=== PATIENT | male | born 1955 | race Hispanic/Latino ===

== ENCOUNTER 2016-07-16 10:11 | Emergency (ER) | payer MEDICARE, MEDICAID ==
[2016-07-16 10:11] VITALS: BMI 40.3
--- NOTE | 2016-07-16 11:05 | C.PDOC ---
History Of Present Illness 60 y/o male presents to the ED with complains of productive cough clear sputum, sore throat, frontal headache for the past 3 days with SOB onset today. Patient took xanax without relief. Denies chest pain, fever, vomiting or any other complaints. Time Seen by Provider: 07/16/16 10:32 Chief Complaint (Nursing): Shortness Of Breath History Per: Patient History/Exam Limitations: no limitations Onset/Duration Of Symptoms: Days Current Symptoms Are (Timing): Still Present Location Of Pain: Throat, Headache Sick Contacts (Context): None Associated Symptoms: Sore Throat, Cough, Sputum. denies: Fever, Chills, Vomiting, Diarrhea Severity: Mild Recent travel outside of the [place]: No Past Medical History Reviewed: Historical Data, Nursing Documentation, Vital Signs Vital Signs: Last Vital Signs Temp 98.1 F 07/16/16 10:20 Pulse 102 H 07/16/16 10:20 Resp 20 07/16/16 10:30 BP 151/67 H 07/16/16 10:20 Pulse Ox 100 07/16/16 11:14 - Medical History PMH: Anxiety, Asthma, Bipolar Disorder, CHF, COPD, Depression, Fractures (LEFT SHOULDER), Hepatitis, HTN Surgical History: Coronary Stent - [facility] Procedures CORONAR ARTERIOGR-2 CATH (08/23/13) INSERTION OF ONE VASCULAR STENT (08/23/13) INSRT OF DRUG-ELUTING CORON ARTERY STENTS(S) (08/23/13) LEFT HEART CARDIAC CATH (08/17/13) LT HEART ANGIOCARDIOGRAM (08/17/13) PERCUTANEOUS TRANSLUMINAL CORONARY ANGIOPLASTY [PTCA] (08/23/13) PROCEDURE ON SINGLE VESSEL (08/23/13) Family History: States: Unknown Family Hx - Social History Hx Tobacco Use: Yes Hx Alcohol Use: No Hx Substance Use: Yes - Immunization History Hx Tetanus Toxoid Vaccination: No Hx Influenza Vaccination: No Hx Pneumococcal Vaccination: No Review Of Systems Constitutional: Negative for: Fever, Weakness, Malaise ENT: Positive for: Nose Congestion, Throat Pain. Negative for: Ear Pain Cardiovascular: Negative for: Chest Pain, Palpitations Respiratory: Positive for: Cough, Shortness of Breath, Sputum (clear) Gastrointestinal: Negative for: Vomiting, Diarrhea Musculoskeletal: Negative for: Shoulder Pain Neurological: Positive for: Headache Psych: Positive for: Anxiety Physical Exam - Physical Exam Appears: Non-toxic, No Acute Distress Skin: Warm, Dry, No Rash Head: Atraumatic, Normacephalic Eye(s): bilateral: Normal Inspection, EOMI Ear(s): Bilateral: Normal Nose: Normal Oral Mucosa: Moist Throat: Normal, No Erythema Neck: Normal ROM, Supple Chest: Symmetrical Cardiovascular: Rhythm Regular, No Murmur Respiratory: Normal Breath Sounds, No Rales, No Rhonchi, No Wheezing Gastrointestinal/Abdominal: Soft Extremity: Bilateral: Atraumatic, Normal Color And Temperature, Normal ROM Neurological/Psych: Oriented x3, Normal Speech, Other (Anxious mood) Gait: Steady ED Course And Treatment O2 Sat by Pulse Oximetry: 100 (on room air) Pulse Ox Interpretation: Normal Medical Decision Making Medical Decision Makin y.o male with cough and sore throat for 3 days. CXR shows venous congestion and chronic changes, no focal consolidation, infiltrates or effusion. Patient treated with duonebs and Prednisone. Patient in no acute distress and has no fever in ED. No signs of sepsis. Patient advised to follow up with April and will treat for URI. Disposition Counseled Patient/Family Regarding: Diagnosis, Need For Followup, Rx Given - Disposition Referrals: Nelda Chen MD [Medical Doctor] - Disposition: HOME/ ROUTINE Disposition Time: 11:04 Condition: STABLE Additional Instructions: Your chest xray was normal, no pneumonia You have viral upper respiratory infection. Take Tylenol or Motrin alternating every 4-6 hours for Fever 100.4F or higher. Rest and drink plenty of fluids. May use cool mist humidifier or vaporizer in room. Try taking over the counter antihistamine (Claritin, Bernice, Zyrtec), Decongestant or Cough medicine ( Mucinex) as needed every 6-8 hours. Follow up with your primary medical doctor or clinic in 1 week for further evaluation. Prescriptions: Albuterol 0.083% [Albuterol 0.083% Inhal Ariana (2.5 mg/3 ml) UD] 2.5 mg IH Q4 # 100 neb Prednisone 50 mg PO DAILY #5 tablet Benzonatate [Tessalon Perles] 100 mg PO TID #30 sgl Albuterol HFA [Ventolin HFA 90 mcg/actuation (8 g)] 1 puff IH Q4 #1 puff Instructions: Upper Respiratory Infection (ED) - POA Present On Arrival: None - Clinical Impression Clinical Impression: URI (upper respiratory infection) - PA / COMPLIANCE ASSISTANT / Resident Statement MD/DO has reviewed & agrees with the documentation as recorded. - Scribe Statement The provider has reviewed the documentation as recorded by the Scribe Geronimo Dior All medical record entries made by the Scribe were at my direction and personally dictated by me. I have reviewed the chart and agree that the record accurately reflects my personal performance of the history, physical exam, medical decision making, and the department course for this patient. I have also personally directed, reviewed, and agree with the discharge instructions and disposition.
[2016-07-16] MEDS ORDERED: Albuterol-Ipratrop 3 mg / 0.5 (3 ml) UD ONE (11:36)
[2016-07-16] MEDS: Albuterol-Ipratrop 3 mg / 0.5 (3 ml) UD IH SCH ×2 (11:40→11:56)
[2016-07-16 12:07] VITALS: BP 144/78; PULSE 98; RESP 26; TEMP 98
[2016-07-16 12:08] VITALS: O2SAT 100
--- NOTE | 2016-07-16 13:30 | RAD ---
HISTORY: cough, SOB COMPARISON: No prior. TECHNIQUE: Chest PA and lateral FINDINGS: LUNGS: Slight increased interstitial -coarsened markings could be due to reactive/inflammatory airway disease however the possibility of mild chronic compensated with developing pulmonary edema/CHF to be considered. . Mild bibasilar atelectasis with suspected tiny bilateral effusions PLEURA: No pneumothorax apparent. CARDIOVASCULAR: Mild cardiomegaly OSSEOUS STRUCTURES: No significant abnormalities. VISUALIZED UPPER ABDOMEN: Normal. OTHER FINDINGS: None. IMPRESSION: Slight increased interstitial -coarsened markings could be due to reactive/inflammatory airway disease however the possibility of mild chronic compensated with developing pulmonary edema/CHF to be considered. . Mild bibasilar atelectasis with suspected tiny bilateral effusions
== END 2016-07-16 12:00 | disposition home or self-care (01) ==
LOC: C.ER 10:11
DX: J06.9 Acute upper respiratory infection, unspecified (principal); Z72.0 Tobacco use

== ENCOUNTER 2016-07-19 09:20 | Inpatient (IN) | payer MEDICARE, MEDICAID ==
[2016-07-19 09:20] VITALS: BMI 40.3
[2016-07-19] MEDS ORDERED: MethylPREDNISolone 40 mg Vial IVP STA (09:33)
[2016-07-19] MEDS ORDERED: Albuterol-Ipratrop 3 mg / 0.5 (3 ml) UD INH STA ×3 (09:33→09:34)
--- NOTE | 2016-07-19 09:37 | C.PDOC ---
History Of Present Illness 60 yo male, hx of copd, chf, presents with sob, cough. as per pt, seen in er yesterday. did not fill rx. pt reports worsening symptoms. (+)cough (+)chest tightness (-)abd pain (-)n/v/d Time Seen by Provider: 07/19/16 09:29 Chief Complaint (Nursing): Shortness Of Breath Past Medical History Reviewed: Historical Data, Nursing Documentation, Vital Signs Vital Signs: Last Vital Signs Temp 99.6 F 07/19/16 12:25 Pulse 95 H 07/19/16 13:55 Resp 16 07/19/16 13:55 BP 124/65 07/19/16 13:55 Pulse Ox 90 L 07/19/16 14:37 - Medical History PMH: Anxiety, Asthma, Bipolar Disorder, CHF, COPD, Depression, Fractures (LEFT SHOULDER), Hepatitis, HTN Denies: Hypothyroidism, Chronic Kidney Disease Surgical History: Coronary Stent - [facility] Procedures CORONAR ARTERIOGR-2 CATH (08/23/13) INSERTION OF ONE VASCULAR STENT (08/23/13) INSRT OF DRUG-ELUTING CORON ARTERY STENTS(S) (08/23/13) LEFT HEART CARDIAC CATH (08/17/13) LT HEART ANGIOCARDIOGRAM (08/17/13) PERCUTANEOUS TRANSLUMINAL CORONARY ANGIOPLASTY [PTCA] (08/23/13) PROCEDURE ON SINGLE VESSEL (08/23/13) Family History: States: Unknown Family Hx - Social History Hx Tobacco Use: Yes Hx Alcohol Use: No Hx Substance Use: Yes - Immunization History Hx Tetanus Toxoid Vaccination: No Hx Influenza Vaccination: No Hx Pneumococcal Vaccination: No Review Of Systems Cardiovascular: Positive for: Chest Pain Respiratory: Positive for: Cough, Shortness of Breath Physical Exam - Physical Exam Appears: No Acute Distress, Other (speaking 8-10 word sentences, mildly tachpneic, no accessory muscle use) Skin: Normal Color, Warm, Dry Eye(s): bilateral: Normal Inspection, PERRL, EOMI Nose: Normal Throat: Normal Neck: Normal Cardiovascular: Rhythm Regular Respiratory: Rhonchi, Wheezing (b/l) Gastrointestinal/Abdominal: Normal Exam Back: Normal Inspection Extremity: Normal ROM ED Course And Treatment - Laboratory Results Result Diagrams: 07/19/16 09:52 07/19/16 09:52 O2 Sat by Pulse Oximetry: 90 Medical Decision Making Medical Decision Making: suspected copd/chf- labs imaging pending. ekg sinus tach [address] t wave changes 1030: in er, pt spike fever, cxr left sided infilratre, vasc congestion as read by me. b/p stable, stable for tele. dr loera accepts. Disposition - Disposition Disposition: HOSPITALIZED Disposition Time: 10:39 Condition: STABLE - Clinical Impression Clinical Impression: CHF (congestive heart failure), COPD (chronic obstructive pulmonary disease), Pneumonia Decision To Admit - Pt Status Changed To: Hospital Disposition Of: Inpatient - Admit Certification Admit to Inpatient:: After my assessment, the patient will require hospitalization for at least two midnights. This is because of the severity of symptoms shown, intensity of services needed, and/or the medical risk in this patient being treated as an outpatient. - InPatient: Physician Admission Certification: I certify that this patient requires 2 or more midnights of care for the following reason:: pt needs nebs, steriods, diuresis, iv antibiotics - . Bed Request Type: Telemetry Admitting Physician: Elodia Loera Patient Diagnosis: CHF (congestive heart failure), COPD (chronic obstructive pulmonary disease), Pneumonia
[2016-07-19 09:55] LABS: BASO # 0.1 K/uL (0.0-0.2); BASO % 0.3 % (0.0-2.0); HEMATOCRIT 37.7 % (35.0-51.0); LYMPH # 0.9 K/uL (1.0-4.3); LYMPH % 3.5 % (20.0-40.0); MEAN CELL VOLUME 90.9 fL (80.0-94.0); MEAN CORPUSCULAR HEMOGLOBIN 29.2 pg (27.0-31.0); MEAN CORPUSCULAR HGB CONC 32.1 g/dL (33.0-37.0); MEAN PLATELET VOLUME 7.2 fL (7.2-11.7); MONO # 1.2 K/uL (0.0-0.8); MONO % 4.7 % (0.0-10.0); PLATELET COUNT 274 K/uL (130-400); RED CELL DISTRIBUTION WIDTH 14.6 % (11.5-14.5)
[2016-07-19 09:57] LABS: WHITE BLOOD COUNT 25.1 K/uL (4.8-10.8)
[2016-07-19] MEDS ORDERED: Azithromycin 500 MG in Sodium Chloride 0.9% 250 ML IVPB STA (10:00)
[2016-07-19] MEDS ORDERED: cefTRIAXone IV 1 gm in Dextros 50 ML IVPB ONE ×2 (10:00→10:26)
[2016-07-19 10:03] LABS: INR 1.2
[2016-07-19] MEDS ORDERED: Albuterol-Ipratrop 3 mg / 0.5 (3 ml) UD ONE ×2 (10:06→10:09)
[2016-07-19 10:14] LABS: CHLORIDE 90 mmol/L (98-107); POTASSIUM 4.1 mmol/L (3.6-5.2); SODIUM 136 mmol/L (132-148)
[2016-07-19 10:16] LABS: ALKALINE PHOSPHATASE 94 U/L (38-126); AST/SGOT 24 U/L (17-59); BILIRUBIN,TOTAL 0.8 mg/dL (0.2-1.3); CARBON DIOXIDE 31 mmol/L (22-30); GFR AFRICAN-AMERICAN > 60
[2016-07-19 10:17] LABS: ALT/SGPT 15 U/L (21-72); BLOOD UREA NITROGEN 13 mg/dL (9-20); GLUCOSE,RANDOM 110 mg/dL (75-110)
[2016-07-19 10:20] LABS: METAMYELOCYTE 1 % (0-0); NEUTROPHIL 75 % (50-75); TOTAL CELLS COUNTED 100
[2016-07-19 10:22] LABS: LARGE PLATELETS PRESENT
[2016-07-19 10:25] LABS: VENOUS BLOOD GAS BASE EXCESS 4.5 mmol/L (0.0-2.0); VENOUS BLOOD GAS PCO2 49 mmHg (40-60)
[2016-07-19] MEDS ORDERED: Azithromycin 500mg/250ML NS 250 ML IVPB ONE (10:27)
[2016-07-19 10:51] LABS: RBC URINE 24 /hpf (0-3); URINE BILIRUBIN NEGATIVE (NEGATIVE); URINE BLOOD 3+ (NEGATIVE); URINE COLOR Yellow (YELLOW); URINE GLUCOSE (UA) NORMAL (Normal); URINE HYALINE CAST 0-2 /lpf (0-2); URINE KETONE NEGATIVE (NEGATIVE); URINE LEUKOCYTE ESTERASE NEG Leu/uL (Negative); URINE PROTEIN 2+ mg/dL (NEGATIVE); URINE UROBILINOGEN NORMAL mg/dL (0.2-1.0); WBC URINE 3 /hpf (0-5)
--- NOTE | 2016-07-19 15:16 | RAD ---
PROCEDURE: CHEST RADIOGRAPH, 1 VIEW HISTORY: chest pain COMPARISON: 07/16/2016 FINDINGS: LUNGS: Opacity lower half left lung. Possible pneumonia. PLEURA: Hazy opacity left costophrenic angle may reflect small pleural effusion. No right pleural effusion. CARDIOVASCULAR: Normal. OSSEOUS STRUCTURES: No significant abnormalities. VISUALIZED UPPER ABDOMEN: Normal. OTHER FINDINGS: None. IMPRESSION: Opacity lower half left lung as well as opacification of left costophrenic angle. Possible pneumonia and left pleural effusion. Followup advised.
--- NOTE | 2016-07-19 16:27 | CP.PCM.CON ---
Past Patient History - Infectious Disease Hx of Infectious Diseases: None - Past Medical History & Family History Past Medical History?: Yes - Past Social History Smoking Status: Heavy Smoker > 10 Cigarettes Daily - CARDIAC Hx Congestive Heart Failure: Yes Hx Hypertension: Yes - PULMONARY Hx Asthma: Yes Hx Chronic Obstructive Pulmonary Disease (COPD): Yes - NEUROLOGICAL Hx Paralysis: No - HEENT Hx HEENT Problems: No - RENAL Hx Chronic Kidney Disease: No - ENDOCRINE/METABOLIC Hx Hypothyroidism: No - HEMATOLOGICAL/ONCOLOGICAL Hx Blood Disorders: Yes Hx Hepatitis C: Yes (resolved) - INTEGUMENTARY Hx Dermatological Problems: Yes - MUSCULOSKELETAL/RHEUMATOLOGICAL Hx Fractures: Yes (LEFT SHOULDER) - GASTROINTESTINAL Hx Gastrointestinal Disorders: No - GENITOURINARY/GYNECOLOGICAL Hx Genitourinary Disorders: Yes Hx Hematuria: Yes - PSYCHIATRIC Hx Anxiety: Yes Hx Bipolar Disorder: Yes Hx Depression: Yes Hx Substance Use: Yes - SURGICAL HISTORY Hx Coronary Stent: Yes - ANESTHESIA Hx Anesthesia: Yes Hx Anesthesia Reactions: No Hx Malignant Hyperthermia: No Meds Allergies/Adverse Reactions: Allergies Allergy/AdvReac Type Severity Reaction Status Date / Time No Known Allergies Allergy Verified 07/19/16 09:22 - Medications Medications: Current Medications Albuterol/Ipratropium (Duoneb 3 Mg/0.5 Mg (3 Ml) Ud) 3 ml INH RQ6 [facility] Alprazolam (Xanax) 0.25 mg PO BID [facility] Stop: 07/26/16 18:01 Aspirin (Aspirin Chewable) 81 mg PO DAILY [facility] Benzonatate (Tessalon Perles) 100 mg PO TID [facility] Enoxaparin Sodium (Lovenox) 40 mg SC DAILY [facility] Furosemide (Lasix) 40 mg IVP DAILY [facility] Moxifloxacin HCl (Avelox Iv 400mg/250ml Ns) 250 mls @ 167 mls/hr IVPB Q24H [facility] Ibuprofen (Motrin Tab) 400 mg PO Q8H PRN PRN Reason: Pain, moderate (4-7) Methadone HCl (Methadose) 80 mg PO DAILY [facility] Methylprednisolone (Solu-Medrol) 60 mg IVP Q8H [facility] Montelukast Sodium (Singulair) 10 mg PO HS [facility] Pantoprazole Sodium (Protonix Ec Tab) 40 mg PO DAILY [facility] Fluticasone/Salmeterol (Advair Diskus 250/50) 1 puff INH RQ12 [facility] Results - Vital Signs Recent Vital Signs: Last Vital Signs Temp 97.1 F L 07/19/16 15:32 Pulse 92 H 07/19/16 15:32 Resp 20 07/19/16 15:32 BP 117/73 07/19/16 15:32 Pulse Ox 94 L 07/19/16 15:32 - Labs Result Diagrams: 07/19/16 09:52 07/19/16 09:52
--- NOTE | 2016-07-19 17:23 | CP.PCM.HP ---
Present on Admission - Present on Admission Any Indicators Present on Admission: No Past Patient History - Infectious Disease Hx of Infectious Diseases: None - Past Medical History & Family History Past Medical History?: Yes - Past Social History Smoking Status: Heavy Smoker > 10 Cigarettes Daily - CARDIAC Hx Cardiac Disorders: Yes Hx Congestive Heart Failure: Yes Hx Hypertension: Yes - PULMONARY Hx Respiratory Disorders: Yes Hx Asthma: Yes Hx Chronic Obstructive Pulmonary Disease (COPD): Yes - NEUROLOGICAL Hx Neurological Disorder: No Hx Paralysis: No - HEENT Hx HEENT Problems: No - RENAL Hx Chronic Kidney Disease: No - ENDOCRINE/METABOLIC Hx Endocrine Disorders: No Hx Hypothyroidism: No - HEMATOLOGICAL/ONCOLOGICAL Hx Blood Disorders: Yes Hx Hepatitis C: Yes (resolved) - INTEGUMENTARY Hx Dermatological Problems: No - MUSCULOSKELETAL/RHEUMATOLOGICAL Hx Musculoskeletal Disorders: Yes Hx Falls: No Hx Fractures: Yes (LEFT SHOULDER) - GASTROINTESTINAL Hx Gastrointestinal Disorders: No - GENITOURINARY/GYNECOLOGICAL Hx Genitourinary Disorders: Yes Hx Hematuria: Yes Hx Prostate Problems: No - PSYCHIATRIC Hx Psychophysiologic Disorder: Yes Hx Anxiety: Yes Hx Bipolar Disorder: Yes Hx Depression: Yes Hx Substance Use: Yes - SURGICAL HISTORY Hx Surgeries: Yes Hx Coronary Stent: Yes - ANESTHESIA Hx Anesthesia: Yes Hx Anesthesia Reactions: No Hx Malignant Hyperthermia: No Meds Allergies/Adverse Reactions: Allergies Allergy/AdvReac Type Severity Reaction Status Date / Time No Known Allergies Allergy Verified 07/19/16 09:22 Physical Exam - Constitutional Appears: Well - Eye Exam Eye Exam: EOMI, Normal appearance, PERRL Pupil Exam: NORMAL ACCOMODATION, PERRL - ENT Exam ENT Exam: Mucous Membranes Moist, Normal Exam - Neck Exam Neck exam: Positive for: Normal Inspection - Respiratory Exam Respiratory Exam: Decreased Breath Sounds - Cardiovascular Exam Cardiovascular Exam: REGULAR RHYTHM, +S1, +S2 - GI/Abdominal Exam GI & Abdominal Exam: Diminished Bowel Sounds, Soft - Rectal Exam Rectal Exam: Deferred Results - Vital Signs Recent Vital Signs: Last Vital Signs Temp 97.1 F L 07/19/16 15:32 Pulse 103 H 07/19/16 16:47 Resp 20 07/19/16 15:32 BP 117/73 07/19/16 15:32 Pulse Ox 94 L 07/19/16 15:32 - Labs Result Diagrams: 07/19/16 20:05 07/19/16 20:05 Assessment & Plan (1) CHF (congestive heart failure) Status: Acute (2) CHF exacerbation Status: Chronic (3) Dyspnea Status: Acute (4) Exacerbation of asthma Status: Acute (5) Pneumonia Status: Acute (6) Prophylactic measure Status: Acute (7) CAD (coronary artery disease) Status: Chronic (8) COPD (chronic obstructive pulmonary disease) Status: Acute (9) HTN (hypertension) Status: Chronic (10) History of drug dependence/abuse Status: Chronic (11) Leg edema Status: Chronic (12) Acute tonsillitis Status: Acute (13) Asthma exacerbation in COPD Status: Acute (14) Bronchitis Status: Acute (15) COPD exacerbation Status: Acute (16) Anxiety Status: Chronic (17) CHF NYHA class II (symptoms with moderately strenuous activities) Status: Chronic (18) Hypothyroid Status: Chronic - Assessment and Plan (Free Text) Plan: solumedrol pulm cardui kevaqub\duoneb'protnix loveox singulair advair joey as ordered
[2016-07-19] MEDS: Enoxaparin 40 mg Syringe SC SCH (17:54)
[2016-07-19] MEDS ORDERED: Moxifloxacin IV 400mg/250ml NS 250 ML IVPB SCH (18:00)
[2016-07-19] MEDS: Albuterol-Ipratrop 3 mg / 0.5 (3 ml) UD INH SCH (19:42)
[2016-07-19] MEDS: Fluticasone-Salmeterol 250-50mcg Diskus INH SCH (19:43)
[2016-07-19 20:21] LABS: BASO % 0.1 % (0.0-2.0); HEMATOCRIT 36.6 % (35.0-51.0); LYMPH # 0.7 K/uL (1.0-4.3); LYMPH % 3.3 % (20.0-40.0); MEAN CELL VOLUME 91.1 fL (80.0-94.0); MEAN CORPUSCULAR HEMOGLOBIN 29.3 pg (27.0-31.0); MEAN CORPUSCULAR HGB CONC 32.1 g/dL (33.0-37.0); MEAN PLATELET VOLUME 7.5 fL (7.2-11.7); MONO # 0.5 K/uL (0.0-0.8); MONO % 2.4 % (0.0-10.0); PLATELET COUNT 283 K/uL (130-400); RED CELL DISTRIBUTION WIDTH 14.7 % (11.5-14.5); WHITE BLOOD COUNT 21.5 K/uL (4.8-10.8)
[2016-07-19 20:29] LABS: CHLORIDE 91 mmol/L (98-107)
[2016-07-19 20:30] LABS: POTASSIUM 3.9 mmol/L (3.6-5.2); SODIUM 134 mmol/L (132-148)
[2016-07-19 20:32] LABS: ALKALINE PHOSPHATASE 91 U/L (38-126); AST/SGOT 20 U/L (17-59); BILIRUBIN,TOTAL 0.4 mg/dL (0.2-1.3); BLOOD UREA NITROGEN 17 mg/dL (9-20); CARBON DIOXIDE 29 mmol/L (22-30); GFR AFRICAN-AMERICAN > 60; TOTAL PROTEIN 6.7 g/dL (6.3-8.3)
[2016-07-19 20:33] LABS: ALT/SGPT 21 U/L (21-72); CALCIUM 7.7 mg/dl (8.6-10.4); GLUCOSE,RANDOM 223 mg/dL (75-110)
[2016-07-19 20:55] LABS: NEUTROPHIL 96 % (50-75); TOTAL CELLS COUNTED 100
[2016-07-20] MEDS: Albuterol-Ipratrop 3 mg / 0.5 (3 ml) UD INH SCH ×4 (01:19→22:03)
[2016-07-20] MEDS: Fluticasone-Salmeterol 250-50mcg Diskus INH SCH ×2 (08:30→22:04)
--- NOTE | 2016-07-20 09:12 | CP.PCM.PN ---
<MishaKal H - Last Filed: 07/20/16 18:02> Subjective - Date & Time of Evaluation Date of Evaluation: 07/20/16 Time of Evaluation: 09:00 - Subjective Subjective: Dr. De La Rosa service: Patient is seen and examined in room. He reports having trouble with breathing because of his smoking habit. He says he has home oxygen but not the medicine for his nebulizer machine at home because he cannot afford it. He is here complaining of chest tightness, dry cough, and wheezing. He currently denies chest pain, palpitations, nausea, vomiting, or diarrhea. Objective - Vital Signs/Intake and Output Vital Signs (last 24 hours): Temp Pulse Resp BP Pulse Ox 97.5 F L 83 24 110/60 91 L 07/20/16 00:04 07/20/16 00:04 07/20/16 00:04 07/20/16 00:04 07/20/16 00:04 Intake and Output: 07/20/16 07/20/16 06:59 18:59 Intake Total 220 Balance 220 - Medications Medications: Current Medications Albuterol/Ipratropium (Duoneb 3 Mg/0.5 Mg (3 Ml) Ud) 3 ml INH RQ6 [facility] Last Admin: 07/20/16 08:30 Dose: 3 ml Alprazolam (Xanax) 0.25 mg PO BID [facility] Stop: 07/26/16 18:01 Last Admin: 07/19/16 22:48 Dose: 0.25 mg Aspirin (Aspirin Chewable) 81 mg PO DAILY [facility] Benzonatate (Tessalon Perles) 100 mg PO TID [facility] Last Admin: 07/19/16 17:55 Dose: 100 mg Enoxaparin Sodium (Lovenox) 40 mg SC DAILY [facility] Last Admin: 07/19/16 17:54 Dose: 40 mg Furosemide (Lasix) 40 mg IVP DAILY [facility] Moxifloxacin HCl (Avelox Iv 400mg/250ml Ns) 250 mls @ 167 mls/hr IVPB Q24H [facility] Last Admin: 07/19/16 17:56 Dose: 167 mls/hr Ibuprofen (Motrin Tab) 400 mg PO Q8H PRN PRN Reason: Pain, moderate (4-7) Methadone HCl (Methadose) 80 mg PO DAILY [facility] Methylprednisolone (Solu-Medrol) 60 mg IVP Q8H [facility] Last Admin: 07/20/16 08:06 Dose: 60 mg Montelukast Sodium (Singulair) 10 mg PO HS [facility] Last Admin: 07/19/16 21:35 Dose: 10 mg Pantoprazole Sodium (Protonix Ec Tab) 40 mg PO DAILY [facility] Fluticasone/Salmeterol (Advair Diskus 250/50) 1 puff INH RQ12 [facility] Last Admin: 07/19/16 19:43 Dose: 1 puff - Labs Labs: 07/19/16 20:05 07/19/16 20:05 PT 13.5 SECONDS (9.7-12.2) H 07/19/16 09:52 INR 1.2 07/19/16 09:52 APTT 36 SECONDS (21-34) H 07/19/16 09:52 - Constitutional Appears: Non-toxic, No Acute Distress - Head Exam Head Exam: ATRAUMATIC, NORMAL INSPECTION, NORMOCEPHALIC - Eye Exam Eye Exam: Normal appearance Pupil Exam: NORMAL ACCOMODATION - Respiratory Exam Respiratory Exam: Wheezes. absent: Clear to Ausculation Bilateral, Rhonchi Additional comments: prolonged expiratory wheezes heard in the lower lung gary - Cardiovascular Exam Cardiovascular Exam: REGULAR RHYTHM, RRR, +S1, +S2. absent: Gallop, Rubs - GI/Abdominal Exam GI & Abdominal Exam: Soft, Normal Bowel Sounds. absent: Tenderness - Extremities Exam Extremities Exam: Pedal Edema. absent: Normal Inspection - Back Exam Back Exam: NORMAL INSPECTION - Neurological Exam Neurological Exam: Alert - Psychiatric Exam Psychiatric exam: Anxious - Skin Skin Exam: Diaphoretic, Normal Color Assessment and Plan (1) COPD (chronic obstructive pulmonary disease) Assessment & Plan: Acute on chronic Patient is on Duoneb treatment, IV steroids, Advair, Singular, Avelox and Zosyn Follow up Pulm consult Status: Acute (2) CAD (coronary artery disease) Assessment & Plan: Aspirin and Statin Status: Chronic (3) CHF exacerbation Assessment & Plan: IV Lasix, cardiology consuled, follow up echo Status: Chronic (4) Opioid dependence Assessment & Plan: continue his methadone Status: Chronic (5) Cellulitis Assessment & Plan: Have added Zosyn IV antibiotics, follow up Dr. Crystal consult Blood and urine culture negative after 24 hours Status: Chronic (6) Panic attacks Assessment & Plan: continue home Xanax and Paxil Status: Chronic (7) Prophylactic measure Assessment & Plan: Protonix and Lovenox Status: Acute <Elodia De La Rosa S - Last Filed: 07/20/16 18:26> Objective - Vital Signs/Intake and Output Vital Signs (last 24 hours): Temp Pulse Resp BP Pulse Ox 97.3 F L 79 20 132/78 95 07/20/16 16:19 07/20/16 16:19 07/20/16 16:19 07/20/16 16:19 07/20/16 16:19 Intake and Output: 07/20/16 07/20/16 06:59 18:59 Intake Total 220 350 Balance 220 350 - Medications Medications: Current Medications Albuterol/Ipratropium (Duoneb 3 Mg/0.5 Mg (3 Ml) Ud) 3 ml INH RQ6 [facility] Last Admin: 07/20/16 14:03 Dose: Not Given Alprazolam (Xanax) 0.25 mg PO BID [facility] Stop: 07/26/16 18:01 Last Admin: 07/20/16 17:55 Dose: 0.25 mg Alprazolam (Xanax) 0.25 mg PO BID [facility] Stop: 07/27/16 18:01 Last Admin: 07/20/16 17:55 Dose: Not Given Aspirin (Aspirin Chewable) 81 mg PO DAILY [facility] Last Admin: 07/20/16 10:26 Dose: 81 mg Benzonatate (Tessalon Perles) 100 mg PO TID [facility] Last Admin: 07/20/16 17:55 Dose: 100 mg Enoxaparin Sodium (Lovenox) 40 mg SC DAILY [facility] Last Admin: 07/20/16 10:24 Dose: 40 mg Furosemide (Lasix) 40 mg IVP DAILY [facility] Last Admin: 07/20/16 10:25 Dose: 40 mg Piperacillin Sod/Tazobactam Sod (Zosyn 3.375 Gm Iv Premix) 50 mls @ 100 mls/hr IVPB Q6H [facility] Last Admin: 07/20/16 14:47 Dose: 100 mls/hr Azithromycin 500 mg/ Sodium (Chloride) 250 mls @ 167 mls/hr IVPB Q24H [facility] Last Admin: 07/20/16 15:46 Dose: 167 mls/hr Ibuprofen (Motrin Tab) 400 mg PO Q8H PRN PRN Reason: Pain, moderate (4-7) Methadone HCl (Methadose) 80 mg PO DAILY [facility] Last Admin: 07/20/16 10:26 Dose: 80 mg Methylprednisolone (Solu-Medrol) 60 mg IVP Q8H [facility] Last Admin: 07/20/16 16:01 Dose: 60 mg Montelukast Sodium (Singulair) 10 mg PO HS [facility] Last Admin: 07/19/16 21:35 Dose: 10 mg Pantoprazole Sodium (Protonix Ec Tab) 40 mg PO DAILY [facility] Last Admin: 07/20/16 10:26 Dose: 40 mg Paroxetine HCl (Paxil Cr) 12.5 mg PO DAILY [facility] Fluticasone/Salmeterol (Advair Diskus 250/50) 1 puff INH RQ12 [facility] Last Admin: 07/20/16 08:30 Dose: Not Given - Labs Labs: 07/19/16 20:05 07/19/16 20:05 PT 13.5 SECONDS (9.7-12.2) H 07/19/16 09:52 INR 1.2 07/19/16 09:52 APTT 36 SECONDS (21-34) H 07/19/16 09:52 Assessment and Plan (1) CHF (congestive heart failure) Status: Acute (2) CHF exacerbation Status: Chronic (3) Dyspnea Status: Acute (4) Exacerbation of asthma Status: Acute (5) Pneumonia Status: Acute (6) Prophylactic measure Status: Acute (7) CAD (coronary artery disease) Status: Chronic (8) COPD (chronic obstructive pulmonary disease) Status: Acute (9) HTN (hypertension) Status: Chronic (10) History of drug dependence/abuse Status: Chronic (11) Leg edema Status: Chronic (12) Acute tonsillitis Status: Acute (13) Asthma exacerbation in COPD Status: Acute (14) Bronchitis Status: Acute (15) COPD exacerbation Status: Acute (16) Anxiety Status: Chronic (17) CHF NYHA class II (symptoms with moderately strenuous activities) Status: Chronic (18) Hypothyroid Status: Chronic Attending/Attestation - Attestation I have personally seen and examined this patient.: Yes I have fully participated in the care of the patient.: Yes I have reviewed all pertinent clinical information, including history, physical exam and plan: Yes Notes (Text): 07/20/16 18:25 case seen and discussed with staff and resident
[2016-07-20] MEDS: Enoxaparin 40 mg Syringe SC SCH (10:24)
[2016-07-20] MEDS: Methadone 40 mg Tab PO SCH (10:26)
[2016-07-20] MEDS: Pantoprazole 40 mg EC Tab PO SCH (10:26)
--- NOTE | 2016-07-20 12:04 | CP.PCM.CON ---
History of Present Illness - History of Present Illness History of Present Illness: 60 yo male, hx of copd, chf, presents with sob, cough. as per pt, seen in er yesterday. did not fill rx. pt reports worsening symptoms. (+)cough (+)chest tightness (-)abd pain (-)n/v/d referred for ID eval pneumonia/copd - Medical History PMH: Anxiety, Asthma, Bipolar Disorder, CHF, COPD, Depression, Fractures (LEFT SHOULDER), Hepatitis, HTN Denies: Hypothyroidism, Chronic Kidney Disease Surgical History: Coronary Stent - [facility] Procedures CORONAR ARTERIOGR-2 CATH (08/23/13) INSERTION OF ONE VASCULAR STENT (08/23/13) INSRT OF DRUG-ELUTING CORON ARTERY STENTS(S) (08/23/13) LEFT HEART CARDIAC CATH (08/17/13) LT HEART ANGIOCARDIOGRAM (08/17/13) PERCUTANEOUS TRANSLUMINAL CORONARY ANGIOPLASTY [PTCA] (08/23/13) PROCEDURE ON SINGLE VESSEL (08/23/13) Review of Systems - Constitutional Constitutional: As Per HPI - EENT Eyes: absent: As Per HPI, Blind Spots, Blurred Vision, Change in Vision, Decreased Night Vision, Diplopia, Discharge, Dry Eye, Exophthalmos, Floaters, Irritation, Itchy Eyes, Loss of Peripheral Vision, Pain, Photophobia, Requires Corrective Lenses, Sees Flashes, Spots in Vision, Tunnel Vision, Other Visual Disturbances, Loss of Vision, Other Ears: absent: As Per HPI, Decreased Hearing, Ear Discharge, Ear Pain, Tinnitus, Abnormal Hearing, Disequilibrium, Dizziness, Other Nose/Mouth/Throat: absent: As Per HPI, Epistaxis, Nasal Congestion, Nasal Discharge, Nasal Obstruction, Nasal Trauma, Nose Pain, Post Nasal Drip, Sinus Pain, Sinus Pressure, Bleeding Gums, Change in Voice, Dental Pain, Dry Mouth, Dysphagia, Halitosis, Hoarsness, Lip Swelling, Mouth Lesions, Mouth Pain, Odynophagia, Sore Throat, Throat Swelling, Tongue Swelling, Facial Pain, Neck Pain, Neck Mass, Other - Cardiovascular Cardiovascular: As Per HPI - Respiratory Respiratory: As Per HPI, Cough, Dyspnea. absent: Hemoptysis - Gastrointestinal Gastrointestinal: absent: As Per HPI, Abdominal Pain, Belching, Bloating, Change in Bowel Habits, Change in Stool Character, Coffee Ground Emesis, Constipation, Cramping, Diarrhea, Dyspepsia, Dysphagia, Early Satiety, Excessive Flatus, Fecal Incontinence, Heartburn, Hematemesis, Hematochezia, Loose Stools, Melena, Nausea, Odynophagia, Temesmus, Vomiting, Other - Genitourinary Genitourinary: absent: As Per HPI, Change in Urinary Stream, Difficulty Urinating, Dysuria, Flank Pain, Hematuria, Pyuria, Nocturia, Urinary Incontinence, Urinary Frequency, Urinary Hesitance, Urinary Urgency, Voiding Freq/Small Amts, Freq UTI, Hx Renal/Bladder Calculi, Hx /Renal Surgery, Bladder Distension, Other - Musculoskeletal Musculoskeletal: absent: As Per HPI, Abnormal Gait, Arthralgias, Atrophy, Back Pain, Deformity, Joint Swelling, Limited Range of Motion, Loss of Height, Muscle Cramps, Muscle Weakness, Myalgias, Neck Pain, Numbness, Radiating Pain into Limb, Stiffness, Tingling, Other - Integumentary Integumentary: absent: As Per HPI, Acne, Alopecia, Bleeding Lesions, Change in Hair, Change in Nails, Change in Pigmentation, Changing Lesions, Dry Skin, Erythema, Furuncle, Hirsutism, Lesions, New Lesions, Non-Healing Lesions, Photosensitivity, Pruritus, Rash, Skin Pain, Skin Ulcer, Sores, Striae, Swelling , Unusual Bruising, Wounds, Jaundice, Other - Neurological Neurological: absent: As Per HPI, Abnormal Gait, Abnormal Hearing, Abnormal Movements, Abnormal Speech, Behavioral Changes, Burning Sensations, Confusion, Convulsions, Disequilibrium, Dizziness, Numbness, Focal Weakness, Frequent Falls , Headaches, Lack of Coordination, Loss of Vision, Memory Loss, Paresthesias, Radicular Pain, Restless Legs, Sensory Deficit, Syncope, Tingling, Tremor, Vertigo, Weakness, Other Visual Disturbances, Other - Psychiatric Psychiatric: absent: As Per HPI, Abnormal Sleep Pattern, Anhedonia, Anxiety, Auditory Hallucinations, Behavioral Changes, Change in Appetite, Change in Libido, Confusion, Depression, Difficulty Concentrating, Hallucinations, Homicidal Ideation, Hopelessness, Irritability, Memory Loss, Mood Swings, Panic Attacks, Paranoia, Suicidal Ideation, Visual Hallucinations, Tactile Hallucinations, Other - Endocrine Endocrine: absent: As Per HPI, Change in Body Appearance, Change in Libido, Cold Intolorance, Deepening of Voice, Excessive Sweating, Fatigue, Flushing, Heat Intolorance, Increase in Ring/Shoe/Hat Size, Palpitations, Polydipsia, Polyphagia, Polyuria, Other - Hematologic/Lymphatic Hematologic: absent: As Per HPI, Easy Bleeding, Easy Bruising, Lymphadenopathy, Other Past Patient History - Infectious Disease Hx of Infectious Diseases: None - Past Medical History & Family History Past Medical History?: Yes - Past Social History Smoking Status: Heavy Smoker > 10 Cigarettes Daily - CARDIAC Hx Cardiac Disorders: Yes Hx Congestive Heart Failure: Yes Hx Hypertension: Yes - PULMONARY Hx Chronic Obstructive Pulmonary Disease (COPD): Yes - NEUROLOGICAL Hx Neurological Disorder: No Hx Paralysis: No - HEENT Hx HEENT Problems: No - RENAL Hx Chronic Kidney Disease: No - ENDOCRINE/METABOLIC Hx Diabetes Mellitus Type 2: Yes (BORDERLINE NO CURRENT MEDS) Hx Hypothyroidism: No - HEMATOLOGICAL/ONCOLOGICAL Hx Blood Disorders: Yes Hx Hepatitis C: Yes (resolved) - INTEGUMENTARY Hx Dermatological Problems: No - MUSCULOSKELETAL/RHEUMATOLOGICAL Hx Musculoskeletal Disorders: Yes Hx Falls: No Hx Fractures: Yes (LEFT SHOULDER) - GASTROINTESTINAL Hx Gastrointestinal Disorders: No - GENITOURINARY/GYNECOLOGICAL Hx Genitourinary Disorders: Yes Hx Hematuria: Yes Hx Prostate Problems: No - PSYCHIATRIC Hx Psychophysiologic Disorder: Yes Hx Anxiety: Yes Hx Bipolar Disorder: Yes Hx Depression: Yes Hx Substance Use: Yes - SURGICAL HISTORY Hx Surgeries: Yes Hx Coronary Stent: Yes - ANESTHESIA Hx Anesthesia: Yes Hx Anesthesia Reactions: No Hx Malignant Hyperthermia: No Meds Allergies/Adverse Reactions: Allergies Allergy/AdvReac Type Severity Reaction Status Date / Time No Known Allergies Allergy Verified 07/19/16 09:22 - Medications Medications: Current Medications Albuterol/Ipratropium (Duoneb 3 Mg/0.5 Mg (3 Ml) Ud) 3 ml INH RQ6 [facility] Last Admin: 07/20/16 08:30 Dose: 3 ml Alprazolam (Xanax) 0.25 mg PO BID [facility] Stop: 07/26/16 18:01 Last Admin: 07/20/16 10:25 Dose: 0.25 mg Aspirin (Aspirin Chewable) 81 mg PO DAILY [facility] Last Admin: 07/20/16 10:26 Dose: 81 mg Benzonatate (Tessalon Perles) 100 mg PO TID [facility] Last Admin: 07/20/16 10:26 Dose: 100 mg Enoxaparin Sodium (Lovenox) 40 mg SC DAILY [facility] Last Admin: 07/20/16 10:24 Dose: 40 mg Furosemide (Lasix) 40 mg IVP DAILY [facility] Last Admin: 07/20/16 10:25 Dose: 40 mg Moxifloxacin HCl (Avelox Iv 400mg/250ml Ns) 250 mls @ 167 mls/hr IVPB Q24H [facility] Last Admin: 07/19/16 17:56 Dose: 167 mls/hr Ibuprofen (Motrin Tab) 400 mg PO Q8H PRN PRN Reason: Pain, moderate (4-7) Methadone HCl (Methadose) 80 mg PO DAILY [facility] Last Admin: 07/20/16 10:26 Dose: 80 mg Methylprednisolone (Solu-Medrol) 60 mg IVP Q8H [facility] Last Admin: 07/20/16 08:06 Dose: 60 mg Montelukast Sodium (Singulair) 10 mg PO HS [facility] Last Admin: 07/19/16 21:35 Dose: 10 mg Pantoprazole Sodium (Protonix Ec Tab) 40 mg PO DAILY [facility] Last Admin: 07/20/16 10:26 Dose: 40 mg Fluticasone/Salmeterol (Advair Diskus 250/50) 1 puff INH RQ12 [facility] Last Admin: 07/19/16 19:43 Dose: 1 puff Physical Exam - Constitutional Appears: Non-toxic, Chronically Ill - Head Exam Head Exam: NORMOCEPHALIC - Eye Exam Eye Exam: PERRL. absent: Scleral icterus - ENT Exam ENT Exam: Mucous Membranes Dry, Normal External Ear Exam, Normal Oropharynx - Neck Exam Neck exam: Negative for: Lymphadenopathy, Thyromegaly - Respiratory Exam Respiratory Exam: Decreased Breath Sounds, Rales, Rhonchi - Cardiovascular Exam Cardiovascular Exam: REGULAR RHYTHM, +S1, +S2 - GI/Abdominal Exam GI & Abdominal Exam: Diminished Bowel Sounds, Soft. absent: Tenderness - Rectal Exam Rectal Exam: Deferred - Exam Exam: NORMAL INSPECTION - Extremities Exam Extremities exam: Negative for: calf tenderness, pedal edema - Back Exam Back exam: absent: CVA tenderness (L), CVA tenderness (R) - Neurological Exam Neurological exam: Alert, CN II-XII Intact, Oriented x3, Reflexes Normal - Psychiatric Exam Psychiatric exam: Normal Mood - Skin Skin Exam: Dry, Intact Results - Vital Signs Recent Vital Signs: Last Vital Signs Temp 97.5 F L 07/20/16 00:04 Pulse 83 07/20/16 00:04 Resp 24 07/20/16 00:04 BP 121/71 07/20/16 10:25 Pulse Ox 91 L 07/20/16 00:04 - Labs Result Diagrams: 07/19/16 20:05 07/19/16 20:05 Labs: Laboratory Results - last 24 hr 07/19/16 20:05 WBC 21.5 H RBC 4.01 L Hgb 11.8 L Hct 36.6 MCV 91.1 MCH 29.3 MCHC 32.1 L RDW 14.7 H Plt Count 283 MPV 7.5 Neut % (Auto) 94.2 H Lymph % (Auto) 3.3 L Preston % (Auto) 2.4 Eos % (Auto) 0.0 Baso % (Auto) 0.1 Neut # 20.3 H Lymph # 0.7 L Preston # 0.5 Eos # 0.0 Baso # 0.0 Neutrophils % (Manual) 96 H Lymphocytes % (Manual) 3 L Monocytes % (Manual) 1 Platelet Estimate Normal Sodium 134 Potassium 3.9 Chloride 91 L Carbon Dioxide 29 Anion Gap 18 BUN 17 Creatinine 0.8 Est GFR ( Amer) > 60 Est GFR (Non-Af Amer) > 60 Random Glucose 223 H Calcium 7.7 L Total Bilirubin 0.4 AST 20 ALT 21 D Alkaline Phosphatase 91 Total Protein 6.7 Albumin 3.3 L Globulin 3.4 Albumin/Globulin Ratio 1.0 Assessment & Plan (1) CHF (congestive heart failure) Status: Acute (2) CHF exacerbation Status: Acute (3) Dyspnea Status: Acute (4) Exacerbation of asthma Status: Acute (5) Pneumonia Status: Acute (6) CAD (coronary artery disease) Status: Chronic (7) COPD (chronic obstructive pulmonary disease) Status: Chronic - Assessment and Plan (Free Text) Plan: cont iv antibiotcs await cultures
[2016-07-20] MEDS ORDERED: Azithromycin 500mg/250ML NS 250 ML IVPB SCH (14:30)
[2016-07-20] MEDS: Piperacill/Tazo 3.375gm in Dex 50 ML IVPB SCH ×2 (14:47→20:13)
[2016-07-20] MEDS: Azithromycin 500 MG in Sodium Chloride 0.9% 250 ML IVPB SCH (15:46)
--- NOTE | 2016-07-20 16:15 | CARD ---
APPROVED REPORT EKG Measurement Heart [id number] <Conclusion> Sinus tachycardia with premature supraventricular complexes Minimal voltage criteria for LVH, may be normal variant Borderline ECG
--- NOTE | 2016-07-20 17:01 | CP.PCM.PN ---
Subjective - Date & Time of Evaluation Date of Evaluation: 07/20/16 Time of Evaluation: 09:20 - Subjective Subjective: clinically same Objective - Vital Signs/Intake and Output Vital Signs (last 24 hours): Temp Pulse Resp BP Pulse Ox 97.3 F L 79 20 132/78 95 07/20/16 16:19 07/20/16 16:19 07/20/16 16:19 07/20/16 16:19 07/20/16 16:19 Intake and Output: 07/20/16 07/20/16 06:59 18:59 Intake Total 220 250 Balance 220 250 - Medications Medications: Current Medications Albuterol/Ipratropium (Duoneb 3 Mg/0.5 Mg (3 Ml) Ud) 3 ml INH RQ6 [facility] Last Admin: 07/20/16 14:03 Dose: Not Given Alprazolam (Xanax) 0.25 mg PO BID [facility] Stop: 07/26/16 18:01 Last Admin: 07/20/16 10:25 Dose: 0.25 mg Alprazolam (Xanax) 0.25 mg PO BID [facility] Stop: 07/27/16 18:01 Aspirin (Aspirin Chewable) 81 mg PO DAILY [facility] Last Admin: 07/20/16 10:26 Dose: 81 mg Benzonatate (Tessalon Perles) 100 mg PO TID [facility] Last Admin: 07/20/16 14:49 Dose: 100 mg Enoxaparin Sodium (Lovenox) 40 mg SC DAILY [facility] Last Admin: 07/20/16 10:24 Dose: 40 mg Furosemide (Lasix) 40 mg IVP DAILY [facility] Last Admin: 07/20/16 10:25 Dose: 40 mg Piperacillin Sod/Tazobactam Sod (Zosyn 3.375 Gm Iv Premix) 50 mls @ 100 mls/hr IVPB Q6H [facility] Last Admin: 07/20/16 14:47 Dose: 100 mls/hr Azithromycin 500 mg/ Sodium (Chloride) 250 mls @ 167 mls/hr IVPB Q24H [facility] Last Admin: 07/20/16 15:46 Dose: 167 mls/hr Ibuprofen (Motrin Tab) 400 mg PO Q8H PRN PRN Reason: Pain, moderate (4-7) Methadone HCl (Methadose) 80 mg PO DAILY [facility] Last Admin: 07/20/16 10:26 Dose: 80 mg Methylprednisolone (Solu-Medrol) 60 mg IVP Q8H [facility] Last Admin: 07/20/16 16:01 Dose: 60 mg Montelukast Sodium (Singulair) 10 mg PO HS [facility] Last Admin: 07/19/16 21:35 Dose: 10 mg Pantoprazole Sodium (Protonix Ec Tab) 40 mg PO DAILY [facility] Last Admin: 07/20/16 10:26 Dose: 40 mg Paroxetine HCl (Paxil Cr) 12.5 mg PO DAILY [facility] Fluticasone/Salmeterol (Advair Diskus 250/50) 1 puff INH RQ12 [facility] Last Admin: 07/20/16 08:30 Dose: Not Given - Labs Labs: 07/19/16 20:05 07/19/16 20:05 PT 13.5 SECONDS (9.7-12.2) H 07/19/16 09:52 INR 1.2 07/19/16 09:52 APTT 36 SECONDS (21-34) H 07/19/16 09:52 - Constitutional Appears: Well - Head Exam Head Exam: ATRAUMATIC, NORMAL INSPECTION, NORMOCEPHALIC - Eye Exam Eye Exam: EOMI, Normal appearance, PERRL Pupil Exam: NORMAL ACCOMODATION, PERRL - ENT Exam ENT Exam: Mucous Membranes Moist, Normal Exam - Neck Exam Neck Exam: Full ROM, Normal Inspection. absent: Lymphadenopathy - Respiratory Exam Respiratory Exam: Decreased Breath Sounds - Cardiovascular Exam Cardiovascular Exam: REGULAR RHYTHM, +S1, +S2 - GI/Abdominal Exam GI & Abdominal Exam: Soft, Diminished Bowel Sounds - Rectal Exam Rectal Exam: Deferred Assessment and Plan (1) CHF (congestive heart failure) Status: Acute (2) CHF exacerbation Status: Chronic (3) Dyspnea Status: Acute (4) Exacerbation of asthma Status: Acute (5) Pneumonia Status: Acute (6) Prophylactic measure Status: Acute (7) CAD (coronary artery disease) Status: Chronic (8) COPD (chronic obstructive pulmonary disease) Status: Acute (9) HTN (hypertension) Status: Chronic (10) History of drug dependence/abuse Status: Chronic (11) Leg edema Status: Chronic (12) Acute tonsillitis Status: Acute (13) Asthma exacerbation in COPD Status: Acute (14) Bronchitis Status: Acute (15) COPD exacerbation Status: Acute (16) Anxiety Status: Chronic (17) CHF NYHA class II (symptoms with moderately strenuous activities) Status: Chronic (18) Hypothyroid Status: Chronic
--- NOTE | 2016-07-20 18:15 | CP.PCM.PN ---
Subjective - Date & Time of Evaluation Date of Evaluation: 07/20/16 Time of Evaluation: 18:15 Objective - Vital Signs/Intake and Output Vital Signs (last 24 hours): Temp Pulse Resp BP Pulse Ox 97.3 F L 79 20 132/78 95 07/20/16 16:19 07/20/16 16:19 07/20/16 16:19 07/20/16 16:19 07/20/16 16:19 Intake and Output: 07/20/16 07/20/16 06:59 18:59 Intake Total 220 350 Balance 220 350 - Medications Medications: Current Medications Albuterol/Ipratropium (Duoneb 3 Mg/0.5 Mg (3 Ml) Ud) 3 ml INH RQ6 [facility] Last Admin: 07/20/16 14:03 Dose: Not Given Alprazolam (Xanax) 0.25 mg PO BID [facility] Stop: 07/26/16 18:01 Last Admin: 07/20/16 17:55 Dose: 0.25 mg Alprazolam (Xanax) 0.25 mg PO BID [facility] Stop: 07/27/16 18:01 Last Admin: 07/20/16 17:55 Dose: Not Given Aspirin (Aspirin Chewable) 81 mg PO DAILY [facility] Last Admin: 07/20/16 10:26 Dose: 81 mg Benzonatate (Tessalon Perles) 100 mg PO TID [facility] Last Admin: 07/20/16 17:55 Dose: 100 mg Enoxaparin Sodium (Lovenox) 40 mg SC DAILY [facility] Last Admin: 07/20/16 10:24 Dose: 40 mg Furosemide (Lasix) 40 mg IVP DAILY [facility] Last Admin: 07/20/16 10:25 Dose: 40 mg Piperacillin Sod/Tazobactam Sod (Zosyn 3.375 Gm Iv Premix) 50 mls @ 100 mls/hr IVPB Q6H [facility] Last Admin: 07/20/16 14:47 Dose: 100 mls/hr Azithromycin 500 mg/ Sodium (Chloride) 250 mls @ 167 mls/hr IVPB Q24H [facility] Last Admin: 07/20/16 15:46 Dose: 167 mls/hr Ibuprofen (Motrin Tab) 400 mg PO Q8H PRN PRN Reason: Pain, moderate (4-7) Methadone HCl (Methadose) 80 mg PO DAILY [facility] Last Admin: 07/20/16 10:26 Dose: 80 mg Methylprednisolone (Solu-Medrol) 60 mg IVP Q8H [facility] Last Admin: 07/20/16 16:01 Dose: 60 mg Montelukast Sodium (Singulair) 10 mg PO HS [facility] Last Admin: 07/19/16 21:35 Dose: 10 mg Pantoprazole Sodium (Protonix Ec Tab) 40 mg PO DAILY [facility] Last Admin: 07/20/16 10:26 Dose: 40 mg Paroxetine HCl (Paxil Cr) 12.5 mg PO DAILY [facility] Fluticasone/Salmeterol (Advair Diskus 250/50) 1 puff INH RQ12 [facility] Last Admin: 07/20/16 08:30 Dose: Not Given - Labs Labs: 07/19/16 20:05 07/19/16 20:05 PT 13.5 SECONDS (9.7-12.2) H 07/19/16 09:52 INR 1.2 07/19/16 09:52 APTT 36 SECONDS (21-34) H 07/19/16 09:52
--- NOTE | 2016-07-20 23:01 | CP.PCM.CON ---
History of Present Illness - History of Present Illness History of Present Illness: 60 male with Hx of CAD s/p L Cx stent, HTN, DM2, Obesity Admitted for cough/Bronchitis and dyspnea [facility] ProBNP suggestive of CHF Mionitor troponins, Trops Check ECHO Past Patient History - Infectious Disease Hx of Infectious Diseases: None - Past Medical History & Family History Past Medical History?: Yes - Past Social History Smoking Status: Heavy Smoker > 10 Cigarettes Daily - CARDIAC Hx Cardiac Disorders: Yes Hx Congestive Heart Failure: Yes Hx Hypertension: Yes - PULMONARY Hx Respiratory Disorders: Yes Hx Asthma: Yes Hx Chronic Obstructive Pulmonary Disease (COPD): Yes - NEUROLOGICAL Hx Neurological Disorder: No Hx Paralysis: No - HEENT Hx HEENT Problems: No - RENAL Hx Chronic Kidney Disease: No - ENDOCRINE/METABOLIC Hx Endocrine Disorders: No Hx Hypothyroidism: No - HEMATOLOGICAL/ONCOLOGICAL Hx Blood Disorders: Yes Hx Hepatitis C: Yes (resolved) - INTEGUMENTARY Hx Dermatological Problems: No - MUSCULOSKELETAL/RHEUMATOLOGICAL Hx Musculoskeletal Disorders: Yes Hx Falls: No Hx Fractures: Yes (LEFT SHOULDER) - GASTROINTESTINAL Hx Gastrointestinal Disorders: No - GENITOURINARY/GYNECOLOGICAL Hx Genitourinary Disorders: Yes Hx Hematuria: Yes Hx Prostate Problems: No - PSYCHIATRIC Hx Psychophysiologic Disorder: Yes Hx Anxiety: Yes Hx Bipolar Disorder: Yes Hx Depression: Yes Hx Substance Use: Yes - SURGICAL HISTORY Hx Surgeries: Yes Hx Coronary Stent: Yes - ANESTHESIA Hx Anesthesia: Yes Hx Anesthesia Reactions: No Hx Malignant Hyperthermia: No Meds Allergies/Adverse Reactions: Allergies Allergy/AdvReac Type Severity Reaction Status Date / Time No Known Allergies Allergy Verified 07/19/16 09:22 - Medications Medications: Current Medications Albuterol/Ipratropium (Duoneb 3 Mg/0.5 Mg (3 Ml) Ud) 3 ml INH RQ6 [facility] Last Admin: 07/20/16 22:03 Dose: 3 ml Alprazolam (Xanax) 0.25 mg PO BID [facility] Stop: 07/26/16 18:01 Last Admin: 07/20/16 17:55 Dose: 0.25 mg Alprazolam (Xanax) 0.25 mg PO BID [facility] Stop: 07/27/16 18:01 Last Admin: 07/20/16 17:55 Dose: Not Given Aspirin (Aspirin Chewable) 81 mg PO DAILY [facility] Last Admin: 07/20/16 10:26 Dose: 81 mg Benzonatate (Tessalon Perles) 100 mg PO TID [facility] Last Admin: 07/20/16 17:55 Dose: 100 mg Enoxaparin Sodium (Lovenox) 40 mg SC DAILY [facility] Last Admin: 07/20/16 10:24 Dose: 40 mg Furosemide (Lasix) 40 mg IVP DAILY [facility] Last Admin: 07/20/16 10:25 Dose: 40 mg Piperacillin Sod/Tazobactam Sod (Zosyn 3.375 Gm Iv Premix) 50 mls @ 100 mls/hr IVPB Q6H [facility] Last Admin: 07/20/16 20:13 Dose: 100 mls/hr Azithromycin 500 mg/ Sodium (Chloride) 250 mls @ 167 mls/hr IVPB Q24H [facility] Last Admin: 07/20/16 15:46 Dose: 167 mls/hr Ibuprofen (Motrin Tab) 400 mg PO Q8H PRN PRN Reason: Pain, moderate (4-7) Methadone HCl (Methadose) 80 mg PO DAILY [facility] Last Admin: 07/20/16 10:26 Dose: 80 mg Methylprednisolone (Solu-Medrol) 60 mg IVP Q8H [facility] Last Admin: 07/20/16 16:01 Dose: 60 mg Montelukast Sodium (Singulair) 10 mg PO HS [facility] Last Admin: 07/20/16 21:59 Dose: 10 mg Pantoprazole Sodium (Protonix Ec Tab) 40 mg PO DAILY [facility] Last Admin: 07/20/16 10:26 Dose: 40 mg Paroxetine HCl (Paxil Cr) 12.5 mg PO DAILY [facility] Last Admin: 07/20/16 18:32 Dose: 12.5 mg Fluticasone/Salmeterol (Advair Diskus 250/50) 1 puff INH RQ12 [facility] Last Admin: 07/20/16 22:04 Dose: Not Given Results - Vital Signs Recent Vital Signs: Last Vital Signs Temp 97.5 F L 07/20/16 22:00 Pulse 84 07/20/16 22:00 Resp 18 07/20/16 22:00 BP 117/64 07/20/16 22:00 Pulse Ox 95 07/20/16 16:19 - Labs Result Diagrams: 07/19/16 20:05 07/19/16 20:05
[2016-07-21] MEDS: Albuterol-Ipratrop 3 mg / 0.5 (3 ml) UD INH SCH ×4 (01:35→20:23)
[2016-07-21] MEDS: Piperacill/Tazo 3.375gm in Dex 50 ML IVPB SCH ×4 (02:25→19:42)
[2016-07-21] MEDS: Fluticasone-Salmeterol 250-50mcg Diskus INH SCH ×2 (07:20→20:22)
[2016-07-21 07:31] LABS: CHLORIDE 94 mmol/L (98-107); SODIUM 139 mmol/L (132-148)
[2016-07-21 07:34] LABS: ALKALINE PHOSPHATASE 83 U/L (38-126); ALT/SGPT 11 U/L (21-72); AST/SGOT 13 U/L (17-59); BILIRUBIN,TOTAL 0.3 mg/dL (0.2-1.3); CARBON DIOXIDE 31 mmol/L (22-30); GFR AFRICAN-AMERICAN > 60; GLUCOSE,RANDOM 174 mg/dL (75-110); PHOSPHOROUS 3.5 mg/dL (2.5-4.5); TOTAL PROTEIN 6.6 g/dL (6.3-8.3)
[2016-07-21 07:35] LABS: CALCIUM 7.8 mg/dl (8.6-10.4); MAGNESIUM 2.9 mg/dL (1.6-2.3)
[2016-07-21 07:42] LABS: BASO % 0.1 % (0.0-2.0); HEMATOCRIT 35.6 % (35.0-51.0); LYMPH # 1.1 K/uL (1.0-4.3); LYMPH % 7.1 % (20.0-40.0); MEAN CELL VOLUME 91.5 fL (80.0-94.0); MEAN CORPUSCULAR HEMOGLOBIN 29.8 pg (27.0-31.0); MEAN CORPUSCULAR HGB CONC 32.6 g/dL (33.0-37.0); MEAN PLATELET VOLUME 7.5 fL (7.2-11.7); MONO # 0.5 K/uL (0.0-0.8); MONO % 3.3 % (0.0-10.0); NRBC % 0.1 % (0.0-2.0); PLATELET COUNT 301 K/uL (130-400)
[2016-07-21 07:47] LABS: BLOOD UREA NITROGEN 31 mg/dL (9-20)
[2016-07-21 10:06] LABS: NEUTROPHIL 85 % (50-75); TOTAL CELLS COUNTED 100
--- NOTE | 2016-07-21 10:26 | CP.PCM.PN ---
Subjective - Date & Time of Evaluation Date of Evaluation: 07/21/16 Time of Evaluation: 10:00 - Subjective Subjective: clinically same Objective - Vital Signs/Intake and Output Vital Signs (last 24 hours): Temp Pulse Resp BP Pulse Ox 97.6 F 88 20 134/78 92 L 07/21/16 07:00 07/21/16 07:00 07/21/16 07:00 07/21/16 07:00 07/21/16 07:00 Intake and Output: 07/21/16 07/21/16 06:59 18:59 Intake Total 250 Balance 250 - Medications Medications: Current Medications Albuterol/Ipratropium (Duoneb 3 Mg/0.5 Mg (3 Ml) Ud) 3 ml INH RQ6 [facility] Last Admin: 07/21/16 07:20 Dose: 3 ml Alprazolam (Xanax) 0.25 mg PO BID [facility] Stop: 07/26/16 18:01 Last Admin: 07/20/16 17:55 Dose: 0.25 mg Aspirin (Aspirin Chewable) 81 mg PO DAILY [facility] Last Admin: 07/20/16 10:26 Dose: 81 mg Benzonatate (Tessalon Perles) 100 mg PO TID [facility] Last Admin: 07/20/16 17:55 Dose: 100 mg Enoxaparin Sodium (Lovenox) 40 mg SC DAILY [facility] Last Admin: 07/20/16 10:24 Dose: 40 mg Furosemide (Lasix) 40 mg IVP DAILY [facility] Last Admin: 07/20/16 10:25 Dose: 40 mg Piperacillin Sod/Tazobactam Sod (Zosyn 3.375 Gm Iv Premix) 50 mls @ 100 mls/hr IVPB Q6H [facility] Last Admin: 07/21/16 08:48 Dose: 100 mls/hr Azithromycin 500 mg/ Sodium (Chloride) 250 mls @ 167 mls/hr IVPB Q24H [facility] Last Admin: 07/20/16 15:46 Dose: 167 mls/hr Ibuprofen (Motrin Tab) 400 mg PO Q8H PRN PRN Reason: Pain, moderate (4-7) Methadone HCl (Methadose) 80 mg PO DAILY [facility] Last Admin: 07/20/16 10:26 Dose: 80 mg Methylprednisolone (Solu-Medrol) 60 mg IVP Q8H [facility] Last Admin: 07/21/16 08:48 Dose: 60 mg Montelukast Sodium (Singulair) 10 mg PO HS [facility] Last Admin: 07/20/16 21:59 Dose: 10 mg Pantoprazole Sodium (Protonix Ec Tab) 40 mg PO DAILY [facility] Last Admin: 07/20/16 10:26 Dose: 40 mg Paroxetine HCl (Paxil Cr) 12.5 mg PO DAILY [facility] Last Admin: 07/20/16 18:32 Dose: 12.5 mg Fluticasone/Salmeterol (Advair Diskus 250/50) 1 puff INH RQ12 [facility] Last Admin: 07/21/16 07:20 Dose: 1 puff - Labs Labs: 07/21/16 07:11 07/21/16 07:11 PT 13.5 SECONDS (9.7-12.2) H 07/19/16 09:52 INR 1.2 07/19/16 09:52 APTT 36 SECONDS (21-34) H 07/19/16 09:52 - Constitutional Appears: Well - Head Exam Head Exam: ATRAUMATIC, NORMAL INSPECTION, NORMOCEPHALIC - Eye Exam Eye Exam: EOMI, Normal appearance, PERRL Pupil Exam: NORMAL ACCOMODATION, PERRL - ENT Exam ENT Exam: Mucous Membranes Moist, Normal Exam - Neck Exam Neck Exam: Full ROM, Normal Inspection. absent: Lymphadenopathy - Respiratory Exam Respiratory Exam: Decreased Breath Sounds - Cardiovascular Exam Cardiovascular Exam: REGULAR RHYTHM, +S1, +S2 - GI/Abdominal Exam GI & Abdominal Exam: Soft, Diminished Bowel Sounds - Rectal Exam Rectal Exam: Deferred Assessment and Plan (1) CHF (congestive heart failure) Status: Acute (2) CHF exacerbation Status: Chronic (3) Dyspnea Status: Acute (4) Exacerbation of asthma Status: Acute (5) Pneumonia Status: Acute (6) Prophylactic measure Status: Acute (7) CAD (coronary artery disease) Status: Chronic (8) COPD (chronic obstructive pulmonary disease) Status: Acute (9) HTN (hypertension) Status: Chronic (10) History of drug dependence/abuse Status: Chronic (11) Leg edema Status: Chronic (12) Acute tonsillitis Status: Acute (13) Asthma exacerbation in COPD Status: Acute (14) Bronchitis Status: Acute (15) COPD exacerbation Status: Acute (16) Anxiety Status: Chronic (17) CHF NYHA class II (symptoms with moderately strenuous activities) Status: Chronic (18) Hypothyroid Status: Chronic
[2016-07-21] MEDS: Methadone 40 mg Tab PO SCH (11:14)
[2016-07-21] MEDS: Pantoprazole 40 mg EC Tab PO SCH (11:14)
[2016-07-21] MEDS: Enoxaparin 40 mg Syringe SC SCH (11:14)
--- NOTE | 2016-07-21 14:02 | CP.PCM.PN ---
<Malka Bonner H - Last Filed: 07/21/16 14:00> Subjective - Date & Time of Evaluation Date of Evaluation: 07/21/16 Time of Evaluation: 10:20 - Subjective Subjective: PGY2 Medicine Note - Dr. Sola De La Rosa's Service: Patient seen and evaluated at bedside this AM. Patient says his leg feels better and that he is breathing much more comfortably. Patient denies fever, chills, chest pain, abdominal pain, nausea, vomiting, diarrhea, constipation, dysuria. Objective - Vital Signs/Intake and Output Vital Signs (last 24 hours): Temp Pulse Resp BP Pulse Ox 97.6 F 88 20 138/67 92 L 07/21/16 07:00 07/21/16 07:00 07/21/16 07:00 07/21/16 11:14 07/21/16 07:00 Intake and Output: 07/21/16 07/21/16 06:59 18:59 Intake Total 250 Balance 250 - Medications Medications: Current Medications Albuterol/Ipratropium (Duoneb 3 Mg/0.5 Mg (3 Ml) Ud) 3 ml INH RQ6 [facility] Last Admin: 07/21/16 13:56 Dose: 3 ml Alprazolam (Xanax) 0.25 mg PO BID [facility] Stop: 07/26/16 18:01 Last Admin: 07/21/16 11:14 Dose: 0.25 mg Aspirin (Aspirin Chewable) 81 mg PO DAILY [facility] Last Admin: 07/21/16 11:14 Dose: 81 mg Benzonatate (Tessalon Perles) 100 mg PO TID [facility] Last Admin: 07/21/16 13:33 Dose: 100 mg Enoxaparin Sodium (Lovenox) 40 mg SC DAILY [facility] Last Admin: 07/21/16 11:14 Dose: 40 mg Furosemide (Lasix) 40 mg IVP DAILY [facility] Last Admin: 07/21/16 11:14 Dose: 40 mg Piperacillin Sod/Tazobactam Sod (Zosyn 3.375 Gm Iv Premix) 50 mls @ 100 mls/hr IVPB Q6H [facility] Last Admin: 07/21/16 13:31 Dose: 100 mls/hr Azithromycin 500 mg/ Sodium (Chloride) 250 mls @ 167 mls/hr IVPB Q24H [facility] Last Admin: 07/20/16 15:46 Dose: 167 mls/hr Ibuprofen (Motrin Tab) 400 mg PO Q8H PRN PRN Reason: Pain, moderate (4-7) Methadone HCl (Methadose) 80 mg PO DAILY [facility] Last Admin: 07/21/16 11:14 Dose: 80 mg Methylprednisolone (Solu-Medrol) 60 mg IVP Q8H [facility] Last Admin: 07/21/16 08:48 Dose: 60 mg Montelukast Sodium (Singulair) 10 mg PO HS [facility] Last Admin: 07/20/16 21:59 Dose: 10 mg Pantoprazole Sodium (Protonix Ec Tab) 40 mg PO DAILY [facility] Last Admin: 07/21/16 11:14 Dose: 40 mg Paroxetine HCl (Paxil Cr) 12.5 mg PO DAILY [facility] Last Admin: 07/21/16 11:14 Dose: 12.5 mg Fluticasone/Salmeterol (Advair Diskus 250/50) 1 puff INH RQ12 [facility] Last Admin: 07/21/16 07:20 Dose: 1 puff - Labs Labs: 07/21/16 07:11 07/21/16 07:11 PT 13.5 SECONDS (9.7-12.2) H 07/19/16 09:52 INR 1.2 07/19/16 09:52 APTT 36 SECONDS (21-34) H 07/19/16 09:52 - Constitutional Appears: Non-toxic, No Acute Distress - Head Exam Head Exam: NORMAL INSPECTION - Eye Exam Eye Exam: EOMI - ENT Exam ENT Exam: Mucous Membranes Moist - Respiratory Exam Respiratory Exam: Rhonchi, Wheezes, NORMAL BREATHING PATTERN. absent: Rales - Cardiovascular Exam Cardiovascular Exam: REGULAR RHYTHM, +S1, +S2. absent: Gallop, Rubs, Murmur - GI/Abdominal Exam GI & Abdominal Exam: Soft, Normal Bowel Sounds. absent: Distended, Firm, Tenderness - Extremities Exam Additional comments: erythematous and warm left lower leg - Neurological Exam Neurological Exam: Alert, Oriented x3 - Psychiatric Exam Psychiatric exam: Normal Affect, Normal Mood - Skin Skin Exam: Normal Color, Warm Assessment and Plan - Assessment and Plan (Free Text) Assessment: (1) COPD (chronic obstructive pulmonary disease) Assessment & Plan: Acute on chronic Patient is on Duoneb treatment, IV steroids, Advair, Singular, Avelox and Zosyn Follow up Pulm consult Status: Acute (2) CAD (coronary artery disease) Assessment & Plan: Aspirin and Statin Status: Chronic (3) CHF exacerbation Assessment & Plan: IV Lasix, cardiology consulted, follow up echo F/U CXR in AM Status: Chronic (4) Opioid dependence Assessment & Plan: continue his methadone Status: Chronic (5) Cellulitis Assessment & Plan: Have added Zosyn IV antibiotics, follow up Dr. Crystal consult Blood and urine culture negative after 24 hours Status: Chronic (6) Panic attacks Assessment & Plan: continue home Xanax and Paxil Status: Chronic (7) Prophylactic measure Assessment & Plan: Protonix and Lovenox Status: Acute <Elodia De La Rosa S - Last Filed: 07/21/16 18:14> Objective - Vital Signs/Intake and Output Vital Signs (last 24 hours): Temp Pulse Resp BP Pulse Ox 97.5 F L 90 20 104/56 L 96 07/21/16 16:00 07/21/16 16:00 07/21/16 16:00 07/21/16 16:00 07/21/16 16:00 Intake and Output: 07/21/16 07/21/16 06:59 18:59 Intake Total 250 100 Balance 250 100 - Medications Medications: Current Medications Albuterol/Ipratropium (Duoneb 3 Mg/0.5 Mg (3 Ml) Ud) 3 ml INH RQ6 [facility] Last Admin: 07/21/16 13:56 Dose: 3 ml Alprazolam (Xanax) 0.25 mg PO BID [facility] Stop: 07/26/16 18:01 Last Admin: 07/21/16 17:37 Dose: 0.25 mg Aspirin (Aspirin Chewable) 81 mg PO DAILY [facility] Last Admin: 07/21/16 11:14 Dose: 81 mg Benzonatate (Tessalon Perles) 100 mg PO TID [facility] Last Admin: 07/21/16 17:37 Dose: 100 mg Enoxaparin Sodium (Lovenox) 40 mg SC DAILY [facility] Last Admin: 07/21/16 11:14 Dose: 40 mg Furosemide (Lasix) 40 mg IVP DAILY [facility] Last Admin: 07/21/16 11:14 Dose: 40 mg Piperacillin Sod/Tazobactam Sod (Zosyn 3.375 Gm Iv Premix) 50 mls @ 100 mls/hr IVPB Q6H [facility] Last Admin: 07/21/16 13:31 Dose: 100 mls/hr Azithromycin 500 mg/ Sodium (Chloride) 250 mls @ 167 mls/hr IVPB Q24H [facility] Last Admin: 07/21/16 14:49 Dose: 167 mls/hr Ibuprofen (Motrin Tab) 400 mg PO Q8H PRN PRN Reason: Pain, moderate (4-7) Methadone HCl (Methadose) 80 mg PO DAILY [facility] Last Admin: 07/21/16 11:14 Dose: 80 mg Methylprednisolone (Solu-Medrol) 60 mg IVP Q8H [facility] Last Admin: 07/21/16 15:37 Dose: 60 mg Montelukast Sodium (Singulair) 10 mg PO HS [facility] Last Admin: 07/20/16 21:59 Dose: 10 mg Pantoprazole Sodium (Protonix Ec Tab) 40 mg PO DAILY [facility] Last Admin: 07/21/16 11:14 Dose: 40 mg Paroxetine HCl (Paxil Cr) 12.5 mg PO DAILY [facility] Last Admin: 07/21/16 11:14 Dose: 12.5 mg Fluticasone/Salmeterol (Advair Diskus 250/50) 1 puff INH RQ12 [facility] Last Admin: 07/21/16 07:20 Dose: 1 puff - Labs Labs: 07/21/16 07:11 07/21/16 07:11 PT 13.5 SECONDS (9.7-12.2) H 07/19/16 09:52 INR 1.2 07/19/16 09:52 APTT 36 SECONDS (21-34) H 07/19/16 09:52 Assessment and Plan (1) CHF (congestive heart failure) Status: Acute (2) CHF exacerbation Status: Chronic (3) Dyspnea Status: Acute (4) Exacerbation of asthma Status: Acute (5) Pneumonia Status: Acute (6) Prophylactic measure Status: Acute (7) CAD (coronary artery disease) Status: Chronic (8) COPD (chronic obstructive pulmonary disease) Status: Acute (9) HTN (hypertension) Status: Chronic (10) History of drug dependence/abuse Status: Chronic (11) Leg edema Status: Chronic (12) Acute tonsillitis Status: Acute (13) Asthma exacerbation in COPD Status: Acute (14) Bronchitis Status: Acute (15) COPD exacerbation Status: Acute (16) Anxiety Status: Chronic (17) CHF NYHA class II (symptoms with moderately strenuous activities) Status: Chronic (18) Hypothyroid Status: Chronic Attending/Attestation - Attestation I have personally seen and examined this patient.: Yes I have fully participated in the care of the patient.: Yes I have reviewed all pertinent clinical information, including history, physical exam and plan: Yes Notes (Text): 07/21/16 18:14 case sen and discussed [facility] staff adn resident
[2016-07-21] MEDS: Azithromycin 500 MG in Sodium Chloride 0.9% 250 ML IVPB SCH (14:49)
[2016-07-21 17:32] LABS: ABG ALLEN TEST POS; DRAW SITE RBA; HHB 2.8 % (0.0-5.0); METHEMOGLOBIN 1.2 % (0.0-3.0)
--- NOTE | 2016-07-21 18:07 | CP.PCM.CON ---
History of Present Illness - History of Present Illness History of Present Illness: Patient is known to me from office practice. Patient is a 60 year old male with PMH HTN, CAD s/p stent left circumflex artery who presents with cough, dyspnea. Patient was found to have pneumonia and is currently on antibiotics. The patient denies chest pain. He has noted productive cough recently. Review of Systems - Constitutional Constitutional: absent: As Per HPI, Anorexia, Chills, Daytime Sleepiness, Excessive Sweating, Fatigue, Fever, Frequent Falls, Headache, Increased Appetite , Lethargy, Malaise, Night Sweats, Snoring, Sleep Apnea, Weight Gain, Weight Loss, Weakness, Other - EENT Eyes: absent: As Per HPI, Blind Spots, Blurred Vision, Change in Vision, Decreased Night Vision, Diplopia, Discharge, Dry Eye, Exophthalmos, Floaters, Irritation, Itchy Eyes, Loss of Peripheral Vision, Pain, Photophobia, Requires Corrective Lenses, Sees Flashes, Spots in Vision, Tunnel Vision, Other Visual Disturbances, Loss of Vision, Other Ears: absent: As Per HPI, Decreased Hearing, Ear Discharge, Ear Pain, Tinnitus, Abnormal Hearing, Disequilibrium, Dizziness, Other Nose/Mouth/Throat: absent: As Per HPI, Epistaxis, Nasal Congestion, Nasal Discharge, Nasal Obstruction, Nasal Trauma, Nose Pain, Post Nasal Drip, Sinus Pain, Sinus Pressure, Bleeding Gums, Change in Voice, Dental Pain, Dry Mouth, Dysphagia, Halitosis, Hoarsness, Lip Swelling, Mouth Lesions, Mouth Pain, Odynophagia, Sore Throat, Throat Swelling, Tongue Swelling, Facial Pain, Neck Pain, Neck Mass, Other - Cardiovascular Cardiovascular: Dyspnea - Respiratory Respiratory: Dyspnea - Gastrointestinal Gastrointestinal: absent: As Per HPI, Abdominal Pain, Belching, Bloating, Change in Bowel Habits, Change in Stool Character, Coffee Ground Emesis, Constipation, Cramping, Diarrhea, Dyspepsia, Dysphagia, Early Satiety, Excessive Flatus, Fecal Incontinence, Heartburn, Hematemesis, Hematochezia, Loose Stools, Melena, Nausea, Odynophagia, Temesmus, Vomiting, Other - Genitourinary Genitourinary: absent: As Per HPI, Change in Urinary Stream, Difficulty Urinating, Dysuria, Flank Pain, Hematuria, Pyuria, Nocturia, Urinary Incontinence, Urinary Frequency, Urinary Hesitance, Urinary Urgency, Voiding Freq/Small Amts, Freq UTI, Hx Renal/Bladder Calculi, Hx /Renal Surgery, Bladder Distension, Other - Musculoskeletal Musculoskeletal: absent: As Per HPI, Abnormal Gait, Arthralgias, Atrophy, Back Pain, Deformity, Joint Swelling, Limited Range of Motion, Loss of Height, Muscle Cramps, Muscle Weakness, Myalgias, Neck Pain, Numbness, Radiating Pain into Limb, Stiffness, Tingling, Other - Integumentary Integumentary: absent: As Per HPI, Acne, Alopecia, Bleeding Lesions, Change in Hair, Change in Nails, Change in Pigmentation, Changing Lesions, Dry Skin, Erythema, Furuncle, Hirsutism, Lesions, New Lesions, Non-Healing Lesions, Photosensitivity, Pruritus, Rash, Skin Pain, Skin Ulcer, Sores, Striae, Swelling , Unusual Bruising, Wounds, Jaundice, Other - Neurological Neurological: absent: As Per HPI, Abnormal Gait, Abnormal Hearing, Abnormal Movements, Abnormal Speech, Behavioral Changes, Burning Sensations, Confusion, Convulsions, Disequilibrium, Dizziness, Numbness, Focal Weakness, Frequent Falls , Headaches, Lack of Coordination, Loss of Vision, Memory Loss, Paresthesias, Radicular Pain, Restless Legs, Sensory Deficit, Syncope, Tingling, Tremor, Vertigo, Weakness, Other Visual Disturbances, Other - Psychiatric Psychiatric: absent: As Per HPI, Abnormal Sleep Pattern, Anhedonia, Anxiety, Auditory Hallucinations, Behavioral Changes, Change in Appetite, Change in Libido, Confusion, Depression, Difficulty Concentrating, Hallucinations, Homicidal Ideation, Hopelessness, Irritability, Memory Loss, Mood Swings, Panic Attacks, Paranoia, Suicidal Ideation, Visual Hallucinations, Tactile Hallucinations, Other - Endocrine Endocrine: absent: As Per HPI, Change in Body Appearance, Change in Libido, Cold Intolorance, Deepening of Voice, Excessive Sweating, Fatigue, Flushing, Heat Intolorance, Increase in Ring/Shoe/Hat Size, Palpitations, Polydipsia, Polyphagia, Polyuria, Other - Hematologic/Lymphatic Hematologic: absent: As Per HPI, Easy Bleeding, Easy Bruising, Lymphadenopathy, Other Past Patient History - Infectious Disease Hx of Infectious Diseases: None - Past Medical History & Family History Past Medical History?: Yes - Past Social History Smoking Status: Heavy Smoker > 10 Cigarettes Daily - CARDIAC Hx Cardiac Disorders: Yes Hx Congestive Heart Failure: Yes Hx Hypertension: Yes - PULMONARY Hx Respiratory Disorders: Yes Hx Asthma: Yes Hx Chronic Obstructive Pulmonary Disease (COPD): Yes - NEUROLOGICAL Hx Neurological Disorder: No Hx Paralysis: No - HEENT Hx HEENT Problems: No - RENAL Hx Chronic Kidney Disease: No - ENDOCRINE/METABOLIC Hx Endocrine Disorders: No Hx Hypothyroidism: No - HEMATOLOGICAL/ONCOLOGICAL Hx Blood Disorders: Yes Hx Hepatitis C: Yes (resolved) - INTEGUMENTARY Hx Dermatological Problems: No - MUSCULOSKELETAL/RHEUMATOLOGICAL Hx Musculoskeletal Disorders: Yes Hx Falls: No Hx Fractures: Yes (LEFT SHOULDER) - GASTROINTESTINAL Hx Gastrointestinal Disorders: No - GENITOURINARY/GYNECOLOGICAL Hx Genitourinary Disorders: Yes Hx Hematuria: Yes Hx Prostate Problems: No - PSYCHIATRIC Hx Psychophysiologic Disorder: Yes Hx Anxiety: Yes Hx Bipolar Disorder: Yes Hx Depression: Yes Hx Substance Use: Yes - SURGICAL HISTORY Hx Surgeries: Yes Hx Coronary Stent: Yes - ANESTHESIA Hx Anesthesia: Yes Hx Anesthesia Reactions: No Hx Malignant Hyperthermia: No Meds Allergies/Adverse Reactions: Allergies Allergy/AdvReac Type Severity Reaction Status Date / Time No Known Allergies Allergy Verified 07/19/16 09:22 - Medications Medications: Current Medications Albuterol/Ipratropium (Duoneb 3 Mg/0.5 Mg (3 Ml) Ud) 3 ml INH RQ6 [facility] Last Admin: 07/21/16 13:56 Dose: 3 ml Alprazolam (Xanax) 0.25 mg PO BID [facility] Stop: 07/26/16 18:01 Last Admin: 07/21/16 17:37 Dose: 0.25 mg Aspirin (Aspirin Chewable) 81 mg PO DAILY [facility] Last Admin: 07/21/16 11:14 Dose: 81 mg Benzonatate (Tessalon Perles) 100 mg PO TID [facility] Last Admin: 07/21/16 17:37 Dose: 100 mg Enoxaparin Sodium (Lovenox) 40 mg SC DAILY [facility] Last Admin: 07/21/16 11:14 Dose: 40 mg Furosemide (Lasix) 40 mg IVP DAILY [facility] Last Admin: 07/21/16 11:14 Dose: 40 mg Piperacillin Sod/Tazobactam Sod (Zosyn 3.375 Gm Iv Premix) 50 mls @ 100 mls/hr IVPB Q6H [facility] Last Admin: 07/21/16 13:31 Dose: 100 mls/hr Azithromycin 500 mg/ Sodium (Chloride) 250 mls @ 167 mls/hr IVPB Q24H [facility] Last Admin: 07/21/16 14:49 Dose: 167 mls/hr Ibuprofen (Motrin Tab) 400 mg PO Q8H PRN PRN Reason: Pain, moderate (4-7) Methadone HCl (Methadose) 80 mg PO DAILY [facility] Last Admin: 07/21/16 11:14 Dose: 80 mg Methylprednisolone (Solu-Medrol) 60 mg IVP Q8H [facility] Last Admin: 07/21/16 15:37 Dose: 60 mg Montelukast Sodium (Singulair) 10 mg PO HS [facility] Last Admin: 07/20/16 21:59 Dose: 10 mg Pantoprazole Sodium (Protonix Ec Tab) 40 mg PO DAILY [facility] Last Admin: 07/21/16 11:14 Dose: 40 mg Paroxetine HCl (Paxil Cr) 12.5 mg PO DAILY [facility] Last Admin: 07/21/16 11:14 Dose: 12.5 mg Fluticasone/Salmeterol (Advair Diskus 250/50) 1 puff INH RQ12 [facility] Last Admin: 07/21/16 07:20 Dose: 1 puff Physical Exam - Constitutional Appears: Non-toxic - Head Exam Head Exam: NORMAL INSPECTION - Eye Exam Eye Exam: Normal appearance - ENT Exam ENT Exam: Mucous Membranes Moist - Neck Exam Neck exam: Positive for: Full Rom - Respiratory Exam Respiratory Exam: Decreased Breath Sounds - Cardiovascular Exam Cardiovascular Exam: REGULAR RHYTHM - GI/Abdominal Exam GI & Abdominal Exam: Normal Bowel Sounds - Rectal Exam Rectal Exam: Deferred - Extremities Exam Extremities exam: Positive for: pedal edema - Back Exam Back exam: NORMAL INSPECTION - Neurological Exam Neurological exam: Alert, Oriented x3 - Psychiatric Exam Psychiatric exam: Normal Affect - Skin Skin Exam: Normal Color Results - Vital Signs Recent Vital Signs: Last Vital Signs Temp 97.5 F L 07/21/16 16:00 Pulse 90 07/21/16 16:00 Resp 20 07/21/16 16:00 BP 104/56 L 07/21/16 16:00 Pulse Ox 96 07/21/16 16:00 - Labs Result Diagrams: 07/21/16 07:11 07/21/16 07:11 Labs: Laboratory Results - last 24 hr 07/21/16 07/21/16 07:11 17:25 WBC 15.0 H RBC 3.89 L Hgb 11.6 L Hct 35.6 MCV 91.5 MCH 29.8 MCHC 32.6 L RDW 15.0 H Plt Count 301 MPV 7.5 Neut % (Auto) 89.5 H Lymph % (Auto) 7.1 L [place] % (Auto) 3.3 Eos % (Auto) 0.0 Baso % (Auto) 0.1 Neut # 13.4 H Lymph # 1.1 [place] # 0.5 Eos # 0.0 Baso # 0.0 Neutrophils % (Manual) 85 H Lymphocytes % (Manual) 12 L Monocytes % (Manual) 3 Platelet Estimate Normal Hypochromasia (manual) Slight Poikilocytosis (manual Slight Anisocytosis (manual) Slight Target Cells Slight Puncture Site Rba pCO2 60 H pO2 78 L HCO3 30.9 H ABG pH 7.37 ABG Total CO2 36.5 H ABG O2 Saturation 97.1 ABG Base Excess 7.7 H ABG Hemoglobin 11.5 L ABG Carboxyhemoglobin 2.0 H POC ABG HHb (Measured) 2.8 ABG Methemoglobin 1.2 Paool Test Pos A-a O2 Difference 75.0 Respiratory Index 1.0 Hgb O2 Saturation 94.0 L FiO2 32.0 Sodium 139 Potassium 4.0 Chloride 94 L Carbon Dioxide 31 H Anion Gap 18 BUN 31 H Creatinine 0.7 L Est GFR ( Amer) > 60 Est GFR (Non-Af Amer) > 60 Random Glucose 174 H Calcium 7.8 L Phosphorus 3.5 Magnesium 2.9 H Total Bilirubin 0.3 AST 13 L D ALT 11 L D Alkaline Phosphatase 83 Total Protein 6.6 Albumin 3.2 L Globulin 3.4 Albumin/Globulin Ratio 1.0 - EKG Data EKG Interpreted by: Myself EKG shows normal: Sinus rhythm Assessment & Plan (1) COPD (chronic obstructive pulmonary disease) Assessment and Plan: bronchodilator therapy Status: Acute (2) CHF NYHA class II (symptoms with moderately strenuous activities) Assessment and Plan: will continue current medical management Status: Chronic (3) CAD (coronary artery disease) Assessment and Plan: recommend antiplatelet therapy. check echocardiogram Status: Chronic (4) HTN (hypertension) Assessment and Plan: blood pressure control Status: Chronic
--- NOTE | 2016-07-21 20:04 | CP.PCM.PN ---
Subjective - Date & Time of Evaluation Date of Evaluation: 07/21/16 Time of Evaluation: 20:04 Objective - Vital Signs/Intake and Output Vital Signs (last 24 hours): Temp Pulse Resp BP Pulse Ox 97.5 F L 90 20 104/56 L 96 07/21/16 16:00 07/21/16 16:00 07/21/16 16:00 07/21/16 16:00 07/21/16 16:00 Intake and Output: 07/21/16 07/22/16 18:59 06:59 Intake Total 400 50 Balance 400 50 - Medications Medications: Current Medications Albuterol/Ipratropium (Duoneb 3 Mg/0.5 Mg (3 Ml) Ud) 3 ml INH RQ6 [facility] Last Admin: 07/21/16 13:56 Dose: 3 ml Alprazolam (Xanax) 0.25 mg PO BID [facility] Stop: 07/26/16 18:01 Last Admin: 07/21/16 17:37 Dose: 0.25 mg Aspirin (Aspirin Chewable) 81 mg PO DAILY [facility] Last Admin: 07/21/16 11:14 Dose: 81 mg Benzonatate (Tessalon Perles) 100 mg PO TID [facility] Last Admin: 07/21/16 17:37 Dose: 100 mg Enoxaparin Sodium (Lovenox) 40 mg SC DAILY [facility] Last Admin: 07/21/16 11:14 Dose: 40 mg Furosemide (Lasix) 40 mg IVP DAILY [facility] Last Admin: 07/21/16 11:14 Dose: 40 mg Piperacillin Sod/Tazobactam Sod (Zosyn 3.375 Gm Iv Premix) 50 mls @ 100 mls/hr IVPB Q6H [facility] Last Admin: 07/21/16 19:42 Dose: 100 mls/hr Azithromycin 500 mg/ Sodium (Chloride) 250 mls @ 167 mls/hr IVPB Q24H [facility] Last Admin: 07/21/16 14:49 Dose: 167 mls/hr Ibuprofen (Motrin Tab) 400 mg PO Q8H PRN PRN Reason: Pain, moderate (4-7) Methadone HCl (Methadose) 80 mg PO DAILY [facility] Last Admin: 07/21/16 11:14 Dose: 80 mg Methylprednisolone (Solu-Medrol) 60 mg IVP Q8H [facility] Last Admin: 07/21/16 15:37 Dose: 60 mg Montelukast Sodium (Singulair) 10 mg PO HS [facility] Last Admin: 07/20/16 21:59 Dose: 10 mg Pantoprazole Sodium (Protonix Ec Tab) 40 mg PO DAILY [facility] Last Admin: 07/21/16 11:14 Dose: 40 mg Paroxetine HCl (Paxil Cr) 12.5 mg PO DAILY [facility] Last Admin: 07/21/16 11:14 Dose: 12.5 mg Fluticasone/Salmeterol (Advair Diskus 250/50) 1 puff INH RQ12 [facility] Last Admin: 07/21/16 07:20 Dose: 1 puff - Labs Labs: 07/21/16 07:11 07/21/16 07:11 PT 13.5 SECONDS (9.7-12.2) H 07/19/16 09:52 INR 1.2 07/19/16 09:52 APTT 36 SECONDS (21-34) H 07/19/16 09:52
[2016-07-22] MEDS: Albuterol-Ipratrop 3 mg / 0.5 (3 ml) UD INH SCH ×4 (01:25→19:26)
[2016-07-22] MEDS: Piperacill/Tazo 3.375gm in Dex 50 ML IVPB SCH ×4 (01:36→19:46)
[2016-07-22] MEDS: Fluticasone-Salmeterol 250-50mcg Diskus INH SCH ×2 (07:15→19:28)
[2016-07-22 08:08] LABS: BASO % 0.2 % (0.0-2.0); HEMATOCRIT 35.6 % (35.0-51.0); LYMPH % 9.6 % (20.0-40.0); MEAN CELL VOLUME 91.7 fL (80.0-94.0); MEAN CORPUSCULAR HGB CONC 32.7 g/dL (33.0-37.0); MEAN PLATELET VOLUME 7.3 fL (7.2-11.7); MONO # 0.3 K/uL (0.0-0.8); MONO % 2.7 % (0.0-10.0); NRBC % 0.1 % (0.0-2.0); PLATELET COUNT 276 K/uL (130-400); RED CELL DISTRIBUTION WIDTH 14.9 % (11.5-14.5); WHITE BLOOD COUNT 10.7 K/uL (4.8-10.8)
[2016-07-22 08:19] LABS: CHLORIDE 94 mmol/L (98-107); SODIUM 141 mmol/L (132-148)
[2016-07-22 08:22] LABS: ALKALINE PHOSPHATASE 77 U/L (38-126); ALT/SGPT 20 U/L (21-72); AST/SGOT 16 U/L (17-59); BILIRUBIN,TOTAL 0.3 mg/dL (0.2-1.3); BLOOD UREA NITROGEN 26 mg/dL (9-20); CALCIUM 7.6 mg/dl (8.6-10.4); CARBON DIOXIDE 34 mmol/L (22-30); GFR AFRICAN-AMERICAN > 60; GLUCOSE,RANDOM 190 mg/dL (75-110); TOTAL PROTEIN 6.2 g/dL (6.3-8.3)
[2016-07-22 08:48] LABS: NEUTROPHIL 75 % (50-75); NUCLEATED RED BLOOD CELL 1 % (0-0); TOTAL CELLS COUNTED 100
[2016-07-22] MEDS: Methadone 40 mg Tab PO SCH (09:08)
[2016-07-22] MEDS: Enoxaparin 40 mg Syringe SC SCH (09:08)
[2016-07-22] MEDS: Pantoprazole 40 mg EC Tab PO SCH (09:08)
[2016-07-22 09:21] VITALS: O2SAT 95
--- NOTE | 2016-07-22 10:39 | CP.PCM.PN ---
Subjective - Date & Time of Evaluation Date of Evaluation: 07/22/16 Time of Evaluation: 10:38 Objective - Vital Signs/Intake and Output Vital Signs (last 24 hours): Temp Pulse Resp BP Pulse Ox 97.4 F L 72 20 160/83 H 95 07/22/16 07:00 07/22/16 07:00 07/22/16 07:00 07/22/16 09:08 07/22/16 07:00 Intake and Output: 07/22/16 07/22/16 06:59 18:59 Intake Total 150 Balance 150 - Medications Medications: Current Medications Albuterol/Ipratropium (Duoneb 3 Mg/0.5 Mg (3 Ml) Ud) 3 ml INH RQ6 [facility] Last Admin: 07/22/16 07:15 Dose: 3 ml Alprazolam (Xanax) 0.25 mg PO BID [facility] Stop: 07/26/16 18:01 Last Admin: 07/22/16 09:08 Dose: 0.25 mg Aspirin (Aspirin Chewable) 81 mg PO DAILY [facility] Last Admin: 07/22/16 09:08 Dose: 81 mg Benzonatate (Tessalon Perles) 100 mg PO TID [facility] Last Admin: 07/22/16 09:09 Dose: 100 mg Enoxaparin Sodium (Lovenox) 40 mg SC DAILY [facility] Last Admin: 07/22/16 09:08 Dose: 40 mg Furosemide (Lasix) 40 mg IVP DAILY [facility] Last Admin: 07/22/16 09:08 Dose: 40 mg Piperacillin Sod/Tazobactam Sod (Zosyn 3.375 Gm Iv Premix) 50 mls @ 100 mls/hr IVPB Q6H [facility] Last Admin: 07/22/16 09:07 Dose: 100 mls/hr Azithromycin 500 mg/ Sodium (Chloride) 250 mls @ 167 mls/hr IVPB Q24H [facility] Last Admin: 07/21/16 14:49 Dose: 167 mls/hr Ibuprofen (Motrin Tab) 400 mg PO Q8H PRN PRN Reason: Pain, moderate (4-7) Methadone HCl (Methadose) 80 mg PO DAILY [facility] Last Admin: 07/22/16 09:08 Dose: 80 mg Methylprednisolone (Solu-Medrol) 60 mg IVP Q8H [facility] Last Admin: 07/22/16 09:07 Dose: 60 mg Montelukast Sodium (Singulair) 10 mg PO HS [facility] Last Admin: 07/21/16 21:28 Dose: 10 mg Pantoprazole Sodium (Protonix Ec Tab) 40 mg PO DAILY [facility] Last Admin: 07/22/16 09:08 Dose: 40 mg Paroxetine HCl (Paxil Cr) 12.5 mg PO DAILY [facility] Last Admin: 07/22/16 09:08 Dose: 12.5 mg Fluticasone/Salmeterol (Advair Diskus 250/50) 1 puff INH RQ12 [facility] Last Admin: 07/22/16 07:15 Dose: 1 puff - Labs Labs: 07/22/16 08:00 07/22/16 08:00 PT 13.5 SECONDS (9.7-12.2) H 07/19/16 09:52 INR 1.2 07/19/16 09:52 APTT 36 SECONDS (21-34) H 07/19/16 09:52
--- NOTE | 2016-07-22 11:02 | RAD ---
Chest x-ray two views History: Pneumonia. Comparison: 07/19/2016 Findings: Prominent patchy consolidative changes seen within the left mid to lower lung zone concerning for underlying infiltrate. Posttreatment followup exam is recommended to ensure resolution and exclude underlying lesion. Question associated small left pleural effusion. Biapical pleural thickening with upper lobe granulomatous changes. Mild venous congestion. Mild right hilar prominence. Tortuous aorta. Top normal heart size. Degenerative changes in the spine and shoulders. Rounded radiopaque sclerotic density projects over the left scapula of uncertain clinical etiology. Clinical correlation. Impression: 1. Prominent patchy consolidative changes seen within the left mid to lower lung zone concerning for underlying infiltrate. Posttreatment followup exam is recommended to ensure resolution and exclude underlying lesion. 2. Question associated small left pleural effusion. 3. Rounded radiopaque sclerotic density projects over the left scapula of uncertain clinical etiology. Clinical correlation. Additional findings as above.
--- NOTE | 2016-07-22 12:45 | CP.PCM.PN ---
Subjective - Date & Time of Evaluation Date of Evaluation: 07/22/16 Time of Evaluation: 14:15 - Subjective Subjective: PGY2 Medicine Note - Dr. Sola De La Rosa's Service: Patient seen and evaluated at bedside this AM. Patient reports improved breathing. Patient denies fever, chills, chest pain, cough, abdominal pain, nausea, vomiting, diarrhea, constipation. Objective - Vital Signs/Intake and Output Vital Signs (last 24 hours): Temp Pulse Resp BP Pulse Ox 97.4 F L 72 20 160/83 H 95 07/22/16 07:00 07/22/16 07:00 07/22/16 07:00 07/22/16 09:08 07/22/16 07:00 Intake and Output: 07/22/16 07/22/16 06:59 18:59 Intake Total 150 Balance 150 - Medications Medications: Current Medications Albuterol/Ipratropium (Duoneb 3 Mg/0.5 Mg (3 Ml) Ud) 3 ml INH RQ6 [facility] Last Admin: 07/22/16 07:15 Dose: 3 ml Alprazolam (Xanax) 0.25 mg PO BID [facility] Stop: 07/26/16 18:01 Last Admin: 07/22/16 09:08 Dose: 0.25 mg Aspirin (Aspirin Chewable) 81 mg PO DAILY [facility] Last Admin: 07/22/16 09:08 Dose: 81 mg Benzonatate (Tessalon Perles) 100 mg PO TID [facility] Last Admin: 07/22/16 09:09 Dose: 100 mg Enoxaparin Sodium (Lovenox) 40 mg SC DAILY [facility] Last Admin: 07/22/16 09:08 Dose: 40 mg Furosemide (Lasix) 40 mg IVP DAILY [facility] Last Admin: 07/22/16 09:08 Dose: 40 mg Piperacillin Sod/Tazobactam Sod (Zosyn 3.375 Gm Iv Premix) 50 mls @ 100 mls/hr IVPB Q6H [facility] Last Admin: 07/22/16 09:07 Dose: 100 mls/hr Azithromycin 500 mg/ Sodium (Chloride) 250 mls @ 167 mls/hr IVPB Q24H [facility] Last Admin: 07/21/16 14:49 Dose: 167 mls/hr Ibuprofen (Motrin Tab) 400 mg PO Q8H PRN PRN Reason: Pain, moderate (4-7) Methadone HCl (Methadose) 80 mg PO DAILY [facility] Last Admin: 07/22/16 09:08 Dose: 80 mg Methylprednisolone (Solu-Medrol) 60 mg IVP Q8H [facility] Last Admin: 07/22/16 09:07 Dose: 60 mg Montelukast Sodium (Singulair) 10 mg PO HS [facility] Last Admin: 07/21/16 21:28 Dose: 10 mg Pantoprazole Sodium (Protonix Ec Tab) 40 mg PO DAILY [facility] Last Admin: 07/22/16 09:08 Dose: 40 mg Paroxetine HCl (Paxil Cr) 12.5 mg PO DAILY [facility] Last Admin: 07/22/16 09:08 Dose: 12.5 mg Fluticasone/Salmeterol (Advair Diskus 250/50) 1 puff INH RQ12 [facility] Last Admin: 07/22/16 07:15 Dose: 1 puff - Labs Labs: 07/22/16 08:00 07/22/16 08:00 PT 13.5 SECONDS (9.7-12.2) H 07/19/16 09:52 INR 1.2 07/19/16 09:52 APTT 36 SECONDS (21-34) H 07/19/16 09:52 - Constitutional Appears: Non-toxic, No Acute Distress - Head Exam Head Exam: NORMAL INSPECTION - Eye Exam Eye Exam: EOMI - ENT Exam ENT Exam: Mucous Membranes Moist - Respiratory Exam Respiratory Exam: Rhonchi, NORMAL BREATHING PATTERN. absent: Rales, Wheezes - Cardiovascular Exam Cardiovascular Exam: REGULAR RHYTHM, +S1, +S2. absent: Gallop, Rubs, Murmur - GI/Abdominal Exam GI & Abdominal Exam: Soft, Normal Bowel Sounds. absent: Tenderness - Extremities Exam Extremities Exam: Pedal Edema, Tenderness - Neurological Exam Neurological Exam: Alert, Oriented x3 - Psychiatric Exam Psychiatric exam: Normal Affect, Normal Mood - Skin Skin Exam: Normal Color, Warm Assessment and Plan - Assessment and Plan (Free Text) Assessment: COPD (chronic obstructive pulmonary disease) Assessment & Plan: Acute on chronic Patient is on Duoneb treatment, IV steroids, Advair, Singular CXR 07/22/16 - prominent patchy consolidative changes in left mid to lower lung zone. Concerning for underlying infiltrate. Rounded radiopaque sclerotic density projected over left scapula of uncertain etiology (please see full report) Switching zithromax to avelox 07/22/16 Follow up Pulm consult, Dr. Pak Status: Acute CAD (coronary artery disease) Assessment & Plan: Aspirin and Statin Status: Chronic CHF exacerbation Assessment & Plan: IV Lasix, cardiology consulted, follow up echo Status: Chronic Opioid dependence Assessment & Plan: continue his methadone Status: Chronic Cellulitis Assessment & Plan: Zosyn IV, follow up Dr. Crystal consult blood culture negative x 3 days Status: Chronic Panic attacks Assessment & Plan: continue home Xanax and Paxil Status: Chronic Prophylactic measure Assessment & Plan: Protonix and Lovenox Status: Acute Management per Dr. Sola De La Rosa
[2016-07-22] MEDS: Moxifloxacin IV 400mg/250ml NS 250 ML IVPB SCH (14:08)
--- NOTE | 2016-07-22 18:14 | CP.PCM.PN ---
Subjective - Date & Time of Evaluation Date of Evaluation: 07/22/16 Time of Evaluation: 10:20 - Subjective Subjective: clinically same Objective - Vital Signs/Intake and Output Vital Signs (last 24 hours): Temp Pulse Resp BP Pulse Ox 97.5 F L 81 20 126/69 95 07/22/16 16:44 07/22/16 16:44 07/22/16 16:44 07/22/16 16:44 07/22/16 16:44 Intake and Output: 07/22/16 07/22/16 06:59 18:59 Intake Total 150 Output Total 700 Balance 150 -700 - Medications Medications: Current Medications Albuterol/Ipratropium (Duoneb 3 Mg/0.5 Mg (3 Ml) Ud) 3 ml INH RQ6 [facility] Last Admin: 07/22/16 13:21 Dose: 3 ml Alprazolam (Xanax) 0.25 mg PO BID [facility] Stop: 07/26/16 18:01 Last Admin: 07/22/16 17:52 Dose: 0.25 mg Aspirin (Aspirin Chewable) 81 mg PO DAILY [facility] Last Admin: 07/22/16 09:08 Dose: 81 mg Benzonatate (Tessalon Perles) 100 mg PO TID [facility] Last Admin: 07/22/16 17:52 Dose: 100 mg Enoxaparin Sodium (Lovenox) 40 mg SC DAILY [facility] Last Admin: 07/22/16 09:08 Dose: 40 mg Furosemide (Lasix) 40 mg IVP DAILY [facility] Last Admin: 07/22/16 09:08 Dose: 40 mg Piperacillin Sod/Tazobactam Sod (Zosyn 3.375 Gm Iv Premix) 50 mls @ 100 mls/hr IVPB Q6H [facility] Last Admin: 07/22/16 13:55 Dose: 100 mls/hr Moxifloxacin HCl (Avelox Iv 400mg/250ml Ns) 250 mls @ 167 mls/hr IVPB Q24H [facility] Last Admin: 07/22/16 14:08 Dose: 167 mls/hr Ibuprofen (Motrin Tab) 400 mg PO Q8H PRN PRN Reason: Pain, moderate (4-7) Methadone HCl (Methadose) 80 mg PO DAILY [facility] Last Admin: 07/22/16 09:08 Dose: 80 mg Methylprednisolone (Solu-Medrol) 60 mg IVP Q8H [facility] Last Admin: 07/22/16 15:35 Dose: 60 mg Montelukast Sodium (Singulair) 10 mg PO HS [facility] Last Admin: 07/21/16 21:28 Dose: 10 mg Pantoprazole Sodium (Protonix Ec Tab) 40 mg PO DAILY [facility] Last Admin: 07/22/16 09:08 Dose: 40 mg Paroxetine HCl (Paxil Cr) 12.5 mg PO DAILY [facility] Last Admin: 07/22/16 09:08 Dose: 12.5 mg Fluticasone/Salmeterol (Advair Diskus 250/50) 1 puff INH RQ12 [facility] Last Admin: 07/22/16 07:15 Dose: 1 puff - Labs Labs: 07/22/16 08:00 07/22/16 08:00 PT 13.5 SECONDS (9.7-12.2) H 07/19/16 09:52 INR 1.2 07/19/16 09:52 APTT 36 SECONDS (21-34) H 07/19/16 09:52 - Constitutional Appears: Well - Head Exam Head Exam: ATRAUMATIC, NORMAL INSPECTION, NORMOCEPHALIC - Eye Exam Eye Exam: EOMI, Normal appearance, PERRL Pupil Exam: NORMAL ACCOMODATION, PERRL - ENT Exam ENT Exam: Mucous Membranes Moist, Normal Exam - Neck Exam Neck Exam: Full ROM, Normal Inspection. absent: Lymphadenopathy - Respiratory Exam Respiratory Exam: Decreased Breath Sounds - Cardiovascular Exam Cardiovascular Exam: REGULAR RHYTHM, +S1, +S2 - GI/Abdominal Exam GI & Abdominal Exam: Soft, Diminished Bowel Sounds - Rectal Exam Rectal Exam: Deferred Assessment and Plan (1) CHF (congestive heart failure) Status: Acute (2) CHF exacerbation Status: Chronic (3) Dyspnea Status: Acute (4) Exacerbation of asthma Status: Acute (5) Pneumonia Status: Acute (6) Prophylactic measure Status: Acute (7) CAD (coronary artery disease) Status: Chronic (8) COPD (chronic obstructive pulmonary disease) Status: Acute (9) HTN (hypertension) Status: Chronic (10) History of drug dependence/abuse Status: Chronic (11) Leg edema Status: Chronic (12) Acute tonsillitis Status: Acute (13) Asthma exacerbation in COPD Status: Acute (14) Bronchitis Status: Acute (15) COPD exacerbation Status: Acute (16) Anxiety Status: Chronic (17) CHF NYHA class II (symptoms with moderately strenuous activities) Status: Chronic (18) Hypothyroid Status: Chronic
--- NOTE | 2016-07-22 18:42 | CP.PCM.PN ---
Subjective - Date & Time of Evaluation Date of Evaluation: 07/22/16 Time of Evaluation: 18:00 - Subjective Subjective: patient has no current chest pain or dyspnea. Objective - Vital Signs/Intake and Output Vital Signs (last 24 hours): Temp Pulse Resp BP Pulse Ox 97.5 F L 81 20 126/69 95 07/22/16 16:44 07/22/16 16:44 07/22/16 16:44 07/22/16 16:44 07/22/16 16:44 Intake and Output: 07/22/16 07/22/16 06:59 18:59 Intake Total 150 Output Total 700 Balance 150 -700 - Medications Medications: Current Medications Albuterol/Ipratropium (Duoneb 3 Mg/0.5 Mg (3 Ml) Ud) 3 ml INH RQ6 [facility] Last Admin: 07/22/16 13:21 Dose: 3 ml Alprazolam (Xanax) 0.25 mg PO BID [facility] Stop: 07/26/16 18:01 Last Admin: 07/22/16 17:52 Dose: 0.25 mg Aspirin (Aspirin Chewable) 81 mg PO DAILY [facility] Last Admin: 07/22/16 09:08 Dose: 81 mg Benzonatate (Tessalon Perles) 100 mg PO TID [facility] Last Admin: 07/22/16 17:52 Dose: 100 mg Enoxaparin Sodium (Lovenox) 40 mg SC DAILY [facility] Last Admin: 07/22/16 09:08 Dose: 40 mg Furosemide (Lasix) 40 mg IVP DAILY [facility] Last Admin: 07/22/16 09:08 Dose: 40 mg Piperacillin Sod/Tazobactam Sod (Zosyn 3.375 Gm Iv Premix) 50 mls @ 100 mls/hr IVPB Q6H [facility] Last Admin: 07/22/16 13:55 Dose: 100 mls/hr Moxifloxacin HCl (Avelox Iv 400mg/250ml Ns) 250 mls @ 167 mls/hr IVPB Q24H [facility] Last Admin: 07/22/16 14:08 Dose: 167 mls/hr Ibuprofen (Motrin Tab) 400 mg PO Q8H PRN PRN Reason: Pain, moderate (4-7) Methadone HCl (Methadose) 80 mg PO DAILY [facility] Last Admin: 07/22/16 09:08 Dose: 80 mg Methylprednisolone (Solu-Medrol) 60 mg IVP Q8H [facility] Last Admin: 07/22/16 15:35 Dose: 60 mg Montelukast Sodium (Singulair) 10 mg PO HS [facility] Last Admin: 07/21/16 21:28 Dose: 10 mg Pantoprazole Sodium (Protonix Ec Tab) 40 mg PO DAILY [facility] Last Admin: 07/22/16 09:08 Dose: 40 mg Paroxetine HCl (Paxil Cr) 12.5 mg PO DAILY [facility] Last Admin: 07/22/16 09:08 Dose: 12.5 mg Fluticasone/Salmeterol (Advair Diskus 250/50) 1 puff INH RQ12 [facility] Last Admin: 07/22/16 07:15 Dose: 1 puff - Labs Labs: 07/22/16 08:00 07/22/16 08:00 PT 13.5 SECONDS (9.7-12.2) H 07/19/16 09:52 INR 1.2 07/19/16 09:52 APTT 36 SECONDS (21-34) H 07/19/16 09:52 - Constitutional Appears: Non-toxic - Head Exam Head Exam: NORMAL INSPECTION - Eye Exam Eye Exam: Normal appearance - ENT Exam ENT Exam: Mucous Membranes Moist - Neck Exam Neck Exam: Full ROM - Respiratory Exam Respiratory Exam: NORMAL BREATHING PATTERN - Cardiovascular Exam Cardiovascular Exam: REGULAR RHYTHM - GI/Abdominal Exam GI & Abdominal Exam: Normal Bowel Sounds - Rectal Exam Rectal Exam: Deferred - Extremities Exam Extremities Exam: absent: Pedal Edema - Back Exam Back Exam: NORMAL INSPECTION - Neurological Exam Neurological Exam: Alert - Psychiatric Exam Psychiatric exam: Normal Affect - Skin Skin Exam: Normal Color Assessment and Plan (1) COPD (chronic obstructive pulmonary disease) Assessment & Plan: bronchodilator therapy Status: Acute (2) CHF NYHA class II (symptoms with moderately strenuous activities) Assessment & Plan: improved breathing function Status: Chronic (3) CAD (coronary artery disease) Assessment & Plan: medical therapy with antiplatelet. normalLV function on echocardiogram Status: Chronic (4) HTN (hypertension) Assessment & Plan: blood pressure control Status: Chronic
--- NOTE | 2016-07-22 18:44 | CP.PCM.PN ---
Subjective - Date & Time of Evaluation Date of Evaluation: 07/22/16 Time of Evaluation: 07:00 - Subjective Subjective: IMPROVING LESS SOB NO CHEST PAIN RALES RIGHT BASE + Objective - Vital Signs/Intake and Output Vital Signs (last 24 hours): Temp Pulse Resp BP Pulse Ox 97.5 F L 81 20 126/69 95 07/22/16 16:44 07/22/16 16:44 07/22/16 16:44 07/22/16 16:44 07/22/16 16:44 Intake and Output: 07/22/16 07/22/16 06:59 18:59 Intake Total 150 Output Total 700 Balance 150 -700 - Medications Medications: Current Medications Albuterol/Ipratropium (Duoneb 3 Mg/0.5 Mg (3 Ml) Ud) 3 ml INH RQ6 [facility] Last Admin: 07/22/16 13:21 Dose: 3 ml Alprazolam (Xanax) 0.25 mg PO BID [facility] Stop: 07/26/16 18:01 Last Admin: 07/22/16 17:52 Dose: 0.25 mg Aspirin (Aspirin Chewable) 81 mg PO DAILY [facility] Last Admin: 07/22/16 09:08 Dose: 81 mg Benzonatate (Tessalon Perles) 100 mg PO TID [facility] Last Admin: 07/22/16 17:52 Dose: 100 mg Enoxaparin Sodium (Lovenox) 40 mg SC DAILY [facility] Last Admin: 07/22/16 09:08 Dose: 40 mg Furosemide (Lasix) 40 mg IVP DAILY [facility] Last Admin: 07/22/16 09:08 Dose: 40 mg Piperacillin Sod/Tazobactam Sod (Zosyn 3.375 Gm Iv Premix) 50 mls @ 100 mls/hr IVPB Q6H [facility] Last Admin: 07/22/16 13:55 Dose: 100 mls/hr Moxifloxacin HCl (Avelox Iv 400mg/250ml Ns) 250 mls @ 167 mls/hr IVPB Q24H [facility] Last Admin: 07/22/16 14:08 Dose: 167 mls/hr Ibuprofen (Motrin Tab) 400 mg PO Q8H PRN PRN Reason: Pain, moderate (4-7) Methadone HCl (Methadose) 80 mg PO DAILY [facility] Last Admin: 07/22/16 09:08 Dose: 80 mg Methylprednisolone (Solu-Medrol) 60 mg IVP Q8H [facility] Last Admin: 07/22/16 15:35 Dose: 60 mg Montelukast Sodium (Singulair) 10 mg PO HS [facility] Last Admin: 07/21/16 21:28 Dose: 10 mg Pantoprazole Sodium (Protonix Ec Tab) 40 mg PO DAILY [facility] Last Admin: 07/22/16 09:08 Dose: 40 mg Paroxetine HCl (Paxil Cr) 12.5 mg PO DAILY [facility] Last Admin: 07/22/16 09:08 Dose: 12.5 mg Fluticasone/Salmeterol (Advair Diskus 250/50) 1 puff INH RQ12 [facility] Last Admin: 07/22/16 07:15 Dose: 1 puff - Labs Labs: 07/22/16 08:00 07/22/16 08:00 PT 13.5 SECONDS (9.7-12.2) H 07/19/16 09:52 INR 1.2 07/19/16 09:52 APTT 36 SECONDS (21-34) H 07/19/16 09:52 - Constitutional Appears: Non-toxic, Chronically Ill - Head Exam Head Exam: NORMOCEPHALIC - Eye Exam Eye Exam: absent: Scleral icterus - ENT Exam ENT Exam: Mucous Membranes Dry - Neck Exam Neck Exam: absent: Lymphadenopathy - Respiratory Exam Respiratory Exam: Decreased Breath Sounds, Rales - Cardiovascular Exam Cardiovascular Exam: REGULAR RHYTHM, +S1, +S2 - GI/Abdominal Exam GI & Abdominal Exam: Distended, Soft. absent: Tenderness - Rectal Exam Rectal Exam: Deferred - Exam Exam: NORMAL INSPECTION - Extremities Exam Extremities Exam: absent: Calf Tenderness, Pedal Edema - Back Exam Back Exam: absent: CVA tenderness (L), CVA tenderness (R) - Neurological Exam Neurological Exam: Alert, Awake, Oriented x3 Neuro motor strength exam: Left Upper Extremity: 3, Right Upper Extremity: 3, Left Lower Extremity: 3, Right Lower Extremity: 3 - Psychiatric Exam Psychiatric exam: Normal Mood - Skin Skin Exam: Dry Assessment and Plan (1) CHF (congestive heart failure) Status: Acute (2) CHF exacerbation Status: Chronic (3) Dyspnea Status: Acute (4) Exacerbation of asthma Status: Acute (5) Pneumonia Status: Acute (6) CAD (coronary artery disease) Status: Chronic (7) COPD (chronic obstructive pulmonary disease) Status: Acute
[2016-07-23] MEDS: Albuterol-Ipratrop 3 mg / 0.5 (3 ml) UD INH SCH ×3 (01:07→13:02)
[2016-07-23] MEDS: Piperacill/Tazo 3.375gm in Dex 50 ML IVPB SCH ×3 (01:44→14:49)
[2016-07-23 01:50] VITALS: RESP 20
[2016-07-23] MEDS: Fluticasone-Salmeterol 250-50mcg Diskus INH SCH (07:13)
[2016-07-23 08:13] LABS: BASO % 0.2 % (0.0-2.0); EOS # 0.1 K/uL (0.0-0.7)
[2016-07-23 08:18] VITALS: PULSE 95; TEMP 97.5
[2016-07-23 08:18] LABS: CHLORIDE 94 mmol/L (98-107); POTASSIUM 4.1 mmol/L (3.6-5.2); SODIUM 143 mmol/L (132-148)
[2016-07-23 08:20] LABS: BILIRUBIN,TOTAL 0.5 mg/dL (0.2-1.3); GFR AFRICAN-AMERICAN > 60
[2016-07-23 08:21] LABS: ALKALINE PHOSPHATASE 91 U/L (38-126); ALT/SGPT 24 U/L (21-72); AST/SGOT 30 U/L (17-59); BLOOD UREA NITROGEN 23 mg/dL (9-20); CALCIUM 8.2 mg/dl (8.6-10.4); CARBON DIOXIDE 31 mmol/L (22-30); GLUCOSE,RANDOM 148 mg/dL (75-110); TOTAL PROTEIN 7.1 g/dL (6.3-8.3)
[2016-07-23 08:26] LABS: EOS % 0.4 % (0.0-4.0); HEMATOCRIT 42.9 % (35.0-51.0); LYMPH # 1.3 K/uL (1.0-4.3); LYMPH % 8.3 % (20.0-40.0); MEAN CELL VOLUME 91.5 fL (80.0-94.0); MEAN CORPUSCULAR HEMOGLOBIN 29.8 pg (27.0-31.0); MEAN CORPUSCULAR HGB CONC 32.6 g/dL (33.0-37.0); MEAN PLATELET VOLUME 7.4 fL (7.2-11.7); MONO # 0.4 K/uL (0.0-0.8); MONO % 2.6 % (0.0-10.0); NRBC % 0.2 % (0.0-2.0); PLATELET COUNT 361 K/uL (130-400)
[2016-07-23 08:28] LABS: WHITE BLOOD COUNT 16.3 K/uL (4.8-10.8)
[2016-07-23] MEDS: Methadone 40 mg Tab PO SCH (09:38)
[2016-07-23] MEDS: Pantoprazole 40 mg EC Tab PO SCH (09:38)
[2016-07-23] MEDS: Enoxaparin 40 mg Syringe SC SCH (09:39)
[2016-07-23 09:51] LABS: MYELOCYTE 2 % (0-0); NEUTROPHIL 69 % (50-75); REACTIVE LYMPHOCYTES 1 % (0-0); TOTAL CELLS COUNTED 100
[2016-07-23 10:23] VITALS: BP 161/93
--- NOTE | 2016-07-23 10:33 | CP.PCM.PN ---
Objective - Vital Signs/Intake and Output Vital Signs (last 24 hours): Temp Pulse Resp BP Pulse Ox 97.5 F L 95 H 20 161/93 H 95 07/23/16 08:17 07/23/16 08:17 07/23/16 08:17 07/23/16 10:23 07/23/16 08:17 Intake and Output: 07/23/16 07/23/16 06:59 18:59 Intake Total 50 Balance 50 - Medications Medications: Current Medications Acyclovir (Zovirax) 800 mg PO BID [facility] Last Admin: 07/23/16 09:38 Dose: 800 mg Albuterol/Ipratropium (Duoneb 3 Mg/0.5 Mg (3 Ml) Ud) 3 ml INH RQ6 [facility] Last Admin: 07/23/16 07:13 Dose: 3 ml Alprazolam (Xanax) 0.25 mg PO BID [facility] Stop: 07/26/16 18:01 Last Admin: 07/23/16 09:38 Dose: 0.25 mg Aspirin (Aspirin Chewable) 81 mg PO DAILY [facility] Last Admin: 07/23/16 09:38 Dose: 81 mg Benzonatate (Tessalon Perles) 100 mg PO TID [facility] Last Admin: 07/23/16 09:38 Dose: 100 mg Enoxaparin Sodium (Lovenox) 40 mg SC DAILY [facility] Last Admin: 07/22/16 09:08 Dose: 40 mg Furosemide (Lasix) 40 mg IVP DAILY [facility] Last Admin: 07/23/16 09:40 Dose: 40 mg Piperacillin Sod/Tazobactam Sod (Zosyn 3.375 Gm Iv Premix) 50 mls @ 100 mls/hr IVPB Q6H [facility] Last Admin: 07/23/16 08:42 Dose: 100 mls/hr Moxifloxacin HCl (Avelox Iv 400mg/250ml Ns) 250 mls @ 167 mls/hr IVPB Q24H [facility] Last Admin: 07/22/16 14:08 Dose: 167 mls/hr Ibuprofen (Motrin Tab) 400 mg PO Q8H PRN PRN Reason: Pain, moderate (4-7) Methadone HCl (Methadose) 80 mg PO DAILY [facility] Last Admin: 07/23/16 09:38 Dose: 80 mg Methylprednisolone (Solu-Medrol) 60 mg IVP Q8H [facility] Last Admin: 07/23/16 08:42 Dose: 60 mg Montelukast Sodium (Singulair) 10 mg PO HS [facility] Last Admin: 07/21/16 21:28 Dose: 10 mg Pantoprazole Sodium (Protonix Ec Tab) 40 mg PO DAILY [facility] Last Admin: 07/23/16 09:38 Dose: 40 mg Paroxetine HCl (Paxil Cr) 12.5 mg PO DAILY [facility] Last Admin: 07/23/16 09:38 Dose: 12.5 mg Fluticasone/Salmeterol (Advair Diskus 250/50) 1 puff INH RQ12 [facility] Last Admin: 07/23/16 07:13 Dose: 1 puff - Labs Labs: 07/23/16 08:01 07/23/16 08:01 PT 13.5 SECONDS (9.7-12.2) H 07/19/16 09:52 INR 1.2 07/19/16 09:52 APTT 36 SECONDS (21-34) H 07/19/16 09:52 Assessment and Plan (1) COPD (chronic obstructive pulmonary disease) Status: Acute (2) CAD (coronary artery disease) Status: Chronic (3) CHF exacerbation Status: Chronic (4) Opioid dependence Status: Chronic (5) Cellulitis Status: Chronic (6) Panic attacks Status: Chronic (7) Prophylactic measure Status: Acute
--- NOTE | 2016-07-23 11:49 | CP.PCM.PN ---
Subjective - Date & Time of Evaluation Date of Evaluation: 07/23/16 Time of Evaluation: 10:40 - Subjective Subjective: clinically same Objective - Vital Signs/Intake and Output Vital Signs (last 24 hours): Temp Pulse Resp BP Pulse Ox 97.5 F L 95 H 20 161/93 H 95 07/23/16 08:17 07/23/16 08:17 07/23/16 08:17 07/23/16 10:23 07/23/16 08:17 Intake and Output: 07/23/16 07/23/16 06:59 18:59 Intake Total 50 Balance 50 - Medications Medications: Current Medications Acyclovir (Zovirax) 800 mg PO BID [facility] Last Admin: 07/23/16 09:38 Dose: 800 mg Albuterol/Ipratropium (Duoneb 3 Mg/0.5 Mg (3 Ml) Ud) 3 ml INH RQ6 [facility] Last Admin: 07/23/16 07:13 Dose: 3 ml Alprazolam (Xanax) 0.25 mg PO BID [facility] Stop: 07/26/16 18:01 Last Admin: 07/23/16 09:38 Dose: 0.25 mg Aspirin (Aspirin Chewable) 81 mg PO DAILY [facility] Last Admin: 07/23/16 09:38 Dose: 81 mg Benzonatate (Tessalon Perles) 100 mg PO TID [facility] Last Admin: 07/23/16 09:38 Dose: 100 mg Enoxaparin Sodium (Lovenox) 40 mg SC DAILY [facility] Last Admin: 07/22/16 09:08 Dose: 40 mg Furosemide (Lasix) 40 mg IVP DAILY [facility] Last Admin: 07/23/16 09:40 Dose: 40 mg Piperacillin Sod/Tazobactam Sod (Zosyn 3.375 Gm Iv Premix) 50 mls @ 100 mls/hr IVPB Q6H [facility] Last Admin: 07/23/16 08:42 Dose: 100 mls/hr Moxifloxacin HCl (Avelox Iv 400mg/250ml Ns) 250 mls @ 167 mls/hr IVPB Q24H [facility] Last Admin: 07/22/16 14:08 Dose: 167 mls/hr Ibuprofen (Motrin Tab) 400 mg PO Q8H PRN PRN Reason: Pain, moderate (4-7) Methadone HCl (Methadose) 80 mg PO DAILY [facility] Last Admin: 07/23/16 09:38 Dose: 80 mg Methylprednisolone (Solu-Medrol) 60 mg IVP Q8H [facility] Last Admin: 07/23/16 08:42 Dose: 60 mg Montelukast Sodium (Singulair) 10 mg PO HS [facility] Last Admin: 07/21/16 21:28 Dose: 10 mg Pantoprazole Sodium (Protonix Ec Tab) 40 mg PO DAILY [facility] Last Admin: 07/23/16 09:38 Dose: 40 mg Paroxetine HCl (Paxil Cr) 12.5 mg PO DAILY [facility] Last Admin: 07/23/16 09:38 Dose: 12.5 mg Fluticasone/Salmeterol (Advair Diskus 250/50) 1 puff INH RQ12 [facility] Last Admin: 07/23/16 07:13 Dose: 1 puff - Labs Labs: 07/23/16 08:01 07/23/16 08:01 PT 13.5 SECONDS (9.7-12.2) H 07/19/16 09:52 INR 1.2 07/19/16 09:52 APTT 36 SECONDS (21-34) H 07/19/16 09:52 - Constitutional Appears: Well - Head Exam Head Exam: ATRAUMATIC, NORMAL INSPECTION, NORMOCEPHALIC - Eye Exam Eye Exam: EOMI, Normal appearance, PERRL Pupil Exam: NORMAL ACCOMODATION, PERRL - ENT Exam ENT Exam: Mucous Membranes Moist, Normal Exam - Neck Exam Neck Exam: Full ROM, Normal Inspection. absent: Lymphadenopathy - Respiratory Exam Respiratory Exam: Decreased Breath Sounds - Cardiovascular Exam Cardiovascular Exam: REGULAR RHYTHM, +S1, +S2 - GI/Abdominal Exam GI & Abdominal Exam: Soft, Diminished Bowel Sounds - Rectal Exam Rectal Exam: Deferred Assessment and Plan (1) CHF (congestive heart failure) Status: Acute (2) CHF exacerbation Status: Chronic (3) Dyspnea Status: Acute (4) Exacerbation of asthma Status: Acute (5) Pneumonia Status: Acute (6) Prophylactic measure Status: Acute (7) CAD (coronary artery disease) Status: Chronic (8) COPD (chronic obstructive pulmonary disease) Status: Acute (9) HTN (hypertension) Status: Chronic (10) History of drug dependence/abuse Status: Chronic (11) Leg edema Status: Chronic (12) Acute tonsillitis Status: Acute (13) Asthma exacerbation in COPD Status: Acute (14) Bronchitis Status: Acute (15) COPD exacerbation Status: Acute (16) Anxiety Status: Chronic (17) CHF NYHA class II (symptoms with moderately strenuous activities) Status: Chronic (18) Hypothyroid Status: Chronic
[2016-07-23] MEDS ORDERED: MethylPREDNISolone 40 mg Vial IVP SCH (13:00)
--- NOTE | 2016-07-23 14:00 | PCM.HF ---
Heart Failure Core Measure - Heart Failure Ejection Fraction: 40 % or Greater (LVEF 52%) BUD Inhibitor Prescribed: No Contraindication/Reason for not providing: LVEF >40% Beta-Caity Prescribed: None Contraindication/Reason for not providing: COPD Angiotensin II Receptor Caity Prescribed: No Contraindication/Reason for not providing: LVEF >40% AnticoagulationTherapy for Atrial Fibrillation/Atrialflutter: No Contraindication/Reason for not providing: NO AFIB Aldosterone Antagonist Prescribed: No Hydralazine Nitrate Prescribed: No Implantable Cardioverter Defibrillator Therapy: No Contraindication/Reason for not providing: LVEF >40% Cardiac Resynchronization Therapy Prescribed: No Contraindication/Reason for not providing: LVEF >40% - Follow up Will be discharged to: Home Follow Up Date (must be within 7 days from discharge): 07/23/16 Follow Up Time: 09:00
--- NOTE | 2016-07-23 14:00 | CP.PCM.PN ---
Subjective - Date & Time of Evaluation Date of Evaluation: 07/23/16 Time of Evaluation: 14:00 - Subjective Subjective: 60 Y/O MALE SEEN AND EXAMINED TODAY BY DR Sola VRAELA, PT D/C HOME PER DR Sola VARELA, PT CLEARED TO D/C PER DR RABAGO, PT GIVEN RX FOR MEDROL DOSEPACK, AVELOX AND ANTIVIRAL FOR [address] RABAGO, PT EDUCATED TO FOLLOW UP WITH HIS PMD IN 3-5 DAYS, REPEAT CHEST XRAY IN 2 WEEKS, FOLLOW UP WITH DR RABAGO IN THE OFFICE, RETURN TO ED IF ANY FURTHER QUESTIONS OR CONCERNS, ABOVE POC DISCUSSED WITH PT, AGREE, VERBALIZE UNDERSTANDING. Objective - Vital Signs/Intake and Output Vital Signs (last 24 hours): Temp Pulse Resp BP Pulse Ox 97.5 F L 95 H 20 161/93 H 95 07/23/16 08:17 07/23/16 08:17 07/23/16 08:17 07/23/16 10:23 07/23/16 08:17 Intake and Output: 07/23/16 07/23/16 06:59 18:59 Intake Total 50 Balance 50 - Medications Medications: Current Medications Acyclovir (Zovirax) 800 mg PO BID [facility] Last Admin: 07/23/16 09:38 Dose: 800 mg Albuterol/Ipratropium (Duoneb 3 Mg/0.5 Mg (3 Ml) Ud) 3 ml INH RQ6 [facility] Last Admin: 07/23/16 13:02 Dose: 3 ml Alprazolam (Xanax) 0.25 mg PO BID [facility] Stop: 07/26/16 18:01 Last Admin: 07/23/16 09:38 Dose: 0.25 mg Aspirin (Aspirin Chewable) 81 mg PO DAILY [facility] Last Admin: 07/23/16 09:38 Dose: 81 mg Benzonatate (Tessalon Perles) 100 mg PO TID [facility] Last Admin: 07/23/16 09:38 Dose: 100 mg Enoxaparin Sodium (Lovenox) 40 mg SC DAILY [facility] Last Admin: 07/22/16 09:08 Dose: 40 mg Furosemide (Lasix) 40 mg IVP DAILY [facility] Last Admin: 07/23/16 09:40 Dose: 40 mg Piperacillin Sod/Tazobactam Sod (Zosyn 3.375 Gm Iv Premix) 50 mls @ 100 mls/hr IVPB Q6H [facility] Last Admin: 07/23/16 08:42 Dose: 100 mls/hr Moxifloxacin HCl (Avelox Iv 400mg/250ml Ns) 250 mls @ 167 mls/hr IVPB Q24H [facility] Last Admin: 07/22/16 14:08 Dose: 167 mls/hr Ibuprofen (Motrin Tab) 400 mg PO Q8H PRN PRN Reason: Pain, moderate (4-7) Methadone HCl (Methadose) 80 mg PO DAILY [facility] Last Admin: 07/23/16 09:38 Dose: 80 mg Methylprednisolone (Solu-Medrol) 40 mg IVP Q8H [facility] Montelukast Sodium (Singulair) 10 mg PO HS [facility] Last Admin: 07/21/16 21:28 Dose: 10 mg Pantoprazole Sodium (Protonix Ec Tab) 40 mg PO DAILY [facility] Last Admin: 07/23/16 09:38 Dose: 40 mg Paroxetine HCl (Paxil Cr) 12.5 mg PO DAILY [facility] Last Admin: 07/23/16 09:38 Dose: 12.5 mg Fluticasone/Salmeterol (Advair Diskus 250/50) 1 puff INH RQ12 [facility] Last Admin: 07/23/16 07:13 Dose: 1 puff - Labs Labs: 07/23/16 08:01 07/23/16 08:01 PT 13.5 SECONDS (9.7-12.2) H 07/19/16 09:52 INR 1.2 07/19/16 09:52 APTT 36 SECONDS (21-34) H 07/19/16 09:52
[2016-07-23] MEDS: Moxifloxacin IV 400mg/250ml NS 250 ML IVPB SCH (14:49)
--- NOTE | 2016-07-23 15:40 | CP.PCM.PN ---
Subjective - Date & Time of Evaluation Date of Evaluation: 07/23/16 Objective - Vital Signs/Intake and Output Vital Signs (last 24 hours): Temp Pulse Resp BP Pulse Ox 97.5 F L 95 H 20 161/93 H 95 07/23/16 08:17 07/23/16 08:17 07/23/16 08:17 07/23/16 10:23 07/23/16 08:17 Intake and Output: 07/23/16 07/23/16 06:59 18:59 Intake Total 50 Balance 50 - Medications Medications: Current Medications Acyclovir (Zovirax) 800 mg PO BID [facility] Last Admin: 07/23/16 09:38 Dose: 800 mg Albuterol/Ipratropium (Duoneb 3 Mg/0.5 Mg (3 Ml) Ud) 3 ml INH RQ6 [facility] Last Admin: 07/23/16 13:02 Dose: 3 ml Alprazolam (Xanax) 0.25 mg PO BID [facility] Stop: 07/26/16 18:01 Last Admin: 07/23/16 09:38 Dose: 0.25 mg Aspirin (Aspirin Chewable) 81 mg PO DAILY [facility] Last Admin: 07/23/16 09:38 Dose: 81 mg Benzonatate (Tessalon Perles) 100 mg PO TID [facility] Last Admin: 07/23/16 14:49 Dose: 100 mg Enoxaparin Sodium (Lovenox) 40 mg SC DAILY [facility] Last Admin: 07/23/16 09:39 Dose: 40 mg Furosemide (Lasix) 40 mg IVP DAILY [facility] Last Admin: 07/23/16 09:40 Dose: 40 mg Piperacillin Sod/Tazobactam Sod (Zosyn 3.375 Gm Iv Premix) 50 mls @ 100 mls/hr IVPB Q6H [facility] Last Admin: 07/23/16 14:49 Dose: Not Given Moxifloxacin HCl (Avelox Iv 400mg/250ml Ns) 250 mls @ 167 mls/hr IVPB Q24H [facility] Last Admin: 07/23/16 14:49 Dose: Not Given Ibuprofen (Motrin Tab) 400 mg PO Q8H PRN PRN Reason: Pain, moderate (4-7) Methadone HCl (Methadose) 80 mg PO DAILY [facility] Last Admin: 07/23/16 09:38 Dose: 80 mg Methylprednisolone (Solu-Medrol) 40 mg IVP Q8H [facility] Last Admin: 07/23/16 14:48 Dose: 40 mg Montelukast Sodium (Singulair) 10 mg PO HS [facility] Last Admin: 07/21/16 21:28 Dose: 10 mg Pantoprazole Sodium (Protonix Ec Tab) 40 mg PO DAILY [facility] Last Admin: 07/23/16 09:38 Dose: 40 mg Paroxetine HCl (Paxil Cr) 12.5 mg PO DAILY [facility] Last Admin: 07/23/16 09:38 Dose: 12.5 mg Fluticasone/Salmeterol (Advair Diskus 250/50) 1 puff INH RQ12 [facility] Last Admin: 07/23/16 07:13 Dose: 1 puff - Labs Labs: 07/23/16 08:01 07/23/16 08:01 PT 13.5 SECONDS (9.7-12.2) H 07/19/16 09:52 INR 1.2 07/19/16 09:52 APTT 36 SECONDS (21-34) H 07/19/16 09:52
== END 2016-07-23 16:06 | disposition home or self-care (01) | DRG 291 ==
LOC: C.ER 09:20 → C.9E 10:40 → C.5T 13:51
PROVIDERS: ADMIT Internal Medicine Nephrology; ATTEND Internal Medicine Nephrology
DX: I11.0 Hypertensive heart disease with heart failure (principal); J18.9 Pneumonia, unspecified organism; Z99.81 Dependence on supplemental oxygen; J44.0 Chronic obstructive pulmonary disease with (acute) lower respiratory infection; J45.901 Unspecified asthma with (acute) exacerbation; J44.1 Chronic obstructive pulmonary disease with (acute) exacerbation; I50.9 Heart failure, unspecified; F17.210 Nicotine dependence, cigarettes, uncomplicated; F41.9 Anxiety disorder, unspecified; I25.10 Atherosclerotic heart disease of native coronary artery without angina pectoris; E03.9 Hypothyroidism, unspecified; F31.9 Bipolar disorder, unspecified; E11.9 Type 2 diabetes mellitus without complications; E66.9 Obesity, unspecified; Z95.5 Presence of coronary angioplasty implant and graft

== ENCOUNTER 2016-10-11 17:59 | Emergency (ER) | payer MEDICARE, MEDICAID ==
[2016-10-11 18:00] VITALS: BMI 39.2
[2016-10-11 18:04] VITALS: RESP 20; O2SAT 94
--- NOTE | 2016-10-11 19:29 | C.PDOC ---
History Of Present Illness Pt states that he was scratching his left leg and it started bleeding. Time Seen by Provider: 10/11/16 18:31 Chief Complaint (Nursing): Abnormal Skin Integrity History Per: Patient, EMS Onset/Duration Of Symptoms: Hrs (Just PUTTY GLAZER) Current Symptoms Are (Timing): Still Present Location Of Injury: Left: Leg Quality Of Symptoms: Other (Bleeding) Severity: Moderate Additional History Per: Prior Records Past Medical History Reviewed: Historical Data, Nursing Documentation, Vital Signs Vital Signs: Last Vital Signs Temp 97.9 F 10/11/16 18:02 Pulse 84 10/11/16 18:02 Resp 20 10/11/16 18:02 BP 156/80 H 10/11/16 18:02 Pulse Ox 94 L 10/11/16 18:02 - Medical History PMH: Anxiety, Asthma, Bipolar Disorder, CHF, COPD, Depression, Emphysema, Fractures (LEFT SHOULDER), Hepatitis, HTN Surgical History: Coronary Stent - [facility] Procedures ASSISTANCE WITH RESPIRATORY VENTILATION, >96 HRS, CPAP (08/16/16) CORONAR ARTERIOGR-2 CATH (08/23/13) INSERTION OF ONE VASCULAR STENT (08/23/13) INSRT OF DRUG-ELUTING CORON ARTERY STENTS(S) (08/23/13) LEFT HEART CARDIAC CATH (08/17/13) LT HEART ANGIOCARDIOGRAM (08/17/13) PERCUTANEOUS TRANSLUMINAL CORONARY ANGIOPLASTY [PTCA] (08/23/13) PROCEDURE ON SINGLE VESSEL (08/23/13) Family History: States: Unknown Family Hx - Social History Hx Tobacco Use: Yes Hx Alcohol Use: No Hx Substance Use: No - Immunization History Hx Tetanus Toxoid Vaccination: No Hx Influenza Vaccination: No Hx Pneumococcal Vaccination: No Review Of Systems Except As Marked, All Systems Reviewed And Found Negative. Constitutional: Negative for: Fever Cardiovascular: Negative for: Chest Pain, Light Headedness Respiratory: Negative for: Shortness of Breath Gastrointestinal: Negative for: Vomiting, Abdominal Pain Musculoskeletal: Negative for: Neck Pain Neurological: Negative for: Weakness, Numbness Physical Exam - Physical Exam Appears: No Acute Distress Skin: Warm, Dry Head: Atraumatic, Normacephalic Eye(s): bilateral: Normal Inspection, PERRL, EOMI Neck: Normal ROM, Supple Cardiovascular: Rhythm Regular Respiratory: Normal Breath Sounds, No Accessory Muscle Use Gastrointestinal/Abdominal: Soft, No Tenderness Extremity: Normal ROM, Other (bleeding varicose vein on left leg. Chronic b/l venous stasis skin changes.) Pulses: Left Dorsalis Pedis: Normal, Right Dorsalis Pedis: Normal Neurological/Psych: Oriented x3, Normal Motor, Normal Sensation ED Course And Treatment O2 Sat by Pulse Oximetry: 94 Progress Note: I elevated the pt's leg and applied direct pressure so that the bleeding stopped. Then I closed the skin with tissue adhesive (Dermabond) successfully. Disposition Counseled Patient/Family Regarding: Diagnosis, Need For Followup - Disposition Referrals: Nelda Chen MD [Family Provider] - Disposition: HOME/ ROUTINE Disposition Time: 19:32 Condition: IMPROVED Additional Instructions: Follow up with your doctor. Return to the ER if you develop more bleeding, fever , pus drainage, worsening of symptoms or if you have any other concerns. Instructions: Varicose Veins (ED), Skin Adhesive Care (ED) - Clinical Impression Clinical Impression: Bleeding from varicose veins of left lower extremity
[2016-10-11 19:30] VITALS: BP 127/68; PULSE 77; TEMP 97.2
== END 2016-10-11 19:59 | disposition home or self-care (01) ==
LOC: C.ER 17:59
DX: I83.892 Varicose veins of left lower extremity with other complications (principal)

== ENCOUNTER 2017-03-13 12:12 | Emergency (ER) | payer MEDICARE, MEDICAID ==
[2017-03-13 12:13] VITALS: BMI 39.2
[2017-03-13 12:22] VITALS: RESP 18; TEMP 97.8
--- NOTE | 2017-03-13 13:55 | C.PDOC ---
History Of Present Illness 61 y/o male presents to ED c/o pain to left lateral rib area. Pt states that he slipped on loose tile in his kitchen last night injuring the left lateral rib area. Notes that pain is worsen with coughing and deep inhalation. Denies LOC, headache, neck pain, chest pain, or vomiting. - HPI Time Seen by Provider: 03/13/17 12:47 Chief Complaint (Nursing): Rib Injury History Per: Patient History/Exam Limitations: no limitations Additional History Per: Patient Past Medical History Reviewed: Historical Data, Nursing Documentation, Vital Signs Vital Signs: Last Vital Signs Temp 97.8 F 03/13/17 12:20 Pulse 72 03/13/17 13:59 Resp 18 03/13/17 13:59 BP 124/75 03/13/17 13:59 Pulse Ox 94 L 03/13/17 16:09 - Medical History PMH: Anxiety, Asthma, Bipolar Disorder, CHF, COPD, Depression, Emphysema, Fractures (LEFT SHOULDER), Hepatitis, HTN Denies: Chronic Kidney Disease Surgical History: Coronary Stent - [facility] Procedures ASSISTANCE WITH RESPIRATORY VENTILATION, >96 HRS, CPAP (08/16/16) CORONAR ARTERIOGR-2 CATH (08/23/13) INSERTION OF ONE VASCULAR STENT (08/23/13) INSRT OF DRUG-ELUTING CORON ARTERY STENTS(S) (08/23/13) LEFT HEART CARDIAC CATH (08/17/13) LT HEART ANGIOCARDIOGRAM (08/17/13) PERCUTANEOUS TRANSLUMINAL CORONARY ANGIOPLASTY [PTCA] (08/23/13) PROCEDURE ON SINGLE VESSEL (08/23/13) Family History: States: Unknown Family Hx - Social History Hx Tobacco Use: Yes Hx Alcohol Use: No Hx Substance Use: No - Immunization History Hx Tetanus Toxoid Vaccination: No Hx Influenza Vaccination: No Hx Pneumococcal Vaccination: No Review Of Systems Except As Marked, All Systems Reviewed And Found Negative. Constitutional: Negative for: Fever, Chills Cardiovascular: Negative for: Chest Pain, Palpitations Respiratory: Negative for: Shortness of Breath Gastrointestinal: Negative for: Nausea, Vomiting Musculoskeletal: Positive for: Other (left lateral rib pain) Physical Exam - Physical Exam Appears: Non-toxic, No Acute Distress Skin: Normal Color, Warm, Dry Head: Atraumatic, Normacephalic Eye(s): bilateral: Normal Inspection Oral Mucosa: Moist Neck: Supple Chest: Symmetrical, Tenderness (left lateral rib cage tenderness upon palpation. No ecchymosis or laceration) Cardiovascular: Rhythm Regular, No Murmur Respiratory: Normal Breath Sounds, No Rales, No Rhonchi, No Wheezing Extremity: Normal ROM Neurological/Psych: Oriented x3, Normal Speech ED Course And Treatment O2 Sat by Pulse Oximetry: 94 - Other Rad Ribs x-ray X-Ray: Interpreted by Me, Viewed By Me Interpretation: No acute fracture or dislocation Progress Note: Ribs/chest x-ray ordered and reviewed. Pt was given Tylenol. Disposition Counseled Patient/Family Regarding: Studies Performed, Diagnosis, Need For Followup, Rx Given - Disposition Referrals: Nelda Chen MD [Medical Doctor] - Disposition: HOME/ ROUTINE Disposition Time: 13:53 Condition: STABLE Additional Instructions: FOLLOW UP WITH DR. CHEN ON WEDNESDAY FOR RE-EVALUATION AND OFFICIAL XRAY REPORT. TAKE TYLENOL OR MOTRIN NEEDED FOR PAIN. IF SYMPTOMS GET WORSE OR ANY NEW CONCERNING SYMPTOMS DEVELOP RETURN TO ED. 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 - Scribe Statement The provider has reviewed the documentation as recorded by the Sloaneibmaeve De La Rosa All medical record entries made by the Sloaneibmaeve were at my direction and personally dictated by me. I have reviewed the chart and agree that the record accurately reflects my personal performance of the history, physical exam, medical decision making, and the department course for this patient. I have also personally directed, reviewed, and agree with the discharge instructions and disposition.
[2017-03-13 14:00] VITALS: BP 124/75; PULSE 72
[2017-03-13 16:07] VITALS: O2SAT 94
--- NOTE | 2017-03-13 17:06 | RAD ---
Chest and left ribs four views History: Pain. Comparison: None available. Findings: Question mild cortical irregularity at the left lateral 8th rib which may represent a small nondisplaced fracture. Lobulated rounded calcified focus in the left axilla measuring up to 2.2 centimeters. This is of uncertain clinical etiology and may represent loose body versus partially calcified lymph node versus additional etiology. Clinical correlation. Prominent productive change and or heterotopic bone formation at the undersurface of the distal left clavicle. Question loose body at the level of the coracoid process. Severe degenerative changes of the left shoulder. Mild venous congestion with bibasilar patchy increased markings. Tortuous ectatic aorta. Cardiomegaly. Biapical pleural thickening. Degenerative changes in the spine and shoulders. Impression: 1. Question mild cortical irregularity at the left lateral 8th rib which may represent a small nondisplaced fracture. Clinical correlation to site of pain. 2. Lobulated rounded calcified focus in the left axilla measuring up to 2.2 centimeters. This is of uncertain clinical etiology and may represent loose body versus partially calcified lymph node versus additional etiology. Clinical correlation. 3. Prominent productive change and or heterotopic bone formation at the undersurface of the distal left clavicle. Question loose body at the level of the coracoid process. Severe degenerative changes of the left shoulder.
== END 2017-03-13 14:01 | disposition home or self-care (01) ==
LOC: C.ER 12:12
DX: S20.212A Contusion of left front wall of thorax, initial encounter (principal); W01.0XXA Fall on same level from slipping, tripping and stumbling without subsequent striking against object, initial encounter; I10 Essential (primary) hypertension; J44.9 Chronic obstructive pulmonary disease, unspecified; Z87.891 Personal history of nicotine dependence

== ENCOUNTER 2017-03-26 10:16 | Emergency (ER) | payer MEDICARE, MEDICAID ==
[2017-03-26 10:16] VITALS: BMI 39.2
[2017-03-26 10:28] VITALS: TEMP 98.7
[2017-03-26] MEDS ORDERED: Sodium Chloride 0.9% 500 ML IV STA (12:25)
[2017-03-26] MEDS ORDERED: Sodium Chloride 0.9% 500 ML IV ONE (12:42)
[2017-03-26 12:44] LABS: BASO # 0.1 K/uL (0.0-0.2); BASO % 0.4 % (0.0-2.0); EOS # 0.2 K/uL (0.0-0.7); EOS % 1.5 % (0.0-4.0); HEMATOCRIT 38.8 % (35.0-51.0); LYMPH # 1.5 K/uL (1.0-4.3); MEAN CELL VOLUME 87.3 fL (80.0-94.0); MEAN CORPUSCULAR HEMOGLOBIN 28.7 pg (27.0-31.0); MEAN CORPUSCULAR HGB CONC 32.9 g/dL (33.0-37.0); MEAN PLATELET VOLUME 7.3 fL (7.2-11.7); MONO # 0.7 K/uL (0.0-0.8); MONO % 5.2 % (0.0-10.0); NRBC % 0.5 % (0.0-2.0); RED CELL DISTRIBUTION WIDTH 16.9 % (11.5-14.5); WHITE BLOOD COUNT 13.9 K/uL (4.8-10.8)
[2017-03-26 12:56] LABS: ALB/GLOB RATIO 1.3 (1.0-2.1); ALKALINE PHOSPHATASE 94 U/L (38-126); ALT/SGPT 29 U/L (21-72); AST/SGOT 22 U/L (17-59); BILIRUBIN,TOTAL 1.4 mg/dL (0.2-1.3); BLOOD UREA NITROGEN 13 mg/dL (9-20); CARBON DIOXIDE 34 mmol/L (22-30); CHLORIDE 96 mmol/L (98-107); GFR AFRICAN-AMERICAN > 60; GLUCOSE,RANDOM 97 mg/dL (75-110); POTASSIUM 4.3 mmol/L (3.6-5.2); SODIUM 136 mmol/L (132-148); TOTAL PROTEIN 6.8 g/dL (6.3-8.3)
[2017-03-26 13:07] LABS: RBC URINE 124 /hpf (0-3); URINE BILIRUBIN NEGATIVE (NEGATIVE); URINE BLOOD 3+ (NEGATIVE); URINE GLUCOSE (UA) NORMAL (Normal); URINE KETONE NEGATIVE (NEGATIVE); URINE LEUKOCYTE ESTERASE 2+ Leu/uL (Negative); URINE PROTEIN 3+ mg/dL (NEGATIVE); URINE UROBILINOGEN NORMAL mg/dL (0.2-1.0); WBC URINE 80 /hpf (0-5)
[2017-03-26 13:08] LABS: URINE COLOR RED (YELLOW)
--- NOTE | 2017-03-26 13:14 | CT ---
PROCEDURE: CT Abdomen and Pelvis without intravenous contrast HISTORY: painful hematuria, left flank contusion 3 days ago COMPARISON: None. TECHNIQUE: Without contrast.. Contrast Dose: 0 Radiation dose: Total exam DLP = 1169.87 mGy-cm. This CT exam was performed using one or more of the following dose reduction techniques: Automated exposure control, adjustment of the mA and/or kV according to patient size, and/or use of iterative reconstruction technique. FINDINGS: LOWER THORAX: Unremarkable. LIVER: Unremarkable. No gross lesion or ductal dilatation. GALLBLADDER AND BILE DUCTS: Cholelithiasis. No mural thickening or pericholecystic fluid. PANCREAS: Unremarkable. No gross lesion or ductal dilatation. SPLEEN: Unremarkable. ADRENALS: Unremarkable. No mass. KIDNEYS AND URETERS: No calculus or hydronephrosis. Rounded fluid density mid left renal cortical mass, 1.9 cm. Probable cyst. No evidence of renal fracture or perinephric hematoma. VASCULATURE: Unremarkable. No aortic aneurysm. BOWEL: Sigmoid diverticulosis. No evidence of diverticulitis. No bowel obstruction. No other abnormal bowel loops. APPENDIX: Unremarkable. Normal appendix. PERITONEUM: Sigmoid diverticulosis. Unremarkable. No free fluid. No free air. LYMPH NODES: Unremarkable. No enlarged lymph nodes. BLADDER: Decompressed REPRODUCTIVE: Normal prostate BONES: No acute fracture. OTHER FINDINGS: None. IMPRESSION: No evidence of renal fracture, perinephric hematoma or renal calculus. Probable 1.9 cm cyst mid left kidney. Cholelithiasis. Sigmoid diverticulosis.
--- NOTE | 2017-03-26 13:23 | C.PDOC ---
History Of Present Illness 61 y/o male presents to ED with c/o hematuria and painful urination since this morning. Patient states he fell on his left side 2 weeks, was evaluated for rib contusions in the ER. Denies any previous urological medical history. Denies difficulty urinating; reports pain on urination. Otherwise, no fever, chills, headache, abdominal pain, flank pain, nausea, vomiting, diarrhea, or other associated symptoms. Time Seen by Provider: 03/26/17 11:41 Chief Complaint (Nursing): Male Genitourinary History Per: Patient History/Exam Limitations: no limitations Onset/Duration Of Symptoms: Days Current Symptoms Are (Timing): Still Present Quality Of Discomfort: "Pain" Associated Symptoms: Urinary Symptoms (hematuria, dysuria). denies: Fever, Chills, Nausea, Vomiting, Diarrhea, Back Pain Recent travel outside of the [place]: No Past Medical History Reviewed: Historical Data, Nursing Documentation, Vital Signs Vital Signs: Last Vital Signs Temp 98.7 F 03/26/17 10:25 Pulse 69 03/26/17 15:21 Resp 20 03/26/17 15:21 BP 115/67 03/26/17 15:21 Pulse Ox 94 L 03/26/17 15:21 - Medical History PMH: Anxiety, Asthma, Bipolar Disorder, CHF, COPD, Depression, Emphysema, Fractures (LEFT SHOULDER), Hepatitis, HTN Denies: Chronic Kidney Disease Surgical History: Coronary Stent - [facility] Procedures ASSISTANCE WITH RESPIRATORY VENTILATION, >96 HRS, CPAP (08/16/16) CORONAR ARTERIOGR-2 CATH (08/23/13) INSERTION OF ONE VASCULAR STENT (08/23/13) INSRT OF DRUG-ELUTING CORON ARTERY STENTS(S) (08/23/13) LEFT HEART CARDIAC CATH (08/17/13) LT HEART ANGIOCARDIOGRAM (08/17/13) PERCUTANEOUS TRANSLUMINAL CORONARY ANGIOPLASTY [PTCA] (08/23/13) PROCEDURE ON SINGLE VESSEL (08/23/13) Family History: States: Unknown Family Hx - Social History Hx Tobacco Use: Yes Hx Alcohol Use: No Hx Substance Use: No - Immunization History Hx Tetanus Toxoid Vaccination: No Hx Influenza Vaccination: No Hx Pneumococcal Vaccination: No Review Of Systems Except As Marked, All Systems Reviewed And Found Negative. Constitutional: Negative for: Fever, Chills Respiratory: Negative for: Cough, Shortness of Breath Gastrointestinal: Negative for: Nausea, Vomiting, Abdominal Pain Genitourinary: Positive for: Dysuria, Hematuria Skin: Negative for: Rash Neurological: Negative for: Headache, Dizziness Physical Exam - Physical Exam Appears: Non-toxic, No Acute Distress Skin: Normal Color, Warm, Dry Head: Atraumatic, Normacephalic Oral Mucosa: Moist Chest: Symmetrical Cardiovascular: Rhythm Regular Respiratory: Normal Breath Sounds, No Rales, No Rhonchi, No Wheezing Gastrointestinal/Abdominal: Normal Exam, Soft, No Tenderness, No Guarding, No Rebound Back: Normal Inspection Extremity: Normal ROM, Capillary Refill Neurological/Psych: Oriented x3, Normal Speech, Normal Cognition ED Course And Treatment - Laboratory Results Result Diagrams: 03/26/17 12:39 03/26/17 12:39 O2 Sat by Pulse Oximetry: 94 (RA) Pulse Ox Interpretation: Normal - CT Scan/US CT Abdomen/Pelvis Other Rad Studies (CT/US): Read By Radiologist, Radiology Report Reviewed CT/US Interpretation: Accession No. : [id number]. Patient Name / ID : LUIS ALFREDO BRUNO / [id number]. Exam Date : 03/26/2017 12:55:49 ( Approved ). Study Comment : Sex / Age : M / 61Y. Creator : Angela Diallo. Dictator : Man Reyes MD. Manager Post : Jockey Agent : Man Reyes MD. Approver2 : Report Date : 03/26/2017 12:59:33. My Comment : . PROCEDURE: CT Abdomen and Pelvis without intravenous contrast. HISTORY: painful hematuria, left flank contusion 3 days ago. COMPARISON: None. TECHNIQUE: Without contrast.. Contrast Dose: 0. Radiation dose: Total exam DLP = 1169.87 mGy-cm. This CT exam was performed using one or more of the following dose reduction techniques: Automated exposure control, adjustment of the mA and/ or kV according to patient size, and/or use of iterative reconstruction technique. FINDINGS: LOWER THORAX: Unremarkable. LIVER: Unremarkable. No gross lesion or ductal dilatation. GALLBLADDER AND BILE DUCTS: Cholelithiasis. No mural thickening or pericholecystic fluid. PANCREAS: Unremarkable. No gross lesion or ductal dilatation. SPLEEN: Unremarkable. ADRENALS: Unremarkable. No mass. KIDNEYS AND URETERS: No calculus or hydronephrosis. Rounded fluid density mid left renal cortical mass, 1.9 cm. Probable cyst. No evidence of renal fracture or perinephric hematoma. VASCULATURE: Unremarkable. No aortic aneurysm. BOWEL: Sigmoid diverticulosis. No evidence of diverticulitis. No bowel obstruction. No other abnormal bowel loops. APPENDIX: Unremarkable. Normal appendix. PERITONEUM: Sigmoid diverticulosis. Unremarkable. No free fluid. No free air. LYMPH NODES : Unremarkable. No enlarged lymph nodes. BLADDER: Decompressed. REPRODUCTIVE : Normal prostate. BONES: No acute fracture. OTHER FINDINGS: None. IMPRESSION: No evidence of renal fracture, perinephric hematoma or renal calculus. Probable 1.9 cm cyst mid left kidney. Cholelithiasis. Sigmoid diverticulosis. Progress Note: CT abdomen/pelvis, bloodwork, UA, IV fluids ordered. Labs reviewed: Urine w/ gross blood, white count elevated. 1g Rocephin given. D/w Dr. Lamb. On re-evaluation, patient resting comfortably, and is in no acute distress. Advised to take prescribed medications as directed and to follow up with PMD/urologist within 1-2 days. Disposition - Disposition Referrals: Marty Lamb MD [Staff Provider] - Marian Lamb MD [Staff Provider] - Disposition: HOME/ ROUTINE Disposition Time: 15:07 Condition: STABLE Additional Instructions: Follow up with PMD and Urologist within 1-2 days. Return to Ed if feel worse. Prescriptions: levoFLOXacin [Levaquin] 750 mg PO DAILY #10 tab Phenazopyridine [Pyridium] 200 mg PO TID #15 tab Instructions: Urinary Tract Infection in Men (ED) Forms: [employer] (Kazakh) - Clinical Impression Clinical Impression: Cystitis - PA / [employer]PER[employer]OR [employer] / Resident Statement MD/DO has reviewed & agrees with the documentation as recorded. - Scribe Statement The provider has reviewed the documentation as recorded by the Scribe SM All medical record entries made by the Scribe were at my direction and personally dictated by me. I have reviewed the chart and agree that the record accurately reflects my personal performance of the history, physical exam, medical decision making, and the department course for this patient. I have also personally directed, reviewed, and agree with the discharge instructions and disposition.
[2017-03-26 13:33] VITALS: RESP 20
[2017-03-26] MEDS ORDERED: cefTRIAXone IV 1 gm in Dextros 50 ML IV STA (13:34)
[2017-03-26 14:35] VITALS: O2SAT 94
[2017-03-26 15:22] VITALS: BP 115/67; PULSE 69
== END 2017-03-26 15:22 | disposition home or self-care (01) ==
LOC: C.ER 10:16
DX: N30.91 Cystitis, unspecified with hematuria (principal); I10 Essential (primary) hypertension; I50.9 Heart failure, unspecified; J44.9 Chronic obstructive pulmonary disease, unspecified; Z87.891 Personal history of nicotine dependence
CPT/HCPCS: 74176; 80053; 81001; 82550; 84153; 85025; 85610; 85730; 87086; 87181; 99284; J0696; J7040

== ENCOUNTER 2017-06-26 13:17 | Emergency (ER) | payer MEDICARE, MEDICAID ==
[2017-06-26 13:17] VITALS: BMI 39.2
[2017-06-26 13:25] VITALS: O2SAT 96
[2017-06-26] MEDS ORDERED: Albuterol-Ipratrop 3 mg / 0.5 (3 ml) UD IH STA (14:06)
[2017-06-26] MEDS ORDERED: Albuterol-Ipratrop 3 mg / 0.5 (3 ml) UD ONE (14:12)
--- NOTE | 2017-06-26 14:27 | RAD ---
HISTORY: Anterior/lower chest wall pain s/p injury. COPD. COMPARISON: Chest radiograph dated 03/13/2017 TECHNIQUE: Chest PA and lateral FINDINGS: LUNGS: No active pulmonary disease. PLEURA: No significant pleural effusion identified. No pneumothorax apparent. CARDIOVASCULAR: Atherosclerotic aortic calcifications. Cardiomediastinal silhouette stably enlarged. OSSEOUS STRUCTURES: Unchanged. VISUALIZED UPPER ABDOMEN: Normal. OTHER FINDINGS: Calcified left axillary lymph node redemonstrated. IMPRESSION: No active disease.
[2017-06-26] MEDS ORDERED: Silver Sulfadiazine 1% Cream (20 gm) TOP STA (14:39)
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
[2017-06-26] MEDS ORDERED: Silver Sulfadiazine 1% Cream (20 gm) ONE (14:44)
[2017-06-26 14:56] VITALS: BP 124/73; PULSE 54; RESP 18; TEMP 97.9
== END 2017-06-26 15:00 | disposition home or self-care (01) ==
LOC: C.ER 13:17
DX: T22.222A Burn of second degree of left elbow, initial encounter (principal); X16.XXXA Contact with hot heating appliances, radiators and pipes, initial encounter; S20.212A Contusion of left front wall of thorax, initial encounter; S20.211A Contusion of right front wall of thorax, initial encounter; W18.39XA Other fall on same level, initial encounter; Y92.009 Unspecified place in unspecified non-institutional (private) residence as the place of occurrence of the external cause; J44.1 Chronic obstructive pulmonary disease with (acute) exacerbation; F17.210 Nicotine dependence, cigarettes, uncomplicated
CPT/HCPCS: 16020; 71046; 94640; 96372; 99284; J1885

== ENCOUNTER 2017-07-19 15:56 | Inpatient (IN) | payer MEDICARE, MEDICAID ==
[2017-07-19 15:57] VITALS: BMI 39.2
[2017-07-19] MEDS ORDERED: Albuterol-Ipratrop 3 mg / 0.5 (3 ml) UD INH STA ×2 (17:09→18:45)
[2017-07-19 17:41] LABS: BASO # 0.1 K/uL (0.0-0.2); BASO % 0.6 % (0.0-2.0); LYMPH # 0.8 K/uL (1.0-4.3); LYMPH % 5.7 % (20.0-40.0); MEAN CELL VOLUME 88.8 fL (80.0-94.0); MEAN CORPUSCULAR HEMOGLOBIN 29.8 pg (27.0-31.0); MEAN CORPUSCULAR HGB CONC 33.6 g/dL (33.0-37.0); MEAN PLATELET VOLUME 6.9 fL (7.2-11.7); MONO # 0.5 K/uL (0.0-0.8); MONO % 3.8 % (0.0-10.0); NEUT # 12.4 K/uL (1.8-7.0); NEUT % 89.9 % (50.0-75.0); PLATELET COUNT 182 K/uL (130-400); RBC 4.37 Mil/uL (4.40-5.90); RED CELL DISTRIBUTION WIDTH 13.8 % (11.5-14.5); WHITE BLOOD COUNT 13.9 K/uL (4.8-10.8)
[2017-07-19] MEDS ORDERED: Albuterol-Ipratrop 3 mg / 0.5 (3 ml) UD ONE ×2 (17:41→19:12)
--- NOTE | 2017-07-19 17:47 | C.PDOC ---
History Of Present Illness 61-year-old male, presents to the emergency department with complaints of shortness of breath and cough that has been progressively worsening for the past two days. Patient states he is using his nebulizer at home with intermittent relief. He denies fevers, chest pain, any Hx of intubations. Time Seen by Provider: 07/19/17 16:38 Chief Complaint (Nursing): Shortness Of Breath History Per: Patient History/Exam Limitations: no limitations Onset/Duration Of Symptoms: Days Past Medical History Reviewed: Historical Data, Nursing Documentation, Vital Signs Vital Signs: Last Vital Signs Temp 98.0 F 07/22/17 07:58 Pulse 67 07/22/17 08:00 Resp 20 07/22/17 07:58 BP 108/68 07/22/17 09:09 Pulse Ox 100 07/22/17 07:58 - Medical History PMH: Anxiety, Asthma, Bipolar Disorder, CHF, COPD, Depression, Emphysema, Fractures (LEFT SHOULDER), Hepatitis, HTN Surgical History: Coronary Stent - [facility] Procedures ASSISTANCE WITH RESPIRATORY VENTILATION, >96 HRS, CPAP (08/16/16) CORONAR ARTERIOGR-2 CATH (08/23/13) INSERTION OF ONE VASCULAR STENT (08/23/13) INSRT OF DRUG-ELUTING CORON ARTERY STENTS(S) (08/23/13) LEFT HEART CARDIAC CATH (08/17/13) LT HEART ANGIOCARDIOGRAM (08/17/13) PERCUTANEOUS TRANSLUMINAL CORONARY ANGIOPLASTY [PTCA] (08/23/13) PROCEDURE ON SINGLE VESSEL (08/23/13) Family History: States: No Known Family Hx - Social History Hx Tobacco Use: Yes Hx Alcohol Use: No Hx Substance Use: No - Immunization History Hx Tetanus Toxoid Vaccination: No Hx Influenza Vaccination: No Hx Pneumococcal Vaccination: No Review Of Systems Constitutional: Negative for: Fever Cardiovascular: Negative for: Chest Pain, Palpitations Respiratory: Positive for: Cough, Shortness of Breath, Wheezing. Negative for: Sputum Gastrointestinal: Negative for: Nausea, Vomiting, Abdominal Pain Skin: Negative for: Rash Physical Exam - Physical Exam Appears: Non-toxic, No Acute Distress Skin: Normal Color, Warm, Dry, No Rash Head: Normacephalic Eye(s): bilateral: PERRL Nose: Normal Oral Mucosa: Moist Lips: Normal Appearing Neck: Normal ROM Cardiovascular: Rhythm Regular, No Murmur Respiratory: No Decreased Breath Sounds, No Accessory Muscle Use, Wheezing (B/L expiratory) Gastrointestinal/Abdominal: Normal Exam, Bowel Sounds, Soft Extremity: Normal ROM, No Deformity, No Swelling Neurological/Psych: Oriented x3, Normal Speech ED Course And Treatment - Laboratory Results Result Diagrams: 07/22/17 10:49 07/21/17 06:10 ECG: Interpreted By Me, Viewed By Me ECG Rhythm: Sinus Rhythm ECG Interpretation: No Acute Changes Interpretation Of ECG: Normal interval. Normal axis. LVH. No acute changes Rate From EC O2 Sat by Pulse Oximetry: 92 Pulse Ox Interpretation: Abnormal Medical Decision Making Medical Decision Making: Impression COPD exacerbation Plan: * EKG * Labs * Chest X-Ray * Duoneb, SoluMedrol * Blood Culture * Peak flow * Reassess and Disposition Disposition Discussed With : Charles Bob Doctor Will See Patient In The: Hospital Counseled Patient/Family Regarding: Studies Performed, Diagnosis - Disposition Disposition: HOSPITALIZED Disposition Time: 18:47 Condition: FAIR - Clinical Impression Clinical Impression: COPD exacerbation - Scribe Statement The provider has reviewed the documentation as recorded by the Scribe (Kelli Anderson) All medical record entries made by the Scribe were at my direction and personally dictated by me. I have reviewed the chart and agree that the record accurately reflects my personal performance of the history, physical exam, medical decision making, and the department course for this patient. I have also personally directed, reviewed, and agree with the discharge instructions and disposition.
--- NOTE | 2017-07-19 17:51 | RAD ---
HISTORY: SOB COMPARISON: 06/26/2017 TECHNIQUE: Chest PA and lateral FINDINGS: LUNGS: Hyperinflation, manifestations of COPD. No active pulmonary disease. PLEURA: No significant pleural effusion identified. No pneumothorax apparent. CARDIOVASCULAR: Cardiomegaly. No evidence of acute, significant cardiovascular disease. OSSEOUS STRUCTURES: No significant abnormalities. VISUALIZED UPPER ABDOMEN: Normal. OTHER FINDINGS: None. IMPRESSION: No active disease. No significant interval change compared to the prior examination(s).
[2017-07-19 17:53] LABS: ALBUMIN 3.8 g/dL (3.5-5.0); ALT/SGPT 15 U/L (21-72); AST/SGOT 30 U/L (17-59); BLOOD UREA NITROGEN 10 mg/dL (9-20); CALCIUM 8.3 mg/dl (8.6-10.4); GFR AFRICAN-AMERICAN > 60; GFR NON-AFRICAN AMERICAN > 60
[2017-07-19 18:06] LABS: BANDS 35 % (0-2); LYMPHOCYTE 9 % (20-40); MONOCYTE 3 % (0-10); NEUTROPHIL 53 % (50-75); TOTAL CELLS COUNTED 100
[2017-07-19 18:07] LABS: B-TYPE NATRIURETIC PEPTIDE 2440 pg/mL (0-900); PLATELET ESTIMATE NORMAL (NORMAL)
[2017-07-19] MEDS ORDERED: Azithromycin 500 MG in Sodium Chloride 0.9% 250 ML IVPB STA (18:16)
[2017-07-19] MEDS ORDERED: cefTRIAXone IV 1 gm in Dextros 50 ML IVPB ONE (18:31)
[2017-07-19] MEDS ORDERED: cefTRIAXone IV 1 gm in Dextros 50 ML IVPB STA (18:31)
[2017-07-19 18:48] LABS: VENOUS BLOOD GAS BASE EXCESS 6.1 mmol/L (0.0-2.0); VENOUS BLOOD GAS PCO2 61 mmHg (40-60); VENOUS BLOOD GAS PO2 34 mm/Hg (30-55); VENOUS BLOOD PH 7.35 (7.32-7.43)
[2017-07-19 19:10] LABS: SQUAMOUS EPITHIAL < 1 /hpf (0-5); URINE BACTERIA RARE (<OCC); URINE BILIRUBIN NEGATIVE (NEGATIVE); URINE CLARITY Clear (Clear); URINE COLOR Yellow (YELLOW); URINE GLUCOSE (UA) NORMAL (Normal); URINE LEUKOCYTE ESTERASE NEG Leu/uL (Negative); URINE PROTEIN 2+ mg/dL (NEGATIVE)
[2017-07-19 19:11] LABS: URINE BLOOD 3+ (NEGATIVE)
[2017-07-19] MEDS ORDERED: MethylPREDNISolone 40 mg Vial IVP SCH (20:30)
[2017-07-19] MEDS ORDERED: Azithromycin 500 MG in Sodium Chloride 0.9% 250 ML IVPB SCH (21:00)
[2017-07-19 22:15] LABS: ARTERIAL BLOOD GAS HCO3 27.8 mmol/L (21-28); ARTERIAL BLOOD GAS HEMOGLOBIN 12.5 g/dL (11.7-17.4); ARTERIAL BLOOD GAS O2 SAT 98.9 % (95-98); ARTERIAL BLOOD GAS PCO2 71 mm/Hg (35-45); ARTERIAL BLOOD GAS PH 7.27 (7.35-7.45); ARTERIAL BLOOD GAS PO2 100 mm/Hg (80-100); ARTERIAL BLOOD GAS TCO2 34.8 mmol/L (22-28)
[2017-07-20] MEDS: MethylPREDNISolone 40 mg Vial IVP SCH ×4 (03:10→20:27)
[2017-07-20 06:46] LABS: ABG ALLEN TEST POS; ARTERIAL BLOOD GAS HCO3 27.7 mmol/L (21-28); ARTERIAL BLOOD GAS HEMOGLOBIN 11.7 g/dL (11.7-17.4); ARTERIAL BLOOD GAS O2 SAT 90.6 % (95-98); ARTERIAL BLOOD GAS PCO2 73 mm/Hg (35-45); ARTERIAL BLOOD GAS PH 7.26 (7.35-7.45); ARTERIAL BLOOD GAS PO2 53 mm/Hg (80-100)
[2017-07-20] MEDS: Albuterol-Ipratrop 3 mg / 0.5 (3 ml) UD INH SCH ×3 (07:38→19:08)
[2017-07-20 08:03] LABS: BASO % 0.1 % (0.0-2.0); HEMOGLOBIN 12.3 g/dL (12.0-18.0); LYMPH # 0.6 K/uL (1.0-4.3); LYMPH % 5.4 % (20.0-40.0); MEAN CELL VOLUME 89.6 fL (80.0-94.0); MEAN CORPUSCULAR HEMOGLOBIN 30.4 pg (27.0-31.0); MEAN CORPUSCULAR HGB CONC 33.9 g/dL (33.0-37.0); MEAN PLATELET VOLUME 7.6 fL (7.2-11.7); MONO # 0.2 K/uL (0.0-0.8); NEUT # 10.2 K/uL (1.8-7.0); NEUT % 92.5 % (50.0-75.0); PLATELET COUNT 175 K/uL (130-400); RBC 4.06 Mil/uL (4.40-5.90); RED CELL DISTRIBUTION WIDTH 14.2 % (11.5-14.5); WHITE BLOOD COUNT 11.1 K/uL (4.8-10.8)
[2017-07-20 08:34] LABS: ALB/GLOB RATIO 1.1 (1.0-2.1); ALBUMIN 3.5 g/dL (3.5-5.0); ALT/SGPT 12 U/L (21-72); AST/SGOT 28 U/L (17-59); BLOOD UREA NITROGEN 22 mg/dL (9-20); CALCIUM 7.9 mg/dl (8.6-10.4); GFR AFRICAN-AMERICAN > 60; GFR NON-AFRICAN AMERICAN > 60; HDL CHOLESTEROL 27 mg/dL (30-70)
[2017-07-20 08:45] LABS: LDL CHOLESTEROL 54 mg/dL (0-129)
[2017-07-20 09:17] LABS: BANDS 28 % (0-2); LYMPHOCYTE 11 % (20-40); MONOCYTE 1 % (0-10); NEUTROPHIL 60 % (50-75); TOTAL CELLS COUNTED 100
[2017-07-20 09:18] LABS: BURR CELLS SLIGHT; PLATELET ESTIMATE NORMAL (NORMAL)
[2017-07-20] MEDS: Enoxaparin 40 mg Syringe SC SCH (09:42)
--- NOTE | 2017-07-20 11:20 | CP.PCM.PN ---
Subjective - Date & Time of Evaluation Date of Evaluation: 07/20/17 Time of Evaluation: 10:00 - Subjective Subjective: H&P dictated #[id number] Objective - Vital Signs/Intake and Output Vital Signs (last 24 hours): Temp Pulse Resp BP Pulse Ox 97.2 F L 81 18 96/62 L 99 07/20/17 07:35 07/20/17 08:46 07/20/17 07:35 07/20/17 09:48 07/20/17 07:35 Intake and Output: 07/20/17 07/20/17 06:59 18:59 Intake Total 100 200 Output Total 400 Balance 100 -200 - Medications Medications: Current Medications Albuterol/Ipratropium (Duoneb 3 Mg/0.5 Mg (3 Ml) Ud) 3 ml INH RQ6 [facility] Last Admin: 07/20/17 07:38 Dose: 3 ml Alprazolam (Xanax) 1 mg PO BID PRN PRN Reason: Anxiety Aspirin (Ecotrin) 81 mg PO DAILY [facility] Last Admin: 07/20/17 09:42 Dose: 81 mg Carvedilol (Coreg) 12.5 mg PO BID [facility] Last Admin: 07/20/17 09:48 Dose: Not Given Enoxaparin Sodium (Lovenox) 40 mg SC DAILY [facility] Last Admin: 07/20/17 09:42 Dose: 40 mg Folic Acid (Folic Acid) 1 mg PO DAILY [facility] Last Admin: 07/20/17 09:42 Dose: 1 mg Furosemide (Lasix) 40 mg PO DAILY [facility] Last Admin: 07/20/17 09:47 Dose: Not Given Ceftriaxone Sodium 1 gm/ (Sodium Chloride) 100 mls @ 200 mls/hr IVPB DAILY [facility] PRN Reason: Protocol Last Admin: 07/20/17 09:43 Dose: 200 mls/hr Azithromycin 500 mg/ Sodium (Chloride) 250 mls @ 167 mls/hr IVPB Q24H [facility] PRN Reason: Protocol Insulin Human Regular (Novolin R) 1 unit SC ACHS [facility] PRN Reason: Protocol Methylprednisolone (Solu-Medrol) 40 mg IVP Q6H [facility] Last Admin: 07/20/17 03:10 Dose: 40 mg Paroxetine HCl (Paxil) 20 mg PO DAILY [facility] Last Admin: 07/20/17 09:42 Dose: 20 mg Pneumococcal Polyvalent Vaccine (Pneumovax 23 Vaccine) 0.5 ml IM .ONCE ONE Stop: 07/21/17 10:01 Tamsulosin HCl (Flomax) 0.4 mg PO DAILY [facility] Last Admin: 07/20/17 09:42 Dose: 0.4 mg - Labs Labs: 07/20/17 07:41 07/20/17 07:41
[2017-07-20] MEDS: (Novolin R) Insulin Human Regular 100 units/ml vial SC SCH ×3 (11:24→22:15)
--- NOTE | 2017-07-20 16:11 | CP.PCM.CON ---
History of Present Illness - History of Present Illness History of Present Illness: 61 year old male with a PMH notable for CAD (s/p Stenting [address] Julio ), Diastolic CHF, COPD, and anxiety presented with shortness of breath and lethargy. The patient is presently on BiPAP for his shortness of breath. When removed from BiPAP, the patient becomes dyspneic and hypoxic. The patient presently denies fever, chills, headache, chest pain, palpitations, orthopnea, PND, abdominal pain, changes in bowel/bladder, and extremity paresthesias. PMH: HTN, COPD, CAD s/p stent (07/[address] Julio), CHF, anxiety, tobacco abuse, history of drug abuse, history of hepatits C (resolution post-treatment) PSH: left shoulder fracture repair (21 yoa) Social: Quick smoking (h/o 1ppd x 45 years), History of alcohol and heroin/ opiate abuse (quit 4 years ago)- has been going to methadone program ([facility]) and is maintained on a tapering dose of 85mg daily Allergy: NKDA Review of Systems - Review of Systems All systems: reviewed and no additional remarkable complaints except (Shortness of breath) Past Patient History - Infectious Disease Hx of Infectious Diseases: None - Past Medical History & Family History Past Medical History?: Yes - Past Social History Smoking Status: Heavy Smoker > 10 Cigarettes Daily - CARDIAC Hx Congestive Heart Failure: Yes Hx Hypertension: Yes - PULMONARY Hx Asthma: Yes Hx Chronic Obstructive Pulmonary Disease (COPD): Yes Hx Emphysema: Yes - NEUROLOGICAL Hx Paralysis: No - HEENT Hx HEENT Problems: No - RENAL Hx Chronic Kidney Disease: No - ENDOCRINE/METABOLIC Hx Diabetes Mellitus Type 2: Yes - HEMATOLOGICAL/ONCOLOGICAL Hx Blood Disorders: Yes Hx Hepatitis C: Yes (resolved) - INTEGUMENTARY Hx Dermatological Problems: No - MUSCULOSKELETAL/RHEUMATOLOGICAL Hx Falls: No - GASTROINTESTINAL Hx Gastrointestinal Disorders: No - GENITOURINARY/GYNECOLOGICAL Hx Genitourinary Disorders: Yes Hx Hematuria: Yes - PSYCHIATRIC Hx Substance Use: No - SURGICAL HISTORY Hx Coronary Stent: Yes - ANESTHESIA Hx Anesthesia: Yes Hx Anesthesia Reactions: No Hx Malignant Hyperthermia: No Meds Allergies/Adverse Reactions: Allergies Allergy/AdvReac Type Severity Reaction Status Date / Time No Known Allergies Allergy Verified 03/26/17 10:29 - Medications Medications: Current Medications Albuterol/Ipratropium (Duoneb 3 Mg/0.5 Mg (3 Ml) Ud) 3 ml INH RQ6 [facility] Last Admin: 07/20/17 13:19 Dose: 3 ml Alprazolam (Xanax) 1 mg PO BID PRN PRN Reason: Anxiety Aspirin (Ecotrin) 81 mg PO DAILY [facility] Last Admin: 07/20/17 09:42 Dose: 81 mg Carvedilol (Coreg) 12.5 mg PO BID [facility] Last Admin: 07/20/17 09:48 Dose: Not Given Enoxaparin Sodium (Lovenox) 40 mg SC DAILY [facility] Last Admin: 07/20/17 09:42 Dose: 40 mg Folic Acid (Folic Acid) 1 mg PO DAILY [facility] Last Admin: 07/20/17 09:42 Dose: 1 mg Furosemide (Lasix) 40 mg PO DAILY [facility] Last Admin: 07/20/17 09:47 Dose: Not Given Ceftriaxone Sodium 1 gm/ (Sodium Chloride) 100 mls @ 200 mls/hr IVPB DAILY [facility] PRN Reason: Protocol Last Admin: 07/20/17 09:43 Dose: 200 mls/hr Azithromycin 500 mg/ Sodium (Chloride) 250 mls @ 167 mls/hr IVPB Q24H [facility] PRN Reason: Protocol Insulin Human Regular (Novolin R) 0 unit SC ACHS [facility] PRN Reason: Protocol Last Admin: 07/20/17 11:24 Dose: Not Given Methylprednisolone (Solu-Medrol) 40 mg IVP Q6H [facility] Last Admin: 07/20/17 14:35 Dose: 40 mg Paroxetine HCl (Paxil) 20 mg PO DAILY [facility] Last Admin: 07/20/17 09:42 Dose: 20 mg Pneumococcal Polyvalent Vaccine (Pneumovax 23 Vaccine) 0.5 ml IM .ONCE ONE Stop: 07/21/17 10:01 Tamsulosin HCl (Flomax) 0.4 mg PO DAILY [facility] Last Admin: 07/20/17 09:42 Dose: 0.4 mg Physical Exam - Head Exam Head Exam: ATRAUMATIC, NORMOCEPHALIC - ENT Exam ENT Exam: Mucous Membranes Moist - Neck Exam Neck exam: Positive for: Normal Inspection - Respiratory Exam Respiratory Exam: Decreased Breath Sounds - GI/Abdominal Exam GI & Abdominal Exam: Normal Bowel Sounds, Soft - Extremities Exam Extremities exam: Positive for: pedal edema - Neurological Exam Neurological exam: Alert, Oriented x3 Results - Vital Signs Recent Vital Signs: Last Vital Signs Temp 97.2 F L 07/20/17 07:35 Pulse 83 07/20/17 12:00 Resp 18 07/20/17 07:35 BP 96/62 L 07/20/17 09:48 Pulse Ox 99 07/20/17 07:35 - Labs Result Diagrams: 07/20/17 07:41 07/20/17 07:41 Labs: Laboratory Results - last 24 hr 07/19/17 07/19/17 07/19/17 17:38 17:38 18:45 WBC 13.9 H RBC 4.37 L Hgb 13.0 Hct 38.8 MCV 88.8 MCH 29.8 MCHC 33.6 RDW 13.8 Plt Count 182 MPV 6.9 L Neut % (Auto) 89.9 H Lymph % (Auto) 5.7 L [place] % (Auto) 3.8 Eos % (Auto) 0.0 Baso % (Auto) 0.6 Neut # (Auto) 12.4 H Lymph # (Auto) 0.8 L [place] # (Auto) 0.5 Eos # (Auto) 0.0 Baso # (Auto) 0.1 Neutrophils % (Manual) 53 Band Neutrophils % 35 H* Lymphocytes % (Manual) 9 L Monocytes % (Manual) 3 Platelet Estimate Normal RBC Morphology Normal [place] Cells Puncture Site pCO2 pO2 34 HCO3 ABG pH ABG Total CO2 ABG O2 Saturation ABG Base Excess ABG Hemoglobin ABG Carboxyhemoglobin POC ABG HHb (Measured) ABG Methemoglobin Paolo Test VBG pH 7.35 VBG pCO2 61 H VBG HCO3 28.7 VBG Total CO2 35.6 H VBG O2 Sat (Calc) 74.5 H VBG Base Excess 6.1 H VBG Potassium 4.2 A-a O2 Difference Respiratory Index Hgb O2 Saturation Glucose 86 Lactate 1.2 Liter Flow FiO2 21.0 Inspiratory BiPAP Expiratory BiPAP Crit Value Called To Crit Value Called By Crit Value Read Back Blood Gas Notified Time Sodium 137 133.0 Potassium 4.6 Chloride 91 L 98.0 Carbon Dioxide 36 H Anion Gap 14 BUN 10 Creatinine 0.8 Est GFR ( Amer) > 60 Est GFR (Non-Af Amer) > 60 POC Glucose (mg/dL) Random Glucose 86 Hemoglobin A1c Calcium 8.3 L Total Bilirubin 0.6 AST 30 ALT 15 L D Alkaline Phosphatase 80 Troponin I < 0.0120 NT-Pro-B Natriuret Pep 2440 H Total Protein 7.4 Albumin 3.8 Globulin 3.7 Albumin/Globulin Ratio 1.0 Triglycerides Cholesterol LDL Cholesterol Direct HDL Cholesterol TSH 3rd Generation Venous Blood Potassium 4.2 Urine Color Urine Clarity Urine pH Ur Specific [place] Urine Protein Urine Glucose (UA) Urine Ketones Urine Blood Urine Nitrate Urine Bilirubin Urine Urobilinogen Ur Leukocyte Esterase Urine WBC (Auto) Urine RBC (Auto) Ur Squamous Epith Cells Ur Transition Epith Cell Urine Bacteria Influenza Typ A,B (EIA) Ur L.pneumophila Ag Mycoplasma pneumon IgM 07/19/17 07/19/17 07/19/17 19:02 20:14 22:11 WBC RBC Hgb Hct MCV MCH MCHC RDW Plt Count MPV Neut % (Auto) Lymph % (Auto) [place] % (Auto) Eos % (Auto) Baso % (Auto) Neut # (Auto) Lymph # (Auto) [place] # (Auto) Eos # (Auto) Baso # (Auto) Neutrophils % (Manual) Band Neutrophils % Lymphocytes % (Manual) Monocytes % (Manual) Platelet Estimate RBC Morphology [place] Cells Puncture Site Rba pCO2 71 H* pO2 100 HCO3 27.8 ABG pH 7.27 L ABG Total CO2 34.8 H ABG O2 Saturation 98.9 H ABG Base Excess 3.7 H ABG Hemoglobin 12.5 ABG Carboxyhemoglobin 2.5 H POC ABG HHb (Measured) 1.1 ABG Methemoglobin 1.3 Paolo Test Na VBG pH VBG pCO2 VBG HCO3 VBG Total CO2 VBG O2 Sat (Calc) VBG Base Excess VBG Potassium A-a O2 Difference 168.0 Respiratory Index 1.7 Hgb O2 Saturation 95.1 Glucose Lactate Liter Flow FiO2 50.0 Inspiratory BiPAP 12 Expiratory BiPAP 6 Crit Value Called To Valerie Crit Value Called By Lend Crit Value Read Back Y Blood Gas Notified Time 8 Sodium Potassium Chloride Carbon Dioxide Anion Gap BUN Creatinine Est GFR ( Amer) Est GFR (Non-Af Amer) POC Glucose (mg/dL) 102 Random Glucose Hemoglobin A1c Calcium Total Bilirubin AST ALT Alkaline Phosphatase Troponin I NT-Pro-B Natriuret Pep Total Protein Albumin Globulin Albumin/Globulin Ratio Triglycerides Cholesterol LDL Cholesterol Direct HDL Cholesterol TSH 3rd Generation Venous Blood Potassium Urine Color Yellow Urine Clarity Clear Urine pH 7.0 Ur Specific [place] 1.017 Urine Protein 2+ H Urine Glucose (UA) Normal Urine Ketones Negative Urine Blood 3+ H Urine Nitrate Negative Urine Bilirubin Negative Urine Urobilinogen 2.0 Ur Leukocyte Esterase Neg Urine WBC (Auto) 3 Urine RBC (Auto) 45 H Ur Squamous Epith Cells < 1 Ur Transition Epith Cell < 1 Urine Bacteria Rare Influenza Typ A,B (EIA) Ur L.pneumophila Ag Mycoplasma pneumon IgM 07/19/17 07/20/17 07/20/17 Unknown 01:51 06:02 WBC RBC Hgb Hct MCV MCH MCHC RDW Plt Count MPV Neut % (Auto) Lymph % (Auto) [place] % (Auto) Eos % (Auto) Baso % (Auto) Neut # (Auto) Lymph # (Auto) [place] # (Auto) Eos # (Auto) Baso # (Auto) Neutrophils % (Manual) Band Neutrophils % Lymphocytes % (Manual) Monocytes % (Manual) Platelet Estimate RBC Morphology [place] Cells Puncture Site Rr pCO2 73 H* pO2 53 L HCO3 27.7 ABG pH 7.26 L ABG Total CO2 35.0 H ABG O2 Saturation 90.6 L ABG Base Excess 3.8 H ABG Hemoglobin 11.7 ABG Carboxyhemoglobin 2.6 H POC ABG HHb (Measured) 9.0 H ABG Methemoglobin 1.2 Paolo Test Pos VBG pH VBG pCO2 VBG HCO3 VBG Total CO2 VBG O2 Sat (Calc) VBG Base Excess VBG Potassium A-a O2 Difference Respiratory Index Hgb O2 Saturation 87.2 L Glucose Lactate Liter Flow 2.0 FiO2 Inspiratory BiPAP Expiratory BiPAP Crit Value Called To Janice miller rn Crit Value Called By Elena carcamo rt Crit Value Read Back Y Blood Gas Notified Time 645 Sodium Potassium Chloride Carbon Dioxide Anion Gap BUN Creatinine Est GFR ( Amer) Est GFR (Non-Af Amer) POC Glucose (mg/dL) Random Glucose Hemoglobin A1c Calcium Total Bilirubin AST ALT Alkaline Phosphatase Troponin I 0.0140 NT-Pro-B Natriuret Pep Total Protein Albumin Globulin Albumin/Globulin Ratio Triglycerides Cholesterol LDL Cholesterol Direct HDL Cholesterol TSH 3rd Generation Venous Blood Potassium Urine Color Urine Clarity Urine pH Ur Specific [place] Urine Protein Urine Glucose (UA) Urine Ketones Urine Blood Urine Nitrate Urine Bilirubin Urine Urobilinogen Ur Leukocyte Esterase Urine WBC (Auto) Urine RBC (Auto) Ur Squamous Epith Cells Ur Transition Epith Cell Urine Bacteria Influenza Typ A,B (EIA) Ur L.pneumophila Ag Negative Mycoplasma pneumon IgM 07/20/17 07/20/17 07/20/17 06:20 07:41 07:41 WBC RBC Hgb Hct MCV MCH MCHC RDW Plt Count MPV Neut % (Auto) Lymph % (Auto) [place] % (Auto) Eos % (Auto) Baso % (Auto) Neut # (Auto) Lymph # (Auto) [place] # (Auto) Eos # (Auto) Baso # (Auto) Neutrophils % (Manual) Band Neutrophils % Lymphocytes % (Manual) Monocytes % (Manual) Platelet Estimate RBC Morphology [place] Cells Puncture Site pCO2 pO2 HCO3 ABG pH ABG Total CO2 ABG O2 Saturation ABG Base Excess ABG Hemoglobin ABG Carboxyhemoglobin POC ABG HHb (Measured) ABG Methemoglobin Paolo Test VBG pH VBG pCO2 VBG HCO3 VBG Total CO2 VBG O2 Sat (Calc) VBG Base Excess VBG Potassium A-a O2 Difference Respiratory Index Hgb O2 Saturation Glucose Lactate Liter Flow FiO2 Inspiratory BiPAP Expiratory BiPAP Crit Value Called To Crit Value Called By Crit Value Read Back Blood Gas Notified Time Sodium Potassium Chloride Carbon Dioxide Anion Gap BUN Creatinine Est GFR ( Amer) Est GFR (Non-Af Amer) POC Glucose (mg/dL) 142 H Random Glucose Hemoglobin A1c Calcium Total Bilirubin AST ALT Alkaline Phosphatase Troponin I < 0.0120 NT-Pro-B Natriuret Pep Total Protein Albumin Globulin Albumin/Globulin Ratio Triglycerides Cholesterol LDL Cholesterol Direct HDL Cholesterol TSH 3rd Generation Venous Blood Potassium Urine Color Urine Clarity Urine pH Ur Specific [place] Urine Protein Urine Glucose (UA) Urine Ketones Urine Blood Urine Nitrate Urine Bilirubin Urine Urobilinogen Ur Leukocyte Esterase Urine WBC (Auto) Urine RBC (Auto) Ur Squamous Epith Cells Ur Transition Epith Cell Urine Bacteria Influenza Typ A,B (EIA) Ur L.pneumophila Ag Mycoplasma pneumon IgM Negative 07/20/17 07/20/17 07/20/17 07:41 07:41 11:08 WBC 11.1 H RBC 4.06 L Hgb 12.3 Hct 36.4 MCV 89.6 MCH 30.4 MCHC 33.9 RDW 14.2 Plt Count 175 MPV 7.6 Neut % (Auto) 92.5 H Lymph % (Auto) 5.4 L [place] % (Auto) 2.0 Eos % (Auto) 0.0 Baso % (Auto) 0.1 Neut # (Auto) 10.2 H Lymph # (Auto) 0.6 L [place] # (Auto) 0.2 Eos # (Auto) 0.0 Baso # (Auto) 0.0 Neutrophils % (Manual) 60 Band Neutrophils % 28 H* Lymphocytes % (Manual) 11 L Monocytes % (Manual) 1 Platelet Estimate Normal RBC Morphology [place] Cells Slight Puncture Site pCO2 pO2 HCO3 ABG pH ABG Total CO2 ABG O2 Saturation ABG Base Excess ABG Hemoglobin ABG Carboxyhemoglobin POC ABG HHb (Measured) ABG Methemoglobin Paolo Test VBG pH VBG pCO2 VBG HCO3 VBG Total CO2 VBG O2 Sat (Calc) VBG Base Excess VBG Potassium A-a O2 Difference Respiratory Index Hgb O2 Saturation Glucose Lactate Liter Flow FiO2 Inspiratory BiPAP Expiratory BiPAP Crit Value Called To Crit Value Called By Crit Value Read Back Blood Gas Notified Time Sodium 137 Potassium 4.5 Chloride 95 L Carbon Dioxide 30 Anion Gap 16 BUN 22 H Creatinine 1.1 Est GFR ( Amer) > 60 Est GFR (Non-Af Amer) > 60 POC Glucose (mg/dL) 112 H Random Glucose 135 H Hemoglobin A1c Calcium 7.9 L Total Bilirubin 0.4 AST 28 ALT 12 L Alkaline Phosphatase 78 Troponin I < 0.0120 NT-Pro-B Natriuret Pep Total Protein 6.7 Albumin 3.5 Globulin 3.3 Albumin/Globulin Ratio 1.1 Triglycerides 81 D Cholesterol 125 LDL Cholesterol Direct 54 HDL Cholesterol 27 L TSH 3rd Generation 0.44 L Venous Blood Potassium Urine Color Urine Clarity Urine pH Ur Specific [place] Urine Protein Urine Glucose (UA) Urine Ketones Urine Blood Urine Nitrate Urine Bilirubin Urine Urobilinogen Ur Leukocyte Esterase Urine WBC (Auto) Urine RBC (Auto) Ur Squamous Epith Cells Ur Transition Epith Cell Urine Bacteria Influenza Typ A,B (EIA) Ur L.pneumophila Ag Mycoplasma pneumon IgM 07/20/17 07/20/17 12:56 Unknown WBC RBC Hgb Hct MCV MCH MCHC RDW Plt Count MPV Neut % (Auto) Lymph % (Auto) [place] % (Auto) Eos % (Auto) Baso % (Auto) Neut # (Auto) Lymph # (Auto) [place] # (Auto) Eos # (Auto) Baso # (Auto) Neutrophils % (Manual) Band Neutrophils % Lymphocytes % (Manual) Monocytes % (Manual) Platelet Estimate RBC Morphology [place] Cells Puncture Site pCO2 pO2 HCO3 ABG pH ABG Total CO2 ABG O2 Saturation ABG Base Excess ABG Hemoglobin ABG Carboxyhemoglobin POC ABG HHb (Measured) ABG Methemoglobin Paolo Test VBG pH VBG pCO2 VBG HCO3 VBG Total CO2 VBG O2 Sat (Calc) VBG Base Excess VBG Potassium A-a O2 Difference Respiratory Index Hgb O2 Saturation Glucose Lactate Liter Flow FiO2 Inspiratory BiPAP Expiratory BiPAP Crit Value Called To Crit Value Called By Crit Value Read Back Blood Gas Notified Time Sodium Potassium Chloride Carbon Dioxide Anion Gap BUN Creatinine Est GFR ( Amer) Est GFR (Non-Af Amer) POC Glucose (mg/dL) Random Glucose Hemoglobin A1c 5.8 Calcium Total Bilirubin AST ALT Alkaline Phosphatase Troponin I NT-Pro-B Natriuret Pep Total Protein Albumin Globulin Albumin/Globulin Ratio Triglycerides Cholesterol LDL Cholesterol Direct HDL Cholesterol TSH 3rd Generation Venous Blood Potassium Urine Color Urine Clarity Urine pH Ur Specific [place] Urine Protein Urine Glucose (UA) Urine Ketones Urine Blood Urine Nitrate Urine Bilirubin Urine Urobilinogen Ur Leukocyte Esterase Urine WBC (Auto) Urine RBC (Auto) Ur Squamous Epith Cells Ur Transition Epith Cell Urine Bacteria Influenza Typ A,B (EIA) Negative for flu a/b Ur L.pneumophila Ag Mycoplasma pneumon IgM Assessment & Plan (1) Hypercapnic respiratory failure Status: Acute Comment: continue BiPAP. IV steroids, nebulizer treatment and IV antibiotics (2) COPD exacerbation Status: Acute (3) ASHLEY (obstructive sleep apnea) Status: Acute
[2017-07-20] MEDS: Azithromycin 500 MG in Sodium Chloride 0.9% 250 ML IVPB SCH (20:26)
--- NOTE | 2017-07-20 23:44 | HP ---
CHIEF COMPLAINT: Progressive worsening of shortness of breath and cough over the past few days. HISTORY OF PRESENT ILLNESS: Mr. Lopez is a 61-year-old morbidly obese male with past medical history of bipolar disorder, COPD, CAD, CHF, status post stent placement about 4 or 5 years ago, chronic low back pain, undergoing physical therapy, has been following up with as primary care physician and Dr. Julio as Cardiology and Dr. Rider as Neurology, came into the ED with the symptoms of not feeling well, with a dry cough and progressive worsening of shortness of breath over the past 3 to 4 days. As per the patient, he was diagnosed with COPD about 4 years ago, has been having a COPD exacerbation over 3 to 4 months. About 4 months ago, he was admitted to the hospital, has been using nebulizer treatments at home. He started feeling very sick over the weekend, felt like he had pneumonia, started to have dry cough with minimal clear sputum, but actually he was not able to breathe, even to go to the bathroom, which made him come to the emergency room. He denied any fever, but he felt warm over the weekend. He denied any headache, denied any dizziness, denied any nausea, vomiting, but felt like a tightness in his chest, not able to breathe. Denied any abdominal symptoms. Denied any urinary complaints. He has been having lower extremity chronic venous changes, has been following up with the doctors in the [place]. He denies any neurologic symptoms. PAST MEDICAL HISTORY: As described, hypertension, coronary artery disease, chronic low back pain, bipolar disorder. PAST SURGICAL HISTORY: Coronary stent placement about 4 to 5 years ago. FAMILY HISTORY: Cancer in both mother and father. PERSONAL HISTORY: He is single, lives with his girlfriend, having one child, retired. 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 SOCIAL HISTORY: He is an ex-smoker, smoked one pack per day for 35 years. He quit smoking about 5 days ago when he started not feeling well. He is ex-alcoholic. Denies any other drug abuse. ALLERGIES: NO KNOWN DRUG ALLERGIES. HOME MEDICATIONS: Include Flomax 0.4 mg daily, Paxil 20 mg daily, methadone mg daily, Lasix 40 mg daily, folic acid 1 mg daily, vitamin D 2000 units daily, Coreg 12.5 mg p.o. b.i.d., aspirin 81 mg daily, and albuterol inhalers. REVIEW OF SYSTEMS: As described in history of present illness. All other systems reviewed and were found to be negative. PHYSICAL EXAMINATION: GENERAL: Middle-aged obese male, lying in bed, in no acute distress. VITAL SIGNS: Blood pressure 96/62, pulse 81, respirations 18, on BiPAP. HEENT: Pupils equal, round, and reactive to light and accommodation. Extraocular muscles intact. No icterus, no pallor. No oral thrush. No oropharyngeal congestion. NECK: Supple. No JVD. LUNGS: Bilaterally clear breath sounds, decreased breath sounds with some wheezing heard. CVS: S1 and S2 present, regular. ABDOMEN: Soft, nontender. Bowel sounds present. No guarding, no rigidity. No rebound tenderness noted. EVENT SET UP SPECIALIST: Alert, awake, oriented x3. No focal deficits noted. EXTREMITIES: Chronic venous changes bilaterally. Extremities are warm to touch. Bilateral palpable pulses, but diminished. LABORATORY DATA: Labs done from ED: WBC 13.9, hemoglobin 13, hematocrit 38.2, platelets 182, bands 35, neutrophils 53. ABG has PCO2 of 71, PO2 of 100, on nonrebreather, pH 7.27, repeat one is pH 7.26, PCO2 of 73, PO2 of 53. Sodium 137, potassium 4.6, chloride 91, bicarb 36, BUN 10, creatinine 0.8, glucose 86, calcium 8.3, AST 30, ALT 15, alkaline phosphatase 80, proBNP 2440. Cardiac enzymes x3 negative. UA, specific gravity 1.017, pH 7.0, protein 2.0, blood 3+, rbc 45; otherwise, negative. Blood cultures are sent. Chest x-ray negative for any infiltrate. ASSESSMENT: A middle-aged morbidly obese male with history of coronary artery disease, status post stent placement, hypertension, bipolar disorder, benign prostatic hypertrophy, who has been following up with , chronic obstructive pulmonary disease, admitted for progressive worsening of shortness of breath with worsening cough and in the ED, the patient was found to be hypoxic and hypercapnic with bandemia, and the patient is being admitted for further management. 1. Chronic obstructive pulmonary disease exacerbation. 2. Hypotension with bandemia, rule out possible sepsis. 3. Hypercapnic respiratory failure. 4. History of hypertension. 5. History of coronary artery disease. 6. History of bipolar disorder. PLAN: The patient is being admitted to telemetry. We will continue with bronchodilators, Solu Medrol, empiric antibiotics with Rocephin and Zithromax. The patient is started on BiPAP. Pulmonary, the patient is noncompliant with BiPAP. Advised the patient to keep the BiPAP. We will follow up with blood cultures and urine culture. Check sputum culture, legionella microassessment, check flu antigen. We will continue with home medication. We will give Protonix for GI prophylaxis and heparin for DVT prophylaxis. We will add further recommendation as his clinical course progresses. Charles Bob MD
[2017-07-21] MEDS: MethylPREDNISolone 40 mg Vial IVP SCH ×4 (01:46→20:25)
[2017-07-21] MEDS: Albuterol-Ipratrop 3 mg / 0.5 (3 ml) UD INH SCH ×4 (02:39→19:44)
[2017-07-21 06:36] LABS: ALBUMIN 3.4 g/dL (3.5-5.0); ALT/SGPT 11 U/L (21-72); AST/SGOT 20 U/L (17-59); BASO % 0.2 % (0.0-2.0); BLOOD UREA NITROGEN 45 mg/dL (9-20); CALCIUM 7.6 mg/dl (8.6-10.4); GFR AFRICAN-AMERICAN > 60; GFR NON-AFRICAN AMERICAN 52; HEMOGLOBIN 11.9 g/dL (12.0-18.0); LYMPH # 0.5 K/uL (1.0-4.3); LYMPH % 5.4 % (20.0-40.0); MEAN CORPUSCULAR HEMOGLOBIN 30.8 pg (27.0-31.0); MEAN CORPUSCULAR HGB CONC 34.2 g/dL (33.0-37.0); MEAN PLATELET VOLUME 7.3 fL (7.2-11.7); MONO # 0.2 K/uL (0.0-0.8); MONO % 1.9 % (0.0-10.0); NEUT # 7.7 K/uL (1.8-7.0); NEUT % 92.5 % (50.0-75.0); NRBC % 0.1 % (0.0-2.0); PLATELET COUNT 175 K/uL (130-400); RBC 3.85 Mil/uL (4.40-5.90); RED CELL DISTRIBUTION WIDTH 14.3 % (11.5-14.5); WHITE BLOOD COUNT 8.4 K/uL (4.8-10.8)
[2017-07-21] MEDS: (Novolin R) Insulin Human Regular 100 units/ml vial SC SCH ×4 (07:33→21:24)
[2017-07-21 08:31] LABS: BANDS 26 % (0-2); LYMPHOCYTE 6 % (20-40); NEUTROPHIL 68 % (50-75); PLATELET ESTIMATE NORMAL (NORMAL); TOTAL CELLS COUNTED 100
[2017-07-21 08:32] LABS: ANISOCYTOSIS SLIGHT; HYPOCHROMIC SLIGHT; POIKILOCYTOSIS SLIGHT
[2017-07-21] MEDS: Enoxaparin 40 mg Syringe SC SCH (09:00)
[2017-07-21] MEDS ORDERED: Pneumococcal 23-Valent Vaccine IM ONE (10:00)
--- NOTE | 2017-07-21 14:37 | CP.PCM.CON ---
History of Present Illness - History of Present Illness History of Present Illness: History of Present Illness: 61 yo male, hx of copd, chf, presents with sob, cough. . pt reports worsening symptoms. (+)cough (+)chest tightness (-)abd pain (-)n/v/d referred for ID eval pneumonia/copd - Medical History PMH: Anxiety, Asthma, Bipolar Disorder, CHF, COPD, Depression, Fractures (LEFT SHOULDER), Hepatitis, HTN Denies: Hypothyroidism, Chronic Kidney Disease Surgical History: Coronary Stent - [facility] Procedures CORONAR ARTERIOGR-2 CATH (08/23/13) INSERTION OF ONE VASCULAR STENT (08/23/13) INSRT OF DRUG-ELUTING CORON ARTERY STENTS(S) (08/23/13) LEFT HEART CARDIAC CATH (08/17/13) LT HEART ANGIOCARDIOGRAM (08/17/13) PERCUTANEOUS TRANSLUMINAL CORONARY ANGIOPLASTY [PTCA] (08/23/13) PROCEDURE ON SINGLE VESSEL (08/23/13) Review of Systems - Constitutional Constitutional: As Per HPI - EENT Eyes: absent: As Per HPI, Blind Spots, Blurred Vision, Change in Vision, Decreased Night Vision, Diplopia, Discharge, Dry Eye, Exophthalmos, Floaters, Irritation, Itchy Eyes, Loss of Peripheral Vision, Pain, Photophobia, Requires Corrective Lenses, Sees Flashes, Spots in Vision, Tunnel Vision, Other Visual Disturbances, Loss of Vision, Other Ears: absent: As Per HPI, Decreased Hearing, Ear Discharge, Ear Pain, Tinnitus, Abnormal Hearing, Disequilibrium, Dizziness, Other Nose/Mouth/Throat: absent: As Per HPI, Epistaxis, Nasal Congestion, Nasal Discharge, Nasal Obstruction, Nasal Trauma, Nose Pain, Post Nasal Drip, Sinus Pain, Sinus Pressure, Bleeding Gums, Change in Voice, Dental Pain, Dry Mouth, Dysphagia, Halitosis, Hoarsness, Lip Swelling, Mouth Lesions, Mouth Pain, Odynophagia, Sore Throat, Throat Swelling, Tongue Swelling, Facial Pain, Neck Pain, Neck Mass, Other - Cardiovascular Cardiovascular: As Per HPI - Respiratory Respiratory: As Per HPI, Cough, Dyspnea. absent: Hemoptysis - Gastrointestinal Gastrointestinal: absent: As Per HPI, Abdominal Pain, Belching, Bloating, Change in Bowel Habits, Change in Stool Character, Coffee Ground Emesis, Constipation, Cramping, Diarrhea, Dyspepsia, Dysphagia, Early Satiety, Excessive Flatus, Fecal Incontinence, Heartburn, Hematemesis, Hematochezia, Loose Stools, Melena, Nausea, Odynophagia, Temesmus, Vomiting, Other - Genitourinary Genitourinary: absent: As Per HPI, Change in Urinary Stream, Difficulty Urinating, Dysuria, Flank Pain, Hematuria, Pyuria, Nocturia, Urinary Incontinence, Urinary Frequency, Urinary Hesitance, Urinary Urgency, Voiding Freq/Small Amts, Freq UTI, Hx Renal/Bladder Calculi, Hx /Renal Surgery, Bladder Distension, Other - Musculoskeletal Musculoskeletal: absent: As Per HPI, Abnormal Gait, Arthralgias, Atrophy, Back Pain, Deformity, Joint Swelling, Limited Range of Motion, Loss of Height, Muscle Cramps, Muscle Weakness, Myalgias, Neck Pain, Numbness, Radiating Pain into Limb, Stiffness, Tingling, Other - Integumentary Integumentary: absent: As Per HPI, Acne, Alopecia, Bleeding Lesions, Change in Hair, Change in Nails, Change in Pigmentation, Changing Lesions, Dry Skin, Erythema, Furuncle, Hirsutism, Lesions, New Lesions, Non-Healing Lesions, Photosensitivity, Pruritus, Rash, Skin Pain, Skin Ulcer, Sores, Striae, Swelling , Unusual Bruising, Wounds, Jaundice, Other - Neurological Neurological: absent: As Per HPI, Abnormal Gait, Abnormal Hearing, Abnormal Movements, Abnormal Speech, Behavioral Changes, Burning Sensations, Confusion, Convulsions, Disequilibrium, Dizziness, Numbness, Focal Weakness, Frequent Falls , Headaches, Lack of Coordination, Loss of Vision, Memory Loss, Paresthesias, Radicular Pain, Restless Legs, Sensory Deficit, Syncope, Tingling, Tremor, Vertigo, Weakness, Other Visual Disturbances, Other - Psychiatric Psychiatric: absent: As Per HPI, Abnormal Sleep Pattern, Anhedonia, Anxiety, Auditory Hallucinations, Behavioral Changes, Change in Appetite, Change in Libido, Confusion, Depression, Difficulty Concentrating, Hallucinations, Homicidal Ideation, Hopelessness, Irritability, Memory Loss, Mood Swings, Panic Attacks, Paranoia, Suicidal Ideation, Visual Hallucinations, Tactile Hallucinations, Other - Endocrine Endocrine: absent: As Per HPI, Change in Body Appearance, Change in Libido, Cold Intolorance, Deepening of Voice, Excessive Sweating, Fatigue, Flushing, Heat Intolorance, Increase in Ring/Shoe/Hat Size, Palpitations, Polydipsia, Polyphagia, Polyuria, Other - Hematologic/Lymphatic Hematologic: absent: As Per HPI, Easy Bleeding, Easy Bruising, Lymphadenopathy, Other Past Patient History - Infectious Disease Hx of Infectious Diseases: None - Past Medical History & Family History Past Medical History?: Yes - Past Social History Smoking Status: Heavy Smoker > 10 Cigarettes Daily - CARDIAC Hx Congestive Heart Failure: Yes Hx Hypertension: Yes - PULMONARY Hx Asthma: Yes Hx Chronic Obstructive Pulmonary Disease (COPD): Yes Hx Emphysema: Yes - NEUROLOGICAL Hx Paralysis: No - HEENT Hx HEENT Problems: No - RENAL Hx Chronic Kidney Disease: No - ENDOCRINE/METABOLIC Hx Diabetes Mellitus Type 2: Yes - HEMATOLOGICAL/ONCOLOGICAL Hx Blood Disorders: Yes Hx Hepatitis C: Yes (resolved) - INTEGUMENTARY Hx Dermatological Problems: No - MUSCULOSKELETAL/RHEUMATOLOGICAL Hx Falls: No - GASTROINTESTINAL Hx Gastrointestinal Disorders: No - GENITOURINARY/GYNECOLOGICAL Hx Genitourinary Disorders: Yes Hx Hematuria: Yes - PSYCHIATRIC Hx Substance Use: No - SURGICAL HISTORY Hx Coronary Stent: Yes - ANESTHESIA Hx Anesthesia: Yes Hx Anesthesia Reactions: No Hx Malignant Hyperthermia: No Meds Allergies/Adverse Reactions: Allergies Allergy/AdvReac Type Severity Reaction Status Date / Time No Known Allergies Allergy Verified 03/26/17 10:29 - Medications Medications: Current Medications Albuterol/Ipratropium (Duoneb 3 Mg/0.5 Mg (3 Ml) Ud) 3 ml INH RQ6 COUNTS INCLUDE 234 BEDS AT THE [facility] Last Admin: 07/21/17 14:06 Dose: 3 ml Alprazolam (Xanax) 1 mg PO BID PRN PRN Reason: Anxiety Last Admin: 07/21/17 09:14 Dose: 1 mg Aspirin (Ecotrin) 81 mg PO DAILY COUNTS INCLUDE 234 BEDS AT THE [facility] Last Admin: 07/21/17 09:00 Dose: 81 mg Carvedilol (Coreg) 12.5 mg PO BID COUNTS INCLUDE 234 BEDS AT THE [facility] Last Admin: 07/21/17 09:02 Dose: 12.5 mg Enoxaparin Sodium (Lovenox) 40 mg SC DAILY COUNTS INCLUDE 234 BEDS AT THE [facility] Last Admin: 07/21/17 09:00 Dose: 40 mg Folic Acid (Folic Acid) 1 mg PO DAILY COUNTS INCLUDE 234 BEDS AT THE [facility] Last Admin: 07/21/17 09:00 Dose: 1 mg Furosemide (Lasix) 40 mg PO DAILY COUNTS INCLUDE 234 BEDS AT THE [facility] Last Admin: 07/21/17 09:00 Dose: 40 mg Ceftriaxone Sodium 1 gm/ (Sodium Chloride) 100 mls @ 200 mls/hr IVPB DAILY COUNTS INCLUDE 234 BEDS AT THE [facility] PRN Reason: Protocol Last Admin: 07/21/17 09:14 Dose: 200 mls/hr Azithromycin 500 mg/ Sodium (Chloride) 250 mls @ 167 mls/hr IVPB Q24H JOANN PRN Reason: Protocol Last Admin: 07/20/17 20:26 Dose: 167 mls/hr Insulin Human Regular (Novolin R) 0 unit SC ACHS JOANN PRN Reason: Protocol Last Admin: 07/21/17 12:20 Dose: Not Given Methylprednisolone (Solu-Medrol) 40 mg IVP Q6H COUNTS INCLUDE 234 BEDS AT THE [facility] Last Admin: 07/21/17 13:52 Dose: 40 mg Paroxetine HCl (Paxil) 20 mg PO DAILY COUNTS INCLUDE 234 BEDS AT THE [facility] Last Admin: 07/21/17 09:02 Dose: 20 mg Pneumococcal Polyvalent Vaccine (Pneumovax 23 Vaccine) 0.5 ml IM .ONCE ONE Stop: 07/22/17 10:01 Tamsulosin HCl (Flomax) 0.4 mg PO DAILY COUNTS INCLUDE 234 BEDS AT THE [facility] Last Admin: 07/21/17 09:00 Dose: 0.4 mg Physical Exam - Constitutional Appears: Non-toxic, Chronically Ill - Head Exam Head Exam: ATRAUMATIC, NORMOCEPHALIC - Eye Exam Eye Exam: PERRL. absent: Scleral icterus - ENT Exam ENT Exam: Mucous Membranes Dry, Normal External Ear Exam - Neck Exam Neck exam: Negative for: Lymphadenopathy - Respiratory Exam Respiratory Exam: Decreased Breath Sounds, Prolonged Expiratory Phase, Rhonchi - Cardiovascular Exam Cardiovascular Exam: REGULAR RHYTHM, +S1, +S2 - GI/Abdominal Exam GI & Abdominal Exam: Diminished Bowel Sounds, Soft. absent: Tenderness - Rectal Exam Rectal Exam: Deferred - Exam Exam: NORMAL INSPECTION - Extremities Exam Extremities exam: Negative for: pedal edema - Back Exam Back exam: absent: CVA tenderness (L), CVA tenderness (R) - Neurological Exam Neurological exam: Alert, CN II-XII Intact, Oriented x3, Reflexes Normal - Psychiatric Exam Psychiatric exam: Depressed - Skin Skin Exam: Dry Results - Vital Signs Recent Vital Signs: Last Vital Signs Temp 97.4 F L 07/21/17 07:35 Pulse 82 07/21/17 07:35 Resp 18 07/21/17 07:35 BP 113/73 07/21/17 09:02 Pulse Ox 96 07/21/17 07:35 - Labs Result Diagrams: 07/21/17 06:10 07/21/17 06:10 Labs: Laboratory Results - last 24 hr 07/20/17 07/20/17 07/21/17 16:37 20:47 06:10 WBC 8.4 RBC 3.85 L Hgb 11.9 L Hct 34.7 L MCV 90.0 MCH 30.8 MCHC 34.2 RDW 14.3 Plt Count 175 MPV 7.3 Neut % (Auto) 92.5 H Lymph % (Auto) 5.4 L Trigg % (Auto) 1.9 Eos % (Auto) 0.0 Baso % (Auto) 0.2 Neut # (Auto) 7.7 H Lymph # (Auto) 0.5 L Trigg # (Auto) 0.2 Eos # (Auto) 0.0 Baso # (Auto) 0.0 Neutrophils % (Manual) 68 Band Neutrophils % 26 H* Lymphocytes % (Manual) 6 L Monocytes % (Manual) TEST NOT PERFORMED Platelet Estimate Normal Hypochromasia (manual) Slight Poikilocytosis (manual Slight Anisocytosis (manual) Slight Sodium Potassium Chloride Carbon Dioxide Anion Gap BUN Creatinine Est GFR ( Amer) Est GFR (Non-Af Amer) POC Glucose (mg/dL) 122 H 124 H Random Glucose Calcium Total Bilirubin AST ALT Alkaline Phosphatase Total Protein Albumin Globulin Albumin/Globulin Ratio 07/21/17 07/21/17 06:10 11:52 WBC RBC Hgb Hct MCV MCH MCHC RDW Plt Count MPV Neut % (Auto) Lymph % (Auto) Trigg % (Auto) Eos % (Auto) Baso % (Auto) Neut # (Auto) Lymph # (Auto) Trigg # (Auto) Eos # (Auto) Baso # (Auto) Neutrophils % (Manual) Band Neutrophils % Lymphocytes % (Manual) Monocytes % (Manual) Platelet Estimate Hypochromasia (manual) Poikilocytosis (manual Anisocytosis (manual) Sodium 138 Potassium 4.5 Chloride 95 L Carbon Dioxide 32 H Anion Gap 15 BUN 45 H Creatinine 1.4 Est GFR ( Amer) > 60 Est GFR (Non-Af Amer) 52 POC Glucose (mg/dL) 100 Random Glucose 139 H Calcium 7.6 L Total Bilirubin 0.4 AST 20 ALT 11 L Alkaline Phosphatase 70 Total Protein 6.6 Albumin 3.4 L Globulin 3.3 Albumin/Globulin Ratio 1.0 Assessment & Plan (1) COPD exacerbation Status: Acute - Assessment and Plan (Free Text) Assessment: await cultures cont empiric rx
--- NOTE | 2017-07-21 14:59 | CP.PCM.PN ---
Subjective - Date & Time of Evaluation Date of Evaluation: 07/21/17 Time of Evaluation: 14:45 - Subjective Subjective: Progress nmote dictated #[id number] Objective - Vital Signs/Intake and Output Vital Signs (last 24 hours): Temp Pulse Resp BP Pulse Ox 97.4 F L 82 18 113/73 96 07/21/17 07:35 07/21/17 07:35 07/21/17 07:35 07/21/17 09:02 07/21/17 07:35 Intake and Output: 07/21/17 07/21/17 06:59 18:59 Intake Total 890 Output Total 800 Balance 90 - Medications Medications: Current Medications Albuterol/Ipratropium (Duoneb 3 Mg/0.5 Mg (3 Ml) Ud) 3 ml INH RQ6 JOANN Last Admin: 07/21/17 14:06 Dose: 3 ml Alprazolam (Xanax) 1 mg PO BID PRN PRN Reason: Anxiety Last Admin: 07/21/17 09:14 Dose: 1 mg Aspirin (Ecotrin) 81 mg PO DAILY [facility] Last Admin: 07/21/17 09:00 Dose: 81 mg Carvedilol (Coreg) 12.5 mg PO BID [facility] Last Admin: 07/21/17 09:02 Dose: 12.5 mg Enoxaparin Sodium (Lovenox) 40 mg SC DAILY [facility] Last Admin: 07/21/17 09:00 Dose: 40 mg Folic Acid (Folic Acid) 1 mg PO DAILY [facility] Last Admin: 07/21/17 09:00 Dose: 1 mg Furosemide (Lasix) 40 mg PO DAILY [facility] Last Admin: 07/21/17 09:00 Dose: 40 mg Azithromycin 500 mg/ Sodium (Chloride) 250 mls @ 167 mls/hr IVPB Q24H JOANN PRN Reason: Protocol Last Admin: 07/20/17 20:26 Dose: 167 mls/hr Ceftriaxone Sodium 1 gm/ (Sodium Chloride) 100 mls @ 50 mls/30 min IVPB Q12H JOANN PRN Reason: Protocol Insulin Human Regular (Novolin R) 0 unit SC ACHS JOANN PRN Reason: Protocol Last Admin: 07/21/17 12:20 Dose: Not Given Methylprednisolone (Solu-Medrol) 40 mg IVP Q6H JOANN Last Admin: 07/21/17 13:52 Dose: 40 mg Paroxetine HCl (Paxil) 20 mg PO DAILY [facility] Last Admin: 07/21/17 09:02 Dose: 20 mg Pneumococcal Polyvalent Vaccine (Pneumovax 23 Vaccine) 0.5 ml IM .ONCE ONE Stop: 07/22/17 10:01 Tamsulosin HCl (Flomax) 0.4 mg PO DAILY [facility] Last Admin: 07/21/17 09:00 Dose: 0.4 mg - Labs Labs: 07/21/17 06:10 07/21/17 06:10
--- NOTE | 2017-07-21 17:16 | CP.PCM.PN ---
Subjective - Date & Time of Evaluation Date of Evaluation: 07/21/17 Time of Evaluation: 13:00 - Subjective Subjective: Patient seen and examined Patient states breathing is much improved Is off BiPAP during the daytime Afebrile No chest pain Objective - Vital Signs/Intake and Output Vital Signs (last 24 hours): Temp Pulse Resp BP Pulse Ox 97.5 F L 82 18 92/51 L 98 07/21/17 15:00 07/21/17 16:00 07/21/17 15:00 07/21/17 15:00 07/21/17 15:00 Intake and Output: 07/21/17 07/21/17 06:59 18:59 Intake Total 890 600 Output Total 800 Balance 90 600 - Medications Medications: Current Medications Albuterol/Ipratropium (Duoneb 3 Mg/0.5 Mg (3 Ml) Ud) 3 ml INH RQ6 [facility]ANN Last Admin: 07/21/17 14:06 Dose: 3 ml Alprazolam (Xanax) 1 mg PO BID PRN PRN Reason: Anxiety Last Admin: 07/21/17 09:14 Dose: 1 mg Aspirin (Ecotrin) 81 mg PO DAILY [facility] Last Admin: 07/21/17 09:00 Dose: 81 mg Carvedilol (Coreg) 12.5 mg PO BID [facility] Last Admin: 07/21/17 09:02 Dose: 12.5 mg Enoxaparin Sodium (Lovenox) 40 mg SC DAILY [facility] Last Admin: 07/21/17 09:00 Dose: 40 mg Folic Acid (Folic Acid) 1 mg PO DAILY [facility] Last Admin: 07/21/17 09:00 Dose: 1 mg Furosemide (Lasix) 40 mg PO DAILY [facility] Last Admin: 07/21/17 09:00 Dose: 40 mg Azithromycin 500 mg/ Sodium (Chloride) 250 mls @ 167 mls/hr IVPB Q24H JOANN PRN Reason: Protocol Last Admin: 07/20/17 20:26 Dose: 167 mls/hr Ceftriaxone Sodium 1 gm/ (Sodium Chloride) 100 mls @ 50 mls/30 min IVPB Q12H JOANN PRN Reason: Protocol Insulin Human Regular (Novolin R) 0 unit SC ACHS JOANN PRN Reason: Protocol Last Admin: 07/21/17 12:20 Dose: Not Given Methylprednisolone (Solu-Medrol) 40 mg IVP Q6H JOANN Last Admin: 07/21/17 13:52 Dose: 40 mg Paroxetine HCl (Paxil) 20 mg PO DAILY [facility] Last Admin: 07/21/17 09:02 Dose: 20 mg Pneumococcal Polyvalent Vaccine (Pneumovax 23 Vaccine) 0.5 ml IM .ONCE ONE Stop: 07/22/17 10:01 Tamsulosin HCl (Flomax) 0.4 mg PO DAILY [facility] Last Admin: 07/21/17 09:00 Dose: 0.4 mg - Labs Labs: 07/21/17 06:10 07/21/17 06:10 - Head Exam Head Exam: ATRAUMATIC, NORMOCEPHALIC - Eye Exam Eye Exam: Normal appearance - ENT Exam ENT Exam: Mucous Membranes Moist - Neck Exam Neck Exam: Normal Inspection - Respiratory Exam Respiratory Exam: Decreased Breath Sounds - Cardiovascular Exam Cardiovascular Exam: REGULAR RHYTHM - GI/Abdominal Exam GI & Abdominal Exam: Soft, Normal Bowel Sounds - Extremities Exam Extremities Exam: Full ROM - Neurological Exam Neurological Exam: Alert, Oriented x3 Assessment and Plan (1) Hypercapnic respiratory failure Assessment & Plan: Continue IV steroids and nebulizer treatment Follow-up ABG Continue BiPAP Patient will benefit from Trilogy Status: Acute (2) COPD exacerbation Status: Acute (3) ASHLEY (obstructive sleep apnea) Status: Acute
[2017-07-21] MEDS: Azithromycin 500 MG in Sodium Chloride 0.9% 250 ML IVPB SCH (20:25)
--- NOTE | 2017-07-21 23:19 | CARD ---
APPROVED REPORT EKG Measurement Heart [id number] <Conclusion> Normal sinus rhythm Minimal voltage criteria for LVH, may be normal variant Borderline ECG
[2017-07-22] MEDS: Albuterol-Ipratrop 3 mg / 0.5 (3 ml) UD INH SCH ×4 (01:47→19:31)
[2017-07-22] MEDS: MethylPREDNISolone 40 mg Vial IVP SCH ×4 (02:18→21:38)
--- NOTE | 2017-07-22 03:55 | PN ---
DATE: 07/21/2017. SUBJECTIVE: The patient was seen and examined at bedside. The patient denies any new complaints. Breathing is slightly better. Denies any chest pain, shortness of breath or wheezing. Denies any other symptoms. PHYSICAL EXAMINATION: GENERAL: Middle-aged morbidly obese male, lying in bed in no acute distress. VITAL SIGNS: Blood pressure 113/73, pulse 65, respirations 18, temperature 97.5 degrees Fahrenheit, O2 saturation 98% on BiPAP. Intake was 1570 mL, output is 1450 mL. HEENT: Pupils equal, round and reacting to light and accommodation. Extraocular muscles are intact. No icterus. No pallor. No oral thrush. No pharyngeal congestion. NECK: Supple. No JVD. LUNGS: Bilateral vesicular breath sounds. Decreased breath sounds. No wheezing. CVS: S1, S2 present. Regular. ABDOMEN: Soft. Nontender. Bowel sounds present. No guarding. No rigidity. No rebound tenderness noted. MOUNTAIN GUIDE: Alert, awake, and oriented x3. No focal deficits noted. EXTREMITIES: No edema, palpable peripheral pulses. Chronic venous changes noted. MEDICATIONS: DuoNeb 3 mL every 6, Xanax 1 mg p.o. b.i.d., aspirin 81 mg daily, azithromycin 500 mg daily, Coreg 12.5 mg b.i.d., Rocephin 1 gm IV every 12 hours, Lovenox 40 mg subcu daily, folic acid 1 mg daily, Lasix 40 mg daily, Solu-Medrol 40 mg IV push every 6 hours, Paxil 20 mg daily, Flomax 0.4 mg daily. LABORATORY DATA: From this morning, WBC 8.4, hemoglobin 11.9, hematocrit 34.7, platelet count 175, bands 26. sodium 138, potassium 4.5, chloride 95, bicarbonate 32, BUN 45, creatinine 1.4, glucose 132, calcium 7.6, total bilirubin 0.4, AST 20, ALT 11, alkaline phosphatase 70, total protein 6.6, albumin 3.4. Influenza A and B negative. Blood cultures negative so far. Urine culture is negative. Sputum culture is pending. ASSESSMENT AND PLAN: Middle-aged morbidly obese male with history of hypertension, coronary artery disease status post stent placement, chronic low back pain, bipolar disorder, admitted for chronic obstructive pulmonary disease exacerbation and bandemia with hypotension, rule out sepsis, hypercapnic respiratory failure. The patient 's symptoms are slightly better with bronchodilators, Solu-Medrol and empiric antibiotics, Rocephin and Zithromax. His bandemia is still high. ID consult appreciated. Discussed with Dr. Crystal. Rocephin increased to twice daily. We will follow up with culture results. Pulmonary input appreciated. The patient is on BiPAP intermittently. We will continue with other current medication. The patient claims that he has been on methadone outside and he has been following up with psychiatry as outpatient. We will continue with his home medications dose of methadone and request psychiatric evaluation to adjust his medication. We will repeat ABG as per Pulmonary and follow up with Pulmonary. We will add further recommendations as his clinical course progresses. Charles Bob MD
[2017-07-22 05:28] LABS: ABG ALLEN TEST POS; ARTERIAL BLOOD GAS HCO3 27.3 mmol/L (21-28); ARTERIAL BLOOD GAS HEMOGLOBIN 10.5 g/dL (11.7-17.4); ARTERIAL BLOOD GAS O2 SAT 93.4 % (95-98); ARTERIAL BLOOD GAS PCO2 73 mm/Hg (35-45); ARTERIAL BLOOD GAS PH 7.25 (7.35-7.45); ARTERIAL BLOOD GAS PO2 57 mm/Hg (80-100); ARTERIAL BLOOD GAS TCO2 34.2 mmol/L (22-28)
[2017-07-22] MEDS: (Novolin R) Insulin Human Regular 100 units/ml vial SC SCH ×4 (08:04→21:43)
[2017-07-22] MEDS: Enoxaparin 40 mg Syringe SC SCH (09:07)
[2017-07-22] MEDS ORDERED: Pneumococcal 23-Valent Vaccine IM ONE ×2 (10:00→11:37)
[2017-07-22] MEDS: Methadone 40 mg Tab PO SCH (10:08)
[2017-07-22 10:58] LABS: HEMOGLOBIN 12.5 g/dL (12.0-18.0); LYMPH # 0.6 K/uL (1.0-4.3); LYMPH % 9.3 % (20.0-40.0); MEAN CELL VOLUME 90.8 fL (80.0-94.0); MEAN CORPUSCULAR HEMOGLOBIN 29.7 pg (27.0-31.0); MEAN CORPUSCULAR HGB CONC 32.7 g/dL (33.0-37.0); MEAN PLATELET VOLUME 7.5 fL (7.2-11.7); MONO # 0.2 K/uL (0.0-0.8); MONO % 2.8 % (0.0-10.0); NEUT # 5.5 K/uL (1.8-7.0); NEUT % 87.9 % (50.0-75.0); PLATELET COUNT 211 K/uL (130-400); RED CELL DISTRIBUTION WIDTH 14.3 % (11.5-14.5); WHITE BLOOD COUNT 6.3 K/uL (4.8-10.8)
--- NOTE | 2017-07-22 11:09 | CP.PCM.PN ---
Subjective - Date & Time of Evaluation Date of Evaluation: 07/22/17 Time of Evaluation: 11:10 - Subjective Subjective: Progress note dictated #[id number] Objective - Vital Signs/Intake and Output Vital Signs (last 24 hours): Temp Pulse Resp BP Pulse Ox 98.0 F 67 20 108/68 100 07/22/17 07:58 07/22/17 08:00 07/22/17 07:58 07/22/17 09:09 07/22/17 07:58 Intake and Output: 07/22/17 07/22/17 06:59 18:59 Intake Total 770 Output Total 1900 Balance -1130 - Medications Medications: Current Medications Albuterol/Ipratropium (Duoneb 3 Mg/0.5 Mg (3 Ml) Ud) 3 ml INH RQ6 JOANN Last Admin: 07/22/17 07:19 Dose: 3 ml Alprazolam (Xanax) 1 mg PO BID PRN PRN Reason: Anxiety Last Admin: 07/22/17 09:14 Dose: 1 mg Aspirin (Ecotrin) 81 mg PO DAILY [facility] Last Admin: 07/22/17 09:08 Dose: 81 mg Carvedilol (Coreg) 12.5 mg PO BID [facility] Last Admin: 07/22/17 09:09 Dose: 12.5 mg Enoxaparin Sodium (Lovenox) 40 mg SC DAILY [facility] Last Admin: 07/22/17 09:07 Dose: 40 mg Folic Acid (Folic Acid) 1 mg PO DAILY [facility] Last Admin: 07/22/17 09:08 Dose: 1 mg Furosemide (Lasix) 40 mg PO DAILY [facility] Last Admin: 07/22/17 09:08 Dose: 40 mg Ceftriaxone Sodium 1 gm/ (Sodium Chloride) 100 mls @ 50 mls/30 min IVPB Q12H JOANN PRN Reason: Protocol Last Admin: 07/22/17 10:10 Dose: 50 mls/30 min Insulin Human Regular (Novolin R) 0 unit SC ACHS JOANN PRN Reason: Protocol Last Admin: 07/22/17 08:04 Dose: Not Given Methadone HCl (Methadose) 80 mg PO DAILY [facility] Last Admin: 07/22/17 10:08 Dose: 80 mg Methylprednisolone (Solu-Medrol) 40 mg IVP Q6H [facility] Last Admin: 07/22/17 09:07 Dose: 40 mg Paroxetine HCl (Paxil) 20 mg PO DAILY [facility] Last Admin: 07/22/17 09:08 Dose: 20 mg Tamsulosin HCl (Flomax) 0.4 mg PO DAILY [facility] Last Admin: 07/22/17 09:08 Dose: 0.4 mg - Labs Labs: 07/22/17 10:49 07/21/17 06:10
[2017-07-22 11:21] LABS: BANDS 2 % (0-2); LYMPHOCYTE 9 % (20-40); MONOCYTE 3 % (0-10); NEUTROPHIL 86 % (50-75); PLATELET ESTIMATE NORMAL (NORMAL); TOTAL CELLS COUNTED 100
[2017-07-22 12:04] VITALS: RESP 20
--- NOTE | 2017-07-22 14:18 | PCM.PSYCH ---
Initial Psychiatric Evaluation - Initial Psychiatric Evaluation Type of Admission: Voluntary Legal Status: Capacity Chief Complaint (in patient's own words): Methadone Treatment Program History of Present Illness and Precipitating Events: Patient is a 61 year old male, with PMHx of Bipolar Disorder, Depression, Anxiety, Asthma, CHF, HTN, Hepatitis and Emphysema, who came to ED for respiratory distress. Patient states he is feeling better. Patient is currently in a methadone treatment program for the past 4 years at [facility]. He states he takes 80mg Methadone daily. Patient has been seeing a psychiatrist, Dr. Hartley, every three months consistently. Patient states the currently medication regimen for his psychiatric illnesses are currently working. Patient states he take Xanax 1mg BID and Paxil 15mg for his depression. Patient denies any feelings of Depression, Anxiety, suicidal ideations, paranoia , visual or auditory hallucinations. Patient denies any history of psychiatric hospitalizations or previous suicide attempts. PMHx: Bipolar Disorder, Depression, Anxiety, Asthma, CHF, HTN, Hepatitis and Emphysema Allergies: NKDA Medications: Methadone 80mg, Xanax 1mg BID, Paxil 15mg, Furosemide 40mg, Vitamin D3, Folic Acid, ASA 81mg, Tylenol, Albuterol Social hx: Lives with his girlfriend. Currently unemployed. Tobacco use: 1 PPD for 40 years. Denies illicit drug use. Denies alcohol consumption. Current Medications: Active Medications Generic Name Dose Route Start Last Admin Trade Name Freq PRN Reason Stop Dose Admin Albuterol/Ipratropium 3 ml 07/20/17 02:00 07/22/17 13:49 Duoneb 3 Mg/0.5 Mg (3 Ml) Ud INH 3 ml RQ6 [facility] Administration Alprazolam 1 mg 07/20/17 11:17 07/22/17 09:14 Xanax PO 1 mg BID PRN Administration Anxiety Aspirin 81 mg 07/20/17 10:00 07/22/17 09:08 Ecotrin PO 81 mg DAILY JOANN Administration Carvedilol 12.5 mg 07/20/17 10:00 07/22/17 09:09 Coreg PO 12.5 mg BID JOANN Administration Enoxaparin Sodium 40 mg 07/20/17 10:00 07/22/17 09:07 Lovenox SC 40 mg DAILY JOANN Administration Folic Acid 1 mg 07/20/17 10:00 07/22/17 09:08 Folic Acid PO 1 mg DAILY JOANN Administration Furosemide 40 mg 07/20/17 10:00 07/22/17 09:08 Lasix PO 40 mg DAILY JOANN Administration Ceftriaxone Sodium 1 gm/ 100 mls @ 50 mls/30 min 07/21/17 22:00 07/22/17 10: 10 Sodium Chloride IVPB 50 mls/30 min Q12H JOANN Administration Protocol Insulin Human Regular 0 unit 07/20/17 11:30 07/22/17 11:59 Novolin R SC 3 unit ACHS JOANN Administration Protocol Methadone HCl 80 mg 07/22/17 10:00 07/22/17 10:08 Methadose PO 80 mg DAILY JOANN Administration Methylprednisolone 40 mg 07/20/17 02:30 07/22/17 14:02 Solu-Medrol IVP 40 mg Q6H JOANN Administration Paroxetine HCl 20 mg 07/20/17 10:00 07/22/17 09:08 Paxil PO 20 mg DAILY JOANN Administration Tamsulosin HCl 0.4 mg 07/20/17 10:00 07/22/17 09:08 Flomax PO 0.4 mg DAILY JOANN Administration Past Psychiatric History - Past Psychiatric History Previous Treatment History: None History of ETOH/Drug Use: Denied Alcohol Use. Methadone Treatment Pertinent Medical Hx (Current Medical&Sleep Prob, Allergies): Allergies Allergy/AdvReac Type Severity Reaction Status Date / Time No Known Allergies Allergy Verified 03/26/17 10:29 Aspirin [Adult Low Dose Aspirin EC] 81 mg PO DAILY 03/26/17 Carvedilol [Coreg] 12.5 mg PO BID 03/26/17 Cholecalciferol (Vitamin D3) [Vitamin D3] 2,000 unit PO DAILY 03/26/17 Folic Acid 1 mg PO DAILY 03/26/17 Methadone HCl [Methadone HCl] 74 mg PO DAILY 03/26/17 PARoxetine [Paxil] 20 mg PO DAILY 03/26/17 Tamsulosin [Flomax] 0.4 mg PO DAILY 03/26/17 Acetaminophen [Tylenol Extra Strength] 2 tab PO Q6 PRN #30 tablet 06/26/17 Albuterol 0.083% [Albuterol Sulfate 3 Ml] 3 ml IH Q4 PRN #100 neb 06/26/17 Furosemide 40 mg PO DAILY 07/19/17 Review of Systems - Review of Systems All systems: reviewed and no additional remarkable complaints except - Psychiatric Psychiatric: Irritability. absent: Anxiety, Depression, Hallucinations, Homicidal Ideation, Suicidal Ideation, Visual Hallucinations, Tactile Hallucinations Mental Status Examination - Personal Presentation Personal Presentation: Looks older than stated age - Affect Affect: Broad - Motor Activity Motor Activity: Calm - Reliability in Providing Information Reliability in Providing Information: Good - Speech Speech: Organized - Mood Mood: Anxious - Formal Thought Process Formal Thought Process: No Impairment - Obsessions/Compulsions Obsessions: No Compulsions: No - Cognitive Functions Orientation: Person, Place, Situation, Time Sensorium: Alert Attention/Concentration: Attentive Abstract Thinking: [place] Estimate of Intelligence: Below average Judgement: Intact, as evidence by: Good judgement, Intact, as evidence by: Insight regarding need for hospitalization - Risk Risk: Diminished functioning - Strength & Assets Inventory Strength & Assets Inventory: Family support DSM 5 DX - DSM 5 DSM 5 Diagnosis: Bipolar depressed moderate Opioid use severe on agonist therapy - Recommended/Plan of Treatment Treatment Recommendations and Plan of Treatment: Bipolar depressed moderate CBT Psychoeducation Supportive therapy, group therapy, individual therapy Continue Paxil 20 mg, Continue Xanax 1 mg PO BID Ambien 5 mg prn insomnia Opioid use severe on agonist therapy Psychoeducation Supportive therapy, group therapy, individual therapy Continue Methadone 80 mg Daily - Smoking Cessation Smoking Cessation Initiated: No
[2017-07-22 14:27] LABS: ALBUMIN 3.7 g/dL (3.5-5.0); ALT/SGPT 7 U/L (21-72); AST/SGOT 15 U/L (17-59); BLOOD UREA NITROGEN 41 mg/dL (9-20); CALCIUM 7.8 mg/dl (8.6-10.4); GFR AFRICAN-AMERICAN > 60; GFR NON-AFRICAN AMERICAN > 60
--- NOTE | 2017-07-22 15:57 | CP.PCM.PN ---
Subjective - Date & Time of Evaluation Date of Evaluation: 07/22/17 Time of Evaluation: 09:30 - Subjective Subjective: Patient seen and examined at bedside. Breathing is improved, not on BiPAP during interview. Wheezing is still present. Patient reported that he needs to go home tomorrow morning to run errands, and said he would AMA if not cleared for discharge. Assessment and Plan: 1. Hypercapnic respiratory failure - On BiPAP, will arrange for trilogy machine at home - ABG 07/21:pH 7.25/ pCO2 73/pO2 57/HCO3 32 2. COPD exacerbation - continue IV steroids and duonebs 3. Obstructive sleep apnea - BiPAP at night, will switch to trilogy Objective - Vital Signs/Intake and Output Vital Signs (last 24 hours): Temp Pulse Resp BP Pulse Ox 98.0 F 76 20 108/68 92 L 07/22/17 07:58 07/22/17 13:49 07/22/17 07:58 07/22/17 09:09 07/22/17 12:44 Intake and Output: 07/22/17 07/22/17 06:59 18:59 Intake Total 770 480 Output Total 1900 400 Balance -1130 80 - Medications Medications: Current Medications Albuterol/Ipratropium (Duoneb 3 Mg/0.5 Mg (3 Ml) Ud) 3 ml INH RQ6 [facility] Last Admin: 07/22/17 13:49 Dose: 3 ml Alprazolam (Xanax) 1 mg PO BID PRN PRN Reason: Anxiety Last Admin: 07/22/17 09:14 Dose: 1 mg Aspirin (Ecotrin) 81 mg PO DAILY [facility] Last Admin: 07/22/17 09:08 Dose: 81 mg Carvedilol (Coreg) 12.5 mg PO BID [facility] Last Admin: 07/22/17 09:09 Dose: 12.5 mg Enoxaparin Sodium (Lovenox) 40 mg SC DAILY [facility] Last Admin: 07/22/17 09:07 Dose: 40 mg Folic Acid (Folic Acid) 1 mg PO DAILY [facility] Last Admin: 07/22/17 09:08 Dose: 1 mg Furosemide (Lasix) 40 mg PO DAILY [facility] Last Admin: 07/22/17 09:08 Dose: 40 mg Ceftriaxone Sodium 1 gm/ (Sodium Chloride) 100 mls @ 50 mls/30 min IVPB Q12H [facility] PRN Reason: Protocol Last Admin: 07/22/17 10:10 Dose: 50 mls/30 min Insulin Human Regular (Novolin R) 0 unit SC ACHS [facility] PRN Reason: Protocol Last Admin: 07/22/17 11:59 Dose: 3 unit Methadone HCl (Methadose) 80 mg PO DAILY [facility] Last Admin: 07/22/17 10:08 Dose: 80 mg Methylprednisolone (Solu-Medrol) 40 mg IVP Q6H [facility] Last Admin: 07/22/17 14:02 Dose: 40 mg Paroxetine HCl (Paxil) 20 mg PO DAILY [facility] Last Admin: 07/22/17 09:08 Dose: 20 mg Tamsulosin HCl (Flomax) 0.4 mg PO DAILY [facility] Last Admin: 07/22/17 09:08 Dose: 0.4 mg - Labs Labs: 07/22/17 10:49 07/22/17 13:56 Assessment and Plan (1) Hypercapnic respiratory failure Status: Acute (2) COPD exacerbation Status: Acute (3) ASHLEY (obstructive sleep apnea) Status: Acute
--- NOTE | 2017-07-22 19:07 | CP.PCM.PN ---
Subjective - Date & Time of Evaluation Date of Evaluation: 07/22/17 Time of Evaluation: 07:00 - Subjective Subjective: LESS SOB STILL CONGESTED NO FEVER Objective - Vital Signs/Intake and Output Vital Signs (last 24 hours): Temp Pulse Resp BP Pulse Ox 97.3 F L 76 20 128/66 95 07/22/17 15:11 07/22/17 15:11 07/22/17 15:11 07/22/17 17:24 07/22/17 15:11 Intake and Output: 07/22/17 07/23/17 18:59 06:59 Intake Total 480 Output Total 400 Balance 80 - Medications Medications: Current Medications Albuterol/Ipratropium (Duoneb 3 Mg/0.5 Mg (3 Ml) Ud) 3 ml INH RQ6 [facility] Last Admin: 07/22/17 13:49 Dose: 3 ml Alprazolam (Xanax) 1 mg PO BID PRN PRN Reason: Anxiety Last Admin: 07/22/17 09:14 Dose: 1 mg Aspirin (Ecotrin) 81 mg PO DAILY [facility] Last Admin: 07/22/17 09:08 Dose: 81 mg Carvedilol (Coreg) 12.5 mg PO BID [facility] Last Admin: 07/22/17 17:24 Dose: 12.5 mg Enoxaparin Sodium (Lovenox) 40 mg SC DAILY [facility] Last Admin: 07/22/17 09:07 Dose: 40 mg Folic Acid (Folic Acid) 1 mg PO DAILY [facility] Last Admin: 07/22/17 09:08 Dose: 1 mg Furosemide (Lasix) 40 mg PO DAILY [facility] Last Admin: 07/22/17 09:08 Dose: 40 mg Ceftriaxone Sodium 1 gm/ (Sodium Chloride) 100 mls @ 50 mls/30 min IVPB Q12H [facility] PRN Reason: Protocol Last Admin: 07/22/17 10:10 Dose: 50 mls/30 min Insulin Human Regular (Novolin R) 0 unit SC ACHS [facility] PRN Reason: Protocol Last Admin: 07/22/17 17:25 Dose: 2 unit Methadone HCl (Methadose) 80 mg PO DAILY [facility] Last Admin: 07/22/17 10:08 Dose: 80 mg Methylprednisolone (Solu-Medrol) 40 mg IVP Q6H [facility] Last Admin: 07/22/17 14:02 Dose: 40 mg Paroxetine HCl (Paxil) 20 mg PO DAILY [facility] Last Admin: 07/22/17 09:08 Dose: 20 mg Tamsulosin HCl (Flomax) 0.4 mg PO DAILY [facility] Last Admin: 07/22/17 09:08 Dose: 0.4 mg Zolpidem Tartrate (Ambien) 5 mg PO HS PRN PRN Reason: Insomnia - Labs Labs: 07/22/17 10:49 07/22/17 13:56 - Constitutional Appears: Non-toxic, Chronically Ill - Head Exam Head Exam: NORMOCEPHALIC - Eye Exam Eye Exam: PERRL - ENT Exam ENT Exam: Mucous Membranes Dry - Neck Exam Neck Exam: absent: Lymphadenopathy - Respiratory Exam Respiratory Exam: Decreased Breath Sounds - Cardiovascular Exam Cardiovascular Exam: REGULAR RHYTHM - GI/Abdominal Exam GI & Abdominal Exam: Distended, Soft Assessment and Plan (1) COPD exacerbation Status: Acute
--- NOTE | 2017-07-22 23:06 | PN ---
DATE: 07/22/2017 SUBJECTIVE: The patient was seen and examined at bedside. The patient is feeling better than yesterday. Denies any other new complaints. Using BiPAP on and off with improved breathing. PHYSICAL EXAMINATION: GENERAL: Middle-aged morbidly obese male, in no acute distress. VITAL SIGNS: Blood pressure 128/66, pulse 76, respirations 20, temperature 97.2 degrees Fahrenheit, O2 sats 95% on 2 L nasal cannula. HEENT: Pupils equal, round, reacting to light and accommodation. Extraocular muscles intact. No icterus, no pallor. NECK: Supple. No JVD. No thyromegaly. CHEST: Moving equally bilaterally on respiration. LUNGS: Bilateral vesicular breath sounds, improved breath sounds from yesterday. No wheezing, no rhonchi. CVS: S1, S2 present, regular. ABDOMEN: Soft, nontender. Bowel sounds present. No guarding, no rigidity. No rebound tenderness noted. JAILER: Alert, awake, oriented x3. No focal deficits noted. EXTREMITIES: Chronic venous changes. MEDICATIONS: Include DuoNeb, Xanax 1 mg p.o. b.i.d., Ecotrin 81 mg daily, Coreg 12.5 mg b.i.d., Rocephin 1 g every 12 hours, Lovenox 40 mg daily, folic acid 1 mg daily, Lasix 40 mg daily, methadone 80 mg daily, Solu-Medrol 40 mg IV push every 6 hours, Paxil 20 mg daily, and Flomax 0.4 mg daily. LABORATORY DATA: Labs from this morning, WBC 6.3, hemoglobin 12.5, hematocrit 38.2, platelets 211, and bands are at 2%. Sodium 142, potassium 4.6, chloride 96, bicarb 36, BUN 41, creatinine 1.1, glucose 126, calcium 7.8, AST 15, ALT 7, alkaline phosphatase 65. Blood cultures so far negative. Sputum culture, normal polo. Urine culture, gram-positive cocci less than 10,000 colonies on the unit. ASSESSMENT AND PLAN: A middle-aged morbidly obese male with history of hypertension; coronary artery disease, status post stent placement; chronic low back pain; bipolar disorder, on methadone program; chronic obstructive pulmonary disease, admitted for chronic obstructive pulmonary disease exacerbation; hypercapnic respiratory failure; and bandemia. The patient's bandemia improved on current regimen of Rocephin 1 g every 12 hours and Zithromax 500 mg daily. We will follow up with ID. Discussed with Pulmonary. We will continue with current steroids, nebulizer treatments. As per Pulmonary, he would acquire and will be making arrangements for at home. We will request Operations Label Clerk for discharge planning and continue with other current therapy. Charles Bob MD
[2017-07-23] MEDS: MethylPREDNISolone 40 mg Vial IVP SCH ×3 (02:16→13:30)
[2017-07-23] MEDS: Albuterol-Ipratrop 3 mg / 0.5 (3 ml) UD INH SCH ×3 (02:19→13:40)
[2017-07-23 06:23] LABS: BASO % 0.1 % (0.0-2.0); HEMOGLOBIN 11.5 g/dL (12.0-18.0); LYMPH # 0.5 K/uL (1.0-4.3); MEAN CELL VOLUME 90.9 fL (80.0-94.0); MEAN CORPUSCULAR HEMOGLOBIN 29.8 pg (27.0-31.0); MEAN CORPUSCULAR HGB CONC 32.8 g/dL (33.0-37.0); MEAN PLATELET VOLUME 7.6 fL (7.2-11.7); MONO # 0.2 K/uL (0.0-0.8); NEUT # 4.4 K/uL (1.8-7.0); NEUT % 85.9 % (50.0-75.0); RBC 3.87 Mil/uL (4.40-5.90); RED CELL DISTRIBUTION WIDTH 13.8 % (11.5-14.5); WHITE BLOOD COUNT 5.2 K/uL (4.8-10.8)
[2017-07-23 07:03] LABS: BLOOD UREA NITROGEN 38 mg/dL (9-20); CALCIUM 7.7 mg/dl (8.6-10.4); GFR AFRICAN-AMERICAN > 60; GFR NON-AFRICAN AMERICAN > 60
[2017-07-23] MEDS: (Novolin R) Insulin Human Regular 100 units/ml vial SC SCH ×3 (08:26→16:45)
[2017-07-23] MEDS: Enoxaparin 40 mg Syringe SC SCH (09:24)
[2017-07-23] MEDS: Methadone 40 mg Tab PO SCH (09:24)
--- NOTE | 2017-07-23 10:57 | CP.PCM.PN ---
Subjective - Date & Time of Evaluation Date of Evaluation: 07/23/17 Time of Evaluation: 10:55 - Subjective Subjective: Discharge summary dictated #[id number] Objective - Vital Signs/Intake and Output Vital Signs (last 24 hours): Temp Pulse Resp BP Pulse Ox 97.2 F L 72 20 131/82 98 07/23/17 09:00 07/23/17 09:15 07/23/17 09:15 07/23/17 09:24 07/23/17 09:15 - Medications Medications: Current Medications Albuterol/Ipratropium (Duoneb 3 Mg/0.5 Mg (3 Ml) Ud) 3 ml INH RQ6 [facility] Last Admin: 07/23/17 07:58 Dose: 3 ml Alprazolam (Xanax) 1 mg PO BID PRN PRN Reason: Anxiety Last Admin: 07/22/17 21:38 Dose: 1 mg Aspirin (Ecotrin) 81 mg PO DAILY [facility] Last Admin: 07/23/17 09:25 Dose: 81 mg Carvedilol (Coreg) 6.25 mg PO BID [facility] Enoxaparin Sodium (Lovenox) 40 mg SC DAILY [facility] Last Admin: 07/23/17 09:24 Dose: 40 mg Folic Acid (Folic Acid) 1 mg PO DAILY [facility] Last Admin: 07/23/17 09:24 Dose: 1 mg Furosemide (Lasix) 40 mg PO DAILY [facility] Last Admin: 07/23/17 09:24 Dose: 40 mg Ceftriaxone Sodium 1 gm/ (Sodium Chloride) 100 mls @ 50 mls/30 min IVPB Q12H [facility] PRN Reason: Protocol Last Admin: 07/23/17 09:24 Dose: 50 mls/30 min Insulin Human Regular (Novolin R) 0 unit SC ACHS [facility] PRN Reason: Protocol Last Admin: 07/23/17 08:26 Dose: Not Given Methadone HCl (Methadose) 80 mg PO DAILY [facility] Last Admin: 07/23/17 09:24 Dose: 80 mg Methylprednisolone (Solu-Medrol) 40 mg IVP Q6H [facility] Last Admin: 07/23/17 08:38 Dose: 40 mg Paroxetine HCl (Paxil) 20 mg PO DAILY [facility] Last Admin: 07/23/17 09:24 Dose: 20 mg Tamsulosin HCl (Flomax) 0.4 mg PO DAILY [facility] Last Admin: 07/23/17 09:24 Dose: 0.4 mg Zolpidem Tartrate (Ambien) 5 mg PO HS PRN PRN Reason: Insomnia - Labs Labs: 07/23/17 06:19 07/23/17 06:19
--- NOTE | 2017-07-23 12:32 | CP.PCM.PN ---
Subjective - Date & Time of Evaluation Date of Evaluation: 07/23/17 Time of Evaluation: 08:45 - Subjective Subjective: Patient seen and examined at bedside. Breathing is improved, not on BiPAP during interview. Wheezing is still present. Patient will be discharged today with orders for trilogy machine. Assessment and Plan: 1. Hypercapnic respiratory failure - On BiPAP at home but switching to trilogy, discussed with patient - ABG 07/21:pH 7.25/ pCO2 73/pO2 57/HCO3 32 2. COPD exacerbation - switch to p.o. prednisone and duonebs 3. Obstructive sleep apnea - BiPAP at night, will switch to trilogy Objective - Vital Signs/Intake and Output Vital Signs (last 24 hours): Temp Pulse Resp BP Pulse Ox 97.2 F L 72 20 131/82 98 07/23/17 09:00 07/23/17 09:15 07/23/17 09:15 07/23/17 09:24 07/23/17 09:15 - Medications Medications: Current Medications Albuterol/Ipratropium (Duoneb 3 Mg/0.5 Mg (3 Ml) Ud) 3 ml INH RQ6 [facility] Last Admin: 07/23/17 07:58 Dose: 3 ml Alprazolam (Xanax) 1 mg PO BID PRN PRN Reason: Anxiety Last Admin: 07/22/17 21:38 Dose: 1 mg Aspirin (Ecotrin) 81 mg PO DAILY [facility] Last Admin: 07/23/17 09:25 Dose: 81 mg Carvedilol (Coreg) 6.25 mg PO BID [facility] Last Admin: 07/23/17 11:21 Dose: Not Given Enoxaparin Sodium (Lovenox) 40 mg SC DAILY [facility] Last Admin: 07/23/17 09:24 Dose: 40 mg Folic Acid (Folic Acid) 1 mg PO DAILY [facility] Last Admin: 07/23/17 09:24 Dose: 1 mg Furosemide (Lasix) 40 mg PO DAILY [facility] Last Admin: 07/23/17 09:24 Dose: 40 mg Ceftriaxone Sodium 1 gm/ (Sodium Chloride) 100 mls @ 50 mls/30 min IVPB Q12H [facility] PRN Reason: Protocol Last Admin: 07/23/17 09:24 Dose: 50 mls/30 min Insulin Human Regular (Novolin R) 0 unit SC ACHS [facility] PRN Reason: Protocol Last Admin: 07/23/17 11:57 Dose: Not Given Methadone HCl (Methadose) 80 mg PO DAILY [facility] Last Admin: 07/23/17 09:24 Dose: 80 mg Methylprednisolone (Solu-Medrol) 40 mg IVP Q6H [facility] Last Admin: 07/23/17 08:38 Dose: 40 mg Paroxetine HCl (Paxil) 20 mg PO DAILY [facility] Last Admin: 07/23/17 09:24 Dose: 20 mg Tamsulosin HCl (Flomax) 0.4 mg PO DAILY [facility] Last Admin: 07/23/17 09:24 Dose: 0.4 mg Zolpidem Tartrate (Ambien) 5 mg PO HS PRN PRN Reason: Insomnia - Labs Labs: 07/23/17 06:19 07/23/17 06:19 Assessment and Plan (1) Hypercapnic respiratory failure Status: Acute (2) COPD exacerbation Status: Acute (3) ASHLEY (obstructive sleep apnea) Status: Acute
--- NOTE | 2017-07-23 13:19 | CP.PCM.PN ---
Subjective - Date & Time of Evaluation Date of Evaluation: 07/23/17 Time of Evaluation: 13:13 - Subjective Subjective: THIS NOTE IS FOR THE REQUEST OF A TRILOGY MACHINE FOR THE PT: PT HAS CHRONIC RESPIRATORY FAILURE AND HYPERCAPNIA, SEVERE COPD, RESTRICTIVE LUNG DISEASE 2/2 MORBID OBESITY. PT NEED TRILOGY VENTILATOR WITH [employer] SETTINGS WITH TARGETED TV ADJUSTABLE PRESSURES FOR BETTER VENTILATION. ANY INTERRUPTION IN VENTILATION WILL CAUSE LIFE THREATENING EVENT AND . PT HAS HYPERCAPNIA OF PCO2 73 DESPITE BEING ON BIPAP. TRILOGY HAS BACKUP BATTERY IN CASE OF POWER FAILURE AND ALARMS TO ALERT CAREGIVER. PT'S PCO2 WAS 73 WITH PH OF 7.25 ON BIPAP; PCO2 WILL INCREASE IF NOT ON NON- INVASIVE VENTILATOR. IT IS RECOMMEND THAT PT HAVE CONTIUOUS NON-INVASIVE VENTILATION WITH TRILOGY. SPOKE WITH PT AT BEDSIDE AND EXPLAINED DIAGNOSIS AND TREATMENT OF HYPERCAPNIC RESPIRATORY FAILURE/COPD WITH NON-INVASIVE VENTILATOR ON CONTINUOUS BASIS. PT UNDERSTANDS AND AGREES TO THE TREATMENT PLAN. Objective - Vital Signs/Intake and Output Vital Signs (last 24 hours): Temp Pulse Resp BP Pulse Ox 97.2 F L 72 20 131/82 98 07/23/17 09:00 07/23/17 09:15 07/23/17 09:15 07/23/17 09:24 07/23/17 09:15 - Medications Medications: Current Medications Albuterol/Ipratropium (Duoneb 3 Mg/0.5 Mg (3 Ml) Ud) 3 ml INH RQ6 [facility] Last Admin: 07/23/17 07:58 Dose: 3 ml Alprazolam (Xanax) 1 mg PO BID PRN PRN Reason: Anxiety Last Admin: 07/22/17 21:38 Dose: 1 mg Aspirin (Ecotrin) 81 mg PO DAILY [facility] Last Admin: 07/23/17 09:25 Dose: 81 mg Carvedilol (Coreg) 6.25 mg PO BID [facility] Last Admin: 07/23/17 11:21 Dose: Not Given Enoxaparin Sodium (Lovenox) 40 mg SC DAILY [facility] Last Admin: 07/23/17 09:24 Dose: 40 mg Folic Acid (Folic Acid) 1 mg PO DAILY [facility] Last Admin: 07/23/17 09:24 Dose: 1 mg Furosemide (Lasix) 40 mg PO DAILY [facility] Last Admin: 07/23/17 09:24 Dose: 40 mg Ceftriaxone Sodium 1 gm/ (Sodium Chloride) 100 mls @ 50 mls/30 min IVPB Q12H [facility] PRN Reason: Protocol Last Admin: 07/23/17 09:24 Dose: 50 mls/30 min Insulin Human Regular (Novolin R) 0 unit SC ACHS [facility] PRN Reason: Protocol Last Admin: 07/23/17 11:57 Dose: Not Given Methadone HCl (Methadose) 80 mg PO DAILY [facility] Last Admin: 07/23/17 09:24 Dose: 80 mg Methylprednisolone (Solu-Medrol) 40 mg IVP Q6H [facility] Last Admin: 07/23/17 08:38 Dose: 40 mg Paroxetine HCl (Paxil) 20 mg PO DAILY [facility] Last Admin: 07/23/17 09:24 Dose: 20 mg Tamsulosin HCl (Flomax) 0.4 mg PO DAILY [facility] Last Admin: 07/23/17 09:24 Dose: 0.4 mg Zolpidem Tartrate (Ambien) 5 mg PO HS PRN PRN Reason: Insomnia - Labs Labs: 07/23/17 06:19 07/23/17 06:19
--- NOTE | 2017-07-23 15:36 | CP.PCM.PN ---
Subjective - Date & Time of Evaluation Date of Evaluation: 07/23/17 Time of Evaluation: 08:00 - Subjective Subjective: discussed on rounds for d/c on PO rx Objective - Vital Signs/Intake and Output Vital Signs (last 24 hours): Temp Pulse Resp BP Pulse Ox 97.2 F L 72 20 131/82 98 07/23/17 09:00 07/23/17 13:40 07/23/17 09:15 07/23/17 09:24 07/23/17 09:15 - Medications Medications: Current Medications Albuterol/Ipratropium (Duoneb 3 Mg/0.5 Mg (3 Ml) Ud) 3 ml INH RQ6 [facility] Last Admin: 07/23/17 13:40 Dose: 3 ml Alprazolam (Xanax) 1 mg PO BID PRN PRN Reason: Anxiety Last Admin: 07/22/17 21:38 Dose: 1 mg Aspirin (Ecotrin) 81 mg PO DAILY [facility] Last Admin: 07/23/17 09:25 Dose: 81 mg Carvedilol (Coreg) 6.25 mg PO BID [facility] Last Admin: 07/23/17 11:21 Dose: Not Given Enoxaparin Sodium (Lovenox) 40 mg SC DAILY [facility] Last Admin: 07/23/17 09:24 Dose: 40 mg Folic Acid (Folic Acid) 1 mg PO DAILY [facility] Last Admin: 07/23/17 09:24 Dose: 1 mg Furosemide (Lasix) 40 mg PO DAILY [facility] Last Admin: 07/23/17 09:24 Dose: 40 mg Ceftriaxone Sodium 1 gm/ (Sodium Chloride) 100 mls @ 50 mls/30 min IVPB Q12H [facility] PRN Reason: Protocol Last Admin: 07/23/17 09:24 Dose: 50 mls/30 min Insulin Human Regular (Novolin R) 0 unit SC ACHS [facility] PRN Reason: Protocol Last Admin: 07/23/17 11:57 Dose: Not Given Methadone HCl (Methadose) 80 mg PO DAILY [facility] Last Admin: 07/23/17 09:24 Dose: 80 mg Methylprednisolone (Solu-Medrol) 40 mg IVP Q6H [facility] Last Admin: 07/23/17 13:30 Dose: 40 mg Paroxetine HCl (Paxil) 20 mg PO DAILY [facility] Last Admin: 07/23/17 09:24 Dose: 20 mg Tamsulosin HCl (Flomax) 0.4 mg PO DAILY [facility] Last Admin: 07/23/17 09:24 Dose: 0.4 mg Zolpidem Tartrate (Ambien) 5 mg PO HS PRN PRN Reason: Insomnia - Labs Labs: 07/23/17 06:19 07/23/17 06:19 - Constitutional Appears: Non-toxic, Chronically Ill - Head Exam Head Exam: NORMOCEPHALIC - Eye Exam Eye Exam: PERRL - ENT Exam ENT Exam: Mucous Membranes Dry - Neck Exam Neck Exam: absent: Lymphadenopathy - Respiratory Exam Respiratory Exam: Decreased Breath Sounds - Cardiovascular Exam Cardiovascular Exam: REGULAR RHYTHM - GI/Abdominal Exam GI & Abdominal Exam: Distended Assessment and Plan (1) COPD exacerbation Status: Acute
[2017-07-23 16:02] VITALS: BP 126/69; PULSE 77; TEMP 98.5; O2SAT 95
--- NOTE | 2017-07-23 16:16 | CP.PCM.PN ---
Subjective - Date & Time of Evaluation Date of Evaluation: 07/23/17 Time of Evaluation: 16:16 - Subjective Subjective: PT SEEN BY DR. PEREYRA AND DR. ARELLANO TODAY. PER DR. ARELLANO, PT REQUESTING TO BE D/C TODAY HE HAS PRIOR PLANS. OK PER DR. ARELLANO TO D/ C HOME TODAY IF HE HAS TRILOGY ARRANGED. I HAD ORIGINALLY MADE ARRANGEMENTS WITH [facility] AND PT WAS APPROVED FOR A TRILOGY, HOWEVER, DR. PEREYRA ALREADY MADE ARRANGEMENTS WITH "[employer]" FOR THE PT TO RECEIVE A TRILOGY TODAY. PER DR. PEREYRA THE COMPANY WILL DELIVER THE TRILOGY TO PT'S HOUSE TODAY. MIRNA MERRILL SPOKE WITH REP AT [employer] AND THEY MADE ARRANGEMENTS FOR THE TRILOGY TO BE DELIVERED THIS EVENING; TRANSPORTATION ARRANGED BY FOR 6 PM. I DISCUSSED THIS WITH DR. ARELLANO AND PT IS CLEARED FOR D/C HOME TODAY. RX GIVEN FOR PREDNISONE TAPER AND LEVAQUIN. SEE BELOW FOR D/C PLAN SENT WITH PT. NO FURTHER ORDERS. -FOLLOW UP WITH DR. ARELLANO IN THE OFFICE IN 5-7 DAYS---CALL FOR APPT TIME. -FOLLOW UP WITH DR. PEREYRA (LUNG DOCTOR) IN THE OFFICE WITHIN 5-7 DAYS---CALL THE OFFICE TO MAKE YOUR APPT. -CONTINUE YOUR MEDICATIONS AT HOME USUAL. -NEW MEDICATIONS INCLUDE: 1) LEVAQUIN 750MG (TAKE 1 TABLET) ONCE A DAY FOR 1 WEEK--THIS IS AN ANTIBIOTIC. 2) PREDNISONE TAPER (THIS IS A STEROID TO HELP WITH YOUR BREATHING): START WITH 40 MG (4 TABLETS) ONCE A DAY FOR 3 DAYS, THEN DECREASE TO 30 MG (3 TABLETS ) ONCE A DAY FOR 3 DAYS, THEN DECREASE TO 20 MG (2 TABLETS) ONCE A DAY FOR 3 DAYS, THEN DECREASE TO 10 MG (1 TABLET) ONCE A DAY FOR 3 DAYS. -YOU HAVE BEEN ARRANGED TO GET A TRILOGY VENTILATOR MACHINE BY DR. PEREYRA. USE THIS EXACTLY DIRECTED BY THE TECH THAT WILL DELIVER IT AND PROVIDE THE EDUCATION TO YOU ABOUT THE MACHINE. THIS MACHINE WILL HELP WITH YOUR BREATHING AND IT IS IMPORTANT TO USE DIRECTED. -FOR FURTHER CONCERNS OR QUESTIONS, CONTACT DR. PEREYRA OR DR. ARELLANO. Objective - Vital Signs/Intake and Output Vital Signs (last 24 hours): Temp Pulse Resp BP Pulse Ox 98.5 F 77 20 126/69 95 07/23/17 15:05 07/23/17 15:05 07/23/17 15:05 07/23/17 15:05 07/23/17 15:05 - Medications Medications: Current Medications Albuterol/Ipratropium (Duoneb 3 Mg/0.5 Mg (3 Ml) Ud) 3 ml INH RQ6 [facility] Last Admin: 07/23/17 13:40 Dose: 3 ml Alprazolam (Xanax) 1 mg PO BID PRN PRN Reason: Anxiety Last Admin: 07/22/17 21:38 Dose: 1 mg Aspirin (Ecotrin) 81 mg PO DAILY [facility] Last Admin: 07/23/17 09:25 Dose: 81 mg Carvedilol (Coreg) 6.25 mg PO BID [facility] Last Admin: 07/23/17 11:21 Dose: Not Given Enoxaparin Sodium (Lovenox) 40 mg SC DAILY [facility] Last Admin: 07/23/17 09:24 Dose: 40 mg Folic Acid (Folic Acid) 1 mg PO DAILY [facility] Last Admin: 07/23/17 09:24 Dose: 1 mg Furosemide (Lasix) 40 mg PO DAILY [facility] Last Admin: 07/23/17 09:24 Dose: 40 mg Ceftriaxone Sodium 1 gm/ (Sodium Chloride) 100 mls @ 50 mls/30 min IVPB Q12H JOANN PRN Reason: Protocol Last Admin: 07/23/17 09:24 Dose: 50 mls/30 min Insulin Human Regular (Novolin R) 0 unit SC ACHS JOANN PRN Reason: Protocol Last Admin: 07/23/17 11:57 Dose: Not Given Methadone HCl (Methadose) 80 mg PO DAILY [facility] Last Admin: 07/23/17 09:24 Dose: 80 mg Methylprednisolone (Solu-Medrol) 40 mg IVP Q6H [facility] Last Admin: 07/23/17 13:30 Dose: 40 mg Paroxetine HCl (Paxil) 20 mg PO DAILY [facility] Last Admin: 07/23/17 09:24 Dose: 20 mg Tamsulosin HCl (Flomax) 0.4 mg PO DAILY [facility] Last Admin: 07/23/17 09:24 Dose: 0.4 mg Zolpidem Tartrate (Ambien) 5 mg PO HS PRN PRN Reason: Insomnia - Labs Labs: 07/23/17 06:19 07/23/17 06:19
--- NOTE | 2017-07-25 07:46 | DS ---
DISCHARGE DIAGNOSES: Acute hypercapnic respiratory failure, chronic obstructive pulmonary disease exacerbation, bandemia, questionable etiology, hypertension, coronary artery disease, status post stent placement, chronic low back pain, bipolar disorder, on methadone maintenance program, . HISTORY OF PRESENT ILLNESS: Mr. Lopez is a 61-year-old morbidly obese male with past medical history of COPD, CAD, CHF, status post stent placement, chronic low back pain, bipolar disorder, came into the ED with symptoms of progressive worsening of shortness of breath and not feeling well. In the ED the patient was found to be having elevated bands and COPD exacerbation, hypercapnic respiratory failure, and the patient is being admitted for further management. On the day of discharge, the patient was feeling better. Denied any headache or dizziness. Denied any chest pain. Shortness of breath much improved. Able to ambulate better. Denied any nausea, vomiting, abdominal pain, diarrhea, or constipation. Denied any urinary complaints. Denied any leg pains or leg cramps. Denied any other neurologic symptoms. REVIEW OF SYSTEMS: All other systems reviewed and were found to be negative. PHYSICAL EXAMINATION: GENERAL: Middle-aged morbidly obese male, lying in bed, in no acute distress. VITAL SIGNS: Blood pressure 126/69, pulse 77, respirations 20, temperature 98.5 degrees Fahrenheit. O2 sats 95% on BiPAP. HEENT: Pupils equal, round, and reactive to light and accommodation. Extraocular muscles intact. No icterus, no pallor. No oral thrush. No oropharyngeal congestion. NECK: Supple. No JVD. LUNGS: Bilateral vesicular breath sounds. Decreased breath sounds with occasional wheezing. No rhonchi. CVS: S1 and S2 present, regular. ABDOMEN: Soft, nontender. Bowel sounds present. No guarding, no rigidity. No rebound tenderness noted. DOCUMENT MANAGEMENT TECHNICIAN: Alert, awake, oriented x3. No focal deficits noted. EXTREMITIES: Chronic venous changes. LABORATORY DATA: Labs done from 07/23/2017, WBC 5.2, hemoglobin 11.5, hematocrit 35.2, platelets 174. Sodium 141, potassium 4.7, chloride 96, bicarb 37, BUN 38, creatinine 1.0, glucose 122, calcium 7.7. Chest x-ray negative for any infiltrate. Blood cultures remained negative. Sputum culture, negative. Urine, no growth. Repeat urine culture, gram-positive cocci, less than 10,000 colonies forming unit/mL. HOSPITAL COURSE: The patient was admitted to telemetry for respiratory failure. The patient was started on BiPAP. The patient was noncompliant with BiPAP machine. He was not keeping it all the time but he was started on empiric antibiotics, bronchodilators, IV steroids with which his symptoms improved. His bandemia did not improve beside Rocephin and Zithromax empiric doses. The patient was evaluated by Pulmonary. Arranged for Trilogy at home as the patient BiPAP and cleared for discharge. As his bandemia was persistent, the patient was evaluated by ID. His Rocephin was switched to twice daily with which his bandemia improved. The patient is otherwise doing better, cleared by all the consultants. As the patient is also anxious to be discharged, the patient was discharged. The patient claimed that he was on methadone program. Initially he was not able to provide the information, so psychiatric consult requested. The patient was evaluated by Psychiatry, started him back on methadone program. The patient was recommended to follow up with PMD and continue the home medications and be compliant with the BiPAP machine at home and advised to return to the ED for any worsening of symptoms. CONDITION UPON DISCHARGE: The patient was alert, awake, oriented x3 and hemodynamically stable at the time of discharge. DISCHARGE INSTRUCTIONS: Follow up with PMD. Follow up with Pulmonary. Follow up with Psychiatry as scheduled. DISCHARGE MEDICATIONS: Include Levaquin 750 mg p.o. daily for one week, methadone, Paxil 20 mg daily, prednisone tapering doses 40 mg p.o. daily for three days and then slowly taper off, Flomax 0.4 mg daily, Lasix 40 mg daily, folic acid 1 mg daily, Coreg 12.5 mg p.o. b.i.d., aspirin 81 mg daily, Duoneb. Charles Bob MD
== END 2017-07-23 18:03 | disposition home or self-care (01) | DRG 189 ==
LOC: C.ER 15:56 → C.9E 18:44 → C.3T 19:16 → C.9E 19:18 → C.3T 19:56 → C.9E 20:52 → C.6T 07-20 01:18
PROVIDERS: ADMIT Internal Medicine; ATTEND Internal Medicine
PROC: 5A09457 Assistance with Respiratory Ventilation, 24-96 Consecutive Hours, Continuous Positive Airway Pressure (ICD-10-PCS; principal; 2017-07-19)
DX: J96.02 Acute respiratory failure with hypercapnia (principal); J44.1 Chronic obstructive pulmonary disease with (acute) exacerbation; I50.30 Unspecified diastolic (congestive) heart failure; J96.01 Acute respiratory failure with hypoxia; D72.825 Bandemia; I11.0 Hypertensive heart disease with heart failure; I25.10 Atherosclerotic heart disease of native coronary artery without angina pectoris; E11.9 Type 2 diabetes mellitus without complications; F31.32 Bipolar disorder, current episode depressed, moderate; E66.01 Morbid (severe) obesity due to excess calories; F41.9 Anxiety disorder, unspecified; G47.33 Obstructive sleep apnea (adult) (pediatric); N40.0 Benign prostatic hyperplasia without lower urinary tract symptoms; F11.21 Opioid dependence, in remission; Z68.38 Body mass index [BMI] 38.0-38.9, adult; Z87.891 Personal history of nicotine dependence; Z86.19 Personal history of other infectious and parasitic diseases; Z91.19 Patient's noncompliance with other medical treatment and regimen; Z79.82 Long term (current) use of aspirin; Z95.5 Presence of coronary angioplasty implant and graft; Z79.84 Long term (current) use of oral hypoglycemic drugs

== ENCOUNTER 2017-07-24 12:49 | Inpatient (IN) | payer MEDICARE, MEDICAID ==
[2017-07-24 12:49] VITALS: BMI 39.2
[2017-07-24] MEDS ORDERED: Albuterol-Ipratrop 3 mg / 0.5 (3 ml) UD INH STA (13:26)
--- NOTE | 2017-07-24 13:48 | RAD ---
PROCEDURE: CHEST RADIOGRAPH, 1 VIEW HISTORY: Shortness of breath COMPARISON: Comparison made with chest radiograph 07/19/2017 FINDINGS: LUNGS: Slightly increased central pulmonary vasculature with mild cephalization ; rule out mild chronic compensated pulmonary edema/ CHF. More confluent opacities in both lung bases may represent atelectasis however developing alveolar-type infiltrates not excluded. PLEURA: No pneumothorax or pleural fluid seen. CARDIOVASCULAR: Cardiomegaly. OSSEOUS STRUCTURES: No significant abnormalities. VISUALIZED UPPER ABDOMEN: Normal. OTHER FINDINGS: None. IMPRESSION: Slightly increased central pulmonary vasculature with mild cephalization ; rule out mild chronic compensated pulmonary edema/ CHF. More confluent opacities in both lung bases may represent atelectasis however developing alveolar-type infiltrates not excluded..
[2017-07-24 13:59] LABS: BASO % 0.1 % (0.0-2.0); EOS % 0.1 % (0.0-4.0); LYMPH # 1.4 K/uL (1.0-4.3); LYMPH % 16.2 % (20.0-40.0); MEAN CORPUSCULAR HEMOGLOBIN 29.8 pg (27.0-31.0); MEAN CORPUSCULAR HGB CONC 33.9 g/dL (33.0-37.0); MEAN PLATELET VOLUME 7.3 fL (7.2-11.7); MONO # 0.9 K/uL (0.0-0.8); MONO % 10.7 % (0.0-10.0); NEUT # 6.3 K/uL (1.8-7.0); NEUT % 72.9 % (50.0-75.0); NRBC % 0.1 % (0.0-2.0); RBC 4.55 Mil/uL (4.40-5.90); RED CELL DISTRIBUTION WIDTH 13.4 % (11.5-14.5)
[2017-07-24 14:01] LABS: WHITE BLOOD COUNT 8.7 K/uL (4.8-10.8)
[2017-07-24 14:02] LABS: HEMOGLOBIN 13.6 g/dL (12.0-18.0)
[2017-07-24 14:13] LABS: ALBUMIN 3.6 g/dL (3.5-5.0); ALT/SGPT 15 U/L (21-72); AST/SGOT 26 U/L (17-59); BLOOD UREA NITROGEN 29 mg/dL (9-20); CALCIUM 8.3 mg/dl (8.6-10.4); GFR AFRICAN-AMERICAN > 60; GFR NON-AFRICAN AMERICAN > 60
[2017-07-24] MEDS ORDERED: MethylPREDNISolone 40 mg Vial ONE (14:16)
[2017-07-24] MEDS ORDERED: Albuterol-Ipratrop 3 mg / 0.5 (3 ml) UD ONE (14:16)
[2017-07-24 14:23] LABS: B-TYPE NATRIURETIC PEPTIDE 2350 pg/mL (0-900)
--- NOTE | 2017-07-24 14:29 | C.PDOC ---
History Of Present Illness Patient is a 61 y/o male, with a Hx of COPD, presents to the ED with a complaint of SOB and chest pressure. Patient reports to have been discharged yesterday after admission for COPD exacerbation. Patient admits to feeling more SOB at home, prompting visit. Denies any nausea, vomiting, diarrhea, or tobacco use. No other physical complaints at this time. Time Seen by Provider: 07/24/17 13:21 Chief Complaint (Nursing): Shortness Of Breath History Per: Patient History/Exam Limitations: no limitations Onset/Duration Of Symptoms: Hrs Current Symptoms Are (Timing): Still Present Reports Recently: Hospitalized (discharged yesterday) Recent travel outside of the [place]: No Past Medical History Reviewed: Historical Data, Nursing Documentation, Vital Signs Vital Signs: Last Vital Signs Temp 97.3 F L 07/24/17 17:55 Pulse 86 07/24/17 18:00 Resp 20 07/24/17 17:55 BP 170/83 H 07/24/17 17:55 Pulse Ox 96 07/24/17 20:10 - Medical History PMH: Anxiety, Asthma, Bipolar Disorder, CHF, COPD, Depression, Emphysema, Fractures (LEFT SHOULDER), Hepatitis, HTN Denies: Chronic Kidney Disease Surgical History: Coronary Stent - [facility] Procedures ASSISTANCE WITH RESPIRATORY VENTILATION, >96 HRS, CPAP (08/16/16) CORONAR ARTERIOGR-2 CATH (08/23/13) INSERTION OF ONE VASCULAR STENT (08/23/13) INSRT OF DRUG-ELUTING CORON ARTERY STENTS(S) (08/23/13) LEFT HEART CARDIAC CATH (08/17/13) LT HEART ANGIOCARDIOGRAM (08/17/13) PERCUTANEOUS TRANSLUMINAL CORONARY ANGIOPLASTY [PTCA] (08/23/13) PROCEDURE ON SINGLE VESSEL (08/23/13) Family History: States: No Known Family Hx - Social History Hx Tobacco Use: Yes Hx Alcohol Use: No Hx Substance Use: No - Immunization History Hx Tetanus Toxoid Vaccination: No Hx Influenza Vaccination: No Hx Pneumococcal Vaccination: No Review Of Systems Cardiovascular: Positive for: Chest Pain (chest pressure) Respiratory: Positive for: Cough, Shortness of Breath Gastrointestinal: Negative for: Nausea, Vomiting, Diarrhea Physical Exam - Physical Exam Appears: Non-toxic Skin: Normal Color, Warm, Dry Head: Atraumatic, Normacephalic Oral Mucosa: Moist Chest: Symmetrical Cardiovascular: Rhythm Regular, No Murmur Respiratory: Normal Breath Sounds, No Rales, No Rhonchi, Wheezing (expiratory) Gastrointestinal/Abdominal: Soft, No Tenderness Back: Normal Inspection Extremity: Normal ROM Extremity: Bilateral: Atraumatic Neurological/Psych: Oriented x3, Normal Speech ED Course And Treatment - Laboratory Results Result Diagrams: 07/24/17 13:51 07/24/17 13:51 ECG: Interpreted By Me, Viewed By Me ECG Rhythm: Sinus Rhythm ECG Interpretation: Normal Interpretation Of ECG: normal intervals, left axid deviation, LVH, PACs Rate From EC (bpm) O2 Sat by Pulse Oximetry: 96 Pulse Ox Interpretation: Normal - Other Rad CXR X-Ray: Interpreted by Me, Viewed By Me Interpretation: PROCEDURE: CHEST RADIOGRAPH, 1 VIEW. HISTORY: Shortness of breath. COMPARISON: Comparison made with chest radiograph 07/19/2017 \. FINDINGS: LUNGS: Slightly increased central pulmonary vasculature with mild cephalization ; rule out mild chronic compensated pulmonary edema/ CHF. More confluent opacities in both lung bases may represent atelectasis however developing alveolar-type infiltrates not excluded. PLEURA: No pneumothorax or pleural fluid seen. CARDIOVASCULAR: Cardiomegaly. OSSEOUS STRUCTURES: No significant abnormalities. VISUALIZED UPPER ABDOMEN: Normal. OTHER FINDINGS: None. IMPRESSION: Slightly increased central pulmonary vasculature with mild cephalization ; rule out mild chronic compensated pulmonary edema/ CHF. More confluent opacities in both lung bases may represent atelectasis however developing alveolar-type infiltrates not excluded.. Progress Note: EKG ordered. Nebulizer treatment, lasix, duoneb, and medrol administered. Medical Decision Making Medical Decision Making: On assessment, patient has COPD exacerbation and chf. Discussed with doctor that admitted her last and request Dr. Nazario De La Rosa for admission. Discussed with Dr. Sola De La Rosa and will accept admission of patient. Disposition Discussed With : Elodia De La Rosa Counseled Patient/Family Regarding: Studies Performed, Diagnosis, Need For Followup - Disposition Disposition: HOSPITALIZED Disposition Time: 14:58 Condition: FAIR - Clinical Impression Clinical Impression: CHF exacerbation, COPD exacerbation - Scribe Statement The provider has reviewed the documentation as recorded by the Scribe Wendy Krishnan All medical record entries made by the Scribe were at my direction and personally dictated by me. I have reviewed the chart and agree that the record accurately reflects my personal performance of the history, physical exam, medical decision making, and the department course for this patient. I have also personally directed, reviewed, and agree with the discharge instructions and disposition.
[2017-07-24 20:12] LABS: ARTERIAL BLOOD GAS HCO3 38.1 mmol/L (21-28); ARTERIAL BLOOD GAS HEMOGLOBIN 14.3 g/dL (11.7-17.4); ARTERIAL BLOOD GAS O2 SAT 94.1 % (95-98); ARTERIAL BLOOD GAS PCO2 48 mm/Hg (35-45); ARTERIAL BLOOD GAS PH 7.55 (7.35-7.45); ARTERIAL BLOOD GAS PO2 53 mm/Hg (80-100); ARTERIAL BLOOD GAS TCO2 43.5 mmol/L (22-28)
[2017-07-24] MEDS: Albuterol-Ipratrop 3 mg / 0.5 (3 ml) UD INH SCH (20:23)
[2017-07-24] MEDS: MethylPREDNISolone 40 mg Vial IVP SCH (22:06)
[2017-07-24] MEDS: (Novolin R) Insulin Human Regular 100 units/ml vial SC SCH (22:06)
--- NOTE | 2017-07-24 23:17 | CP.PCM.HP ---
Past Patient History - Infectious Disease Hx of Infectious Diseases: None - Past Medical History & Family History Past Medical History?: Yes - Past Social History Smoking Status: Heavy Smoker > 10 Cigarettes Daily - CARDIAC Hx Congestive Heart Failure: Yes Hx Hypertension: Yes - PULMONARY Hx Asthma: Yes Hx Chronic Obstructive Pulmonary Disease (COPD): Yes Hx Emphysema: Yes - NEUROLOGICAL Hx Paralysis: No - HEENT Hx HEENT Problems: No - RENAL Hx Chronic Kidney Disease: No - HEMATOLOGICAL/ONCOLOGICAL Hx Blood Disorders: Yes Hx Hepatitis C: Yes (resolved) - INTEGUMENTARY Hx Dermatological Problems: No - MUSCULOSKELETAL/RHEUMATOLOGICAL Hx Fractures: Yes (LEFT SHOULDER) - GASTROINTESTINAL Hx Gastrointestinal Disorders: No - GENITOURINARY/GYNECOLOGICAL Hx Genitourinary Disorders: Yes Hx Hematuria: Yes - PSYCHIATRIC Hx Anxiety: Yes Hx Bipolar Disorder: Yes Hx Depression: Yes Hx Substance Use: No - SURGICAL HISTORY Hx Coronary Stent: Yes - ANESTHESIA Hx Anesthesia: Yes Hx Anesthesia Reactions: No Hx Malignant Hyperthermia: No Meds Allergies/Adverse Reactions: Allergies Allergy/AdvReac Type Severity Reaction Status Date / Time No Known Allergies Allergy Verified 07/24/17 12:59 Results - Vital Signs Recent Vital Signs: Last Vital Signs Temp 97.3 F L 07/24/17 17:55 Pulse 88 07/24/17 20:45 Resp 20 07/24/17 17:55 BP 170/83 H 07/24/17 17:55 Pulse Ox 96 07/24/17 20:11 - Labs Result Diagrams: 07/24/17 13:51 07/24/17 13:51 Labs: Laboratory Results - last 24 hr 07/24/17 07/24/17 07/24/17 13:51 13:51 20:09 WBC 8.7 D RBC 4.55 Hgb 13.6 D Hct 40.1 MCV 88.0 D MCH 29.8 MCHC 33.9 RDW 13.4 Plt Count 230 MPV 7.3 Neut % (Auto) 72.9 Lymph % (Auto) 16.2 L [place] % (Auto) 10.7 H Eos % (Auto) 0.1 Baso % (Auto) 0.1 Neut # (Auto) 6.3 Lymph # (Auto) 1.4 [place] # (Auto) 0.9 H Eos # (Auto) 0.0 Baso # (Auto) 0.0 Puncture Site Rra pCO2 48 H pO2 53 L HCO3 38.1 H ABG pH 7.55 H ABG Total CO2 43.5 H ABG O2 Saturation 94.1 L ABG Base Excess 17.1 H ABG Hemoglobin 14.3 ABG Carboxyhemoglobin 2.6 H POC ABG HHb (Measured) 5.7 H ABG Methemoglobin 1.6 Paolo Test Na A-a O2 Difference 37.0 Respiratory Index 0.7 Hgb O2 Saturation 90.1 L Liter Flow 0 FiO2 21.0 Sodium 141 Potassium 4.1 Chloride 95 L Carbon Dioxide 39 H Anion Gap 12 BUN 29 H Creatinine 0.8 Est GFR ( Amer) > 60 Est GFR (Non-Af Amer) > 60 POC Glucose (mg/dL) Random Glucose 74 L Calcium 8.3 L Total Bilirubin 0.8 AST 26 ALT 15 L D Alkaline Phosphatase 67 Troponin I < 0.0120 NT-Pro-B Natriuret Pep 2350 H Total Protein 7.2 Albumin 3.6 Globulin 3.6 Albumin/Globulin Ratio 1.0 07/24/17 21:35 WBC RBC Hgb Hct MCV MCH MCHC RDW Plt Count MPV Neut % (Auto) Lymph % (Auto) [place] % (Auto) Eos % (Auto) Baso % (Auto) Neut # (Auto) Lymph # (Auto) [place] # (Auto) Eos # (Auto) Baso # (Auto) Puncture Site pCO2 pO2 HCO3 ABG pH ABG Total CO2 ABG O2 Saturation ABG Base Excess ABG Hemoglobin ABG Carboxyhemoglobin POC ABG HHb (Measured) ABG Methemoglobin Paolo Test A-a O2 Difference Respiratory Index Hgb O2 Saturation Liter Flow FiO2 Sodium Potassium Chloride Carbon Dioxide Anion Gap BUN Creatinine Est GFR ( Amer) Est GFR (Non-Af Amer) POC Glucose (mg/dL) 139 H Random Glucose Calcium Total Bilirubin AST ALT Alkaline Phosphatase Troponin I NT-Pro-B Natriuret Pep Total Protein Albumin Globulin Albumin/Globulin Ratio
[2017-07-25] MEDS: Albuterol-Ipratrop 3 mg / 0.5 (3 ml) UD INH SCH ×4 (02:56→19:41)
[2017-07-25] MEDS: MethylPREDNISolone 40 mg Vial IVP SCH ×3 (05:35→21:22)
[2017-07-25] MEDS: (Novolin R) Insulin Human Regular 100 units/ml vial SC SCH ×4 (07:28→21:25)
[2017-07-25] MEDS: Albuterol 0.083% Inhal Sol (2.5 mg/3 mL) UD INH SCH ×2 (07:57→19:41)
[2017-07-25] MEDS: Methadone 40 mg Tab PO SCH (09:27)
[2017-07-25] MEDS: Azithromycin 500mg/250ML NS 500 MG/250 ML BAG IVPB SCH (10:49)
--- NOTE | 2017-07-25 11:07 | CP.PCM.CON ---
Past Patient History - Infectious Disease Hx of Infectious Diseases: None - Past Medical History & Family History Past Medical History?: Yes - Past Social History Smoking Status: Heavy Smoker > 10 Cigarettes Daily - CARDIAC Hx Congestive Heart Failure: Yes Hx Hypertension: Yes - PULMONARY Hx Asthma: Yes Hx Chronic Obstructive Pulmonary Disease (COPD): Yes Hx Emphysema: Yes - NEUROLOGICAL Hx Paralysis: No - HEENT Hx HEENT Problems: No - RENAL Hx Chronic Kidney Disease: No - HEMATOLOGICAL/ONCOLOGICAL Hx Blood Disorders: Yes Hx Hepatitis C: Yes (resolved) - INTEGUMENTARY Hx Dermatological Problems: No - MUSCULOSKELETAL/RHEUMATOLOGICAL Hx Fractures: Yes (LEFT SHOULDER) - GASTROINTESTINAL Hx Gastrointestinal Disorders: No - GENITOURINARY/GYNECOLOGICAL Hx Genitourinary Disorders: Yes Hx Hematuria: Yes - PSYCHIATRIC Hx Anxiety: Yes Hx Bipolar Disorder: Yes Hx Depression: Yes Hx Substance Use: No - SURGICAL HISTORY Hx Coronary Stent: Yes - ANESTHESIA Hx Anesthesia: Yes Hx Anesthesia Reactions: No Hx Malignant Hyperthermia: No Meds Allergies/Adverse Reactions: Allergies Allergy/AdvReac Type Severity Reaction Status Date / Time No Known Allergies Allergy Verified 07/24/17 12:59 - Medications Medications: Current Medications Albuterol Sulfate (Albuterol 0.083% Inhal Ariana (2.5 Mg/3 Ml) Ud) 2.5 mg INH RBID [facility] Last Admin: 07/25/17 07:57 Dose: Not Given Albuterol/Ipratropium (Duoneb 3 Mg/0.5 Mg (3 Ml) Ud) 3 ml INH RQ6 [facility] Last Admin: 07/25/17 07:57 Dose: Not Given Alprazolam (Xanax) 1 mg PO BID PRN PRN Reason: Anxiety Last Admin: 07/25/17 09:26 Dose: 1 mg Aspirin (Aspirin Chewable) 81 mg PO DAILY [facility] Last Admin: 07/25/17 09:26 Dose: 81 mg Carvedilol (Coreg) 6.25 mg PO BID [facility] Last Admin: 07/25/17 09:26 Dose: 6.25 mg Folic Acid (Folic Acid) 1 mg PO DAILY [facility] Last Admin: 07/25/17 09:26 Dose: 1 mg Furosemide (Lasix) 40 mg IVP DAILY [facility] Last Admin: 07/25/17 09:27 Dose: 40 mg Azithromycin (Zithromax 500mg In Ns Addvantage) 500 mg in 250 mls @ 167 mls/hr IVPB Q24H JOANN PRN Reason: Protocol Last Admin: 07/25/17 10:49 Dose: 167 mls/hr Insulin Human Regular (Novolin R) 0 unit SC ACHS [facility] PRN Reason: Protocol Last Admin: 07/25/17 07:28 Dose: Not Given Methadone HCl (Methadose) 80 mg PO DAILY [facility] Methylprednisolone (Solu-Medrol) 40 mg IVP Q8 [facility] Last Admin: 07/25/17 05:35 Dose: 40 mg Pantoprazole Sodium (Protonix Inj) 40 mg IVP DAILY [facility] Last Admin: 07/25/17 09:26 Dose: 40 mg Paroxetine HCl (Paxil) 20 mg PO DAILY [facility] Last Admin: 07/25/17 09:26 Dose: 20 mg Pneumococcal Polyvalent Vaccine (Pneumovax 23 Vaccine) 0.5 ml IM .ONCE ONE Stop: 07/26/17 10:01 Tamsulosin HCl (Flomax) 0.4 mg PO DAILY [facility] Last Admin: 07/25/17 09:26 Dose: 0.4 mg Zolpidem Tartrate (Ambien) 5 mg PO HS PRN PRN Reason: Insomnia Results - Vital Signs Recent Vital Signs: Last Vital Signs Temp 98.0 F 07/25/17 08:16 Pulse 95 H 07/25/17 08:35 Resp 20 07/25/17 08:16 BP 179/86 H 07/25/17 09:27 Pulse Ox 93 L 07/25/17 08:16 - Labs Result Diagrams: 07/24/17 13:51 07/24/17 13:51 Labs: Laboratory Results - last 24 hr 07/24/17 07/24/17 07/24/17 13:51 13:51 20:09 WBC 8.7 D RBC 4.55 Hgb 13.6 D Hct 40.1 MCV 88.0 D MCH 29.8 MCHC 33.9 RDW 13.4 Plt Count 230 MPV 7.3 Neut % (Auto) 72.9 Lymph % (Auto) 16.2 L [place] % (Auto) 10.7 H Eos % (Auto) 0.1 Baso % (Auto) 0.1 Neut # (Auto) 6.3 Lymph # (Auto) 1.4 [place] # (Auto) 0.9 H Eos # (Auto) 0.0 Baso # (Auto) 0.0 Puncture Site Rra pCO2 48 H pO2 53 L HCO3 38.1 H ABG pH 7.55 H ABG Total CO2 43.5 H ABG O2 Saturation 94.1 L ABG Base Excess 17.1 H ABG Hemoglobin 14.3 ABG Carboxyhemoglobin 2.6 H POC ABG HHb (Measured) 5.7 H ABG Methemoglobin 1.6 Paolo Test Na A-a O2 Difference 37.0 Respiratory Index 0.7 Hgb O2 Saturation 90.1 L Liter Flow 0 FiO2 21.0 Sodium 141 Potassium 4.1 Chloride 95 L Carbon Dioxide 39 H Anion Gap 12 BUN 29 H Creatinine 0.8 Est GFR ( Amer) > 60 Est GFR (Non-Af Amer) > 60 POC Glucose (mg/dL) Random Glucose 74 L Calcium 8.3 L Total Bilirubin 0.8 AST 26 ALT 15 L D Alkaline Phosphatase 67 Troponin I < 0.0120 NT-Pro-B Natriuret Pep 2350 H Total Protein 7.2 Albumin 3.6 Globulin 3.6 Albumin/Globulin Ratio 1.0 07/24/17 07/25/17 21:35 06:20 WBC RBC Hgb Hct MCV MCH MCHC RDW Plt Count MPV Neut % (Auto) Lymph % (Auto) [place] % (Auto) Eos % (Auto) Baso % (Auto) Neut # (Auto) Lymph # (Auto) [place] # (Auto) Eos # (Auto) Baso # (Auto) Puncture Site pCO2 pO2 HCO3 ABG pH ABG Total CO2 ABG O2 Saturation ABG Base Excess ABG Hemoglobin ABG Carboxyhemoglobin POC ABG HHb (Measured) ABG Methemoglobin Paolo Test A-a O2 Difference Respiratory Index Hgb O2 Saturation Liter Flow FiO2 Sodium Potassium Chloride Carbon Dioxide Anion Gap BUN Creatinine Est GFR ( Amer) Est GFR (Non-Af Amer) POC Glucose (mg/dL) 139 H 131 H Random Glucose Calcium Total Bilirubin AST ALT Alkaline Phosphatase Troponin I NT-Pro-B Natriuret Pep Total Protein Albumin Globulin Albumin/Globulin Ratio
--- NOTE | 2017-07-25 11:07 | CP.PCM.CON ---
History of Present Illness - History of Present Illness History of Present Illness: Patient seen/examined. consult to follow. Recent stress tet normla. Recommend medical therapy for CAD. Bronchodilator therapy. Past Patient History - Infectious Disease Hx of Infectious Diseases: None - Past Medical History & Family History Past Medical History?: Yes - Past Social History Smoking Status: Heavy Smoker > 10 Cigarettes Daily - CARDIAC Hx Congestive Heart Failure: Yes Hx Hypertension: Yes - PULMONARY Hx Asthma: Yes Hx Chronic Obstructive Pulmonary Disease (COPD): Yes Hx Emphysema: Yes - NEUROLOGICAL Hx Paralysis: No - HEENT Hx HEENT Problems: No - RENAL Hx Chronic Kidney Disease: No - HEMATOLOGICAL/ONCOLOGICAL Hx Blood Disorders: Yes Hx Hepatitis C: Yes (resolved) - INTEGUMENTARY Hx Dermatological Problems: No - MUSCULOSKELETAL/RHEUMATOLOGICAL Hx Fractures: Yes (LEFT SHOULDER) - GASTROINTESTINAL Hx Gastrointestinal Disorders: No - GENITOURINARY/GYNECOLOGICAL Hx Genitourinary Disorders: Yes Hx Hematuria: Yes - PSYCHIATRIC Hx Anxiety: Yes Hx Bipolar Disorder: Yes Hx Depression: Yes Hx Substance Use: No - SURGICAL HISTORY Hx Coronary Stent: Yes - ANESTHESIA Hx Anesthesia: Yes Hx Anesthesia Reactions: No Hx Malignant Hyperthermia: No Meds Allergies/Adverse Reactions: Allergies Allergy/AdvReac Type Severity Reaction Status Date / Time No Known Allergies Allergy Verified 07/24/17 12:59 - Medications Medications: Current Medications Albuterol Sulfate (Albuterol 0.083% Inhal Ariana (2.5 Mg/3 Ml) Ud) 2.5 mg INH RBID [facility] Last Admin: 07/25/17 07:57 Dose: Not Given Albuterol/Ipratropium (Duoneb 3 Mg/0.5 Mg (3 Ml) Ud) 3 ml INH RQ6 [facility] Last Admin: 07/25/17 07:57 Dose: Not Given Alprazolam (Xanax) 1 mg PO BID PRN PRN Reason: Anxiety Last Admin: 07/25/17 09:26 Dose: 1 mg Aspirin (Aspirin Chewable) 81 mg PO DAILY [facility] Last Admin: 07/25/17 09:26 Dose: 81 mg Carvedilol (Coreg) 6.25 mg PO BID [facility] Last Admin: 07/25/17 09:26 Dose: 6.25 mg Folic Acid (Folic Acid) 1 mg PO DAILY [facility] Last Admin: 07/25/17 09:26 Dose: 1 mg Furosemide (Lasix) 40 mg IVP DAILY [facility] Last Admin: 04/01/18 09:27 Dose: 40 mg Azithromycin (Zithromax 500mg In Ns Addvantage) 500 mg in 250 mls @ 167 mls/hr IVPB Q24H [facility] PRN Reason: Protocol Last Admin: 07/25/17 10:49 Dose: 167 mls/hr Insulin Human Regular (Novolin R) 0 unit SC ACHS [facility] PRN Reason: Protocol Last Admin: 07/25/17 07:28 Dose: Not Given Methadone HCl (Methadose) 80 mg PO DAILY [facility] Methylprednisolone (Solu-Medrol) 40 mg IVP Q8 [facility] Last Admin: 07/25/17 05:35 Dose: 40 mg Pantoprazole Sodium (Protonix Inj) 40 mg IVP DAILY [facility] Last Admin: 07/25/17 09:26 Dose: 40 mg Paroxetine HCl (Paxil) 20 mg PO DAILY [facility] Last Admin: 07/25/17 09:26 Dose: 20 mg Pneumococcal Polyvalent Vaccine (Pneumovax 23 Vaccine) 0.5 ml IM .ONCE ONE Stop: 07/26/17 10:01 Tamsulosin HCl (Flomax) 0.4 mg PO DAILY [facility] Last Admin: 07/25/17 09:26 Dose: 0.4 mg Zolpidem Tartrate (Ambien) 5 mg PO HS PRN PRN Reason: Insomnia Results - Vital Signs Recent Vital Signs: Last Vital Signs Temp 98.0 F 07/25/17 08:16 Pulse 95 H 07/25/17 08:35 Resp 20 07/25/17 08:16 BP 179/86 H 07/25/17 09:27 Pulse Ox 93 L 07/25/17 08:16 - Labs Result Diagrams: 07/24/17 13:51 07/24/17 13:51 Labs: Laboratory Results - last 24 hr 07/24/17 07/24/17 07/24/17 13:51 13:51 20:09 WBC 8.7 D RBC 4.55 Hgb 13.6 D Hct 40.1 MCV 88.0 D MCH 29.8 MCHC 33.9 RDW 13.4 Plt Count 230 MPV 7.3 Neut % (Auto) 72.9 Lymph % (Auto) 16.2 L [place] % (Auto) 10.7 H Eos % (Auto) 0.1 Baso % (Auto) 0.1 Neut # (Auto) 6.3 Lymph # (Auto) 1.4 [place] # (Auto) 0.9 H Eos # (Auto) 0.0 Baso # (Auto) 0.0 Puncture Site Rra pCO2 48 H pO2 53 L HCO3 38.1 H ABG pH 7.55 H ABG Total CO2 43.5 H ABG O2 Saturation 94.1 L ABG Base Excess 17.1 H ABG Hemoglobin 14.3 ABG Carboxyhemoglobin 2.6 H POC ABG HHb (Measured) 5.7 H ABG Methemoglobin 1.6 Paolo Test Na A-a O2 Difference 37.0 Respiratory Index 0.7 Hgb O2 Saturation 90.1 L Liter Flow 0 FiO2 21.0 Sodium 141 Potassium 4.1 Chloride 95 L Carbon Dioxide 39 H Anion Gap 12 BUN 29 H Creatinine 0.8 Est GFR ( Amer) > 60 Est GFR (Non-Af Amer) > 60 POC Glucose (mg/dL) Random Glucose 74 L Calcium 8.3 L Total Bilirubin 0.8 AST 26 ALT 15 L D Alkaline Phosphatase 67 Troponin I < 0.0120 NT-Pro-B Natriuret Pep 2350 H Total Protein 7.2 Albumin 3.6 Globulin 3.6 Albumin/Globulin Ratio 1.0 07/24/17 07/25/17 21:35 06:20 WBC RBC Hgb Hct MCV MCH MCHC RDW Plt Count MPV Neut % (Auto) Lymph % (Auto) [place] % (Auto) Eos % (Auto) Baso % (Auto) Neut # (Auto) Lymph # (Auto) [place] # (Auto) Eos # (Auto) Baso # (Auto) Puncture Site pCO2 pO2 HCO3 ABG pH ABG Total CO2 ABG O2 Saturation ABG Base Excess ABG Hemoglobin ABG Carboxyhemoglobin POC ABG HHb (Measured) ABG Methemoglobin Paolo Test A-a O2 Difference Respiratory Index Hgb O2 Saturation Liter Flow FiO2 Sodium Potassium Chloride Carbon Dioxide Anion Gap BUN Creatinine Est GFR ( Amer) Est GFR (Non-Af Amer) POC Glucose (mg/dL) 139 H 131 H Random Glucose Calcium Total Bilirubin AST ALT Alkaline Phosphatase Troponin I NT-Pro-B Natriuret Pep Total Protein Albumin Globulin Albumin/Globulin Ratio
--- NOTE | 2017-07-25 17:14 | CP.PCM.CON ---
History of Present Illness - History of Present Illness History of Present Illness: CHART REVIEWED. PT SEEN AND EXAMINED 61 YO W MALE WITH A HX COPD, CHRONIC RESP FAILURE, ASHLEY, CHF, CAD, OBESITY, POLYSUB ABUSE, ANXIETY-DEPRESSION, HTN, ADM 07/24/17 WITH INCREASED MOD SOB AT REST X 1 DAY. +COUGH NO SPUTUM., NO FEVER., NO N/V. +ANT CP?. NOT USING BIPAP QHS. ON HOME NEB WITH NO RELIEF., ?RECENT PRED. STILL SMOKING. Review of Systems - Review of Systems All systems: reviewed and no additional remarkable complaints except - Constitutional Constitutional: Snoring. absent: Fever - EENT Eyes: absent: Change in Vision Ears: absent: Decreased Hearing Nose/Mouth/Throat: absent: Nasal Congestion - Cardiovascular Cardiovascular: Chest Pain - Respiratory Respiratory: Cough, Dyspnea, Dyspnea on Exertion, Wheezing. absent: Hemoptysis , Stridor - Gastrointestinal Gastrointestinal: absent: Nausea, Vomiting - Genitourinary Genitourinary: absent: Difficulty Urinating - Integumentary Integumentary: absent: Rash - Neurological Neurological: absent: Syncope - Psychiatric Psychiatric: absent: Confusion - Endocrine Endocrine: absent: Change in Body Appearance - Hematologic/Lymphatic Hematologic: absent: Easy Bruising Past Patient History - Infectious Disease Hx of Infectious Diseases: None - Past Medical History & Family History Past Medical History?: Yes - Past Social History Smoking Status: Heavy Smoker > 10 Cigarettes Daily Alcohol: Occasional Drugs: Denies - CARDIAC Hx Congestive Heart Failure: Yes Hx Hypertension: Yes - PULMONARY Hx Asthma: Yes Hx Chronic Obstructive Pulmonary Disease (COPD): Yes Hx Emphysema: Yes Hx Sleep Apnea: Yes - NEUROLOGICAL Hx Paralysis: No Hx Syncope: No - HEENT Hx HEENT Problems: No - RENAL Hx Chronic Kidney Disease: No - HEMATOLOGICAL/ONCOLOGICAL Hx Blood Disorders: Yes Hx Hepatitis C: Yes (resolved) - INTEGUMENTARY Hx Dermatological Problems: No - MUSCULOSKELETAL/RHEUMATOLOGICAL Hx Fractures: Yes (LEFT SHOULDER) - GASTROINTESTINAL Hx Gastrointestinal Disorders: No - GENITOURINARY/GYNECOLOGICAL Hx Genitourinary Disorders: Yes Hx Hematuria: Yes - PSYCHIATRIC Hx Anxiety: Yes Hx Bipolar Disorder: Yes Hx Depression: Yes Hx Substance Use: No - SURGICAL HISTORY Hx Coronary Stent: Yes Hx Musculoskeletal Surgery: Yes (LEFT SHOULDER) - ANESTHESIA Hx Anesthesia: Yes Hx Anesthesia Reactions: No Hx Malignant Hyperthermia: No Meds Allergies/Adverse Reactions: Allergies Allergy/AdvReac Type Severity Reaction Status Date / Time No Known Allergies Allergy Verified 07/24/17 12:59 - Medications Medications: Current Medications Albuterol Sulfate (Albuterol 0.083% Inhal Ariana (2.5 Mg/3 Ml) Ud) 2.5 mg INH RBID [facility] Last Admin: 07/25/17 07:57 Dose: Not Given Albuterol/Ipratropium (Duoneb 3 Mg/0.5 Mg (3 Ml) Ud) 3 ml INH RQ6 [facility] Last Admin: 07/25/17 13:12 Dose: 3 ml Alprazolam (Xanax) 1 mg PO BID PRN PRN Reason: Anxiety Last Admin: 07/25/17 09:26 Dose: 1 mg Aspirin (Aspirin Chewable) 81 mg PO DAILY [facility] Last Admin: 07/25/17 09:26 Dose: 81 mg Carvedilol (Coreg) 6.25 mg PO BID [facility] Last Admin: 07/25/17 09:26 Dose: 6.25 mg Folic Acid (Folic Acid) 1 mg PO DAILY [facility] Last Admin: 07/25/17 09:26 Dose: 1 mg Furosemide (Lasix) 40 mg IVP DAILY [facility] Last Admin: 07/25/17 09:27 Dose: 40 mg Azithromycin (Zithromax 500mg In Ns Addvantage) 500 mg in 250 mls @ 167 mls/hr IVPB Q24H [facility] PRN Reason: Protocol Last Admin: 07/25/17 10:49 Dose: 167 mls/hr Insulin Human Regular (Novolin R) 0 unit SC ACHS [facility] PRN Reason: Protocol Last Admin: 07/25/17 12:00 Dose: Not Given Methadone HCl (Methadose) 80 mg PO DAILY [facility] Last Admin: 07/25/17 09:27 Dose: Not Given Methylprednisolone (Solu-Medrol) 40 mg IVP Q8 [facility] Last Admin: 07/25/17 13:08 Dose: 40 mg Pantoprazole Sodium (Protonix Inj) 40 mg IVP DAILY [facility] Last Admin: 07/25/17 09:26 Dose: 40 mg Paroxetine HCl (Paxil) 20 mg PO DAILY [facility] Last Admin: 07/25/17 09:26 Dose: 20 mg Pneumococcal Polyvalent Vaccine (Pneumovax 23 Vaccine) 0.5 ml IM .ONCE ONE Stop: 07/26/17 10:01 Tamsulosin HCl (Flomax) 0.4 mg PO DAILY [facility] Last Admin: 07/25/17 09:26 Dose: 0.4 mg Zolpidem Tartrate (Ambien) 5 mg PO HS PRN PRN Reason: Insomnia Physical Exam - Constitutional Appears: Non-toxic, Chronically Ill - Head Exam Head Exam: ATRAUMATIC, NORMOCEPHALIC - Eye Exam Eye Exam: EOMI, Normal appearance - ENT Exam ENT Exam: Mucous Membranes Moist - Neck Exam Neck exam: Positive for: Normal Inspection. Negative for: Tenderness - Respiratory Exam Respiratory Exam: Decreased Breath Sounds, Rhonchi, Wheezes. absent: Accessory Muscle Use - Cardiovascular Exam Cardiovascular Exam: RRR, +S1, +S2 - GI/Abdominal Exam GI & Abdominal Exam: Soft. absent: Tenderness Additional comments: OBESE - Rectal Exam Rectal Exam: Deferred - Extremities Exam Extremities exam: Negative for: calf tenderness Additional comments: LE CHRONIC CHANGES BILAT. - Back Exam Back exam: absent: CVA tenderness (L), CVA tenderness (R), rash noted - Neurological Exam Neurological exam: Alert, CN II-XII Intact, Oriented x3 - Psychiatric Exam Psychiatric exam: Normal Affect Results - Vital Signs Recent Vital Signs: Last Vital Signs Temp 97.2 F L 07/25/17 15:48 Pulse 90 07/25/17 15:48 Resp 20 07/25/17 15:48 BP 172/98 H 07/25/17 15:48 Pulse Ox 96 07/25/17 15:48 - Labs Result Diagrams: 07/24/17 13:51 07/24/17 13:51 Labs: Laboratory Results - last 24 hr 07/24/17 07/24/17 07/25/17 20:09 21:35 06:20 Puncture Site Rra pCO2 48 H pO2 53 L HCO3 38.1 H ABG pH 7.55 H ABG Total CO2 43.5 H ABG O2 Saturation 94.1 L ABG Base Excess 17.1 H ABG Hemoglobin 14.3 ABG Carboxyhemoglobin 2.6 H POC ABG HHb (Measured) 5.7 H ABG Methemoglobin 1.6 Paolo Test Na A-a O2 Difference 37.0 Respiratory Index 0.7 Hgb O2 Saturation 90.1 L Liter Flow 0 FiO2 21.0 POC Glucose (mg/dL) 139 H 131 H 07/25/17 07/25/17 11:57 16:24 Puncture Site pCO2 pO2 HCO3 ABG pH ABG Total CO2 ABG O2 Saturation ABG Base Excess ABG Hemoglobin ABG Carboxyhemoglobin POC ABG HHb (Measured) ABG Methemoglobin Paolo Test A-a O2 Difference Respiratory Index Hgb O2 Saturation Liter Flow FiO2 POC Glucose (mg/dL) 83 114 H Assessment & Plan (1) Respiratory failure with hypoxia and hypercapnia Status: Acute (2) COPD exacerbation Status: Acute (3) CHF exacerbation Status: Chronic (4) Bronchitis Status: Acute (5) ASHLEY (obstructive sleep apnea) Status: Acute (6) Anxiety Status: Chronic (7) CAD (coronary artery disease) Status: Chronic (8) HTN (hypertension) Status: Chronic (9) History of drug dependence/abuse Status: Chronic - Assessment and Plan (Free Text) Assessment: 61 YO MALE WITH A HX MULT MED PROBS, ADM WITH DYSPNEA +COPD EXAC AND CHF AND ACUTE ON CHRONIC RESP FAILURE., CONT NEB BD., EMPIRIC AB., MONITOR O2 SAT. STERDOID TAPER TOLERATED. CONT BIPAP SUPPORT,ABG NOTED., CXR REVIEWED. DIURESIS TOLERATED. GI/DVT PROPHYLAXIS. SMOKING CESSATION. PROG GUARDED. DISCUSSED WITH STAFF AT LENGTH.
--- NOTE | 2017-07-25 17:23 | CP.PCM.PN ---
Subjective - Date & Time of Evaluation Date of Evaluation: 07/25/17 Time of Evaluation: 11:00 - Subjective Subjective: clinically same Objective - Vital Signs/Intake and Output Vital Signs (last 24 hours): Temp Pulse Resp BP Pulse Ox 97.2 F L 90 20 172/98 H 96 07/25/17 15:48 07/25/17 15:48 07/25/17 15:48 07/25/17 15:48 07/25/17 15:48 Intake and Output: 07/25/17 07/25/17 06:59 18:59 Intake Total 0 400 Balance 0 400 - Medications Medications: Current Medications Albuterol Sulfate (Albuterol 0.083% Inhal Ariana (2.5 Mg/3 Ml) Ud) 2.5 mg INH RBID [facility] Last Admin: 07/25/17 07:57 Dose: Not Given Albuterol/Ipratropium (Duoneb 3 Mg/0.5 Mg (3 Ml) Ud) 3 ml INH RQ6 [facility] Last Admin: 07/25/17 13:12 Dose: 3 ml Alprazolam (Xanax) 1 mg PO BID PRN PRN Reason: Anxiety Last Admin: 07/25/17 09:26 Dose: 1 mg Aspirin (Aspirin Chewable) 81 mg PO DAILY [facility] Last Admin: 07/25/17 09:26 Dose: 81 mg Carvedilol (Coreg) 6.25 mg PO BID [facility] Last Admin: 07/25/17 09:26 Dose: 6.25 mg Folic Acid (Folic Acid) 1 mg PO DAILY [facility] Last Admin: 07/25/17 09:26 Dose: 1 mg Furosemide (Lasix) 40 mg IVP DAILY [facility] Last Admin: 07/25/17 09:27 Dose: 40 mg Azithromycin (Zithromax 500mg In Ns Addvantage) 500 mg in 250 mls @ 167 mls/hr IVPB Q24H [facility] PRN Reason: Protocol Last Admin: 07/25/17 10:49 Dose: 167 mls/hr Insulin Human Regular (Novolin R) 0 unit SC ACHS [facility] PRN Reason: Protocol Last Admin: 07/25/17 12:00 Dose: Not Given Methadone HCl (Methadose) 80 mg PO DAILY [facility] Last Admin: 07/25/17 09:27 Dose: Not Given Methylprednisolone (Solu-Medrol) 40 mg IVP Q8 [facility] Last Admin: 07/25/17 13:08 Dose: 40 mg Pantoprazole Sodium (Protonix Inj) 40 mg IVP DAILY [facility] Last Admin: 07/25/17 09:26 Dose: 40 mg Paroxetine HCl (Paxil) 20 mg PO DAILY [facility] Last Admin: 07/25/17 09:26 Dose: 20 mg Pneumococcal Polyvalent Vaccine (Pneumovax 23 Vaccine) 0.5 ml IM .ONCE ONE Stop: 07/26/17 10:01 Tamsulosin HCl (Flomax) 0.4 mg PO DAILY [facility] Last Admin: 07/25/17 09:26 Dose: 0.4 mg Zolpidem Tartrate (Ambien) 5 mg PO HS PRN PRN Reason: Insomnia - Labs Labs: 07/24/17 13:51 07/24/17 13:51 - Constitutional Appears: Well - Head Exam Head Exam: ATRAUMATIC, NORMAL INSPECTION, NORMOCEPHALIC - Eye Exam Eye Exam: EOMI, Normal appearance, PERRL Pupil Exam: NORMAL ACCOMODATION, PERRL - ENT Exam ENT Exam: Mucous Membranes Moist, Normal Exam - Neck Exam Neck Exam: Full ROM, Normal Inspection. absent: Lymphadenopathy - Respiratory Exam Respiratory Exam: Decreased Breath Sounds - Cardiovascular Exam Cardiovascular Exam: REGULAR RHYTHM, +S1, +S2 - GI/Abdominal Exam GI & Abdominal Exam: Soft, Diminished Bowel Sounds - Rectal Exam Rectal Exam: Deferred
[2017-07-26] MEDS: Albuterol-Ipratrop 3 mg / 0.5 (3 ml) UD INH SCH ×4 (01:40→19:58)
[2017-07-26] MEDS: MethylPREDNISolone 40 mg Vial IVP SCH ×3 (05:26→21:56)
[2017-07-26] MEDS: (Novolin R) Insulin Human Regular 100 units/ml vial SC SCH ×4 (08:15→22:31)
[2017-07-26] MEDS: Methadone 40 mg Tab PO SCH (09:16)
[2017-07-26] MEDS: Azithromycin 500mg/250ML NS 500 MG/250 ML BAG IVPB SCH (09:18)
[2017-07-26] MEDS ORDERED: Pneumococcal 23-Valent Vaccine IM ONE (10:00)
--- NOTE | 2017-07-26 11:06 | CP.PCM.PN ---
Subjective - Date & Time of Evaluation Date of Evaluation: 07/26/17 Time of Evaluation: 11:03 - Subjective Subjective: PT ALERT, FEELS BETTER., LESS SOB., LESS COUGH. ROS; OTHERWISE NEG Objective - Vital Signs/Intake and Output Vital Signs (last 24 hours): Temp Pulse Resp BP Pulse Ox 97.8 F 82 20 153/93 H 95 07/26/17 08:44 07/26/17 08:44 07/26/17 08:44 07/26/17 08:44 07/26/17 08:44 Intake and Output: 07/26/17 07/26/17 06:59 18:59 Intake Total 30 Balance 30 - Medications Medications: Current Medications Albuterol Sulfate (Albuterol 0.083% Inhal Ariana (2.5 Mg/3 Ml) Ud) 2.5 mg INH RBID [facility] Last Admin: 07/25/17 19:41 Dose: Not Given Albuterol/Ipratropium (Duoneb 3 Mg/0.5 Mg (3 Ml) Ud) 3 ml INH RQ6 [facility] Last Admin: 07/26/17 07:42 Dose: 3 ml Alprazolam (Xanax) 1 mg PO BID PRN PRN Reason: Anxiety Last Admin: 07/26/17 06:10 Dose: 1 mg Aspirin (Aspirin Chewable) 81 mg PO DAILY [facility] Last Admin: 07/26/17 09:17 Dose: 81 mg Carvedilol (Coreg) 6.25 mg PO BID [facility] Last Admin: 07/26/17 09:17 Dose: 6.25 mg Folic Acid (Folic Acid) 1 mg PO DAILY [facility] Last Admin: 07/26/17 09:17 Dose: 1 mg Furosemide (Lasix) 40 mg IVP DAILY [facility] Last Admin: 07/26/17 09:25 Dose: Not Given Heparin Sodium (Porcine) (Heparin) 5,000 units SC Q8 [facility] Last Admin: 07/26/17 05:26 Dose: 5,000 units Insulin Human Regular (Novolin R) 0 unit SC ACHS [facility] PRN Reason: Protocol Last Admin: 07/26/17 08:15 Dose: Not Given Methadone HCl (Methadose) 80 mg PO DAILY [facility] Last Admin: 07/26/17 09:16 Dose: 80 mg Methylprednisolone (Solu-Medrol) 40 mg IVP Q8 [facility] Last Admin: 07/26/17 05:26 Dose: 40 mg Pantoprazole Sodium (Protonix Inj) 40 mg IVP DAILY [facility] Last Admin: 07/26/17 09:17 Dose: 40 mg Paroxetine HCl (Paxil) 20 mg PO DAILY [facility] Last Admin: 07/26/17 09:17 Dose: 20 mg Tamsulosin HCl (Flomax) 0.4 mg PO DAILY [facility] Last Admin: 07/26/17 09:17 Dose: 0.4 mg Zolpidem Tartrate (Ambien) 5 mg PO HS PRN PRN Reason: Insomnia - Labs Labs: 07/24/17 13:51 07/24/17 13:51 - Constitutional Appears: Chronically Ill - Head Exam Head Exam: ATRAUMATIC, NORMOCEPHALIC - Eye Exam Eye Exam: EOMI, Normal appearance - ENT Exam ENT Exam: Mucous Membranes Moist - Neck Exam Neck Exam: absent: Tenderness - Respiratory Exam Respiratory Exam: Decreased Breath Sounds, Prolonged Expiratory Phase. absent: Accessory Muscle Use - Cardiovascular Exam Cardiovascular Exam: RRR, +S1, +S2 - GI/Abdominal Exam GI & Abdominal Exam: Soft. absent: Tenderness - Rectal Exam Rectal Exam: Deferred - Extremities Exam Extremities Exam: absent: Calf Tenderness, Joint Swelling - Back Exam Back Exam: absent: CVA tenderness (L), CVA tenderness (R) - Neurological Exam Neurological Exam: Alert, Awake, CN II-XII Intact, Oriented x3 - Psychiatric Exam Psychiatric exam: Normal Mood - Skin Skin Exam: absent: Rash Assessment and Plan (1) Respiratory failure with hypoxia and hypercapnia Status: Acute (2) COPD exacerbation Status: Acute (3) CHF exacerbation Status: Chronic (4) Bronchitis Status: Acute (5) ASHLEY (obstructive sleep apnea) Status: Acute (6) Anxiety Status: Chronic (7) CAD (coronary artery disease) Status: Chronic (8) HTN (hypertension) Status: Chronic (9) History of drug dependence/abuse Status: Chronic - Assessment and Plan (Free Text) Assessment: RESP STATUS IMPROVING, LESS DYSPNEIC., ON O2 2L , MONITOR O2 SAT. CONT EMPIRIC AB., TAPER STEROIDS TOLERATED., CONT NEB BD., ADVAIR., CXR REVIEWED., CONT BIPAP QHS., PROG GUARDED. DISCUSSED WITH STAFF AT LENGTH.
[2017-07-26] MEDS: Albuterol 0.083% Inhal Sol (2.5 mg/3 mL) UD INH SCH ×2 (13:12→19:58)
--- NOTE | 2017-07-26 13:34 | CP.PCM.PN ---
Subjective - Date & Time of Evaluation Date of Evaluation: 07/26/17 Time of Evaluation: 12:00 - Subjective Subjective: clinically same Objective - Vital Signs/Intake and Output Vital Signs (last 24 hours): Temp Pulse Resp BP Pulse Ox 97.8 F 82 20 153/93 H 95 07/26/17 08:44 07/26/17 08:44 07/26/17 08:44 07/26/17 08:44 07/26/17 08:44 Intake and Output: 07/26/17 07/26/17 06:59 18:59 Intake Total 30 Balance 30 - Medications Medications: Current Medications Albuterol Sulfate (Albuterol 0.083% Inhal Ariana (2.5 Mg/3 Ml) Ud) 2.5 mg INH RBID [facility] Last Admin: 07/26/17 13:12 Dose: Not Given Albuterol/Ipratropium (Duoneb 3 Mg/0.5 Mg (3 Ml) Ud) 3 ml INH RQ6 [facility] Last Admin: 07/26/17 13:12 Dose: Not Given Alprazolam (Xanax) 1 mg PO BID PRN PRN Reason: Anxiety Last Admin: 07/26/17 06:10 Dose: 1 mg Aspirin (Aspirin Chewable) 81 mg PO DAILY [facility] Last Admin: 07/26/17 09:17 Dose: 81 mg Carvedilol (Coreg) 6.25 mg PO BID [facility] Last Admin: 07/26/17 09:17 Dose: 6.25 mg Folic Acid (Folic Acid) 1 mg PO DAILY [facility] Last Admin: 07/26/17 09:17 Dose: 1 mg Furosemide (Lasix) 40 mg IVP DAILY [facility] Last Admin: 07/26/17 09:25 Dose: Not Given Heparin Sodium (Porcine) (Heparin) 5,000 units SC Q8 [facility] Last Admin: 07/26/17 13:13 Dose: 5,000 units Insulin Human Regular (Novolin R) 0 unit SC ACHS [facility] PRN Reason: Protocol Last Admin: 07/26/17 11:44 Dose: Not Given Methadone HCl (Methadose) 80 mg PO DAILY [facility] Last Admin: 07/26/17 09:16 Dose: 80 mg Methylprednisolone (Solu-Medrol) 30 mg IVP Q8 [facility] Last Admin: 07/26/17 13:13 Dose: 30 mg Pantoprazole Sodium (Protonix Inj) 40 mg IVP DAILY [facility] Last Admin: 07/26/17 09:17 Dose: 40 mg Paroxetine HCl (Paxil) 20 mg PO DAILY [facility] Last Admin: 07/26/17 09:17 Dose: 20 mg Fluticasone/Salmeterol (Advair Diskus 250/50) 1 puff INH RQ12 [facility] Tamsulosin HCl (Flomax) 0.4 mg PO DAILY [facility] Last Admin: 07/26/17 09:17 Dose: 0.4 mg Zolpidem Tartrate (Ambien) 5 mg PO HS PRN PRN Reason: Insomnia - Labs Labs: 07/24/17 13:51 07/24/17 13:51 - Constitutional Appears: Well - Head Exam Head Exam: ATRAUMATIC, NORMAL INSPECTION, NORMOCEPHALIC - Eye Exam Eye Exam: EOMI, Normal appearance, PERRL Pupil Exam: NORMAL ACCOMODATION, PERRL - ENT Exam ENT Exam: Mucous Membranes Moist, Normal Exam - Neck Exam Neck Exam: Full ROM, Normal Inspection. absent: Lymphadenopathy - Respiratory Exam Respiratory Exam: Decreased Breath Sounds - Cardiovascular Exam Cardiovascular Exam: REGULAR RHYTHM, +S1, +S2 - GI/Abdominal Exam GI & Abdominal Exam: Soft, Diminished Bowel Sounds - Rectal Exam Rectal Exam: Deferred
[2017-07-26 16:43] LABS: MEAN CELL VOLUME 88.3 fL (80.0-94.0); MEAN PLATELET VOLUME 7.6 fL (7.2-11.7); MONO # 0.3 K/uL (0.0-0.8); NEUT % 87.8 % (50.0-75.0)
[2017-07-26 17:15] LABS: ALBUMIN 3.8 g/dL (3.5-5.0); ALT/SGPT 12 U/L (21-72); AST/SGOT 17 U/L (17-59); BLOOD UREA NITROGEN 28 mg/dL (9-20); CALCIUM 8.8 mg/dl (8.6-10.4); GFR AFRICAN-AMERICAN > 60; GFR NON-AFRICAN AMERICAN > 60
[2017-07-26 17:22] LABS: BASO # 0.1 K/uL (0.0-0.2); BASO % 0.5 % (0.0-2.0); HEMOGLOBIN 15.7 g/dL (12.0-18.0); LYMPH # 0.9 K/uL (1.0-4.3); LYMPH % 8.6 % (20.0-40.0); MEAN CORPUSCULAR HEMOGLOBIN 30.3 pg (27.0-31.0); MEAN CORPUSCULAR HGB CONC 34.4 g/dL (33.0-37.0); MONO % 3.1 % (0.0-10.0); NRBC % 0.2 % (0.0-2.0); PLATELET COUNT 342 K/uL (130-400); RBC 5.17 Mil/uL (4.40-5.90); RED CELL DISTRIBUTION WIDTH 13.8 % (11.5-14.5); WHITE BLOOD COUNT 10.2 K/uL (4.8-10.8)
[2017-07-26 17:36] LABS: LYMPHOCYTE 10 % (20-40); MONOCYTE 6 % (0-10); NEUTROPHIL 84 % (50-75); PLATELET ESTIMATE NORMAL (NORMAL); TOTAL CELLS COUNTED 100
[2017-07-26] MEDS: Fluticasone-Salmeterol 250-50mcg Diskus INH SCH (19:58)
--- NOTE | 2017-07-26 21:06 | CARD ---
APPROVED REPORT EKG Measurement Heart [id number] [place] [id number] <Conclusion> Sinus rhythm with premature atrial complexes with aberrant conduction Moderate voltage criteria for LVH, may be normal variant Borderline ECG
--- NOTE | 2017-07-26 21:07 | CARD ---
APPROVED REPORT EKG Measurement Heart [id number] MD [id number] <Conclusion> Sinus rhythm with premature supraventricular complexes Moderate voltage criteria for LVH, may be normal variant Borderline ECG
[2017-07-27] MEDS: Albuterol-Ipratrop 3 mg / 0.5 (3 ml) UD INH SCH ×4 (01:05→19:49)
[2017-07-27] MEDS: MethylPREDNISolone 40 mg Vial IVP SCH ×3 (05:37→21:33)
[2017-07-27] MEDS: Fluticasone-Salmeterol 250-50mcg Diskus INH SCH (07:46)
[2017-07-27] MEDS: (Novolin R) Insulin Human Regular 100 units/ml vial SC SCH ×4 (08:02→21:02)
--- NOTE | 2017-07-27 08:31 | CP.PCM.PN ---
Subjective - Date & Time of Evaluation Date of Evaluation: 07/27/17 Time of Evaluation: 08:28 - Subjective Subjective: PT ALERT, LESS SOB., AMBULATING., ROS ; OTHERWISE NEG. Objective - Vital Signs/Intake and Output Vital Signs (last 24 hours): Temp Pulse Resp BP Pulse Ox 97.9 F 91 H 20 147/81 92 L 07/26/17 23:29 07/27/17 04:07 07/26/17 23:29 07/26/17 23:29 07/26/17 23:29 - Medications Medications: Current Medications Albuterol Sulfate (Albuterol 0.083% Inhal Ariaan (2.5 Mg/3 Ml) Ud) 2.5 mg INH RBID [facility] Last Admin: 07/26/17 19:58 Dose: Not Given Albuterol/Ipratropium (Duoneb 3 Mg/0.5 Mg (3 Ml) Ud) 3 ml INH RQ6 [facility] Last Admin: 07/27/17 07:21 Dose: 3 ml Alprazolam (Xanax) 1 mg PO BID PRN PRN Reason: Anxiety Last Admin: 07/27/17 03:43 Dose: 1 mg Aspirin (Aspirin Chewable) 81 mg PO DAILY [facility] Last Admin: 07/26/17 09:17 Dose: 81 mg Folic Acid (Folic Acid) 1 mg PO DAILY [facility] Last Admin: 07/26/17 09:17 Dose: 1 mg Furosemide (Lasix) 40 mg IVP DAILY [facility] Last Admin: 07/26/17 09:25 Dose: Not Given Heparin Sodium (Porcine) (Heparin) 5,000 units SC Q8 [facility] Last Admin: 07/27/17 05:38 Dose: 5,000 units Insulin Human Regular (Novolin R) 0 unit SC ACHS [facility] PRN Reason: Protocol Last Admin: 07/27/17 08:02 Dose: Not Given Methadone HCl (Methadose) 80 mg PO DAILY [facility] Last Admin: 07/26/17 09:16 Dose: 80 mg Methylprednisolone (Solu-Medrol) 30 mg IVP Q8 [facility] Last Admin: 07/27/17 05:37 Dose: 30 mg Pantoprazole Sodium (Protonix Inj) 40 mg IVP DAILY [facility] Last Admin: 07/26/17 09:17 Dose: 40 mg Paroxetine HCl (Paxil) 20 mg PO DAILY [facility] Last Admin: 07/26/17 09:17 Dose: 20 mg Fluticasone/Salmeterol (Advair Diskus 250/50) 1 puff INH RQ12 [facility] Last Admin: 07/27/17 07:46 Dose: 1 puff Tamsulosin HCl (Flomax) 0.4 mg PO DAILY [facility] Last Admin: 07/26/17 09:17 Dose: 0.4 mg Zolpidem Tartrate (Ambien) 5 mg PO HS PRN PRN Reason: Insomnia - Labs Labs: 07/26/17 16:36 07/26/17 16:36 - Constitutional Appears: No Acute Distress, Chronically Ill - Head Exam Head Exam: ATRAUMATIC, NORMOCEPHALIC - Eye Exam Eye Exam: EOMI, Normal appearance - ENT Exam ENT Exam: Mucous Membranes Moist - Neck Exam Neck Exam: absent: Tenderness - Respiratory Exam Respiratory Exam: Decreased Breath Sounds, Prolonged Expiratory Phase. absent: Accessory Muscle Use, Rhonchi, Wheezes - Cardiovascular Exam Cardiovascular Exam: RRR, +S1, +S2 - GI/Abdominal Exam GI & Abdominal Exam: Soft. absent: Tenderness Additional comments: OBESE - Rectal Exam Rectal Exam: Deferred - Extremities Exam Extremities Exam: absent: Calf Tenderness Additional comments: LE CHRONIC CHANGES BILAT. - Back Exam Back Exam: absent: CVA tenderness (L), CVA tenderness (R) - Neurological Exam Neurological Exam: Alert, Awake, CN II-XII Intact, Oriented x3 - Psychiatric Exam Psychiatric exam: Normal Mood - Skin Skin Exam: absent: Rash Assessment and Plan (1) Respiratory failure with hypoxia and hypercapnia Status: Acute (2) COPD exacerbation Status: Acute (3) CHF exacerbation Status: Chronic (4) Bronchitis Status: Acute (5) ASHLEY (obstructive sleep apnea) Status: Acute (6) Anxiety Status: Chronic (7) CAD (coronary artery disease) Status: Chronic (8) HTN (hypertension) Status: Chronic (9) History of drug dependence/abuse Status: Chronic - Assessment and Plan (Free Text) Assessment: RESP STATUS IMPROVING., TOLERATING STEROID TAPER, CONT NEB BD., AND ADVAIR., CONT BIPAP QHS. MONITOR O2 SAT. CXR REVIEWED. DIURESIS TOLERATED. AFEBRILE ON AB. PROG GUARDED. DISCUSSED WITH STAFF AT LENGTH.
[2017-07-27] MEDS: Methadone 40 mg Tab PO SCH (09:11)
--- NOTE | 2017-07-27 09:36 | CP.PCM.PN ---
Subjective - Date & Time of Evaluation Date of Evaluation: 07/27/17 Time of Evaluation: 09:36 - Subjective Subjective: Progress Note for Dr. De La Rosa's Service Pt seen and examined at bedside. He states that he is feeling better. He denies any shortness of breath currently. Explains that he gets short of breath when he "thinks a lot of get stressed out." No acute events reported overnight. Objective - Vital Signs/Intake and Output Vital Signs (last 24 hours): Temp Pulse Resp BP Pulse Ox 97.7 F 87 20 168/88 H 95 07/27/17 08:29 07/27/17 08:29 07/27/17 08:29 07/27/17 09:11 07/27/17 08:29 - Medications Medications: Current Medications Albuterol Sulfate (Albuterol 0.083% Inhal Ariana (2.5 Mg/3 Ml) Ud) 2.5 mg INH RBID [facility] Last Admin: 07/26/17 19:58 Dose: Not Given Albuterol/Ipratropium (Duoneb 3 Mg/0.5 Mg (3 Ml) Ud) 3 ml INH RQ6 [facility] Last Admin: 07/27/17 07:21 Dose: 3 ml Alprazolam (Xanax) 1 mg PO BID PRN PRN Reason: Anxiety Last Admin: 07/27/17 03:43 Dose: 1 mg Aspirin (Aspirin Chewable) 81 mg PO DAILY [facility] Last Admin: 07/27/17 09:11 Dose: 81 mg Folic Acid (Folic Acid) 1 mg PO DAILY [facility] Last Admin: 07/27/17 09:11 Dose: 1 mg Furosemide (Lasix) 40 mg IVP DAILY [facility] Last Admin: 07/27/17 09:11 Dose: 40 mg Heparin Sodium (Porcine) (Heparin) 5,000 units SC Q8 [facility] Last Admin: 07/27/17 05:38 Dose: 5,000 units Insulin Human Regular (Novolin R) 0 unit SC ACHS [facility] PRN Reason: Protocol Last Admin: 07/27/17 08:02 Dose: Not Given Methadone HCl (Methadose) 80 mg PO DAILY [facility] Last Admin: 07/27/17 09:11 Dose: 80 mg Methylprednisolone (Solu-Medrol) 30 mg IVP Q8 [facility] Last Admin: 07/27/17 05:37 Dose: 30 mg Pantoprazole Sodium (Protonix Inj) 40 mg IVP DAILY [facility] Last Admin: 07/27/17 09:12 Dose: 40 mg Paroxetine HCl (Paxil) 20 mg PO DAILY [facility] Last Admin: 07/27/17 09:12 Dose: 20 mg Fluticasone/Salmeterol (Advair Diskus 250/50) 1 puff INH RQ12 [facility] Last Admin: 07/27/17 07:46 Dose: 1 puff Tamsulosin HCl (Flomax) 0.4 mg PO DAILY [facility] Last Admin: 07/27/17 09:11 Dose: 0.4 mg Zolpidem Tartrate (Ambien) 5 mg PO HS PRN PRN Reason: Insomnia - Labs Labs: 07/26/17 16:36 07/26/17 16:36 - Constitutional Appears: No Acute Distress - Head Exam Head Exam: ATRAUMATIC, NORMOCEPHALIC - Eye Exam Eye Exam: EOMI, Normal appearance - ENT Exam ENT Exam: Mucous Membranes Moist - Respiratory Exam Respiratory Exam: Clear to Ausculation Bilateral, NORMAL BREATHING PATTERN - Cardiovascular Exam Cardiovascular Exam: REGULAR RHYTHM, +S1, +S2 - GI/Abdominal Exam GI & Abdominal Exam: Soft. absent: Tenderness - Extremities Exam Additional comments: darkening of the skin b/l lower extremities below the knees - Neurological Exam Neurological Exam: Alert, Awake, Oriented x3 - Psychiatric Exam Psychiatric exam: Normal Affect, Normal Mood - Skin Skin Exam: Dry, Warm Assessment and Plan - Assessment and Plan (Free Text) Plan: COPD exacerbation Consult placed to pulm- Dr. Andi banks appreciated Duonebs q6hrs Advair 1p q12hrs solumedrol 30mg IV q8hrs Follow up blood cx WBC 10.2 07/27/17 CXR increased pulmonary vasculature, chronic pulmonary edema Diastolic CHF- NYHA class 3 heart failure with preserved ejection fraction- Acute exacerbation Admission to telemetry Consult placed to cardio- Dr. Kenneth banks appreciated Patient is hemodynamically stable Troponin negative BNP 2350 Continue anti-platelet therapy with Brilinta 60mg PO daily Continue Aspirin 81mg PO daily Continue Lasix 40mg IV daily 07/20/16 Echo- diastolic dysfunction, LV EF of 52%. 09/01/15 Echo- diastolic dysfunction, LV EF 56% 08/07/16 cardiac catheterization 3.0 x 18 YECENIA placed in the left circumflex (90% stenosis) Substance abuse Methadone 80mg PO daily Diabetes ISS glucose ACHS Anxiety/depression Xanax 1mg PO BID Paxil 20mg PO daily Insomnia Ambien 5mg PO QHS Hx of PVD No acute interventions BPH Flomax 0.4mg PO daily Prophylaxis Heparin 5k units sc q8hrs SCD contraindicated due to PVD Heart health diet Folic acid 1mg PO daily Case discussed with Dr. De La Rosa All management per Dr. Sola De La Rosa
[2017-07-27] MEDS: Albuterol 0.083% Inhal Sol (2.5 mg/3 mL) UD INH SCH (13:13)
[2017-07-27] MEDS: Azithromycin 500 MG in Sodium Chloride 0.9% 250 ML IVPB SCH (17:09)
--- NOTE | 2017-07-27 21:59 | CP.PCM.PN ---
Subjective - Date & Time of Evaluation Date of Evaluation: 07/27/17 Time of Evaluation: 13:00 - Subjective Subjective: clinically same Objective - Vital Signs/Intake and Output Vital Signs (last 24 hours): Temp Pulse Resp BP Pulse Ox 98.0 F 98 H 21 174/68 H 98 07/27/17 15:00 07/27/17 16:00 07/27/17 15:00 07/27/17 15:00 07/27/17 15:00 - Medications Medications: Current Medications Albuterol Sulfate (Albuterol 0.083% Inhal Ariana (2.5 Mg/3 Ml) Ud) 2.5 mg INH RBID [facility] Last Admin: 07/27/17 13:13 Dose: Not Given Albuterol/Ipratropium (Duoneb 3 Mg/0.5 Mg (3 Ml) Ud) 3 ml INH RQ6 [facility] Last Admin: 07/27/17 19:49 Dose: 3 ml Alprazolam (Xanax) 1 mg PO BID PRN PRN Reason: Anxiety Last Admin: 07/27/17 16:44 Dose: 1 mg Aspirin (Aspirin Chewable) 81 mg PO DAILY [facility] Last Admin: 07/27/17 09:11 Dose: 81 mg Folic Acid (Folic Acid) 1 mg PO DAILY [facility] Last Admin: 07/27/17 09:11 Dose: 1 mg Furosemide (Lasix) 40 mg IVP DAILY [facility] Last Admin: 07/27/17 09:11 Dose: 40 mg Heparin Sodium (Porcine) (Heparin) 5,000 units SC Q8 [facility] Last Admin: 07/27/17 21:33 Dose: 5,000 units Azithromycin 500 mg/ Sodium (Chloride) 250 mls @ 250 mls/hr IVPB DAILY [facility] PRN Reason: Protocol Stop: 08/01/17 17:01 Last Admin: 07/27/17 17:09 Dose: 250 mls/hr Ceftriaxone Sodium 1 gm/ (Sodium Chloride) 100 mls @ 100 mls/hr IVPB DAILY [facility] PRN Reason: Protocol Last Admin: 07/27/17 18:10 Dose: 100 mls/hr Insulin Human Regular (Novolin R) 0 unit SC ACHS [facility] PRN Reason: Protocol Last Admin: 07/27/17 21:02 Dose: Not Given Methadone HCl (Methadose) 80 mg PO DAILY [facility] Last Admin: 07/27/17 09:11 Dose: 80 mg Methylprednisolone (Solu-Medrol) 30 mg IVP Q8 [facility] Last Admin: 07/27/17 21:33 Dose: 30 mg Pantoprazole Sodium (Protonix Ec Tab) 40 mg PO DAILY [facility] Paroxetine HCl (Paxil) 20 mg PO DAILY [facility] Last Admin: 07/27/17 09:12 Dose: 20 mg Fluticasone/Salmeterol (Advair Diskus 250/50) 1 puff INH RQ12 [facility] Last Admin: 07/27/17 07:46 Dose: 1 puff Tamsulosin HCl (Flomax) 0.4 mg PO DAILY [facility] Last Admin: 07/27/17 09:11 Dose: 0.4 mg Zolpidem Tartrate (Ambien) 5 mg PO HS PRN PRN Reason: Insomnia - Labs Labs: 07/26/17 16:36 07/26/17 16:36 - Constitutional Appears: Well - Head Exam Head Exam: ATRAUMATIC, NORMAL INSPECTION, NORMOCEPHALIC - Eye Exam Eye Exam: EOMI, Normal appearance, PERRL Pupil Exam: NORMAL ACCOMODATION, PERRL - ENT Exam ENT Exam: Mucous Membranes Moist, Normal Exam - Neck Exam Neck Exam: Full ROM, Normal Inspection. absent: Lymphadenopathy - Respiratory Exam Respiratory Exam: Decreased Breath Sounds - Cardiovascular Exam Cardiovascular Exam: REGULAR RHYTHM, +S1, +S2 - GI/Abdominal Exam GI & Abdominal Exam: Soft, Diminished Bowel Sounds - Rectal Exam Rectal Exam: Deferred
[2017-07-28] MEDS: Albuterol-Ipratrop 3 mg / 0.5 (3 ml) UD INH SCH ×3 (01:21→13:06)
[2017-07-28] MEDS: MethylPREDNISolone 40 mg Vial IVP SCH (05:56)
[2017-07-28 06:53] LABS: BASO % 0.3 % (0.0-2.0); HEMOGLOBIN 14.3 g/dL (12.0-18.0); LYMPH % 10.7 % (20.0-40.0); MEAN CORPUSCULAR HEMOGLOBIN 30.1 pg (27.0-31.0); MEAN CORPUSCULAR HGB CONC 33.9 g/dL (33.0-37.0); MONO # 0.4 K/uL (0.0-0.8); MONO % 3.8 % (0.0-10.0); NEUT # 8.1 K/uL (1.8-7.0); NEUT % 85.2 % (50.0-75.0); NRBC % 0.1 % (0.0-2.0); RBC 4.75 Mil/uL (4.40-5.90); RED CELL DISTRIBUTION WIDTH 13.9 % (11.5-14.5); WHITE BLOOD COUNT 9.6 K/uL (4.8-10.8)
[2017-07-28] MEDS: Fluticasone-Salmeterol 250-50mcg Diskus INH SCH (07:25)
[2017-07-28 07:36] LABS: ALBUMIN 3.1 g/dL (3.5-5.0); ALT/SGPT 14 U/L (21-72); AST/SGOT 15 U/L (17-59); BLOOD UREA NITROGEN 35 mg/dL (9-20); CALCIUM 8.2 mg/dl (8.6-10.4); GFR AFRICAN-AMERICAN > 60; GFR NON-AFRICAN AMERICAN > 60
[2017-07-28] MEDS: (Novolin R) Insulin Human Regular 100 units/ml vial SC SCH ×2 (07:48→12:50)
--- NOTE | 2017-07-28 08:56 | CP.PCM.PN ---
Subjective - Date & Time of Evaluation Date of Evaluation: 07/28/17 Time of Evaluation: 08:52 - Subjective Subjective: PT ALERT, FEELS BETTER, LESS SOB. ROS; OTHERWISE NEG. Objective - Vital Signs/Intake and Output Vital Signs (last 24 hours): Temp Pulse Resp BP Pulse Ox 98.2 F 103 H 20 175/90 H 99 07/28/17 08:50 07/28/17 08:50 07/28/17 08:50 07/28/17 08:50 07/28/17 08:50 Intake and Output: 07/28/17 07/28/17 06:59 18:59 Intake Total 850 Balance 850 - Medications Medications: Current Medications Albuterol Sulfate (Albuterol 0.083% Inhal Ariana (2.5 Mg/3 Ml) Ud) 2.5 mg INH RBID [facility] Last Admin: 07/27/17 13:13 Dose: Not Given Albuterol/Ipratropium (Duoneb 3 Mg/0.5 Mg (3 Ml) Ud) 3 ml INH RQ6 [facility] Last Admin: 07/28/17 07:25 Dose: 3 ml Alprazolam (Xanax) 1 mg PO BID PRN PRN Reason: Anxiety Last Admin: 07/28/17 00:17 Dose: 1 mg Aspirin (Aspirin Chewable) 81 mg PO DAILY [facility] Last Admin: 07/27/17 09:11 Dose: 81 mg Folic Acid (Folic Acid) 1 mg PO DAILY [facility] Last Admin: 07/27/17 09:11 Dose: 1 mg Furosemide (Lasix) 40 mg IVP DAILY [facility] Last Admin: 07/27/17 09:11 Dose: 40 mg Heparin Sodium (Porcine) (Heparin) 5,000 units SC Q8 [facility] Last Admin: 07/28/17 05:54 Dose: 5,000 units Azithromycin 500 mg/ Sodium (Chloride) 250 mls @ 250 mls/hr IVPB DAILY [facility] PRN Reason: Protocol Stop: 08/01/17 17:01 Last Admin: 07/27/17 17:09 Dose: 250 mls/hr Ceftriaxone Sodium 1 gm/ (Sodium Chloride) 100 mls @ 100 mls/hr IVPB DAILY [facility] PRN Reason: Protocol Last Admin: 07/27/17 18:10 Dose: 100 mls/hr Insulin Human Regular (Novolin R) 0 unit SC ACHS [facility] PRN Reason: Protocol Last Admin: 07/28/17 07:48 Dose: Not Given Methadone HCl (Methadose) 80 mg PO DAILY [facility] Last Admin: 07/27/17 09:11 Dose: 80 mg Methylprednisolone (Solu-Medrol) 30 mg IVP Q8 [facility] Last Admin: 07/28/17 05:56 Dose: 30 mg Pantoprazole Sodium (Protonix Ec Tab) 40 mg PO DAILY [facility] Paroxetine HCl (Paxil) 20 mg PO DAILY [facility] Last Admin: 07/27/17 09:12 Dose: 20 mg Fluticasone/Salmeterol (Advair Diskus 250/50) 1 puff INH RQ12 [facility] Last Admin: 07/28/17 07:25 Dose: 1 puff Tamsulosin HCl (Flomax) 0.4 mg PO DAILY [facility] Last Admin: 07/27/17 09:11 Dose: 0.4 mg Zolpidem Tartrate (Ambien) 5 mg PO PRN PRN Reason: Insomnia Last Admin: 07/28/17 00:14 Dose: 5 mg - Labs Labs: 07/28/17 06:45 07/28/17 06:45 - Constitutional Appears: No Acute Distress, Chronically Ill - Head Exam Head Exam: ATRAUMATIC, NORMOCEPHALIC - Eye Exam Eye Exam: EOMI, Normal appearance - ENT Exam ENT Exam: Mucous Membranes Moist - Neck Exam Neck Exam: absent: Tenderness - Respiratory Exam Respiratory Exam: Decreased Breath Sounds, Prolonged Expiratory Phase. absent: Rhonchi - Cardiovascular Exam Cardiovascular Exam: RRR, +S1, +S2 - GI/Abdominal Exam GI & Abdominal Exam: Soft. absent: Tenderness - Rectal Exam Rectal Exam: Deferred - Extremities Exam Extremities Exam: absent: Calf Tenderness - Back Exam Back Exam: absent: CVA tenderness (L), CVA tenderness (R) - Neurological Exam Neurological Exam: Alert, Awake, CN II-XII Intact, Oriented x3 - Psychiatric Exam Psychiatric exam: Normal Affect - Skin Skin Exam: absent: Rash Assessment and Plan (1) Respiratory failure with hypoxia and hypercapnia Status: Acute (2) COPD exacerbation Status: Acute (3) CHF exacerbation Status: Chronic (4) Bronchitis Status: Acute (5) ASHLEY (obstructive sleep apnea) Status: Acute (6) Anxiety Status: Chronic (7) CAD (coronary artery disease) Status: Chronic (8) HTN (hypertension) Status: Chronic (9) History of drug dependence/abuse Status: Chronic - Assessment and Plan (Free Text) Assessment: RESP STATUS SLOW IMPROVEMENT., TOLERATING STEROID TAPER., CONT NEB BD., ON ADVAIR., MONITOR O2 SAT. CXR REVIEWED. BIPAP QHS.,AFEBRILE ON AB. PROG GUARDED. DISCUSSED WITH STAFF AT LENGTH.
[2017-07-28] MEDS: Methadone 40 mg Tab PO SCH (09:13)
--- NOTE | 2017-07-28 09:45 | CP.PCM.PN ---
Subjective - Date & Time of Evaluation Date of Evaluation: 07/28/17 Time of Evaluation: 11:40 - Subjective Subjective: clinically same Objective - Vital Signs/Intake and Output Vital Signs (last 24 hours): Temp Pulse Resp BP Pulse Ox 98.2 F 103 H 20 175/90 H 99 07/28/17 08:50 07/28/17 08:50 07/28/17 08:50 07/28/17 09:13 07/28/17 08:50 Intake and Output: 07/28/17 07/28/17 06:59 18:59 Intake Total 850 Balance 850 - Medications Medications: Current Medications Albuterol Sulfate (Albuterol 0.083% Inhal Ariana (2.5 Mg/3 Ml) Ud) 2.5 mg INH RBID [facility] Last Admin: 07/27/17 13:13 Dose: Not Given Albuterol/Ipratropium (Duoneb 3 Mg/0.5 Mg (3 Ml) Ud) 3 ml INH RQ6 [facility] Last Admin: 07/28/17 07:25 Dose: 3 ml Alprazolam (Xanax) 1 mg PO BID PRN PRN Reason: Anxiety Last Admin: 07/28/17 00:17 Dose: 1 mg Aspirin (Aspirin Chewable) 81 mg PO DAILY [facility] Last Admin: 07/28/17 09:12 Dose: 81 mg Folic Acid (Folic Acid) 1 mg PO DAILY [facility] Last Admin: 07/28/17 09:13 Dose: 1 mg Furosemide (Lasix) 40 mg IVP DAILY [facility] Last Admin: 07/28/17 09:13 Dose: 40 mg Heparin Sodium (Porcine) (Heparin) 5,000 units SC Q8 [facility] Last Admin: 07/28/17 05:54 Dose: 5,000 units Azithromycin 500 mg/ Sodium (Chloride) 250 mls @ 250 mls/hr IVPB DAILY [facility] PRN Reason: Protocol Stop: 08/01/17 17:01 Last Admin: 07/27/17 17:09 Dose: 250 mls/hr Ceftriaxone Sodium 1 gm/ (Sodium Chloride) 100 mls @ 100 mls/hr IVPB DAILY [facility] PRN Reason: Protocol Last Admin: 07/28/17 09:13 Dose: 100 mls/hr Insulin Human Regular (Novolin R) 0 unit SC ACHS [facility] PRN Reason: Protocol Last Admin: 07/28/17 07:48 Dose: Not Given Methadone HCl (Methadose) 80 mg PO DAILY [facility] Last Admin: 07/28/17 09:13 Dose: 80 mg Methylprednisolone (Solu-Medrol) 30 mg IVP Q12H [facility] Pantoprazole Sodium (Protonix Ec Tab) 40 mg PO DAILY [facility] Last Admin: 07/28/17 09:13 Dose: 40 mg Paroxetine HCl (Paxil) 20 mg PO DAILY [facility] Last Admin: 07/28/17 09:13 Dose: 20 mg Fluticasone/Salmeterol (Advair Diskus 250/50) 1 puff INH RQ12 [facility] Last Admin: 07/28/17 07:25 Dose: 1 puff Tamsulosin HCl (Flomax) 0.4 mg PO DAILY [facility] Last Admin: 07/28/17 09:12 Dose: 0.4 mg Zolpidem Tartrate (Ambien) 5 mg PO HS PRN PRN Reason: Insomnia Last Admin: 07/28/17 00:14 Dose: 5 mg - Labs Labs: 07/28/17 06:45 07/28/17 06:45 - Constitutional Appears: Well - Head Exam Head Exam: ATRAUMATIC, NORMAL INSPECTION, NORMOCEPHALIC - Eye Exam Eye Exam: EOMI, Normal appearance, PERRL Pupil Exam: NORMAL ACCOMODATION, PERRL - ENT Exam ENT Exam: Mucous Membranes Moist, Normal Exam - Neck Exam Neck Exam: Full ROM, Normal Inspection. absent: Lymphadenopathy - Respiratory Exam Respiratory Exam: Decreased Breath Sounds - Cardiovascular Exam Cardiovascular Exam: REGULAR RHYTHM, +S1, +S2 - GI/Abdominal Exam GI & Abdominal Exam: Soft, Diminished Bowel Sounds - Rectal Exam Rectal Exam: Deferred
[2017-07-28] MEDS ORDERED: Pantoprazole 40 mg EC Tab PO SCH (10:00)
[2017-07-28] MEDS: Azithromycin 500 MG in Sodium Chloride 0.9% 250 ML IVPB SCH (10:25)
--- NOTE | 2017-07-28 11:40 | CP.PCM.PN ---
Subjective - Date & Time of Evaluation Date of Evaluation: 07/28/17 Time of Evaluation: 11:36 - Subjective Subjective: PGY-[address] De La Rosa's Service Pt seen and examined at bedside. No acute events reported overnight by nursing. He denies any shortness of breath currently and states he is able to ambulate without difficulty. Patient admits he gets "nervous easily" and often resolves this stress by dialing 911. Objective - Vital Signs/Intake and Output Vital Signs (last 24 hours): Temp Pulse Resp BP Pulse Ox 98.2 F 103 H 20 175/90 H 99 07/28/17 08:50 07/28/17 08:50 07/28/17 08:50 07/28/17 09:13 07/28/17 08:50 Intake and Output: 07/28/17 07/28/17 06:59 18:59 Intake Total 850 Balance 850 - Medications Medications: Current Medications Albuterol Sulfate (Albuterol 0.083% Inhal Ariana (2.5 Mg/3 Ml) Ud) 2.5 mg INH RBID [facility] Last Admin: 07/27/17 13:13 Dose: Not Given Albuterol/Ipratropium (Duoneb 3 Mg/0.5 Mg (3 Ml) Ud) 3 ml INH RQ6 [facility] Last Admin: 07/28/17 07:25 Dose: 3 ml Alprazolam (Xanax) 1 mg PO BID PRN PRN Reason: Anxiety Last Admin: 07/28/17 11:04 Dose: 1 mg Aspirin (Aspirin Chewable) 81 mg PO DAILY [facility] Last Admin: 07/28/17 09:12 Dose: 81 mg Folic Acid (Folic Acid) 1 mg PO DAILY [facility] Last Admin: 07/28/17 09:13 Dose: 1 mg Furosemide (Lasix) 40 mg IVP DAILY [facility] Last Admin: 07/28/17 09:13 Dose: 40 mg Heparin Sodium (Porcine) (Heparin) 5,000 units SC Q8 [facility] Last Admin: 07/28/17 05:54 Dose: 5,000 units Azithromycin 500 mg/ Sodium (Chloride) 250 mls @ 250 mls/hr IVPB DAILY [facility] PRN Reason: Protocol Stop: 08/01/17 17:01 Last Admin: 07/28/17 10:25 Dose: 250 mls/hr Ceftriaxone Sodium 1 gm/ (Sodium Chloride) 100 mls @ 100 mls/hr IVPB DAILY JOANN PRN Reason: Protocol Last Admin: 07/28/17 09:13 Dose: 100 mls/hr Insulin Human Regular (Novolin R) 0 unit SC ACHS JOANN PRN Reason: Protocol Last Admin: 07/28/17 07:48 Dose: Not Given Methadone HCl (Methadose) 80 mg PO DAILY [facility] Last Admin: 07/28/17 09:13 Dose: 80 mg Methylprednisolone (Solu-Medrol) 30 mg IVP Q12H [facility] Pantoprazole Sodium (Protonix Ec Tab) 40 mg PO DAILY [facility] Last Admin: 07/28/17 09:13 Dose: 40 mg Paroxetine HCl (Paxil) 20 mg PO DAILY [facility] Last Admin: 07/28/17 09:13 Dose: 20 mg Fluticasone/Salmeterol (Advair Diskus 250/50) 1 puff INH RQ12 [facility] Last Admin: 07/28/17 07:25 Dose: 1 puff Tamsulosin HCl (Flomax) 0.4 mg PO DAILY [facility] Last Admin: 07/28/17 09:12 Dose: 0.4 mg Zolpidem Tartrate (Ambien) 5 mg PO HS PRN PRN Reason: Insomnia Last Admin: 07/28/17 00:14 Dose: 5 mg - Labs Labs: 07/28/17 06:45 07/28/17 06:45 - Additional Findings Additional findings: - Constitutional Appears: No Acute Distress - Head Exam Head Exam: ATRAUMATIC, NORMOCEPHALIC - Eye Exam Eye Exam: EOMI, Normal appearance - ENT Exam ENT Exam: Mucous Membranes Moist - Respiratory Exam Respiratory Exam: Clear to Ausculation Bilateral, NORMAL BREATHING PATTERN - Cardiovascular Exam Cardiovascular Exam: REGULAR RHYTHM, +S1, +S2 - GI/Abdominal Exam GI & Abdominal Exam: Soft. absent: Tenderness - Extremities Exam Additional comments: darkening of the skin b/l lower extremities below the knees - Neurological Exam Neurological Exam: Alert, Awake, Oriented x3 - Psychiatric Exam Psychiatric exam: Normal Affect, Normal Mood - Skin Skin Exam: Dry, Warm Assessment and Plan - Assessment and Plan (Free Text) Plan: COPD exacerbation Consult placed to pulm- Dr. Neville- darren appreciated Duonebs q6hrs Advair 1p q12hrs solumedrol 30mg IV q12hrs Blood cx (07/24/17): NGTD WBC 10.2 07/27/17 CXR increased pulmonary vasculature, chronic pulmonary edema Ceftriaxone 1gm IV Daily (start 07/27/17) Azithromycin 500mg IV Daily (start 07/27/17) Diastolic CHF- NYHA class 3 heart failure with preserved ejection fraction- Acute exacerbation Admission to telemetry Consult placed to cardio- Dr. Julio- darren appreciated Patient is hemodynamically stable Troponin negative BNP 2350 Continue anti-platelet therapy with Brilinta 60mg PO daily Continue Aspirin 81mg PO daily Continue Lasix 40mg IV daily 07/20/16 Echo- diastolic dysfunction, LV EF of 52%. 09/01/15 Echo- diastolic dysfunction, LV EF 56% 08/07/16 cardiac catheterization 3.0 x 18 YECENIA placed in the left circumflex (90% stenosis) Substance abuse Methadone 80mg PO daily Diabetes ISS glucose ACHS Anxiety/depression Xanax 1mg PO BID Paxil 20mg PO daily Insomnia Ambien 5mg PO QHS Hx of PVD No acute interventions BPH Flomax 0.4mg PO daily Prophylaxis Heparin 5k units sc q8hrs SCD contraindicated due to PVD Heart health diet Folic acid 1mg PO daily Disposition: Pt for discharge today. Case discussed with Dr. De La Rosa All management per Dr. Sola De La Rosa
[2017-07-28] MEDS: Albuterol 0.083% Inhal Sol (2.5 mg/3 mL) UD INH SCH (13:08)
[2017-07-28 16:12] VITALS: BP 150/73; PULSE 116; RESP 18; TEMP 97.7; O2SAT 97
[2017-07-28] MEDS ORDERED: MethylPREDNISolone 40 mg Vial IVP SCH (18:00)
--- NOTE | 2017-07-29 08:03 | PCM.HF ---
Heart Failure Core Measure - Heart Failure Ejection Fraction: 40 % or Greater BUD Inhibitor Prescribed: No Contraindication/Reason for not providing: EF>45 Beta-Caity Prescribed: Carvedilol Angiotensin II Receptor Caity Prescribed: No Contraindication/Reason for not providing: EF>45 AnticoagulationTherapy for Atrial Fibrillation/Atrialflutter: No Contraindication/Reason for not providing: NO HX OF A F IB Aldosterone Antagonist Prescribed: No Contraindication/Reason for not providing: EF.>45 Hydralazine Nitrate Prescribed: No Contraindication/Reason for not providing: EF>45 Implantable Cardioverter Defibrillator Therapy: No Contraindication/Reason for not providing: EF.45 Contraindication/Reason for not providing: EF.>45 - Follow up Will be discharged to: Home Follow Up Date (must be within 7 days from discharge): 08/02/17 Follow Up Time: 09:00
== END 2017-07-28 17:10 | disposition home or self-care (01) | DRG 291 ==
LOC: C.ER 12:49 → C.9E 14:56 → C.6T 17:07
PROVIDERS: ADMIT Internal Medicine Nephrology; ATTEND Internal Medicine Nephrology
PROC: 5A09457 Assistance with Respiratory Ventilation, 24-96 Consecutive Hours, Continuous Positive Airway Pressure (ICD-10-PCS; principal; 2017-07-24)
DX: I11.0 Hypertensive heart disease with heart failure (principal); J96.92 Respiratory failure, unspecified with hypercapnia; J44.1 Chronic obstructive pulmonary disease with (acute) exacerbation; J96.11 Chronic respiratory failure with hypoxia; F11.20 Opioid dependence, uncomplicated; I25.10 Atherosclerotic heart disease of native coronary artery without angina pectoris; F17.200 Nicotine dependence, unspecified, uncomplicated; F31.9 Bipolar disorder, unspecified; F41.9 Anxiety disorder, unspecified; G47.33 Obstructive sleep apnea (adult) (pediatric); I50.9 Heart failure, unspecified; Z95.5 Presence of coronary angioplasty implant and graft; E66.9 Obesity, unspecified; Z68.36 Body mass index [BMI] 36.0-36.9, adult

== ENCOUNTER 2017-09-20 09:34 | Emergency (ER) | payer MEDICARE, MEDICAID ==
[2017-09-20 09:34] VITALS: BMI 39.2
--- NOTE | 2017-09-20 10:03 | C.PDOC ---
History Of Present Illness 61-YEAR-OLD MALE, PRESENTS TO THE EMERGENCY DEPARTMENT WITH MULTIPLE COMPLAINTS. PATIENT STATES HE IS HAVING PERSISTENT GERD SX FOR THE PAST TWO DAYS WHENEVER HE EATS OR DRINKS, HE NOTES BURNING SENSATION WHEN HE SWALLOWS, DENIES OBSTRUCTION SX. SX MORE CONSISTENT WITH GERD. HE HAS NOT TRIED ANY MEDICATIONS. SECONDARY COMPLAINT, PT IS COMPLAINING OF PERSISTENT LOWER CHEST WALL PAIN S/P FALL TWO DAYS AGO. HE NOTES PERSISTENT PAIN ON LOWER FRONT PART OF CHEST WALL, LOCALIZED WORSE WITH PALPATION. HE DENIES ANY NSAID USE. EXAM NO DROOL NORMAL SPEECH NECK IS CLR CHEST WALL WITH MILD TENDERNESS MDM XR AND LIDODERM PATCH OFFERED TO PT, HE IS REFUSING, STATES IS PRIMARILY CONCERNED FOR GERD Time Seen by Provider: 09/20/17 09:53 Chief Complaint (Nursing): Rib Injury History Per: Patient History/Exam Limitations: no limitations Onset/Duration Of Symptoms: Days Current Symptoms Are (Timing): Still Present Severity: Moderate Past Medical History Reviewed: Historical Data, Nursing Documentation, Vital Signs Vital Signs: Last Vital Signs Temp 97.7 F 09/20/17 11:22 Pulse 62 09/20/17 11:22 Resp 18 09/20/17 11:22 BP 139/80 09/20/17 11:22 Pulse Ox 96 09/20/17 11:27 - Medical History PMH: Anxiety, Asthma, Bipolar Disorder, CHF, COPD, Depression, Emphysema, Fractures (LEFT SHOULDER), Hepatitis, HTN, Sleep Apnea Surgical History: Coronary Stent - [facility] Procedures ASSISTANCE WITH RESPIRATORY VENTILATION, 24-96 HRS, CPAP (07/24/17) ASSISTANCE WITH RESPIRATORY VENTILATION, >96 HRS, CPAP (08/16/16) CORONAR ARTERIOGR-2 CATH (08/23/13) INSERTION OF ONE VASCULAR STENT (08/23/13) INSRT OF DRUG-ELUTING CORON ARTERY STENTS(S) (08/23/13) LEFT HEART CARDIAC CATH (08/17/13) LT HEART ANGIOCARDIOGRAM (08/17/13) PERCUTANEOUS TRANSLUMINAL CORONARY ANGIOPLASTY [PTCA] (08/23/13) PROCEDURE ON SINGLE VESSEL (08/23/13) Family History: States: No Known Family Hx - Social History Hx Tobacco Use: Yes Hx Alcohol Use: No Hx Substance Use: No - Immunization History Hx Tetanus Toxoid Vaccination: No Hx Influenza Vaccination: No Hx Pneumococcal Vaccination: No Review Of Systems Except As Marked, All Systems Reviewed And Found Negative. Constitutional: Negative for: Fever, Chills, Weakness Cardiovascular: Positive for: Other (pain s/p fall). Negative for: Edema, Light Headedness Gastrointestinal: Positive for: Abdominal Pain (epigastric burning). Negative for: Nausea, Vomiting, Hematemesis Musculoskeletal: Negative for: Neck Pain, Back Pain Skin: Negative for: Rash Neurological: Negative for: Weakness, Numbness, Headache, Dizziness Physical Exam - Physical Exam Appears: Well, Non-toxic, No Acute Distress Skin: Normal Color, Warm, Dry, No Rash Head: Normacephalic Eye(s): bilateral: Normal Inspection, PERRL, EOMI Nose: Normal Oral Mucosa: Moist Lips: Normal Appearing Throat: Normal, No Drooling Neck: Normal ROM Chest: Symmetrical, Tenderness (chest wall) Cardiovascular: Rhythm Regular, No Murmur Respiratory: Normal Breath Sounds, No Accessory Muscle Use Gastrointestinal/Abdominal: Soft, No Tenderness Extremity: Normal ROM, No Deformity, No Swelling Neurological/Psych: Oriented x3, Normal Speech ED Course And Treatment ECG: Interpreted By Me ECG Rhythm: Sinus Bradycardia Rate From EC O2 Sat by Pulse Oximetry: 96 (RA) Pulse Ox Interpretation: Normal Progress - Re-Evaluation Re-evaluation Note: 09/20/17 10:54 FEELS BETTER S/P VISCOUS LIDO. ADVISED DIET MOD, GI MEDS, VISCOUS LIDO - Data Reviewed Data Reviewed: EKG, Old records Medical Decision Making Medical Decision Making: MDM XR AND LIDODERM PATCH OFFERED TO PT, HE IS REFUSING, STATES IS PRIMARILY CONCERNED FOR GERD Disposition Counseled Patient/Family Regarding: Diagnosis, Need For Followup, Rx Given - Disposition Referrals: YOUR,PMD [Other] Disposition: HOME/ ROUTINE Disposition Time: 10:55 Condition: IMPROVED Prescriptions: Lidocaine 2% Viscous 100 ml PO Q4 #1 bottle Pantoprazole Sodium [Protonix] 40 mg PO QN #30 ect Instructions: Acid Reflux (Gastroesophageal Reflux Disease), Adult (DC), Bruised Rib (DC) Forms: [facility] (Egyptian) - Clinical Impression Clinical Impression: GERD (gastroesophageal reflux disease), Rib contusion - Scribe Statement The provider has reviewed the documentation as recorded by the Scribe (Kelli Anderson) All medical record entries made by the Scribe were at my direction and personally dictated by me. I have reviewed the chart and agree that the record accurately reflects my personal performance of the history, physical exam, medical decision making, and the department course for this patient. I have also personally directed, reviewed, and agree with the discharge instructions and disposition.
[2017-09-20 11:24] VITALS: BP 139/80; PULSE 62; RESP 18; TEMP 97.7; O2SAT 96
--- NOTE | 2017-09-21 11:27 | CARD ---
APPROVED REPORT EKG Measurement Heart [id number] [id number] <Conclusion> Sinus bradycardia Minimal voltage criteria for LVH, may be normal variant Borderline ECG
== END 2017-09-20 11:22 | disposition home or self-care (01) ==
LOC: C.ER 09:34
DX: K21.9 Gastro-esophageal reflux disease without esophagitis (principal); S20.219A Contusion of unspecified front wall of thorax, initial encounter; W19.XXXA Unspecified fall, initial encounter

== ENCOUNTER 2017-11-16 09:49 | Emergency (ER) | payer MEDICARE, MEDICAID ==
[2017-11-16 09:49] VITALS: BMI 39.2
[2017-11-16 10:13] VITALS: BP 136/82; PULSE 106; RESP 20; TEMP 98.5; O2SAT 95
--- NOTE | 2017-11-16 10:30 | C.PDOC ---
History Of Present Illness 62yo male with history of COPD, comes to ER for evaluation of insect bite on left leg. Patient was seen by his PMD and given antibiotics for "infection of skin." Patient states he has not taken any of the medication and is in the ER requesting "a second opinion." Otherwise, he denies any fever, chills, shortness of breath, and offers no additional medical complaints. Time Seen by Provider: 11/16/17 10:18 Chief Complaint (Nursing): Abnormal Skin Integrity History Per: Patient History/Exam Limitations: no limitations Onset/Duration Of Symptoms: Days Current Symptoms Are (Timing): Still Present Location Of Injury: Left: Leg Quality Of Symptoms: Painful, Itching, Swollen Additional History Per: Patient Past Medical History Reviewed: Historical Data, Nursing Documentation, Vital Signs Vital Signs: Last Vital Signs Temp 98.5 F 11/16/17 10:11 Pulse 106 H 11/16/17 10:11 Resp 20 11/16/17 10:11 BP 136/82 11/16/17 10:11 Pulse Ox 95 11/16/17 11:00 - Medical History PMH: Anxiety, Asthma, Bipolar Disorder, CHF, COPD, Depression, Emphysema, Fractures (LEFT SHOULDER), Hepatitis, HTN, Sleep Apnea Denies: Chronic Kidney Disease Surgical History: Coronary Stent - [facility] Procedures ASSISTANCE WITH RESPIRATORY VENTILATION, 24-96 HRS, CPAP (07/24/17) ASSISTANCE WITH RESPIRATORY VENTILATION, >96 HRS, CPAP (08/16/16) CORONAR ARTERIOGR-2 CATH (08/23/13) INSERTION OF ONE VASCULAR STENT (08/23/13) INSRT OF DRUG-ELUTING CORON ARTERY STENTS(S) (08/23/13) LEFT HEART CARDIAC CATH (08/17/13) LT HEART ANGIOCARDIOGRAM (08/17/13) PERCUTANEOUS TRANSLUMINAL CORONARY ANGIOPLASTY [PTCA] (08/23/13) PROCEDURE ON SINGLE VESSEL (08/23/13) Family History: States: Unknown Family Hx - Social History Hx Tobacco Use: Yes Hx Alcohol Use: No Hx Substance Use: No - Immunization History Hx Tetanus Toxoid Vaccination: No Hx Influenza Vaccination: No Hx Pneumococcal Vaccination: No Review Of Systems Except As Marked, All Systems Reviewed And Found Negative. Constitutional: Negative for: Fever, Chills Cardiovascular: Negative for: Chest Pain Respiratory: Negative for: Shortness of Breath Skin: Positive for: Other (left lower leg w/ insect bite) Physical Exam - Physical Exam Appears: Non-toxic Skin: Warm, Other (left lower extremity with 6cm area of swelling and erythema. No active drainage. ) Eye(s): bilateral: Normal Inspection Neck: Supple Cardiovascular: Rhythm Regular Respiratory: Normal Breath Sounds Extremity: Normal ROM, No Calf Tenderness Neurological/Psych: Oriented x3 ED Course And Treatment O2 Sat by Pulse Oximetry: 95 (RA) Pulse Ox Interpretation: Normal Progress Note: Patient advised that he will need labs, IV antibiotics and possible admission. Patient states he wishes to leave and reports he will follow up with his PMD. Patient has eleceted to leave this facility AMA. Extensively discussed with patient regarding risks of leaving, including and he expresses understanding. Against Medical Advice - AMA Patient Left Against Medical Advice: The patient declines admission to the hospital and wishes to leave the Emergency Department. This action is against my medical advice. This decision was made with informed refusal. The patient was told that admission to the hospital is necessary. Explanation of the reasons why were discussed. The risks of leaving were explained to the patient and include, but are not limited to, worsening of known or currently unknown conditions, permanent disability and from undiagnosed or untreated conditions. The patient has the capacity to make this informed decision and understands my explanation of the current medical problem and risks of leaving. The patient voluntarily accepts these risks and signed an AMA form documenting our conversation. The patient was given the opportunity to ask questions and reconsider. The patient was encouraged to return to the Emergency Department at any time for further care. Medical Decision Making Medical Decision Making: refuses any w/u, imaging ultrasound, simply requests instruction on how to take medication. signs ama Disposition - Disposition Disposition: AGAINST MEDICAL ADVICE Disposition Time: 10:24 Condition: UNKNOWN Prescriptions: Naproxen 500 mg PO BID PRN #14 tab PRN Reason: Pain, Mild (1-3) Instructions: Cellulitis (Skin Infection), Adult (DC), Leaving Against Medical Advice Forms: [employer] (Tajik) - Clinical Impression Clinical Impression: Cellulitis, Left against medical advice - Scribe Statement The provider has reviewed the documentation as recorded by the Fabricio Taylor Provider Attestation: All medical record entries made by the Scribe were at my direction and personally dictated by me. I have reviewed the chart and agree that the record accurately reflects my personal performance of the history, physical exam, medical decision making, and the department course for this patient. I have also personally directed, reviewed, and agree with the discharge instructions and disposition.
== END 2017-11-16 10:37 | disposition left against medical advice (07) ==
LOC: C.ER 09:49
DX: L03.116 Cellulitis of left lower limb (principal)

== ENCOUNTER 2018-03-01 16:31 | Inpatient (IN) | payer MEDICARE, MEDICAID ==
[2018-03-01 16:31] VITALS: BMI 39.2
[2018-03-01] MEDS ORDERED: Albuterol-Ipratrop 3 mg / 0.5 (3 ml) UD ONE ×2 (16:38→17:43)
[2018-03-01] MEDS ORDERED: Albuterol-Ipratrop 3 mg / 0.5 (3 ml) UD IH STA (17:02)
[2018-03-01] MEDS ORDERED: Albuterol 0.083% Inhal Sol (2.5 mg/3 mL) UD INH STA (17:02)
[2018-03-01 17:27] LABS: BASO # 0.1 K/uL (0.0-0.2); BASO % 0.6 % (0.0-2.0); EOS # 0.8 K/uL (0.0-0.7); EOS % 9.5 % (0.0-4.0); HEMOGLOBIN 11.6 g/dL (12.0-18.0); LYMPH # 1.2 K/uL (1.0-4.3); LYMPH % 14.5 % (20.0-40.0); MEAN CELL VOLUME 91.4 fL (80.0-94.0); MEAN CORPUSCULAR HEMOGLOBIN 30.3 pg (27.0-31.0); MEAN CORPUSCULAR HGB CONC 33.2 g/dL (33.0-37.0); MEAN PLATELET VOLUME 7.5 fL (7.2-11.7); MONO # 0.4 K/uL (0.0-0.8); MONO % 4.9 % (0.0-10.0); NEUT # 5.6 K/uL (1.8-7.0); NEUT % 70.5 % (50.0-75.0); RBC 3.83 Mil/uL (4.40-5.90); RED CELL DISTRIBUTION WIDTH 15.9 % (11.5-14.5); WHITE BLOOD COUNT 7.9 K/uL (4.8-10.8)
[2018-03-01 17:32] LABS: INR 1.2; PROTHROMBIN TIME 13.4 SECONDS (9.7-12.2)
--- NOTE | 2018-03-01 17:34 | C.PDOC ---
History Of Present Illness 62 y/o male with PMHx of COPD and CHF, presents to the ED complaining that he suddenly felt short of breath while watching TV at home. He also complains of chronic leg swelling, which he states is unchanged for the last 2 years. Patient otherwise denies any dizziness, headache, visual changes, cough, fever, chest pain, palpitations, or other acute complaints. On arrival O2 sat is 87% on room air. Time Seen by Provider: 03/01/18 17:00 Chief Complaint (Nursing): Shortness Of Breath History Per: Patient History/Exam Limitations: no limitations Onset/Duration Of Symptoms: Hrs Current Symptoms Are (Timing): Still Present Past Medical History Reviewed: Historical Data, Nursing Documentation, Vital Signs Vital Signs: Last Vital Signs Temp Pulse Resp 18 03/01/18 16:47 BP Pulse Ox 100 03/01/18 16:47 - Medical History PMH: Anxiety, Asthma, Bipolar Disorder, CHF, COPD, Depression, Emphysema, Fractures (LEFT SHOULDER), Hepatitis, HTN, Sleep Apnea Denies: Chronic Kidney Disease Surgical History: Coronary Stent - [facility] Procedures ASSISTANCE WITH RESPIRATORY VENTILATION, 24-96 HRS, CPAP (07/24/17) ASSISTANCE WITH RESPIRATORY VENTILATION, >96 HRS, CPAP (08/16/16) CORONAR ARTERIOGR-2 CATH (08/23/13) INSERTION OF ONE VASCULAR STENT (08/23/13) INSRT OF DRUG-ELUTING CORON ARTERY STENTS(S) (08/23/13) LEFT HEART CARDIAC CATH (08/17/13) LT HEART ANGIOCARDIOGRAM (08/17/13) PERCUTANEOUS TRANSLUMINAL CORONARY ANGIOPLASTY [PTCA] (08/23/13) PROCEDURE ON SINGLE VESSEL (08/23/13) Family History: States: Unknown Family Hx - Social History Hx Tobacco Use: Yes Hx Alcohol Use: No Hx Substance Use: No - Immunization History Hx Tetanus Toxoid Vaccination: No Hx Influenza Vaccination: No Hx Pneumococcal Vaccination: No Review Of Systems Except As Marked, All Systems Reviewed And Found Negative. Constitutional: Negative for: Fever, Chills Eyes: Negative for: Vision Change Cardiovascular: Negative for: Chest Pain, Palpitations Respiratory: Positive for: Shortness of Breath. Negative for: Cough Gastrointestinal: Negative for: Nausea, Vomiting Neurological: Negative for: Weakness, Numbness, Headache, Dizziness Physical Exam - Physical Exam Appears: Non-toxic, No Acute Distress, Other (O2 sat of 87% on RA) Skin: Warm, Dry Head: Atraumatic, Normacephalic Eye(s): bilateral: Normal Inspection, PERRL, EOMI Oral Mucosa: Moist Neck: Normal ROM Cardiovascular: Rhythm Regular, No Murmur Respiratory: No Accessory Muscle Use, No Rales, No Rhonchi, Wheezing (expiratory wheezing bilaterally) Gastrointestinal/Abdominal: Soft, No Tenderness, No Distention Extremity: Normal ROM, No Tenderness, Capillary Refill (less than 2 sec), Swelling (Bilateral lower extremity swelling and erythema pt states this is chronic) Pulses: Left Dorsalis Pedis: Normal, Right Dorsalis Pedis: Normal Neurological/Psych: Oriented x3, Normal Speech, Normal Motor, Normal Sensation ED Course And Treatment - Laboratory Results Result Diagrams: 03/01/18 17:19 03/01/18 17:19 O2 Sat by Pulse Oximetry: 100 (NC) Pulse Ox Interpretation: Normal - Other Rad CXR X-Ray: Read By Radiologist Interpretation: Accession No. : [id number]. Patient Name / ID : LUIS ALFREDO BRUNO / [id number]. Exam Date : 03/01/2018 17:33:02 ( Approved ). Study Comment : Sex / Age : M / 62Y. Creator : Theresa Steinberg MD. Dictator : Theresa Steinberg MD. Fire Fighters Dispatcher : Fleet Technician : Theresa Steinberg MD. Approver2 : Report Date : 03/01/2018 17:40:51. My Comment : . Date of service: 03/01/2018. PROCEDURE: CHEST RADIOGRAPH, 1 VIEW. HISTORY: SOB. COMPARISON: 07/24/2017. FINDINGS: LUNGS: The lungs are well inflated and clear. PLEURA: No pneumothorax or pleural effusion. CARDIOVASCULAR: There is mild cardiomegaly. No aortic atherosclerotic calcifications present. OSSEOUS STRUCTURES: Within normal limits for the patient's age. VISUALIZED UPPER ABDOMEN: Normal. OTHER FINDINGS: None. IMPRESSION: No active pulmonary disease. Progress Note: Ordered EKG, CXR, and labs. Administered duoneb and albuterol nebulizers. Patient started on 2L of O2 via nasal cannula. O2 sat improved to 100% on oxygen. Case was d/w patient PMD who accepted patient to [facility] for observation and neb treatments. Disposition - Disposition Disposition: HOSPITALIZED Disposition Time: 18:11 Condition: FAIR Forms: [employer] [employer] (Mohawk) - Clinical Impression Clinical Impression: COPD exacerbation - PA / MANDOLIN REPAIR PERSON / Resident Statement MD/DO has reviewed & agrees with the documentation as recorded. - Scribe Statement The provider has reviewed the documentation as recorded by the Scribe (Rona Dalal) All medical record entries made by the Scribe were at my direction and personally dictated by me. I have reviewed the chart and agree that the record accurately reflects my personal performance of the history, physical exam, medical decision making, and the department course for this patient. I have also personally directed, reviewed, and agree with the discharge instructions and disposition. Decision To Admit - Pt Status Changed To: Hospital Disposition Of: Observation - . Bed Request Type: Telemetry Admitting Physician: Elodia De La Rosa Patient Diagnosis: COPD exacerbation
[2018-03-01 17:39] LABS: ALB/GLOB RATIO 1.1 (1.0-2.1); ALBUMIN 3.7 g/dL (3.5-5.0); ALT/SGPT 23 U/L (21-72); AST/SGOT 30 U/L (17-59); BLOOD UREA NITROGEN 13 mg/dL (9-20); CALCIUM 8.8 mg/dl (8.6-10.4); GFR NON-AFRICAN AMERICAN > 60
[2018-03-01] MEDS ORDERED: Albuterol 0.083% Inhal Sol (2.5 mg/3 mL) UD ONE (17:43)
--- NOTE | 2018-03-01 17:44 | RAD ---
Date of service: 03/01/2018 PROCEDURE: CHEST RADIOGRAPH, 1 VIEW HISTORY: SOB COMPARISON: 07/24/2017 FINDINGS: LUNGS: The lungs are well inflated and clear. PLEURA: No pneumothorax or pleural effusion. CARDIOVASCULAR: There is mild cardiomegaly. No aortic atherosclerotic calcifications present. OSSEOUS STRUCTURES: Within normal limits for the patient's age. VISUALIZED UPPER ABDOMEN: Normal. OTHER FINDINGS: None. IMPRESSION: No active pulmonary disease.
[2018-03-01 17:51] LABS: B-TYPE NATRIURETIC PEPTIDE 300 pg/mL (0-900)
[2018-03-01 19:41] LABS: ARTERIAL BLOOD GAS HCO3 31.8 mmol/L (21-28); ARTERIAL BLOOD GAS HEMOGLOBIN 12.3 g/dL (11.7-17.4); ARTERIAL BLOOD GAS O2 SAT 97.4 % (95-98); ARTERIAL BLOOD GAS PCO2 104 mm/Hg (35-45); ARTERIAL BLOOD GAS PO2 92 mm/Hg (80-100); ARTERIAL BLOOD GAS TCO2 43.8 mmol/L (22-28)
[2018-03-01] MEDS ORDERED: Albuterol 0.083% Inhal Sol (2.5 mg/3 mL) UD INH PRN (19:44)
[2018-03-01 20:03] LABS: URINE BACTERIA RARE (<OCC); URINE BILIRUBIN NEGATIVE (NEGATIVE); URINE BLOOD 3+ (NEGATIVE); URINE CLARITY Hazy (Clear); URINE COLOR Yellow (YELLOW); URINE GLUCOSE (UA) NORMAL (Normal); URINE LEUKOCYTE ESTERASE TRACE Leu/uL (Negative); URINE PROTEIN 1+ mg/dL (NEGATIVE); URINE UROBILINOGEN NORMAL mg/dL (0.2-1.0)
[2018-03-01 20:25] LABS: URINE BACTERIA RARE (<OCC); URINE BILIRUBIN NEGATIVE (NEGATIVE); URINE BLOOD 3+ (NEGATIVE); URINE CLARITY Hazy (Clear); URINE COLOR Yellow (YELLOW); URINE GLUCOSE (UA) NORMAL (Normal); URINE LEUKOCYTE ESTERASE TRACE Leu/uL (Negative); URINE PROTEIN 1+ mg/dL (NEGATIVE); URINE UROBILINOGEN NORMAL mg/dL (0.2-1.0)
[2018-03-01 20:33] LABS: BARBITURATES, UR NEGATIVE (NEGATIVE); OPIATES, UR NEGATIVE (NEGATIVE); PHENCYCLIDINE, UR NEGATIVE (NEGATIVE)
[2018-03-01 20:39] LABS: BENZODIAZEPINES, UR POSITIVE (NEGATIVE)
[2018-03-01] MEDS ORDERED: Azithromycin 500 MG in Sodium Chloride 0.9% 250 ML IVPB STA (20:48)
[2018-03-01] MEDS ORDERED: cefTRIAXone 1 gm 1 GM/100 ML BAG IVPB ONE (20:50)
[2018-03-01 21:13] LABS: ARTERIAL BLOOD GAS HCO3 30.2 mmol/L (21-28); ARTERIAL BLOOD GAS HEMOGLOBIN 12.1 g/dL (11.7-17.4); ARTERIAL BLOOD GAS O2 SAT 92.8 % (95-98); ARTERIAL BLOOD GAS PCO2 92 mm/Hg (35-45); ARTERIAL BLOOD GAS PH 7.22 (7.35-7.45); ARTERIAL BLOOD GAS PO2 64 mm/Hg (80-100); ARTERIAL BLOOD GAS TCO2 40.5 mmol/L (22-28)
[2018-03-01] MEDS: MethylPREDNISolone 40 mg Vial IVP SCH (21:15)
--- NOTE | 2018-03-01 21:24 | CP.PCM.HP ---
Past Patient History - Infectious Disease Hx of Infectious Diseases: None - Past Medical History & Family History Past Medical History?: Yes - Past Social History Smoking Status: Heavy Smoker > 10 Cigarettes Daily - CARDIAC Hx Congestive Heart Failure: Yes Hx Hypertension: Yes - PULMONARY Hx Asthma: Yes Hx Chronic Obstructive Pulmonary Disease (COPD): Yes Hx Emphysema: Yes Hx Sleep Apnea: Yes - NEUROLOGICAL Hx Paralysis: No - HEENT Hx HEENT Problems: No - RENAL Hx Chronic Kidney Disease: No - ENDOCRINE/METABOLIC Hx Diabetes Mellitus Type 2: Yes - HEMATOLOGICAL/ONCOLOGICAL Hx Blood Disorders: Yes Hx Hepatitis C: Yes (resolved) - INTEGUMENTARY Hx Dermatological Problems: No - MUSCULOSKELETAL/RHEUMATOLOGICAL Hx Fractures: Yes (LEFT SHOULDER) - GASTROINTESTINAL Hx Gastrointestinal Disorders: No - GENITOURINARY/GYNECOLOGICAL Hx Genitourinary Disorders: Yes Hx Hematuria: Yes - PSYCHIATRIC Hx Anxiety: Yes Hx Bipolar Disorder: Yes Hx Depression: Yes Hx Substance Use: No - SURGICAL HISTORY Hx Coronary Stent: Yes - ANESTHESIA Hx Anesthesia: Yes Hx Anesthesia Reactions: No Hx Malignant Hyperthermia: No Meds Allergies/Adverse Reactions: Allergies Allergy/AdvReac Type Severity Reaction Status Date / Time No Known Allergies Allergy Verified 11/16/17 10:12 Physical Exam - Constitutional Appears: Well - Head Exam Head Exam: ATRAUMATIC, NORMAL INSPECTION, NORMOCEPHALIC - Eye Exam Eye Exam: EOMI, Normal appearance, PERRL Pupil Exam: NORMAL ACCOMODATION, PERRL - ENT Exam ENT Exam: Mucous Membranes Moist, Normal Exam - Neck Exam Neck exam: Positive for: Normal Inspection - Respiratory Exam Respiratory Exam: Decreased Breath Sounds - Cardiovascular Exam Cardiovascular Exam: REGULAR RHYTHM, +S1, +S2 - GI/Abdominal Exam GI & Abdominal Exam: Diminished Bowel Sounds, Soft - Rectal Exam Rectal Exam: Deferred Results - Vital Signs Recent Vital Signs: Last Vital Signs Temp 98.1 F 03/01/18 19:15 Pulse 104 H 03/01/18 21:06 Resp 20 03/01/18 21:06 BP 108/60 03/01/18 21:06 Pulse Ox 94 L 03/01/18 21:06 - Labs Result Diagrams: 03/01/18 17:19 03/01/18 17:19 Labs: Laboratory Results - last 24 hr 03/01/18 03/01/18 03/01/18 17:19 17:19 17:19 WBC 7.9 RBC 3.83 L Hgb 11.6 L Hct 35.1 MCV 91.4 MCH 30.3 MCHC 33.2 RDW 15.9 H Plt Count 240 MPV 7.5 Neut % (Auto) 70.5 Lymph % (Auto) 14.5 L [place] % (Auto) 4.9 Eos % (Auto) 9.5 H Baso % (Auto) 0.6 Neut # (Auto) 5.6 Lymph # (Auto) 1.2 [place] # (Auto) 0.4 Eos # (Auto) 0.8 H Baso # (Auto) 0.1 PT 13.4 H INR 1.2 APTT 38 H Puncture Site pCO2 pO2 HCO3 ABG pH ABG Total CO2 ABG O2 Saturation ABG Base Excess ABG Hemoglobin ABG Carboxyhemoglobin POC ABG HHb (Measured) ABG Methemoglobin [place] Test A-a O2 Difference Respiratory Index Hgb O2 Saturation Liter Flow Vent Mode FiO2 Inspiratory BiPAP Expiratory BiPAP Crit Value Called To Crit Value Called By Crit Value Read Back Blood Gas Notified Time Sodium 139 Potassium 4.1 Chloride 93 L Carbon Dioxide 38 H Anion Gap 12 BUN 13 Creatinine 1.0 Est GFR ( Amer) > 60 Est GFR (Non-Af Amer) > 60 POC Glucose (mg/dL) Random Glucose 87 Calcium 8.8 Total Bilirubin 0.8 AST 30 ALT 23 Alkaline Phosphatase 82 Troponin I < 0.0120 NT-Pro-B Natriuret Pep 300 Total Protein 7.2 Albumin 3.7 Globulin 3.5 Albumin/Globulin Ratio 1.1 Urine Color Urine Clarity Urine pH Ur Specific [place] Urine Protein Urine Glucose (UA) Urine Ketones Urine Blood Urine Nitrate Urine Bilirubin Urine Urobilinogen Ur Leukocyte Esterase Urine WBC (Auto) Urine RBC (Auto) Urine Bacteria Hyaline Casts Urine Opiates Screen Urine Methadone Screen Ur Barbiturates Screen Ur Phencyclidine Scrn Ur Amphetamines Screen U Benzodiazepines Scrn U Oth Cocaine Metabols U Cannabinoids Screen 03/01/18 03/01/18 03/01/18 19:19 19:37 19:49 WBC RBC Hgb Hct MCV MCH MCHC RDW Plt Count MPV Neut % (Auto) Lymph % (Auto) [place] % (Auto) Eos % (Auto) Baso % (Auto) Neut # (Auto) Lymph # (Auto) [place] # (Auto) Eos # (Auto) Baso # (Auto) PT INR APTT Puncture Site Rba pCO2 104 H* pO2 92 HCO3 31.8 H ABG pH 7.20 L ABG Total CO2 43.8 H ABG O2 Saturation 97.4 ABG Base Excess 8.9 H ABG Hemoglobin 12.3 ABG Carboxyhemoglobin 3.6 H POC ABG HHb (Measured) 2.5 ABG Methemoglobin 1.6 Paolo Test Na A-a O2 Difference -8.0 Respiratory Index -0.1 Hgb O2 Saturation 92.2 L Liter Flow 3.0 Vent Mode FiO2 30.0 Inspiratory BiPAP Expiratory BiPAP Crit Value Called To Ebony alonso rn Crit Value Called By Jah Crit Value Read Back Y Blood Gas Notified Time 1940 Sodium Potassium Chloride Carbon Dioxide Anion Gap BUN Creatinine Est GFR ( Amer) Est GFR (Non-Af Amer) POC Glucose (mg/dL) 90 Random Glucose Calcium Total Bilirubin AST ALT Alkaline Phosphatase Troponin I NT-Pro-B Natriuret Pep Total Protein Albumin Globulin Albumin/Globulin Ratio Urine Color Yellow Urine Clarity Hazy Urine pH 5.0 Ur Specific [place] 1.014 Urine Protein 1+ H Urine Glucose (UA) Normal Urine Ketones Negative Urine Blood 3+ H Urine Nitrate Negative Urine Bilirubin Negative Urine Urobilinogen Normal Ur Leukocyte Esterase Trace Urine WBC (Auto) 5 Urine RBC (Auto) 26 H Urine Bacteria Rare Hyaline Casts Urine Opiates Screen Urine Methadone Screen Ur Barbiturates Screen Ur Phencyclidine Scrn Ur Amphetamines Screen U Benzodiazepines Scrn U Oth Cocaine Metabols U Cannabinoids Screen 03/01/18 03/01/18 03/01/18 20:11 20:11 21:09 WBC RBC Hgb Hct MCV MCH MCHC RDW Plt Count MPV Neut % (Auto) Lymph % (Auto) [place] % (Auto) Eos % (Auto) Baso % (Auto) Neut # (Auto) Lymph # (Auto) [place] # (Auto) Eos # (Auto) Baso # (Auto) PT INR APTT Puncture Site Rba pCO2 92 H* pO2 64 L HCO3 30.2 H ABG pH 7.22 L ABG Total CO2 40.5 H ABG O2 Saturation 92.8 L ABG Base Excess 7.0 H ABG Hemoglobin 12.1 ABG Carboxyhemoglobin 3.8 H POC ABG HHb (Measured) 6.9 H ABG Methemoglobin 0.9 Paolo Test Na A-a O2 Difference 35.0 Respiratory Index 0.5 Hgb O2 Saturation 88.4 L Liter Flow Vent Mode Bipap FiO2 30.0 Inspiratory BiPAP 15 Expiratory BiPAP 8 Crit Value Called To Ebony villasenor er Crit Value Called By Jah Crit Value Read Back Y Blood Gas Notified Time 2111 Sodium Potassium Chloride Carbon Dioxide Anion Gap BUN Creatinine Est GFR ( Amer) Est GFR (Non-Af Amer) POC Glucose (mg/dL) Random Glucose Calcium Total Bilirubin AST ALT Alkaline Phosphatase Troponin I NT-Pro-B Natriuret Pep Total Protein Albumin Globulin Albumin/Globulin Ratio Urine Color Yellow Urine Clarity Hazy Urine pH 5.0 Ur Specific [place] 1.014 Urine Protein 1+ H Urine Glucose (UA) Normal Urine Ketones Negative Urine Blood 3+ H Urine Nitrate Negative Urine Bilirubin Negative Urine Urobilinogen Normal Ur Leukocyte Esterase Trace Urine WBC (Auto) 6 H Urine RBC (Auto) 25 H Urine Bacteria Rare Hyaline Casts 3-5 H Urine Opiates Screen Negative Urine Methadone Screen Positive H Ur Barbiturates Screen Negative Ur Phencyclidine Scrn Negative Ur Amphetamines Screen Negative U Benzodiazepines Scrn Positive U Oth Cocaine Metabols Negative U Cannabinoids Screen Negative
--- NOTE | 2018-03-01 21:27 | CP.PCM.CON ---
History of Present Illness - History of Present Illness History of Present Illness: 62 y/o male with PMHx of COPD ,CHF,CAD with stent,ASHLEY,Hepatitis,Obesity,h/o substance abuse on methdone Bipolar disease,anxiety presents to the ED complaining of short of breath while watching TV at home. He also complains of chronic leg swelling, which he states is unchanged for the last 2 years. Patient otherwise denies any dizziness, headache, visual changes, cough, fever, chest pain, palpitations, or other acute complaints. On arrival O2 sat is 87% on room air.Patient was admitted to telemtery.While still in ER found lethargic,ABG revealed pCO2 104,Ph 7.2,placed on BIPAP Urine toxicology positive for Benzodiazepine and methadone history from chart,patient Review of Systems - Review of Systems Systems not reviewed;Unavailable: Respiratory Distress, Altered Mental Status - Constitutional Constitutional: absent: Chills, Fever - EENT Eyes: absent: Blurred Vision Ears: absent: Dizziness Nose/Mouth/Throat: absent: Sore Throat - Cardiovascular Cardiovascular: Leg Edema. absent: Chest Pain, Palpitations - Respiratory Respiratory: Dyspnea. absent: Cough - Gastrointestinal Gastrointestinal: absent: Abdominal Pain, Nausea, Vomiting - Genitourinary Genitourinary: absent: Dysuria - Musculoskeletal Musculoskeletal: absent: Muscle Weakness - Integumentary Integumentary: absent: Rash - Neurological Neurological: absent: Dizziness - Endocrine Endocrine: absent: Palpitations, Polyuria - Hematologic/Lymphatic Hematologic: absent: Easy Bruising Past Patient History - Infectious Disease Hx of Infectious Diseases: None - Past Medical History & Family History Past Medical History?: Yes - Past Social History Smoking Status: Heavy Smoker > 10 Cigarettes Daily Occupation: unemployed on disability - CARDIAC Hx Congestive Heart Failure: Yes Hx Hypertension: Yes - PULMONARY Hx Asthma: Yes Hx Chronic Obstructive Pulmonary Disease (COPD): Yes Hx Emphysema: Yes Hx Sleep Apnea: Yes - NEUROLOGICAL Hx Paralysis: No - HEENT Hx HEENT Problems: No - RENAL Hx Chronic Kidney Disease: No - HEMATOLOGICAL/ONCOLOGICAL Hx Blood Disorders: Yes Hx Hepatitis C: Yes - INTEGUMENTARY Hx Dermatological Problems: No - MUSCULOSKELETAL/RHEUMATOLOGICAL Hx Fractures: Yes (LEFT SHOULDER) - GASTROINTESTINAL Hx Gastrointestinal Disorders: No - GENITOURINARY/GYNECOLOGICAL Hx Genitourinary Disorders: Yes Hx Hematuria: Yes - PSYCHIATRIC Hx Anxiety: Yes Hx Bipolar Disorder: Yes Hx Depression: Yes Hx Substance Use: No - SURGICAL HISTORY Hx Coronary Stent: Yes - ANESTHESIA Hx Anesthesia: Yes Hx Anesthesia Reactions: No Hx Malignant Hyperthermia: No Meds Allergies/Adverse Reactions: Allergies Allergy/AdvReac Type Severity Reaction Status Date / Time No Known Allergies Allergy Verified 11/16/17 10:12 - Medications Medications: Current Medications Albuterol Sulfate (Albuterol 0.083% Inhal Ariana (2.5 Mg/3 Ml) Ud) 2.5 mg INH RQ4 PRN PRN Reason: Wheezing Fluticasone/Vilanterol (Breo Ellipta 200-25 Mcg Inh) 1 puff INH RQD JOANN Azithromycin 500 mg/ Sodium (Chloride) 250 mls @ 250 mls/hr IVPB DAILY JOANN; Protocol Ceftriaxone Sodium 1 gm/ (Sodium Chloride) 100 mls @ 100 mls/hr IVPB DAILY JOANN; Protocol Ceftriaxone Sodium 1 gm/ (Sodium Chloride) 100 mls @ 100 mls/hr IVPB STAT ONE; Protocol Stop: 03/01/18 21:45 Last Admin: 03/01/18 20:55 Dose: 100 mls/hr Azithromycin 500 mg/ Sodium (Chloride) 250 mls @ 250 mls/hr IVPB STAT STA; Protocol Stop: 03/01/18 21:47 Last Admin: 03/01/18 21:05 Dose: 250 mls/hr Methylprednisolone (Solu-Medrol) 60 mg IVP Q8 JOANN Last Admin: 03/01/18 21:15 Dose: Not Given Montelukast Sodium (Singulair) 10 mg PO HS JOANN Physical Exam - Constitutional Appears: No Acute Distress - Head Exam Head Exam: ATRAUMATIC, NORMAL INSPECTION, NORMOCEPHALIC - Eye Exam Eye Exam: EOMI, Normal appearance, PERRL Pupil Exam: NORMAL ACCOMODATION - ENT Exam ENT Exam: Mucous Membranes Moist - Neck Exam Neck exam: Positive for: Normal Inspection. Negative for: Lymphadenopathy - Respiratory Exam Respiratory Exam: Clear to Auscultation Bilateral Additional comments: decreased air entry bilaterally - Cardiovascular Exam Cardiovascular Exam: Tachycardia. absent: JVD - GI/Abdominal Exam GI & Abdominal Exam: Normal Bowel Sounds, Soft. absent: Tenderness - Extremities Exam Extremities exam: Positive for: pedal edema. Negative for: calf tenderness Additional comments: bilateral leg swelling with chronic changes Results - Vital Signs Recent Vital Signs: Last Vital Signs Temp 98.1 F 03/01/18 19:15 Pulse 104 H 03/01/18 21:06 Resp 20 03/01/18 21:06 BP 108/60 03/01/18 21:06 Pulse Ox 94 L 03/01/18 21:06 - Labs Result Diagrams: 03/01/18 17:19 03/01/18 17:19 Labs: Laboratory Results - last 24 hr 03/01/18 03/01/18 03/01/18 17:19 17:19 17:19 WBC 7.9 RBC 3.83 L Hgb 11.6 L Hct 35.1 MCV 91.4 MCH 30.3 MCHC 33.2 RDW 15.9 H Plt Count 240 MPV 7.5 Neut % (Auto) 70.5 Lymph % (Auto) 14.5 L [place] % (Auto) 4.9 Eos % (Auto) 9.5 H Baso % (Auto) 0.6 Neut # (Auto) 5.6 Lymph # (Auto) 1.2 [place] # (Auto) 0.4 Eos # (Auto) 0.8 H Baso # (Auto) 0.1 PT 13.4 H INR 1.2 APTT 38 H Puncture Site pCO2 pO2 HCO3 ABG pH ABG Total CO2 ABG O2 Saturation ABG Base Excess ABG Hemoglobin ABG Carboxyhemoglobin POC ABG HHb (Measured) ABG Methemoglobin [place] Test A-a O2 Difference Respiratory Index Hgb O2 Saturation Liter Flow Vent Mode FiO2 Inspiratory BiPAP Expiratory BiPAP Crit Value Called To Crit Value Called By Crit Value Read Back Blood Gas Notified Time Sodium 139 Potassium 4.1 Chloride 93 L Carbon Dioxide 38 H Anion Gap 12 BUN 13 Creatinine 1.0 Est GFR ( Amer) > 60 Est GFR (Non-Af Amer) > 60 POC Glucose (mg/dL) Random Glucose 87 Calcium 8.8 Total Bilirubin 0.8 AST 30 ALT 23 Alkaline Phosphatase 82 Troponin I < 0.0120 NT-Pro-B Natriuret Pep 300 Total Protein 7.2 Albumin 3.7 Globulin 3.5 Albumin/Globulin Ratio 1.1 Urine Color Urine Clarity Urine pH Ur Specific [place] Urine Protein Urine Glucose (UA) Urine Ketones Urine Blood Urine Nitrate Urine Bilirubin Urine Urobilinogen Ur Leukocyte Esterase Urine WBC (Auto) Urine RBC (Auto) Urine Bacteria Hyaline Casts Urine Opiates Screen Urine Methadone Screen Ur Barbiturates Screen Ur Phencyclidine Scrn Ur Amphetamines Screen U Benzodiazepines Scrn U Oth Cocaine Metabols U Cannabinoids Screen 03/01/18 03/01/18 03/01/18 19:19 19:37 19:49 WBC RBC Hgb Hct MCV MCH MCHC RDW Plt Count MPV Neut % (Auto) Lymph % (Auto) [place] % (Auto) Eos % (Auto) Baso % (Auto) Neut # (Auto) Lymph # (Auto) [place] # (Auto) Eos # (Auto) Baso # (Auto) PT INR APTT Puncture Site Rba pCO2 104 H* pO2 92 HCO3 31.8 H ABG pH 7.20 L ABG Total CO2 43.8 H ABG O2 Saturation 97.4 ABG Base Excess 8.9 H ABG Hemoglobin 12.3 ABG Carboxyhemoglobin 3.6 H POC ABG HHb (Measured) 2.5 ABG Methemoglobin 1.6 Paolo Test Na A-a O2 Difference -8.0 Respiratory Index -0.1 Hgb O2 Saturation 92.2 L Liter Flow 3.0 Vent Mode FiO2 30.0 Inspiratory BiPAP Expiratory BiPAP Crit Value Called To Ebony alonso rn Crit Value Called By Jah Crit Value Read Back Y Blood Gas Notified Time 1940 Sodium Potassium Chloride Carbon Dioxide Anion Gap BUN Creatinine Est GFR ( Amer) Est GFR (Non-Af Amer) POC Glucose (mg/dL) 90 Random Glucose Calcium Total Bilirubin AST ALT Alkaline Phosphatase Troponin I NT-Pro-B Natriuret Pep Total Protein Albumin Globulin Albumin/Globulin Ratio Urine Color Yellow Urine Clarity Hazy Urine pH 5.0 Ur Specific [place] 1.014 Urine Protein 1+ H Urine Glucose (UA) Normal Urine Ketones Negative Urine Blood 3+ H Urine Nitrate Negative Urine Bilirubin Negative Urine Urobilinogen Normal Ur Leukocyte Esterase Trace Urine WBC (Auto) 5 Urine RBC (Auto) 26 H Urine Bacteria Rare Hyaline Casts Urine Opiates Screen Urine Methadone Screen Ur Barbiturates Screen Ur Phencyclidine Scrn Ur Amphetamines Screen U Benzodiazepines Scrn U Oth Cocaine Metabols U Cannabinoids Screen 03/01/18 03/01/18 03/01/18 20:11 20:11 21:09 WBC RBC Hgb Hct MCV MCH MCHC RDW Plt Count MPV Neut % (Auto) Lymph % (Auto) [place] % (Auto) Eos % (Auto) Baso % (Auto) Neut # (Auto) Lymph # (Auto) [place] # (Auto) Eos # (Auto) Baso # (Auto) PT INR APTT Puncture Site Rba pCO2 92 H* pO2 64 L HCO3 30.2 H ABG pH 7.22 L ABG Total CO2 40.5 H ABG O2 Saturation 92.8 L ABG Base Excess 7.0 H ABG Hemoglobin 12.1 ABG Carboxyhemoglobin 3.8 H POC ABG HHb (Measured) 6.9 H ABG Methemoglobin 0.9 Paolo Test Na A-a O2 Difference 35.0 Respiratory Index 0.5 Hgb O2 Saturation 88.4 L Liter Flow Vent Mode Bipap FiO2 30.0 Inspiratory BiPAP 15 Expiratory BiPAP 8 Crit Value Called To Ebony villasenor er Crit Value Called By Jah Crit Value Read Back Y Blood Gas Notified Time 2111 Sodium Potassium Chloride Carbon Dioxide Anion Gap BUN Creatinine Est GFR ( Amer) Est GFR (Non-Af Amer) POC Glucose (mg/dL) Random Glucose Calcium Total Bilirubin AST ALT Alkaline Phosphatase Troponin I NT-Pro-B Natriuret Pep Total Protein Albumin Globulin Albumin/Globulin Ratio Urine Color Yellow Urine Clarity Hazy Urine pH 5.0 Ur Specific [place] 1.014 Urine Protein 1+ H Urine Glucose (UA) Normal Urine Ketones Negative Urine Blood 3+ H Urine Nitrate Negative Urine Bilirubin Negative Urine Urobilinogen Normal Ur Leukocyte Esterase Trace Urine WBC (Auto) 6 H Urine RBC (Auto) 25 H Urine Bacteria Rare Hyaline Casts 3-5 H Urine Opiates Screen Negative Urine Methadone Screen Positive H Ur Barbiturates Screen Negative Ur Phencyclidine Scrn Negative Ur Amphetamines Screen Negative U Benzodiazepines Scrn Positive U Oth Cocaine Metabols Negative U Cannabinoids Screen Negative - EKG Data EKG Interpreted by: Myself Rate: Tachycardia - Imaging and Cardiology Chest x-ray Status: Image reviewed by me, Report reviewed by me Assessment & Plan - Assessment and Plan (Free Text) Assessment: 1.Hypercapnic respiratory failure,exacerbation of COPD/ASHLEY continue bronchodilators,steroids,BIPAP 2.CAD s/p stent,CHF/ HTN on coreg and lasix. continue meds 3.Hematuria urine c/s 4.Anemia stool occult blood,Iron,foalte,B12 levels 5.Substance abuse on methadone 6.h/o hepatitis 7.Bipolar disease on meds
[2018-03-02] MEDS: MethylPREDNISolone 40 mg Vial IVP SCH ×3 (05:29→21:12)
[2018-03-02 06:04] LABS: ARTERIAL BLOOD GAS HCO3 32.6 mmol/L (21-28); ARTERIAL BLOOD GAS HEMOGLOBIN 11.3 g/dL (11.7-17.4); ARTERIAL BLOOD GAS PCO2 84 mm/Hg (35-45); ARTERIAL BLOOD GAS PH 7.28 (7.35-7.45); ARTERIAL BLOOD GAS PO2 67 mm/Hg (80-100); ARTERIAL BLOOD GAS TCO2 42.1 mmol/L (22-28)
[2018-03-02 06:13] LABS: BASO % 0.4 % (0.0-2.0); EOS % 0.1 % (0.0-4.0); HEMOGLOBIN 10.9 g/dL (12.0-18.0); LYMPH # 0.4 K/uL (1.0-4.3); LYMPH % 8.5 % (20.0-40.0); MEAN CORPUSCULAR HEMOGLOBIN 30.9 pg (27.0-31.0); MEAN CORPUSCULAR HGB CONC 33.6 g/dL (33.0-37.0); MEAN PLATELET VOLUME 7.6 fL (7.2-11.7); MONO % 0.8 % (0.0-10.0); NEUT # 4.5 K/uL (1.8-7.0); NEUT % 90.2 % (50.0-75.0); PLATELET COUNT 207 K/uL (130-400); RBC 3.54 Mil/uL (4.40-5.90); RED CELL DISTRIBUTION WIDTH 15.8 % (11.5-14.5)
[2018-03-02 06:26] LABS: IRON 47 ug/dL (49-181)
[2018-03-02 06:35] LABS: % IRON SATURATION 16 (20-55); TOTAL IRON BINDING CAPACITY 303 ug/dL (250-450)
[2018-03-02 07:05] LABS: ALB/GLOB RATIO 1.1 (1.0-2.1); ALBUMIN 3.5 g/dL (3.5-5.0); ALT/SGPT 28 U/L (21-72); AST/SGOT 30 U/L (17-59); BLOOD UREA NITROGEN 16 mg/dL (9-20); CALCIUM 8.6 mg/dl (8.6-10.4); GFR NON-AFRICAN AMERICAN > 60
--- NOTE | 2018-03-02 07:08 | CP.CCUPN ---
<Zelda Matos - Last Filed: 03/02/18 15:05> CCU Subjective - Physician Review Events Since Last Encounter (Free Text): 03/02/18 07:08 Patient admitted over night- placed on BiPAP. Subjective (Free Text): 03/02/18 07:08 Patient was seen and examined this morning. He is off of BiPAP and not in respiratory distress. He expresses that he is upset that he has not yet received methadone and Xanax. Explained to patient need to confirm meds with clinic/pharmacy. Critical Care Time Spent (in minutes): 35 CCU Objective - Vital Signs / Intake & Output Vital Signs (Last 4 hours): Vital Signs Temp Pulse 03/02/18 06:15 93 H 03/02/18 04:00 98 F Intake and Output (Last 8hrs): Intake & Output 03/01/18 03/02/18 03/02/18 22:59 06:59 14:59 Intake Total 50 Output Total 170 200 Balance -170 -150 Weight 230 lb 232 lb 9.6 oz Intake: Oral 50 Output: Urine 170 Stool 200 Other: Voiding Method Urinal - Physical Exam Head: Positive for: Atraumatic, Normocephalic Pupils: Positive for: PERRL Extroacular Muscles: Positive for: EOMI Conjunctiva: Positive for: Normal Mouth: Positive for: Moist Mucous Membranes Neck: Positive for: Normal Range of Motion Respiratory/Chest: Positive for: Clear to Auscultation, Decreased Breath Sounds, Other (on NC). Negative for: Respiratory Distress, Accessory Muscle Use Cardiovascular: Positive for: Regular Rate and Rhythm, Normal S1, S2. Negative for: Murmurs Abdomen: Positive for: Other (obese). Negative for: Tenderness Upper Extremity: Positive for: Normal Inspection Lower Extremity: Positive for: Normal Inspection Neurological: Positive for: GCS=15, CN II-XII Intact, Speech Normal Skin: Positive for: Warm, Dry, Normal Color. Negative for: Rashes Psychiatric: Positive for: Alert, Oriented x 3, Agitated - Medications Active Medications: Active Medications Generic Name Dose Route Start Last Admin Trade Name Freq PRN Reason Stop Dose Admin Albuterol Sulfate 2.5 mg 03/01/18 19:44 Albuterol 0.083% Inhal Ariana (2.5 Mg/3 Ml) Ud INH RQ4 PRN Wheezing Carvedilol 12.5 mg 03/02/18 10:00 Coreg PO BID [facility] Enoxaparin Sodium 40 mg 03/02/18 10:00 Lovenox SC DAILY [facility] Fluticasone/Vilanterol 1 puff 03/02/18 08:00 Breo Ellipta 200-25 Mcg Inh INH RQD JOANN Furosemide 40 mg 03/02/18 10:00 Lasix PO DAILY JOANN Azithromycin 500 mg/ Sodium 250 mls @ 250 mls/hr 03/02/18 10:00 Chloride IVPB DAILY JOANN Protocol Ceftriaxone Sodium 1 gm/ 100 mls @ 100 mls/hr 03/02/18 10:00 Sodium Chloride IVPB DAILY JOANN Protocol Methylprednisolone 60 mg 03/01/18 22:00 03/02/18 05:29 Solu-Medrol IVP 60 mg Q8 JOANN Administration Montelukast Sodium 10 mg 03/01/18 22:00 03/02/18 00:11 Singulair PO 10 mg HS JOANN Administration Pantoprazole Sodium 40 mg 03/02/18 10:00 Protonix Ec Tab PO DAILY JOANN - Patient Studies Lab Studies: Lab Studies 03/02/18 03/02/18 03/02/18 Range/Units 06:01 06:01 06:01 WBC 5.0 (4.8-10.8) K/uL RBC 3.54 L (4.40-5.90) Mil/uL Hgb 10.9 L (12.0-18.0) g/dL Hct 32.6 L (35.0-51.0) % MCV 92.0 (80.0-94.0) fL MCH 30.9 (27.0-31.0) pg MCHC 33.6 (33.0-37.0) g/dL RDW 15.8 H (11.5-14.5) % Plt Count 207 (130-400) K/uL MPV 7.6 (7.2-11.7) fL Neut % (Auto) 90.2 H (50.0-75.0) % Lymph % (Auto) 8.5 L (20.0-40.0) % Morris % (Auto) 0.8 (0.0-10.0) % Eos % (Auto) 0.1 (0.0-4.0) % Baso % (Auto) 0.4 (0.0-2.0) % Neut # (Auto) 4.5 (1.8-7.0) K/uL Lymph # (Auto) 0.4 L (1.0-4.3) K/uL Morris # (Auto) 0.0 (0.0-0.8) K/uL Eos # (Auto) 0.0 (0.0-0.7) K/uL Baso # (Auto) 0.0 (0.0-0.2) K/uL PT (9.7-12.2) SECONDS INR APTT (21-34) SECONDS Puncture Site pCO2 (35-45) mm/Hg pO2 (80-100) mm/Hg HCO3 (21-28) mmol/L ABG pH (7.35-7.45) ABG Total CO2 (22-28) mmol/L ABG O2 Saturation (95-98) % ABG Base Excess (-2.0-3.0) mmol/L ABG Hemoglobin (11.7-17.4) g/dL ABG Carboxyhemoglobin (0.5-1.5) % POC ABG HHb (Measured) (0.0-5.0) % ABG Methemoglobin (0.0-3.0) % Paolo Test A-a O2 Difference mm/Hg Respiratory Index Hgb O2 Saturation (95.0-98.0) % Liter Flow Vent Mode FiO2 % Inspiratory BiPAP Expiratory BiPAP Crit Value Called To Crit Value Called By Crit Value Read Back Blood Gas Notified Time Sodium 139 (132-148) mmol/L Potassium 4.8 (3.6-5.2) mmol/L Chloride 96 L (98-107) mmol/L Carbon Dioxide 34 H (22-30) mmol/L Anion Gap 14 (10-20) BUN 16 (9-20) mg/dL Creatinine 0.9 (0.8-1.5) mg/dL Est GFR ( Amer) > 60 Est GFR (Non-Af Amer) > 60 POC Glucose (mg/dL) (65-110) mg/dL Random Glucose 127 H (75-110) mg/dL Calcium 8.6 (8.6-10.4) mg/dl Phosphorus 4.7 H (2.5-4.5) mg/dL Magnesium 2.4 H (1.6-2.3) mg/dL Iron 47 L (49-181) ug/dL TIBC 303 (250-450) ug/dL % Saturation 16 L (20-55) Total Bilirubin 0.4 (0.2-1.3) mg/dL AST 30 (17-59) U/L ALT 28 (21-72) U/L Alkaline Phosphatase 68 (38-126) U/L Troponin I (0.00-0.120) ng/mL NT-Pro-B Natriuret Pep (0-900) pg/mL Total Protein 6.7 (6.3-8.3) g/dL Albumin 3.5 (3.5-5.0) g/dL Globulin 3.2 (2.2-3.9) gm/dL Albumin/Globulin Ratio 1.1 (1.0-2.1) Urine Color (YELLOW) Urine Clarity (Clear) Urine pH (5.0-8.0) Ur Specific [place] (1.003-1.030) Urine Protein (NEGATIVE) mg/dL Urine Glucose (UA) (Normal) mg/dL Urine Ketones (NEGATIVE) mg/dL Urine Blood (NEGATIVE) Urine Nitrate (NEGATIVE) Urine Bilirubin (NEGATIVE) Urine Urobilinogen (0.2-1.0) mg/dL Ur Leukocyte Esterase (Negative) Javi/uL Urine WBC (Auto) (0-5) /hpf Urine RBC (Auto) (0-3) /hpf Urine Bacteria (<OCC) Hyaline Casts (0-2) /lpf Urine Opiates Screen (NEGATIVE) Urine Methadone Screen (NEGATIVE) Ur Barbiturates Screen (NEGATIVE) Ur Phencyclidine Scrn (NEGATIVE) Ur Amphetamines Screen (NEGATIVE) U Benzodiazepines Scrn (NEGATIVE) U Oth Cocaine Metabols (NEGATIVE) U Cannabinoids Screen (NEGATIVE) 03/02/18 03/01/18 03/01/18 Range/Units 05:34 21:09 20:11 WBC (4.8-10.8) K/uL RBC (4.40-5.90) Mil/uL Hgb (12.0-18.0) g/dL Hct (35.0-51.0) % MCV (80.0-94.0) fL MCH (27.0-31.0) pg MCHC (33.0-37.0) g/dL RDW (11.5-14.5) % Plt Count (130-400) K/uL MPV (7.2-11.7) fL Neut % (Auto) (50.0-75.0) % Lymph % (Auto) (20.0-40.0) % Morris % (Auto) (0.0-10.0) % Eos % (Auto) (0.0-4.0) % Baso % (Auto) (0.0-2.0) % Neut # (Auto) (1.8-7.0) K/uL Lymph # (Auto) (1.0-4.3) K/uL Morris # (Auto) (0.0-0.8) K/uL Eos # (Auto) (0.0-0.7) K/uL Baso # (Auto) (0.0-0.2) K/uL PT (9.7-12.2) SECONDS INR APTT (21-34) SECONDS Puncture Site R brac Rba pCO2 84 H* 92 H* (35-45) mm/Hg pO2 67 L 64 L (80-100) mm/Hg HCO3 32.6 H 30.2 H (21-28) mmol/L ABG pH 7.28 L 7.22 L (7.35-7.45) ABG Total CO2 42.1 H 40.5 H (22-28) mmol/L ABG O2 Saturation 95.0 92.8 L (95-98) % ABG Base Excess 10.0 H 7.0 H (-2.0-3.0) mmol/L ABG Hemoglobin 11.3 L 12.1 (11.7-17.4) g/dL ABG Carboxyhemoglobin 3.2 H 3.8 H (0.5-1.5) % POC ABG HHb (Measured) 4.8 6.9 H (0.0-5.0) % ABG Methemoglobin 1.0 0.9 (0.0-3.0) % Paolo Test Na Na A-a O2 Difference 42.0 35.0 mm/Hg Respiratory Index 0.6 0.5 Hgb O2 Saturation 91.1 L 88.4 L (95.0-98.0) % Liter Flow Vent Mode Bipap Bipap FiO2 30.0 30.0 % Inspiratory BiPAP 15 15 Expiratory BiPAP 8 8 Crit 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 Crit Value Called By Elena carcamo rt Lendl Crit Value Read Back Y Y Blood Gas Notified Time [id number] Sodium (132-148) mmol/L Potassium (3.6-5.2) mmol/L Chloride (98-107) mmol/L Carbon Dioxide (22-30) mmol/L Anion Gap (10-20) BUN (9-20) mg/dL Creatinine (0.8-1.5) mg/dL Est GFR ( Amer) Est GFR (Non-Af Amer) POC Glucose (mg/dL) (65-110) mg/dL Random Glucose (75-110) mg/dL Calcium (8.6-10.4) mg/dl Phosphorus (2.5-4.5) mg/dL Magnesium (1.6-2.3) mg/dL Iron (49-181) ug/dL TIBC (250-450) ug/dL % Saturation (20-55) Total Bilirubin (0.2-1.3) mg/dL AST (17-59) U/L ALT (21-72) U/L Alkaline Phosphatase (38-126) U/L Troponin I (0.00-0.120) ng/mL NT-Pro-B Natriuret Pep (0-900) pg/mL Total Protein (6.3-8.3) g/dL Albumin (3.5-5.0) g/dL Globulin (2.2-3.9) gm/dL Albumin/Globulin Ratio (1.0-2.1) Urine Color (YELLOW) Urine Clarity (Clear) Urine pH (5.0-8.0) Ur Specific [place] (1.003-1.030) Urine Protein (NEGATIVE) mg/dL Urine Glucose (UA) (Normal) mg/dL Urine Ketones (NEGATIVE) mg/dL Urine Blood (NEGATIVE) Urine Nitrate (NEGATIVE) Urine Bilirubin (NEGATIVE) Urine Urobilinogen (0.2-1.0) mg/dL Ur Leukocyte Esterase (Negative) Javi/uL Urine WBC (Auto) (0-5) /hpf Urine RBC (Auto) (0-3) /hpf Urine Bacteria (<OCC) Hyaline Casts (0-2) /lpf Urine Opiates Screen Negative (NEGATIVE) Urine Methadone Screen Positive H (NEGATIVE) Ur Barbiturates Screen Negative (NEGATIVE) Ur Phencyclidine Scrn Negative (NEGATIVE) Ur Amphetamines Screen Negative (NEGATIVE) U Benzodiazepines Scrn Positive (NEGATIVE) U Oth Cocaine Metabols Negative (NEGATIVE) U Cannabinoids Screen Negative (NEGATIVE) 03/01/18 03/01/18 03/01/18 Range/Units 20:11 19:49 19:37 WBC (4.8-10.8) K/uL RBC (4.40-5.90) Mil/uL Hgb (12.0-18.0) g/dL Hct (35.0-51.0) % MCV (80.0-94.0) fL MCH (27.0-31.0) pg MCHC (33.0-37.0) g/dL RDW (11.5-14.5) % Plt Count (130-400) K/uL MPV (7.2-11.7) fL Neut % (Auto) (50.0-75.0) % Lymph % (Auto) (20.0-40.0) % Morris % (Auto) (0.0-10.0) % Eos % (Auto) (0.0-4.0) % Baso % (Auto) (0.0-2.0) % Neut # (Auto) (1.8-7.0) K/uL Lymph # (Auto) (1.0-4.3) K/uL Morris # (Auto) (0.0-0.8) K/uL Eos # (Auto) (0.0-0.7) K/uL Baso # (Auto) (0.0-0.2) K/uL PT (9.7-12.2) SECONDS INR APTT (21-34) SECONDS Puncture Site Rba pCO2 104 H* (35-45) mm/Hg pO2 92 (80-100) mm/Hg HCO3 31.8 H (21-28) mmol/L ABG pH 7.20 L (7.35-7.45) ABG Total CO2 43.8 H (22-28) mmol/L ABG O2 Saturation 97.4 (95-98) % ABG Base Excess 8.9 H (-2.0-3.0) mmol/L ABG Hemoglobin 12.3 (11.7-17.4) g/dL ABG Carboxyhemoglobin 3.6 H (0.5-1.5) % POC ABG HHb (Measured) 2.5 (0.0-5.0) % ABG Methemoglobin 1.6 (0.0-3.0) % Paolo Test Na A-a O2 Difference -8.0 mm/Hg Respiratory Index -0.1 Hgb O2 Saturation 92.2 L (95.0-98.0) % Liter Flow 3.0 Vent Mode FiO2 30.0 % Inspiratory BiPAP Expiratory BiPAP Crit Value Called To Ebony alonso rn Crit Value Called By Jah Crit Value Read Back Y Blood Gas Notified Time 1940 Sodium (132-148) mmol/L Potassium (3.6-5.2) mmol/L Chloride (98-107) mmol/L Carbon Dioxide (22-30) mmol/L Anion Gap (10-20) BUN (9-20) mg/dL Creatinine (0.8-1.5) mg/dL Est GFR ( Amer) Est GFR (Non-Af Amer) POC Glucose (mg/dL) (65-110) mg/dL Random Glucose (75-110) mg/dL Calcium (8.6-10.4) mg/dl Phosphorus (2.5-4.5) mg/dL Magnesium (1.6-2.3) mg/dL Iron (49-181) ug/dL TIBC (250-450) ug/dL % Saturation (20-55) Total Bilirubin (0.2-1.3) mg/dL AST (17-59) U/L ALT (21-72) U/L Alkaline Phosphatase (38-126) U/L Troponin I (0.00-0.120) ng/mL NT-Pro-B Natriuret Pep (0-900) pg/mL Total Protein (6.3-8.3) g/dL Albumin (3.5-5.0) g/dL Globulin (2.2-3.9) gm/dL Albumin/Globulin Ratio (1.0-2.1) Urine Color Yellow Yellow (YELLOW) Urine Clarity Hazy Hazy (Clear) Urine pH 5.0 5.0 (5.0-8.0) Ur Specific [place] 1.014 1.014 (1.003-1.030) Urine Protein 1+ H 1+ H (NEGATIVE) mg/dL Urine Glucose (UA) Normal Normal (Normal) mg/dL Urine Ketones Negative Negative (NEGATIVE) mg/dL Urine Blood 3+ H 3+ H (NEGATIVE) Urine Nitrate Negative Negative (NEGATIVE) Urine Bilirubin Negative Negative (NEGATIVE) Urine Urobilinogen Normal Normal (0.2-1.0) mg/dL Ur Leukocyte Esterase Trace Trace (Negative) Javi/uL Urine WBC (Auto) 6 H 5 (0-5) /hpf Urine RBC (Auto) 25 H 26 H (0-3) /hpf Urine Bacteria Rare Rare (<OCC) Hyaline Casts 3-5 H (0-2) /lpf Urine Opiates Screen (NEGATIVE) Urine Methadone Screen (NEGATIVE) Ur Barbiturates Screen (NEGATIVE) Ur Phencyclidine Scrn (NEGATIVE) Ur Amphetamines Screen (NEGATIVE) U Benzodiazepines Scrn (NEGATIVE) U Oth Cocaine Metabols (NEGATIVE) U Cannabinoids Screen (NEGATIVE) 03/01/18 03/01/18 03/01/18 Range/Units 19:19 17:19 17:19 WBC (4.8-10.8) K/uL RBC (4.40-5.90) Mil/uL Hgb (12.0-18.0) g/dL Hct (35.0-51.0) % MCV (80.0-94.0) fL MCH (27.0-31.0) pg MCHC (33.0-37.0) g/dL RDW (11.5-14.5) % Plt Count (130-400) K/uL MPV (7.2-11.7) fL Neut % (Auto) (50.0-75.0) % Lymph % (Auto) (20.0-40.0) % Morris % (Auto) (0.0-10.0) % Eos % (Auto) (0.0-4.0) % Baso % (Auto) (0.0-2.0) % Neut # (Auto) (1.8-7.0) K/uL Lymph # (Auto) (1.0-4.3) K/uL Morris # (Auto) (0.0-0.8) K/uL Eos # (Auto) (0.0-0.7) K/uL Baso # (Auto) (0.0-0.2) K/uL PT 13.4 H (9.7-12.2) SECONDS INR 1.2 APTT 38 H (21-34) SECONDS Puncture Site pCO2 (35-45) mm/Hg pO2 (80-100) mm/Hg HCO3 (21-28) mmol/L ABG pH (7.35-7.45) ABG Total CO2 (22-28) mmol/L ABG O2 Saturation (95-98) % ABG Base Excess (-2.0-3.0) mmol/L ABG Hemoglobin (11.7-17.4) g/dL ABG Carboxyhemoglobin (0.5-1.5) % POC ABG HHb (Measured) (0.0-5.0) % ABG Methemoglobin (0.0-3.0) % Paolo Test A-a O2 Difference mm/Hg Respiratory Index Hgb O2 Saturation (95.0-98.0) % Liter Flow Vent Mode FiO2 % Inspiratory BiPAP Expiratory BiPAP Crit Value Called To Crit Value Called By Crit Value Read Back Blood Gas Notified Time Sodium 139 (132-148) mmol/L Potassium 4.1 (3.6-5.2) mmol/L Chloride 93 L (98-107) mmol/L Carbon Dioxide 38 H (22-30) mmol/L Anion Gap 12 (10-20) BUN 13 (9-20) mg/dL Creatinine 1.0 (0.8-1.5) mg/dL Est GFR ( Amer) > 60 Est GFR (Non-Af Amer) > 60 POC Glucose (mg/dL) 90 (65-110) mg/dL Random Glucose 87 (75-110) mg/dL Calcium 8.8 (8.6-10.4) mg/dl Phosphorus (2.5-4.5) mg/dL Magnesium (1.6-2.3) mg/dL Iron (49-181) ug/dL TIBC (250-450) ug/dL % Saturation (20-55) Total Bilirubin 0.8 (0.2-1.3) mg/dL AST 30 (17-59) U/L ALT 23 (21-72) U/L Alkaline Phosphatase 82 (38-126) U/L Troponin I < 0.0120 (0.00-0.120) ng/mL NT-Pro-B Natriuret Pep 300 (0-900) pg/mL Total Protein 7.2 (6.3-8.3) g/dL Albumin 3.7 (3.5-5.0) g/dL Globulin 3.5 (2.2-3.9) gm/dL Albumin/Globulin Ratio 1.1 (1.0-2.1) Urine Color (YELLOW) Urine Clarity (Clear) Urine pH (5.0-8.0) Ur Specific [place] (1.003-1.030) Urine Protein (NEGATIVE) mg/dL Urine Glucose (UA) (Normal) mg/dL Urine Ketones (NEGATIVE) mg/dL Urine Blood (NEGATIVE) Urine Nitrate (NEGATIVE) Urine Bilirubin (NEGATIVE) Urine Urobilinogen (0.2-1.0) mg/dL Ur Leukocyte Esterase (Negative) Javi/uL Urine WBC (Auto) (0-5) /hpf Urine RBC (Auto) (0-3) /hpf Urine Bacteria (<OCC) Hyaline Casts (0-2) /lpf Urine Opiates Screen (NEGATIVE) Urine Methadone Screen (NEGATIVE) Ur Barbiturates Screen (NEGATIVE) Ur Phencyclidine Scrn (NEGATIVE) Ur Amphetamines Screen (NEGATIVE) U Benzodiazepines Scrn (NEGATIVE) U Oth Cocaine Metabols (NEGATIVE) U Cannabinoids Screen (NEGATIVE) 03/01/18 Range/Units 17:19 WBC 7.9 (4.8-10.8) K/uL RBC 3.83 L (4.40-5.90) Mil/uL Hgb 11.6 L (12.0-18.0) g/dL Hct 35.1 (35.0-51.0) % MCV 91.4 (80.0-94.0) fL MCH 30.3 (27.0-31.0) pg MCHC 33.2 (33.0-37.0) g/dL RDW 15.9 H (11.5-14.5) % Plt Count 240 (130-400) K/uL MPV 7.5 (7.2-11.7) fL Neut % (Auto) 70.5 (50.0-75.0) % Lymph % (Auto) 14.5 L (20.0-40.0) % Morris % (Auto) 4.9 (0.0-10.0) % Eos % (Auto) 9.5 H (0.0-4.0) % Baso % (Auto) 0.6 (0.0-2.0) % Neut # (Auto) 5.6 (1.8-7.0) K/uL Lymph # (Auto) 1.2 (1.0-4.3) K/uL Morris # (Auto) 0.4 (0.0-0.8) K/uL Eos # (Auto) 0.8 H (0.0-0.7) K/uL Baso # (Auto) 0.1 (0.0-0.2) K/uL PT (9.7-12.2) SECONDS INR APTT (21-34) SECONDS Puncture Site pCO2 (35-45) mm/Hg pO2 (80-100) mm/Hg HCO3 (21-28) mmol/L ABG pH (7.35-7.45) ABG Total CO2 (22-28) mmol/L ABG O2 Saturation (95-98) % ABG Base Excess (-2.0-3.0) mmol/L ABG Hemoglobin (11.7-17.4) g/dL ABG Carboxyhemoglobin (0.5-1.5) % POC ABG HHb (Measured) (0.0-5.0) % ABG Methemoglobin (0.0-3.0) % Paolo Test A-a O2 Difference mm/Hg Respiratory Index Hgb O2 Saturation (95.0-98.0) % Liter Flow Vent Mode FiO2 % Inspiratory BiPAP Expiratory BiPAP Crit Value Called To Crit Value Called By Crit Value Read Back Blood Gas Notified Time Sodium (132-148) mmol/L Potassium (3.6-5.2) mmol/L Chloride (98-107) mmol/L Carbon Dioxide (22-30) mmol/L Anion Gap (10-20) BUN (9-20) mg/dL Creatinine (0.8-1.5) mg/dL Est GFR ( Amer) Est GFR (Non-Af Amer) POC Glucose (mg/dL) (65-110) mg/dL Random Glucose (75-110) mg/dL Calcium (8.6-10.4) mg/dl Phosphorus (2.5-4.5) mg/dL Magnesium (1.6-2.3) mg/dL Iron (49-181) ug/dL TIBC (250-450) ug/dL % Saturation (20-55) Total Bilirubin (0.2-1.3) mg/dL AST (17-59) U/L ALT (21-72) U/L Alkaline Phosphatase (38-126) U/L Troponin I (0.00-0.120) ng/mL NT-Pro-B Natriuret Pep (0-900) pg/mL Total Protein (6.3-8.3) g/dL Albumin (3.5-5.0) g/dL Globulin (2.2-3.9) gm/dL Albumin/Globulin Ratio (1.0-2.1) Urine Color (YELLOW) Urine Clarity (Clear) Urine pH (5.0-8.0) Ur Specific [place] (1.003-1.030) Urine Protein (NEGATIVE) mg/dL Urine Glucose (UA) (Normal) mg/dL Urine Ketones (NEGATIVE) mg/dL Urine Blood (NEGATIVE) Urine Nitrate (NEGATIVE) Urine Bilirubin (NEGATIVE) Urine Urobilinogen (0.2-1.0) mg/dL Ur Leukocyte Esterase (Negative) Javi/uL Urine WBC (Auto) (0-5) /hpf Urine RBC (Auto) (0-3) /hpf Urine Bacteria (<OCC) Hyaline Casts (0-2) /lpf Urine Opiates Screen (NEGATIVE) Urine Methadone Screen (NEGATIVE) Ur Barbiturates Screen (NEGATIVE) Ur Phencyclidine Scrn (NEGATIVE) Ur Amphetamines Screen (NEGATIVE) U Benzodiazepines Scrn (NEGATIVE) U Oth Cocaine Metabols (NEGATIVE) U Cannabinoids Screen (NEGATIVE) Laboratory Results - last 24 hr 03/01/1818 03/01/18 17:19 17:19 17:19 WBC 7.9 RBC 3.83 L Hgb 11.6 L Hct 35.1 MCV 91.4 MCH 30.3 MCHC 33.2 RDW 15.9 H Plt Count 240 MPV 7.5 Neut % (Auto) 70.5 Lymph % (Auto) 14.5 L Morris % (Auto) 4.9 Eos % (Auto) 9.5 H Baso % (Auto) 0.6 Neut # (Auto) 5.6 Lymph # (Auto) 1.2 Morris # (Auto) 0.4 Eos # (Auto) 0.8 H Baso # (Auto) 0.1 PT 13.4 H INR 1.2 APTT 38 H Puncture Site pCO2 pO2 HCO3 ABG pH ABG Total CO2 ABG O2 Saturation ABG Base Excess ABG Hemoglobin ABG Carboxyhemoglobin POC ABG HHb (Measured) ABG Methemoglobin Paolo Test A-a O2 Difference Respiratory Index Hgb O2 Saturation Liter Flow Vent Mode FiO2 Inspiratory BiPAP Expiratory BiPAP Crit Value Called To Crit Value Called By Crit Value Read Back Blood Gas Notified Time Sodium 139 Potassium 4.1 Chloride 93 L Carbon Dioxide 38 H Anion Gap 12 BUN 13 Creatinine 1.0 Est GFR ( Amer) > 60 Est GFR (Non-Af Amer) > 60 POC Glucose (mg/dL) Random Glucose 87 Calcium 8.8 Phosphorus Magnesium Iron TIBC % Saturation Total Bilirubin 0.8 AST 30 ALT 23 Alkaline Phosphatase 82 Troponin I < 0.0120 NT-Pro-B Natriuret Pep 300 Total Protein 7.2 Albumin 3.7 Globulin 3.5 Albumin/Globulin Ratio 1.1 Urine Color Urine Clarity Urine pH Ur Specific [place] Urine Protein Urine Glucose (UA) Urine Ketones Urine Blood Urine Nitrate Urine Bilirubin Urine Urobilinogen Ur Leukocyte Esterase Urine WBC (Auto) Urine RBC (Auto) Urine Bacteria Hyaline Casts Urine Opiates Screen Urine Methadone Screen Ur Barbiturates Screen Ur Phencyclidine Scrn Ur Amphetamines Screen U Benzodiazepines Scrn U Oth Cocaine Metabols U Cannabinoids Screen 03/01/18 03/01/18 03/01/18 19:19 19:37 19:49 WBC RBC Hgb Hct MCV MCH MCHC RDW Plt Count MPV Neut % (Auto) Lymph % (Auto) Morris % (Auto) Eos % (Auto) Baso % (Auto) Neut # (Auto) Lymph # (Auto) Morris # (Auto) Eos # (Auto) Baso # (Auto) PT INR APTT Puncture Site Rba pCO2 104 H* pO2 92 HCO3 31.8 H ABG pH 7.20 L ABG Total CO2 43.8 H ABG O2 Saturation 97.4 ABG Base Excess 8.9 H ABG Hemoglobin 12.3 ABG Carboxyhemoglobin 3.6 H POC ABG HHb (Measured) 2.5 ABG Methemoglobin 1.6 Paolo Test Na A-a O2 Difference -8.0 Respiratory Index -0.1 Hgb O2 Saturation 92.2 L Liter Flow 3.0 Vent Mode FiO2 30.0 Inspiratory BiPAP Expiratory BiPAP Crit Value Called To Ebony alonso rn Crit Value Called By Jah Crit Value Read Back Y Blood Gas Notified Time 1940 Sodium Potassium Chloride Carbon Dioxide Anion Gap BUN Creatinine Est GFR ( Amer) Est GFR (Non-Af Amer) POC Glucose (mg/dL) 90 Random Glucose Calcium Phosphorus Magnesium Iron TIBC % Saturation Total Bilirubin AST ALT Alkaline Phosphatase Troponin I NT-Pro-B Natriuret Pep Total Protein Albumin Globulin Albumin/Globulin Ratio Urine Color Yellow Urine Clarity Hazy Urine pH 5.0 Ur Specific [place] 1.014 Urine Protein 1+ H Urine Glucose (UA) Normal Urine Ketones Negative Urine Blood 3+ H Urine Nitrate Negative Urine Bilirubin Negative Urine Urobilinogen Normal Ur Leukocyte Esterase Trace Urine WBC (Auto) 5 Urine RBC (Auto) 26 H Urine Bacteria Rare Hyaline Casts Urine Opiates Screen Urine Methadone Screen Ur Barbiturates Screen Ur Phencyclidine Scrn Ur Amphetamines Screen U Benzodiazepines Scrn U Oth Cocaine Metabols U Cannabinoids Screen 03/01/18 03/01/18 03/01/18 20:11 20:11 21:09 WBC RBC Hgb Hct MCV MCH MCHC RDW Plt Count MPV Neut % (Auto) Lymph % (Auto) Morris % (Auto) Eos % (Auto) Baso % (Auto) Neut # (Auto) Lymph # (Auto) Morris # (Auto) Eos # (Auto) Baso # (Auto) PT INR APTT Puncture Site Rba pCO2 92 H* pO2 64 L HCO3 30.2 H ABG pH 7.22 L ABG Total CO2 40.5 H ABG O2 Saturation 92.8 L ABG Base Excess 7.0 H ABG Hemoglobin 12.1 ABG Carboxyhemoglobin 3.8 H POC ABG HHb (Measured) 6.9 H ABG Methemoglobin 0.9 Paolo Test Na A-a O2 Difference 35.0 Respiratory Index 0.5 Hgb O2 Saturation 88.4 L Liter Flow Vent Mode Bipap FiO2 30.0 Inspiratory BiPAP 15 Expiratory BiPAP 8 Crit Value Called To Ebony villasenor er Crit Value Called By Jah Crit Value Read Back Y Blood Gas Notified Time 2111 Sodium Potassium Chloride Carbon Dioxide Anion Gap BUN Creatinine Est GFR ( Amer) Est GFR (Non-Af Amer) POC Glucose (mg/dL) Random Glucose Calcium Phosphorus Magnesium Iron TIBC % Saturation Total Bilirubin AST ALT Alkaline Phosphatase Troponin I NT-Pro-B Natriuret Pep Total Protein Albumin Globulin Albumin/Globulin Ratio Urine Color Yellow Urine Clarity Hazy Urine pH 5.0 Ur Specific [place] 1.014 Urine Protein 1+ H Urine Glucose (UA) Normal Urine Ketones Negative Urine Blood 3+ H Urine Nitrate Negative Urine Bilirubin Negative Urine Urobilinogen Normal Ur Leukocyte Esterase Trace Urine WBC (Auto) 6 H Urine RBC (Auto) 25 H Urine Bacteria Rare Hyaline Casts 3-5 H Urine Opiates Screen Negative Urine Methadone Screen Positive H Ur Barbiturates Screen Negative Ur Phencyclidine Scrn Negative Ur Amphetamines Screen Negative U Benzodiazepines Scrn Positive U Oth Cocaine Metabols Negative U Cannabinoids Screen Negative 03/02/18 03/02/18 03/02/18 05:34 06:01 06:01 WBC 5.0 RBC 3.54 L Hgb 10.9 L Hct 32.6 L MCV 92.0 MCH 30.9 MCHC 33.6 RDW 15.8 H Plt Count 207 MPV 7.6 Neut % (Auto) 90.2 H Lymph % (Auto) 8.5 L Morris % (Auto) 0.8 Eos % (Auto) 0.1 Baso % (Auto) 0.4 Neut # (Auto) 4.5 Lymph # (Auto) 0.4 L Morris # (Auto) 0.0 Eos # (Auto) 0.0 Baso # (Auto) 0.0 PT INR APTT Puncture Site R brac pCO2 84 H* pO2 67 L HCO3 32.6 H ABG pH 7.28 L ABG Total CO2 42.1 H ABG O2 Saturation 95.0 ABG Base Excess 10.0 H ABG Hemoglobin 11.3 L ABG Carboxyhemoglobin 3.2 H POC ABG HHb (Measured) 4.8 ABG Methemoglobin 1.0 Paolo Test Na A-a O2 Difference 42.0 Respiratory Index 0.6 Hgb O2 Saturation 91.1 L Liter Flow Vent Mode Bipap FiO2 30.0 Inspiratory BiPAP 15 Expiratory BiPAP 8 Crit Value Called To Dr muniz Crit Value Called By Elena carcamo rt Crit Value Read Back Y Blood Gas Notified Time 604 Sodium 139 Potassium 4.8 Chloride 96 L Carbon Dioxide 34 H Anion Gap 14 BUN 16 Creatinine 0.9 Est GFR ( Amer) > 60 Est GFR (Non-Af Amer) > 60 POC Glucose (mg/dL) Random Glucose 127 H Calcium 8.6 Phosphorus 4.7 H Magnesium 2.4 H Iron TIBC % Saturation Total Bilirubin 0.4 AST 30 ALT 28 Alkaline Phosphatase 68 Troponin I NT-Pro-B Natriuret Pep Total Protein 6.7 Albumin 3.5 Globulin 3.2 Albumin/Globulin Ratio 1.1 Urine Color Urine Clarity Urine pH Ur Specific [place] Urine Protein Urine Glucose (UA) Urine Ketones Urine Blood Urine Nitrate Urine Bilirubin Urine Urobilinogen Ur Leukocyte Esterase Urine WBC (Auto) Urine RBC (Auto) Urine Bacteria Hyaline Casts Urine Opiates Screen Urine Methadone Screen Ur Barbiturates Screen Ur Phencyclidine Scrn Ur Amphetamines Screen U Benzodiazepines Scrn U Oth Cocaine Metabols U Cannabinoids Screen 03/02/18 06:01 WBC RBC Hgb Hct MCV MCH MCHC RDW Plt Count MPV Neut % (Auto) Lymph % (Auto) Morris % (Auto) Eos % (Auto) Baso % (Auto) Neut # (Auto) Lymph # (Auto) Morris # (Auto) Eos # (Auto) Baso # (Auto) PT INR APTT Puncture Site pCO2 pO2 HCO3 ABG pH ABG Total CO2 ABG O2 Saturation ABG Base Excess ABG Hemoglobin ABG Carboxyhemoglobin POC ABG HHb (Measured) ABG Methemoglobin Paolo Test A-a O2 Difference Respiratory Index Hgb O2 Saturation Liter Flow Vent Mode FiO2 Inspiratory BiPAP Expiratory BiPAP Crit Value Called To Crit Value Called By Crit Value Read Back Blood Gas Notified Time Sodium Potassium Chloride Carbon Dioxide Anion Gap BUN Creatinine Est GFR ( Amer) Est GFR (Non-Af Amer) POC Glucose (mg/dL) Random Glucose Calcium Phosphorus Magnesium Iron 47 L TIBC 303 % Saturation 16 L Total Bilirubin AST ALT Alkaline Phosphatase Troponin I NT-Pro-B Natriuret Pep Total Protein Albumin Globulin Albumin/Globulin Ratio Urine Color Urine Clarity Urine pH Ur Specific [place] Urine Protein Urine Glucose (UA) Urine Ketones Urine Blood Urine Nitrate Urine Bilirubin Urine Urobilinogen Ur Leukocyte Esterase Urine WBC (Auto) Urine RBC (Auto) Urine Bacteria Hyaline Casts Urine Opiates Screen Urine Methadone Screen Ur Barbiturates Screen Ur Phencyclidine Scrn Ur Amphetamines Screen U Benzodiazepines Scrn U Oth Cocaine Metabols U Cannabinoids Screen EKG/Cardiology Studies: Cardiology / EKG Studies 03/01/18 17:02 ELECTROCARDIOGRAM Stat Comment: Mode Of Transportation: BED Reason For Exam: SOB 03/01/18 20:54 EKG [ELECTROCARDIOGRAM] Stat Comment: BED 4 Mode Of Transportation: STRETCHER Reason For Exam: EKG CHANGES Fingerstick Blood Sugar Results: 90 Results Reviewed to Date: Yes Review of Systems - Review of Systems Systems not reviewed;Unavailable: Uncooperative Critical Care Progress Note - Extremities/Vascular Does the Patient have a Central Venous Catheter?: No Does the Patient need a Central Venous Catheter?: No Does the Patient have a Ballesteros Catheter?: No Does the Patient need a Ballesteros Catheter?: No - Prophylaxis GI Prophylaxis GI: PPI - Prophylaxis DVT Prophylaxis DVT: Lovenox Assessment/Plan - Assessment and Plan (Free Text) Assessment: Patient is a 62 male with a history of COPD, CHF, CAD, ASHLEY, and drug abuse on methadone who presented to the ED with acute onset SOB. Patient was admitted to ICU due to respiratory distress, lethargy, and need for BiPAP. Patient is now saturating well on NC. Plan: Neuro: - Previously lethargic- resolved - Monitor mental status CV: - ASA 81 mg PO daily - Plavix 75 mg PO daily - Coreg 12.5 mg PO BID - Lasix 40 mg PO daily - Monitor vitals Pulm: - Maintain spO2>92%- supplemental O2 PRN - ABG: respiratory acidosis resolved, pH 7.36, pC02 66, pO2 60 - CXR: no active disease - CT chest pending - Albuterol Q4H PRN - Breo Ellipta daily - Solu-medrol 60 mg IV Q8H GI: - Heart healthy diet : - I's & O's - Replete electrolytes PRN Endo: - Maintain euglycemia - Free T4, total T4 - Synthroid 88 mcg PO daily Heme: - Hgb 10.9 - B12, folate wnl - Iron low (47), TIBC 303, %sat low (16) - FOBT pending - Monitor H&H ID: - No leukocytosis, afebrile - Azithromycin 500 mg IV daily - Rocephin 1 g IV daily Psych: - UDS positive for methadone, benzo - Methadone 85 mg PO daily- confirmed with [facility] - Will give Methadone 50 mg PO today due to decreased respiratory drive - Patient takes Xanax 1 mg PO BID- hold - Paxil 20 mg PO daily PPx: VTE: Lovenox 40 mg SC daily GI: Pepcid 20 mg PO BID Code status: full code Case discussed with attending, Dr. Vega. PGY-1 Zelda Matos D.O. <Pawel Vega S - Last Filed: 03/02/18 17:11> CCU Objective - Vital Signs / Intake & Output Intake and Output (Last 8hrs): Intake & Output 03/02/18 03/02/18 03/02/18 06:59 14:59 22:59 Intake Total 50 950 Output Total 200 1000 Balance -150 -50 Weight 232 lb 9.6 oz Intake: Intake, IV Amount 350 Left Antecubital 350 Oral 50 600 Output: Stool 200 1000 Other: # Bowel Movements 1 - Medications Active Medications: Active Medications Generic Name Dose Route Start Last Admin Trade Name Freq PRN Reason Stop Dose Admin Albuterol Sulfate 2.5 mg 03/01/18 19:44 Albuterol 0.083% Inhal Ariana (2.5 Mg/3 Ml) Ud INH RQ4 PRN Wheezing Aspirin 81 mg 03/02/18 12:30 03/02/18 11:30 Ecotrin PO Not Given DAILY JOANN Carvedilol 12.5 mg 03/02/18 10:00 03/02/18 09:44 Coreg PO 12.5 mg BID JOANN Administration Clopidogrel Bisulfate 75 mg 03/02/18 12:30 03/02/18 11:30 Plavix PO 75 mg DAILY JOANN Administration Enoxaparin Sodium 40 mg 03/02/18 10:00 03/02/18 09:44 Lovenox SC 40 mg DAILY JOANN Administration Famotidine 20 mg 03/02/18 18:00 Pepcid PO BID JOANN Fluticasone/Vilanterol 1 puff 03/02/18 08:00 03/02/18 10:22 Breo Ellipta 200-25 Mcg Inh INH 1 puff RQD JOANN Administration Furosemide 40 mg 03/02/18 10:00 11/07/18 09:45 Lasix PO 40 mg DAILY JOANN Administration Azithromycin 500 mg/ Sodium 250 mls @ 250 mls/hr 03/02/18 10:00 03/02/18 10:48 Chloride IVPB 250 mls/hr DAILY JOANN Administration Protocol Ceftriaxone Sodium 1 gm/ 100 mls @ 100 mls/hr 03/02/18 10:00 03/02/18 09:46 Sodium Chloride IVPB 100 mls/hr DAILY JOANN Administration Protocol Methylprednisolone 60 mg 03/01/18 22:00 03/02/18 14:33 Solu-Medrol IVP 60 mg Q8 JOANN Administration Paroxetine HCl 20 mg 03/02/18 12:30 03/02/18 12:38 Paxil PO 20 mg DAILY JOANN Administration - Patient Studies Lab Studies: Lab Studies 03/02/18 03/02/18 03/02/18 Range/Units 12:46 06:01 06:01 WBC (4.8-10.8) K/uL RBC (4.40-5.90) Mil/uL Hgb (12.0-18.0) g/dL Hct (35.0-51.0) % MCV (80.0-94.0) fL MCH (27.0-31.0) pg MCHC (33.0-37.0) g/dL RDW (11.5-14.5) % Plt Count (130-400) K/uL MPV (7.2-11.7) fL Neut % (Auto) (50.0-75.0) % Lymph % (Auto) (20.0-40.0) % Morris % (Auto) (0.0-10.0) % Eos % (Auto) (0.0-4.0) % Baso % (Auto) (0.0-2.0) % Neut # (Auto) (1.8-7.0) K/uL Lymph # (Auto) (1.0-4.3) K/uL Morris # (Auto) (0.0-0.8) K/uL Eos # (Auto) (0.0-0.7) K/uL Baso # (Auto) (0.0-0.2) K/uL Neutrophils % (Manual) (50-75) % Band Neutrophils % (0-2) % Lymphocytes % (Manual) (20-40) % Monocytes % (Manual) Platelet Estimate (NORMAL) Hypochromasia (manual) Poikilocytosis (manual Anisocytosis (manual) PT (9.7-12.2) SECONDS INR APTT (21-34) SECONDS Puncture Site Rra pCO2 66 H (35-45) mm/Hg pO2 60 L (80-100) mm/Hg HCO3 31.9 H (21-28) mmol/L ABG pH 7.36 (7.35-7.45) ABG Total CO2 39.3 H (22-28) mmol/L ABG O2 Saturation 93.9 L (95-98) % ABG Base Excess 9.2 H (-2.0-3.0) mmol/L ABG Hemoglobin (11.7-17.4) g/dL ABG Carboxyhemoglobin (0.5-1.5) % POC ABG HHb (Measured) (0.0-5.0) % ABG Methemoglobin (0.0-3.0) % Paolo Test Pos ABG Potassium 4.4 (3.6-5.2) mmol/L A-a O2 Difference 71.0 mm/Hg Respiratory Index 1.2 Hgb O2 Saturation (95.0-98.0) % Glucose 115 H (75-110) mg/dl Lactate 0.9 (0.7-2.1) mmol/L Liter Flow Vent Mode Bipap FiO2 30.0 % Inspiratory BiPAP 15 Expiratory BiPAP 8 Crit Value Called To Crit Value Called By Crit Value Read Back Blood Gas Notified Time Sodium 139.0 139 (132-148) mmol/L Potassium 4.8 (3.6-5.2) mmol/L Chloride 103.0 96 L (98-107) mmol/L Carbon Dioxide 34 H (22-30) mmol/L Anion Gap 14 (10-20) BUN 16 (9-20) mg/dL Creatinine 0.9 (0.8-1.5) mg/dL Est GFR ( Amer) > 60 Est GFR (Non-Af Amer) > 60 POC Glucose (mg/dL) (65-110) mg/dL Random Glucose 127 H (75-110) mg/dL Calcium 8.6 (8.6-10.4) mg/dl Phosphorus 4.7 H (2.5-4.5) mg/dL Magnesium 2.4 H (1.6-2.3) mg/dL Iron 47 L (49-181) ug/dL TIBC 303 (250-450) ug/dL % Saturation 16 L (20-55) Total Bilirubin 0.4 (0.2-1.3) mg/dL AST 30 (17-59) U/L ALT 28 (21-72) U/L Alkaline Phosphatase 68 (38-126) U/L Troponin I (0.00-0.120) ng/mL NT-Pro-B Natriuret Pep (0-900) pg/mL Total Protein 6.7 (6.3-8.3) g/dL Albumin 3.5 (3.5-5.0) g/dL Globulin 3.2 (2.2-3.9) gm/dL Albumin/Globulin Ratio 1.1 (1.0-2.1) Vitamin B12 817 (239-931) pg/mL Folate > 20.0 ng/mL Arterial Blood Potassium 4.4 (3.6-5.2) mmol/L Urine Color (YELLOW) Urine Clarity (Clear) Urine pH (5.0-8.0) Ur Specific [place] (1.003-1.030) Urine Protein (NEGATIVE) mg/dL Urine Glucose (UA) (Normal) mg/dL Urine Ketones (NEGATIVE) mg/dL Urine Blood (NEGATIVE) Urine Nitrate (NEGATIVE) Urine Bilirubin (NEGATIVE) Urine Urobilinogen (0.2-1.0) mg/dL Ur Leukocyte Esterase (Negative) Javi/uL Urine WBC (Auto) (0-5) /hpf Urine RBC (Auto) (0-3) /hpf Urine Bacteria (<OCC) Hyaline Casts (0-2) /lpf Urine Opiates Screen (NEGATIVE) Urine Methadone Screen (NEGATIVE) Ur Barbiturates Screen (NEGATIVE) Ur Phencyclidine Scrn (NEGATIVE) Ur Amphetamines Screen (NEGATIVE) U Benzodiazepines Scrn (NEGATIVE) U Oth Cocaine Metabols (NEGATIVE) U Cannabinoids Screen (NEGATIVE) 03/02/18 03/02/18 03/01/18 Range/Units 06:01 05:34 21:09 WBC 5.0 (4.8-10.8) K/uL RBC 3.54 L (4.40-5.90) Mil/uL Hgb 10.9 L (12.0-18.0) g/dL Hct 32.6 L (35.0-51.0) % MCV 92.0 (80.0-94.0) fL MCH 30.9 (27.0-31.0) pg MCHC 33.6 (33.0-37.0) g/dL RDW 15.8 H (11.5-14.5) % Plt Count 207 (130-400) K/uL MPV 7.6 (7.2-11.7) fL Neut % (Auto) 90.2 H (50.0-75.0) % Lymph % (Auto) 8.5 L (20.0-40.0) % Morris % (Auto) 0.8 (0.0-10.0) % Eos % (Auto) 0.1 (0.0-4.0) % Baso % (Auto) 0.4 (0.0-2.0) % Neut # (Auto) 4.5 (1.8-7.0) K/uL Lymph # (Auto) 0.4 L (1.0-4.3) K/uL Morris # (Auto) 0.0 (0.0-0.8) K/uL Eos # (Auto) 0.0 (0.0-0.7) K/uL Baso # (Auto) 0.0 (0.0-0.2) K/uL Neutrophils % (Manual) 95 H (50-75) % Band Neutrophils % 1 (0-2) % Lymphocytes % (Manual) 4 L (20-40) % Monocytes % (Manual) TEST NOT PERFORMED Platelet Estimate Normal (NORMAL) Hypochromasia (manual) Slight Poikilocytosis (manual Slight Anisocytosis (manual) Slight PT (9.7-12.2) SECONDS INR APTT (21-34) SECONDS Puncture Site R brac Rba pCO2 84 H* 92 H* (35-45) mm/Hg pO2 67 L 64 L (80-100) mm/Hg HCO3 32.6 H 30.2 H (21-28) mmol/L ABG pH 7.28 L 7.22 L (7.35-7.45) ABG Total CO2 42.1 H 40.5 H (22-28) mmol/L ABG O2 Saturation 95.0 92.8 L (95-98) % ABG Base Excess 10.0 H 7.0 H (-2.0-3.0) mmol/L ABG Hemoglobin 11.3 L 12.1 (11.7-17.4) g/dL ABG Carboxyhemoglobin 3.2 H 3.8 H (0.5-1.5) % POC ABG HHb (Measured) 4.8 6.9 H (0.0-5.0) % ABG Methemoglobin 1.0 0.9 (0.0-3.0) % Paolo Test Na Na ABG Potassium (3.6-5.2) mmol/L A-a O2 Difference 42.0 35.0 mm/Hg Respiratory Index 0.6 0.5 Hgb O2 Saturation 91.1 L 88.4 L (95.0-98.0) % Glucose (75-110) mg/dl Lactate (0.7-2.1) mmol/L Liter Flow Vent Mode Bipap Bipap FiO2 30.0 30.0 % Inspiratory BiPAP 15 15 Expiratory BiPAP 8 8 Crit 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 Crit Value Called By Elena carcamo rt Lendl Crit Value Read Back Y Y Blood Gas Notified Time [id number] Sodium (132-148) mmol/L Potassium (3.6-5.2) mmol/L Chloride (98-107) mmol/L Carbon Dioxide (22-30) mmol/L Anion Gap (10-20) BUN (9-20) mg/dL Creatinine (0.8-1.5) mg/dL Est GFR ( Amer) Est GFR (Non-Af Amer) POC Glucose (mg/dL) (65-110) mg/dL Random Glucose (75-110) mg/dL Calcium (8.6-10.4) mg/dl Phosphorus (2.5-4.5) mg/dL Magnesium (1.6-2.3) mg/dL Iron (49-181) ug/dL TIBC (250-450) ug/dL % Saturation (20-55) Total Bilirubin (0.2-1.3) mg/dL AST (17-59) U/L ALT (21-72) U/L Alkaline Phosphatase (38-126) U/L Troponin I (0.00-0.120) ng/mL NT-Pro-B Natriuret Pep (0-900) pg/mL Total Protein (6.3-8.3) g/dL Albumin (3.5-5.0) g/dL Globulin (2.2-3.9) gm/dL Albumin/Globulin Ratio (1.0-2.1) Vitamin B12 (239-931) pg/mL Folate ng/mL Arterial Blood Potassium (3.6-5.2) mmol/L Urine Color (YELLOW) Urine Clarity (Clear) Urine pH (5.0-8.0) Ur Specific [place] (1.003-1.030) Urine Protein (NEGATIVE) mg/dL Urine Glucose (UA) (Normal) mg/dL Urine Ketones (NEGATIVE) mg/dL Urine Blood (NEGATIVE) Urine Nitrate (NEGATIVE) Urine Bilirubin (NEGATIVE) Urine Urobilinogen (0.2-1.0) mg/dL Ur Leukocyte Esterase (Negative) Javi/uL Urine WBC (Auto) (0-5) /hpf Urine RBC (Auto) (0-3) /hpf Urine Bacteria (<OCC) Hyaline Casts (0-2) /lpf Urine Opiates Screen (NEGATIVE) Urine Methadone Screen (NEGATIVE) Ur Barbiturates Screen (NEGATIVE) Ur Phencyclidine Scrn (NEGATIVE) Ur Amphetamines Screen (NEGATIVE) U Benzodiazepines Scrn (NEGATIVE) U Oth Cocaine Metabols (NEGATIVE) U Cannabinoids Screen (NEGATIVE) 03/01/18 03/01/18 03/01/18 Range/Units 20:11 20:11 19:49 WBC (4.8-10.8) K/uL RBC (4.40-5.90) Mil/uL Hgb (12.0-18.0) g/dL Hct (35.0-51.0) % MCV (80.0-94.0) fL MCH (27.0-31.0) pg MCHC (33.0-37.0) g/dL RDW (11.5-14.5) % Plt Count (130-400) K/uL MPV (7.2-11.7) fL Neut % (Auto) (50.0-75.0) % Lymph % (Auto) (20.0-40.0) % Morris % (Auto) (0.0-10.0) % Eos % (Auto) (0.0-4.0) % Baso % (Auto) (0.0-2.0) % Neut # (Auto) (1.8-7.0) K/uL Lymph # (Auto) (1.0-4.3) K/uL Morris # (Auto) (0.0-0.8) K/uL Eos # (Auto) (0.0-0.7) K/uL Baso # (Auto) (0.0-0.2) K/uL Neutrophils % (Manual) (50-75) % Band Neutrophils % (0-2) % Lymphocytes % (Manual) (20-40) % Monocytes % (Manual) Platelet Estimate (NORMAL) Hypochromasia (manual) Poikilocytosis (manual Anisocytosis (manual) PT (9.7-12.2) SECONDS INR APTT (21-34) SECONDS Puncture Site pCO2 (35-45) mm/Hg pO2 (80-100) mm/Hg HCO3 (21-28) mmol/L ABG pH (7.35-7.45) ABG Total CO2 (22-28) mmol/L ABG O2 Saturation (95-98) % ABG Base Excess (-2.0-3.0) mmol/L ABG Hemoglobin (11.7-17.4) g/dL ABG Carboxyhemoglobin (0.5-1.5) % POC ABG HHb (Measured) (0.0-5.0) % ABG Methemoglobin (0.0-3.0) % Paolo Test ABG Potassium (3.6-5.2) mmol/L A-a O2 Difference mm/Hg Respiratory Index Hgb O2 Saturation (95.0-98.0) % Glucose (75-110) mg/dl Lactate (0.7-2.1) mmol/L Liter Flow Vent Mode FiO2 % Inspiratory BiPAP Expiratory BiPAP Crit Value Called To Crit Value Called By Crit Value Read Back Blood Gas Notified Time Sodium (132-148) mmol/L Potassium (3.6-5.2) mmol/L Chloride (98-107) mmol/L Carbon Dioxide (22-30) mmol/L Anion Gap (10-20) BUN (9-20) mg/dL Creatinine (0.8-1.5) mg/dL Est GFR ( Amer) Est GFR (Non-Af Amer) POC Glucose (mg/dL) (65-110) mg/dL Random Glucose (75-110) mg/dL Calcium (8.6-10.4) mg/dl Phosphorus (2.5-4.5) mg/dL Magnesium (1.6-2.3) mg/dL Iron (49-181) ug/dL TIBC (250-450) ug/dL % Saturation (20-55) Total Bilirubin (0.2-1.3) mg/dL AST (17-59) U/L ALT (21-72) U/L Alkaline Phosphatase (38-126) U/L Troponin I (0.00-0.120) ng/mL NT-Pro-B Natriuret Pep (0-900) pg/mL Total Protein (6.3-8.3) g/dL Albumin (3.5-5.0) g/dL Globulin (2.2-3.9) gm/dL Albumin/Globulin Ratio (1.0-2.1) Vitamin B12 (239-931) pg/mL Folate ng/mL Arterial Blood Potassium (3.6-5.2) mmol/L Urine Color Yellow Yellow (YELLOW) Urine Clarity Hazy Hazy (Clear) Urine pH 5.0 5.0 (5.0-8.0) Ur Specific [place] 1.014 1.014 (1.003-1.030) Urine Protein 1+ H 1+ H (NEGATIVE) mg/dL Urine Glucose (UA) Normal Normal (Normal) mg/dL Urine Ketones Negative Negative (NEGATIVE) mg/dL Urine Blood 3+ H 3+ H (NEGATIVE) Urine Nitrate Negative Negative (NEGATIVE) Urine Bilirubin Negative Negative (NEGATIVE) Urine Urobilinogen Normal Normal (0.2-1.0) mg/dL Ur Leukocyte Esterase Trace Trace (Negative) Javi/uL Urine WBC (Auto) 6 H 5 (0-5) /hpf Urine RBC (Auto) 25 H 26 H (0-3) /hpf Urine Bacteria Rare Rare (<OCC) Hyaline Casts 3-5 H (0-2) /lpf Urine Opiates Screen Negative (NEGATIVE) Urine Methadone Screen Positive H (NEGATIVE) Ur Barbiturates Screen Negative (NEGATIVE) Ur Phencyclidine Scrn Negative (NEGATIVE) Ur Amphetamines Screen Negative (NEGATIVE) U Benzodiazepines Scrn Positive (NEGATIVE) U Oth Cocaine Metabols Negative (NEGATIVE) U Cannabinoids Screen Negative (NEGATIVE) 03/01/18 03/01/18 03/01/18 Range/Units 19:37 19:19 17:19 WBC (4.8-10.8) K/uL RBC (4.40-5.90) Mil/uL Hgb (12.0-18.0) g/dL Hct (35.0-51.0) % MCV (80.0-94.0) fL MCH (27.0-31.0) pg MCHC (33.0-37.0) g/dL RDW (11.5-14.5) % Plt Count (130-400) K/uL MPV (7.2-11.7) fL Neut % (Auto) (50.0-75.0) % Lymph % (Auto) (20.0-40.0) % Morris % (Auto) (0.0-10.0) % Eos % (Auto) (0.0-4.0) % Baso % (Auto) (0.0-2.0) % Neut # (Auto) (1.8-7.0) K/uL Lymph # (Auto) (1.0-4.3) K/uL Morris # (Auto) (0.0-0.8) K/uL Eos # (Auto) (0.0-0.7) K/uL Baso # (Auto) (0.0-0.2) K/uL Neutrophils % (Manual) (50-75) % Band Neutrophils % (0-2) % Lymphocytes % (Manual) (20-40) % Monocytes % (Manual) Platelet Estimate (NORMAL) Hypochromasia (manual) Poikilocytosis (manual Anisocytosis (manual) PT (9.7-12.2) SECONDS INR APTT (21-34) SECONDS Puncture Site Rba pCO2 104 H* (35-45) mm/Hg pO2 92 (80-100) mm/Hg HCO3 31.8 H (21-28) mmol/L ABG pH 7.20 L (7.35-7.45) ABG Total CO2 43.8 H (22-28) mmol/L ABG O2 Saturation 97.4 (95-98) % ABG Base Excess 8.9 H (-2.0-3.0) mmol/L ABG Hemoglobin 12.3 (11.7-17.4) g/dL ABG Carboxyhemoglobin 3.6 H (0.5-1.5) % POC ABG HHb (Measured) 2.5 (0.0-5.0) % ABG Methemoglobin 1.6 (0.0-3.0) % Paolo Test Na ABG Potassium (3.6-5.2) mmol/L A-a O2 Difference -8.0 mm/Hg Respiratory Index -0.1 Hgb O2 Saturation 92.2 L (95.0-98.0) % Glucose (75-110) mg/dl Lactate (0.7-2.1) mmol/L Liter Flow 3.0 Vent Mode FiO2 30.0 % Inspiratory BiPAP Expiratory BiPAP Crit Value Called To Ebony alonso rn Crit Value Called By Jah Crit Value Read Back Y Blood Gas Notified Time 1940 Sodium 139 (132-148) mmol/L Potassium 4.1 (3.6-5.2) mmol/L Chloride 93 L (98-107) mmol/L Carbon Dioxide 38 H (22-30) mmol/L Anion Gap 12 (10-20) BUN 13 (9-20) mg/dL Creatinine 1.0 (0.8-1.5) mg/dL Est GFR ( Amer) > 60 Est GFR (Non-Af Amer) > 60 POC Glucose (mg/dL) 90 (65-110) mg/dL Random Glucose 87 (75-110) mg/dL Calcium 8.8 (8.6-10.4) mg/dl Phosphorus (2.5-4.5) mg/dL Magnesium (1.6-2.3) mg/dL Iron (49-181) ug/dL TIBC (250-450) ug/dL % Saturation (20-55) Total Bilirubin 0.8 (0.2-1.3) mg/dL AST 30 (17-59) U/L ALT 23 (21-72) U/L Alkaline Phosphatase 82 (38-126) U/L Troponin I < 0.0120 (0.00-0.120) ng/mL NT-Pro-B Natriuret Pep 300 (0-900) pg/mL Total Protein 7.2 (6.3-8.3) g/dL Albumin 3.7 (3.5-5.0) g/dL Globulin 3.5 (2.2-3.9) gm/dL Albumin/Globulin Ratio 1.1 (1.0-2.1) Vitamin B12 (239-931) pg/mL Folate ng/mL Arterial Blood Potassium (3.6-5.2) mmol/L Urine Color (YELLOW) Urine Clarity (Clear) Urine pH (5.0-8.0) Ur Specific [place] (1.003-1.030) Urine Protein (NEGATIVE) mg/dL Urine Glucose (UA) (Normal) mg/dL Urine Ketones (NEGATIVE) mg/dL Urine Blood (NEGATIVE) Urine Nitrate (NEGATIVE) Urine Bilirubin (NEGATIVE) Urine Urobilinogen (0.2-1.0) mg/dL Ur Leukocyte Esterase (Negative) Javi/uL Urine WBC (Auto) (0-5) /hpf Urine RBC (Auto) (0-3) /hpf Urine Bacteria (<OCC) Hyaline Casts (0-2) /lpf Urine Opiates Screen (NEGATIVE) Urine Methadone Screen (NEGATIVE) Ur Barbiturates Screen (NEGATIVE) Ur Phencyclidine Scrn (NEGATIVE) Ur Amphetamines Screen (NEGATIVE) U Benzodiazepines Scrn (NEGATIVE) U Oth Cocaine Metabols (NEGATIVE) U Cannabinoids Screen (NEGATIVE) 03/01/18 03/01/18 Range/Units 17:19 17:19 WBC 7.9 (4.8-10.8) K/uL RBC 3.83 L (4.40-5.90) Mil/uL Hgb 11.6 L (12.0-18.0) g/dL Hct 35.1 (35.0-51.0) % MCV 91.4 (80.0-94.0) fL MCH 30.3 (27.0-31.0) pg MCHC 33.2 (33.0-37.0) g/dL RDW 15.9 H (11.5-14.5) % Plt Count 240 (130-400) K/uL MPV 7.5 (7.2-11.7) fL Neut % (Auto) 70.5 (50.0-75.0) % Lymph % (Auto) 14.5 L (20.0-40.0) % Morris % (Auto) 4.9 (0.0-10.0) % Eos % (Auto) 9.5 H (0.0-4.0) % Baso % (Auto) 0.6 (0.0-2.0) % Neut # (Auto) 5.6 (1.8-7.0) K/uL Lymph # (Auto) 1.2 (1.0-4.3) K/uL Morris # (Auto) 0.4 (0.0-0.8) K/uL Eos # (Auto) 0.8 H (0.0-0.7) K/uL Baso # (Auto) 0.1 (0.0-0.2) K/uL Neutrophils % (Manual) (50-75) % Band Neutrophils % (0-2) % Lymphocytes % (Manual) (20-40) % Monocytes % (Manual) Platelet Estimate (NORMAL) Hypochromasia (manual) Poikilocytosis (manual Anisocytosis (manual) PT 13.4 H (9.7-12.2) SECONDS INR 1.2 APTT 38 H (21-34) SECONDS Puncture Site pCO2 (35-45) mm/Hg pO2 (80-100) mm/Hg HCO3 (21-28) mmol/L ABG pH (7.35-7.45) ABG Total CO2 (22-28) mmol/L ABG O2 Saturation (95-98) % ABG Base Excess (-2.0-3.0) mmol/L ABG Hemoglobin (11.7-17.4) g/dL ABG Carboxyhemoglobin (0.5-1.5) % POC ABG HHb (Measured) (0.0-5.0) % ABG Methemoglobin (0.0-3.0) % Paolo Test ABG Potassium (3.6-5.2) mmol/L A-a O2 Difference mm/Hg Respiratory Index Hgb O2 Saturation (95.0-98.0) % Glucose (75-110) mg/dl Lactate (0.7-2.1) mmol/L Liter Flow Vent Mode FiO2 % Inspiratory BiPAP Expiratory BiPAP Crit Value Called To Crit Value Called By Crit Value Read Back Blood Gas Notified Time Sodium (132-148) mmol/L Potassium (3.6-5.2) mmol/L Chloride (98-107) mmol/L Carbon Dioxide (22-30) mmol/L Anion Gap (10-20) BUN (9-20) mg/dL Creatinine (0.8-1.5) mg/dL Est GFR ( Amer) Est GFR (Non-Af Amer) POC Glucose (mg/dL) (65-110) mg/dL Random Glucose (75-110) mg/dL Calcium (8.6-10.4) mg/dl Phosphorus (2.5-4.5) mg/dL Magnesium (1.6-2.3) mg/dL Iron (49-181) ug/dL TIBC (250-450) ug/dL % Saturation (20-55) Total Bilirubin (0.2-1.3) mg/dL AST (17-59) U/L ALT (21-72) U/L Alkaline Phosphatase (38-126) U/L Troponin I (0.00-0.120) ng/mL NT-Pro-B Natriuret Pep (0-900) pg/mL Total Protein (6.3-8.3) g/dL Albumin (3.5-5.0) g/dL Globulin (2.2-3.9) gm/dL Albumin/Globulin Ratio (1.0-2.1) Vitamin B12 (239-931) pg/mL Folate ng/mL Arterial Blood Potassium (3.6-5.2) mmol/L Urine Color (YELLOW) Urine Clarity (Clear) Urine pH (5.0-8.0) Ur Specific [place] (1.003-1.030) Urine Protein (NEGATIVE) mg/dL Urine Glucose (UA) (Normal) mg/dL Urine Ketones (NEGATIVE) mg/dL Urine Blood (NEGATIVE) Urine Nitrate (NEGATIVE) Urine Bilirubin (NEGATIVE) Urine Urobilinogen (0.2-1.0) mg/dL Ur Leukocyte Esterase (Negative) Javi/uL Urine WBC (Auto) (0-5) /hpf Urine RBC (Auto) (0-3) /hpf Urine Bacteria (<OCC) Hyaline Casts (0-2) /lpf Urine Opiates Screen (NEGATIVE) Urine Methadone Screen (NEGATIVE) Ur Barbiturates Screen (NEGATIVE) Ur Phencyclidine Scrn (NEGATIVE) Ur Amphetamines Screen (NEGATIVE) U Benzodiazepines Scrn (NEGATIVE) U Oth Cocaine Metabols (NEGATIVE) U Cannabinoids Screen (NEGATIVE) Laboratory Results - last 24 hr 03/01/18 03/01/1818 17:19 17:19 17:19 WBC 7.9 RBC 3.83 L Hgb 11.6 L Hct 35.1 MCV 91.4 MCH 30.3 MCHC 33.2 RDW 15.9 H Plt Count 240 MPV 7.5 Neut % (Auto) 70.5 Lymph % (Auto) 14.5 L Morris % (Auto) 4.9 Eos % (Auto) 9.5 H Baso % (Auto) 0.6 Neut # (Auto) 5.6 Lymph # (Auto) 1.2 Morris # (Auto) 0.4 Eos # (Auto) 0.8 H Baso # (Auto) 0.1 Neutrophils % (Manual) Band Neutrophils % Lymphocytes % (Manual) Monocytes % (Manual) Platelet Estimate Hypochromasia (manual) Poikilocytosis (manual Anisocytosis (manual) PT 13.4 H INR 1.2 APTT 38 H Puncture Site pCO2 pO2 HCO3 ABG pH ABG Total CO2 ABG O2 Saturation ABG Base Excess ABG Hemoglobin ABG Carboxyhemoglobin POC ABG HHb (Measured) ABG Methemoglobin Paolo Test ABG Potassium A-a O2 Difference Respiratory Index Hgb O2 Saturation Glucose Lactate Liter Flow Vent Mode FiO2 Inspiratory BiPAP Expiratory BiPAP Crit Value Called To Crit Value Called By Crit Value Read Back Blood Gas Notified Time Sodium 139 Potassium 4.1 Chloride 93 L Carbon Dioxide 38 H Anion Gap 12 BUN 13 Creatinine 1.0 Est GFR ( Amer) > 60 Est GFR (Non-Af Amer) > 60 POC Glucose (mg/dL) Random Glucose 87 Calcium 8.8 Phosphorus Magnesium Iron TIBC % Saturation Total Bilirubin 0.8 AST 30 ALT 23 Alkaline Phosphatase 82 Troponin I < 0.0120 NT-Pro-B Natriuret Pep 300 Total Protein 7.2 Albumin 3.7 Globulin 3.5 Albumin/Globulin Ratio 1.1 Vitamin B12 Folate Arterial Blood Potassium Urine Color Urine Clarity Urine pH Ur Specific [place] Urine Protein Urine Glucose (UA) Urine Ketones Urine Blood Urine Nitrate Urine Bilirubin Urine Urobilinogen Ur Leukocyte Esterase Urine WBC (Auto) Urine RBC (Auto) Urine Bacteria Hyaline Casts Urine Opiates Screen Urine Methadone Screen Ur Barbiturates Screen Ur Phencyclidine Scrn Ur Amphetamines Screen U Benzodiazepines Scrn U Oth Cocaine Metabols U Cannabinoids Screen 03/01/18 03/01/18 03/01/18 19:19 19:37 19:49 WBC RBC Hgb Hct MCV MCH MCHC RDW Plt Count MPV Neut % (Auto) Lymph % (Auto) Morris % (Auto) Eos % (Auto) Baso % (Auto) Neut # (Auto) Lymph # (Auto) Morris # (Auto) Eos # (Auto) Baso # (Auto) Neutrophils % (Manual) Band Neutrophils % Lymphocytes % (Manual) Monocytes % (Manual) Platelet Estimate Hypochromasia (manual) Poikilocytosis (manual Anisocytosis (manual) PT INR APTT Puncture Site Rba pCO2 104 H* pO2 92 HCO3 31.8 H ABG pH 7.20 L ABG Total CO2 43.8 H ABG O2 Saturation 97.4 ABG Base Excess 8.9 H ABG Hemoglobin 12.3 ABG Carboxyhemoglobin 3.6 H POC ABG HHb (Measured) 2.5 ABG Methemoglobin 1.6 [place] Test Na ABG Potassium A-a O2 Difference -8.0 Respiratory Index -0.1 Hgb O2 Saturation 92.2 L Glucose Lactate Liter Flow 3.0 Vent Mode FiO2 30.0 Inspiratory BiPAP Expiratory BiPAP Crit Value Called To Ebony alonso rn Crit Value Called By Jah Crit Value Read Back Y Blood Gas Notified Time 1940 Sodium Potassium Chloride Carbon Dioxide Anion Gap BUN Creatinine Est GFR ( Amer) Est GFR (Non-Af Amer) POC Glucose (mg/dL) 90 Random Glucose Calcium Phosphorus Magnesium Iron TIBC % Saturation Total Bilirubin AST ALT Alkaline Phosphatase Troponin I NT-Pro-B Natriuret Pep Total Protein Albumin Globulin Albumin/Globulin Ratio Vitamin B12 Folate Arterial Blood Potassium Urine Color Yellow Urine Clarity Hazy Urine pH 5.0 Ur Specific [place] 1.014 Urine Protein 1+ H Urine Glucose (UA) Normal Urine Ketones Negative Urine Blood 3+ H Urine Nitrate Negative Urine Bilirubin Negative Urine Urobilinogen Normal Ur Leukocyte Esterase Trace Urine WBC (Auto) 5 Urine RBC (Auto) 26 H Urine Bacteria Rare Hyaline Casts Urine Opiates Screen Urine Methadone Screen Ur Barbiturates Screen Ur Phencyclidine Scrn Ur Amphetamines Screen U Benzodiazepines Scrn U Oth Cocaine Metabols U Cannabinoids Screen 03/01/18 03/01/18 03/01/18 20:11 20:11 21:09 WBC RBC Hgb Hct MCV MCH MCHC RDW Plt Count MPV Neut % (Auto) Lymph % (Auto) Morris % (Auto) Eos % (Auto) Baso % (Auto) Neut # (Auto) Lymph # (Auto) Morris # (Auto) Eos # (Auto) Baso # (Auto) Neutrophils % (Manual) Band Neutrophils % Lymphocytes % (Manual) Monocytes % (Manual) Platelet Estimate Hypochromasia (manual) Poikilocytosis (manual Anisocytosis (manual) PT INR APTT Puncture Site Rba pCO2 92 H* pO2 64 L HCO3 30.2 H ABG pH 7.22 L ABG Total CO2 40.5 H ABG O2 Saturation 92.8 L ABG Base Excess 7.0 H ABG Hemoglobin 12.1 ABG Carboxyhemoglobin 3.8 H POC ABG HHb (Measured) 6.9 H ABG Methemoglobin 0.9 Paolo Test Na ABG Potassium A-a O2 Difference 35.0 Respiratory Index 0.5 Hgb O2 Saturation 88.4 L Glucose Lactate Liter Flow Vent Mode Bipap FiO2 30.0 Inspiratory BiPAP 15 Expiratory BiPAP 8 Crit Value Called To Ebony villasenor er Crit Value Called By Jah Crit Value Read Back Y Blood Gas Notified Time 2111 Sodium Potassium Chloride Carbon Dioxide Anion Gap BUN Creatinine Est GFR ( Amer) Est GFR (Non-Af Amer) POC Glucose (mg/dL) Random Glucose Calcium Phosphorus Magnesium Iron TIBC % Saturation Total Bilirubin AST ALT Alkaline Phosphatase Troponin I NT-Pro-B Natriuret Pep Total Protein Albumin Globulin Albumin/Globulin Ratio Vitamin B12 Folate Arterial Blood Potassium Urine Color Yellow Urine Clarity Hazy Urine pH 5.0 Ur Specific Paradise 1.014 Urine Protein 1+ H Urine Glucose (UA) Normal Urine Ketones Negative Urine Blood 3+ H Urine Nitrate Negative Urine Bilirubin Negative Urine Urobilinogen Normal Ur Leukocyte Esterase Trace Urine WBC (Auto) 6 H Urine RBC (Auto) 25 H Urine Bacteria Rare Hyaline Casts 3-5 H Urine Opiates Screen Negative Urine Methadone Screen Positive H Ur Barbiturates Screen Negative Ur Phencyclidine Scrn Negative Ur Amphetamines Screen Negative U Benzodiazepines Scrn Positive U Oth Cocaine Metabols Negative U Cannabinoids Screen Negative 03/02/18 03/02/18 03/02/18 05:34 06:01 06:01 WBC 5.0 RBC 3.54 L Hgb 10.9 L Hct 32.6 L MCV 92.0 MCH 30.9 MCHC 33.6 RDW 15.8 H Plt Count 207 MPV 7.6 Neut % (Auto) 90.2 H Lymph % (Auto) 8.5 L Morris % (Auto) 0.8 Eos % (Auto) 0.1 Baso % (Auto) 0.4 Neut # (Auto) 4.5 Lymph # (Auto) 0.4 L Morris # (Auto) 0.0 Eos # (Auto) 0.0 Baso # (Auto) 0.0 Neutrophils % (Manual) 95 H Band Neutrophils % 1 Lymphocytes % (Manual) 4 L Monocytes % (Manual) TEST NOT PERFORMED Platelet Estimate Normal Hypochromasia (manual) Slight Poikilocytosis (manual Slight Anisocytosis (manual) Slight PT INR APTT Puncture Site R brac pCO2 84 H* pO2 67 L HCO3 32.6 H ABG pH 7.28 L ABG Total CO2 42.1 H ABG O2 Saturation 95.0 ABG Base Excess 10.0 H ABG Hemoglobin 11.3 L ABG Carboxyhemoglobin 3.2 H POC ABG HHb (Measured) 4.8 ABG Methemoglobin 1.0 Paolo Test Na ABG Potassium A-a O2 Difference 42.0 Respiratory Index 0.6 Hgb O2 Saturation 91.1 L Glucose Lactate Liter Flow Vent Mode Bipap FiO2 30.0 Inspiratory BiPAP 15 Expiratory BiPAP 8 Crit Value Called To Dr muniz Crit Value Called By Elena carcamo rt Crit Value Read Back Y Blood Gas Notified Time 604 Sodium 139 Potassium 4.8 Chloride 96 L Carbon Dioxide 34 H Anion Gap 14 BUN 16 Creatinine 0.9 Est GFR ( Amer) > 60 Est GFR (Non-Af Amer) > 60 POC Glucose (mg/dL) Random Glucose 127 H Calcium 8.6 Phosphorus 4.7 H Magnesium 2.4 H Iron TIBC % Saturation Total Bilirubin 0.4 AST 30 ALT 28 Alkaline Phosphatase 68 Troponin I NT-Pro-B Natriuret Pep Total Protein 6.7 Albumin 3.5 Globulin 3.2 Albumin/Globulin Ratio 1.1 Vitamin B12 817 Folate > 20.0 Arterial Blood Potassium Urine Color Urine Clarity Urine pH Ur Specific Paradise Urine Protein Urine Glucose (UA) Urine Ketones Urine Blood Urine Nitrate Urine Bilirubin Urine Urobilinogen Ur Leukocyte Esterase Urine WBC (Auto) Urine RBC (Auto) Urine Bacteria Hyaline Casts Urine Opiates Screen Urine Methadone Screen Ur Barbiturates Screen Ur Phencyclidine Scrn Ur Amphetamines Screen U Benzodiazepines Scrn U Oth Cocaine Metabols U Cannabinoids Screen 03/02/18 03/02/18 06:01 12:46 WBC RBC Hgb Hct MCV MCH MCHC RDW Plt Count MPV Neut % (Auto) Lymph % (Auto) Morris % (Auto) Eos % (Auto) Baso % (Auto) Neut # (Auto) Lymph # (Auto) Morris # (Auto) Eos # (Auto) Baso # (Auto) Neutrophils % (Manual) Band Neutrophils % Lymphocytes % (Manual) Monocytes % (Manual) Platelet Estimate Hypochromasia (manual) Poikilocytosis (manual Anisocytosis (manual) PT INR APTT Puncture Site Rra pCO2 66 H pO2 60 L HCO3 31.9 H ABG pH 7.36 ABG Total CO2 39.3 H ABG O2 Saturation 93.9 L ABG Base Excess 9.2 H ABG Hemoglobin ABG Carboxyhemoglobin POC ABG HHb (Measured) ABG Methemoglobin Paolo Test Pos ABG Potassium 4.4 A-a O2 Difference 71.0 Respiratory Index 1.2 Hgb O2 Saturation Glucose 115 H Lactate 0.9 Liter Flow Vent Mode Bipap FiO2 30.0 Inspiratory BiPAP 15 Expiratory BiPAP 8 Crit Value Called To Crit Value Called By Crit Value Read Back Blood Gas Notified Time Sodium 139.0 Potassium Chloride 103.0 Carbon Dioxide Anion Gap BUN Creatinine Est GFR ( Amer) Est GFR (Non-Af Amer) POC Glucose (mg/dL) Random Glucose Calcium Phosphorus Magnesium Iron 47 L TIBC 303 % Saturation 16 L Total Bilirubin AST ALT Alkaline Phosphatase Troponin I NT-Pro-B Natriuret Pep Total Protein Albumin Globulin Albumin/Globulin Ratio Vitamin B12 Folate Arterial Blood Potassium 4.4 Urine Color Urine Clarity Urine pH Ur Specific [place] Urine Protein Urine Glucose (UA) Urine Ketones Urine Blood Urine Nitrate Urine Bilirubin Urine Urobilinogen Ur Leukocyte Esterase Urine WBC (Auto) Urine RBC (Auto) Urine Bacteria Hyaline Casts Urine Opiates Screen Urine Methadone Screen Ur Barbiturates Screen Ur Phencyclidine Scrn Ur Amphetamines Screen U Benzodiazepines Scrn U Oth Cocaine Metabols U Cannabinoids Screen EKG/Cardiology Studies: Cardiology / EKG Studies 03/01/18 17:02 ELECTROCARDIOGRAM Stat Comment: Mode Of Transportation: BED Reason For Exam: SOB 03/01/18 20:54 EKG [ELECTROCARDIOGRAM] Stat Comment: BED 4 Mode Of Transportation: STRETCHER Reason For Exam: EKG CHANGES Critical Care Progress Note - Nutrition Nutrition: Nutrition Category Date Time Status Heart Healthy Diet [DIET] Diets 03/02/18 Breakfast Active Attending/Attestation - Attestation I have personally seen and examined this patient.: Yes I have fully participated in the care of the patient.: Yes I have reviewed all pertinent clinical information: Yes Notes (Text): 03/02/18 17:08 patient seen and examined in the intensive care unit. Patient remained on BiPAP with improving hypercapnia Continue nebulizer treatment, steroids Follow-up ABG Patient with obstructive sleep apnea and COPD/overlap syndrome
[2018-03-02 07:48] LABS: FOLATE > 20.0 ng/mL
[2018-03-02 08:28] LABS: ANISOCYTOSIS SLIGHT; BANDS 1 % (0-2); HYPOCHROMIC SLIGHT; LYMPHOCYTE 4 % (20-40); NEUTROPHIL 95 % (50-75); PLATELET ESTIMATE NORMAL (NORMAL); POIKILOCYTOSIS SLIGHT; TOTAL CELLS COUNTED 100
[2018-03-02] MEDS: Enoxaparin 40 mg Syringe SC SCH (09:44)
[2018-03-02] MEDS ORDERED: Pantoprazole 40 mg EC Tab PO SCH (10:00)
[2018-03-02] MEDS: Fluticasone-Vilanterol 200/25mcg Diskus INH SCH (10:22)
[2018-03-02] MEDS: Azithromycin 500 MG in Sodium Chloride 0.9% 250 ML IVPB SCH (10:48)
[2018-03-02 13:01] LABS: ABG ALLEN TEST POS; ARTERIAL BLOOD GAS HCO3 31.9 mmol/L (21-28); ARTERIAL BLOOD GAS O2 SAT 93.9 % (95-98); ARTERIAL BLOOD GAS PCO2 66 mm/Hg (35-45); ARTERIAL BLOOD GAS PH 7.36 (7.35-7.45); ARTERIAL BLOOD GAS PO2 60 mm/Hg (80-100); ARTERIAL BLOOD GAS TCO2 39.3 mmol/L (22-28)
--- NOTE | 2018-03-02 16:45 | CT ---
Date of service: 03/02/2018 PROCEDURE: CT Chest without contrast HISTORY: resp distress COMPARISON: None available. TECHNIQUE: Contiguous axial images were obtained through the chest without intravenous contrast enhancement. Sagittal and coronal reconstructions were performed. Radiation dose (DLP): 1136.57 mGy-cm. This CT exam was performed using one or more of the following dose reduction techniques: Automated exposure control, adjustment of the mA and/or kV according to patient size, and/or use of iterative reconstruction technique. FINDINGS: LUNGS: No consolidation. Scattered small ill-defined opacities bilaterally most prominent in the right lower lobe but also seen in the left lower lobe, left upper lobe, right lower lobe and right middle lobe. This is a nonspecific finding. These may be infectious or inflammatory in etiology. No pulmonary mass. There are small blebs in both lung apices. There is mild centrilobular pulmonary emphysema in the lung apices. MEDIASTINUM: Unremarkable thoracic aorta. No aneurysm. Normal heart size. Coronary arterial calcification noted. There is atherosclerotic calcification of the thoracic aorta. Mild dilatation of the main pulmonary artery is noted to a diameter of 3.4 cm. No mediastinal or hilar lymphadenopathy is identified. There is mild bilateral gynecomastia. PLEURA: No pleural fluid. No pneumothorax. BONES: No fracture. No destructive lesion. UPPER ABDOMEN: Grossly unremarkable. OTHER FINDINGS: None. IMPRESSION: Scattered small ill-defined opacities bilaterally, nonspecific. No aniket consolidation. Possible infectious or inflammatory etiology. Very mild centrilobular pulmonary emphysema with bilateral apical blebs. Dilated main pulmonary artery. This may correlate with pulmonary arterial hypertension. Mild bilateral gynecomastia.
--- NOTE | 2018-03-02 19:42 | CARD ---
APPROVED REPORT Date of service: 03/01/2018 EKG Measurement Heart [id number] <Conclusion> Sinus tachycardia with premature supraventricular complexes Minimal voltage criteria for LVH, may be normal variant Borderline ECG
--- NOTE | 2018-03-02 19:42 | CARD ---
APPROVED REPORT Date of service: 03/01/2018 EKG Measurement Heart [id number] <Conclusion> Sinus tachycardia Minimal voltage criteria for LVH, may be normal variant Borderline ECG
--- NOTE | 2018-03-02 20:23 | CP.PCM.PN ---
Subjective - Date & Time of Evaluation Date of Evaluation: 03/02/18 Time of Evaluation: 10:45 - Subjective Subjective: clinically same Objective - Vital Signs/Intake and Output Vital Signs (last 24 hours): Temp Pulse Resp BP Pulse Ox 97.5 F L 96 H 22 115/51 L 89 L 03/02/18 16:00 03/02/18 19:01 03/02/18 19:01 03/02/18 19:01 03/02/18 19:01 Intake and Output: 03/02/18 03/03/18 18:59 06:59 Intake Total 950 Output Total 1000 Balance -50 - Medications Medications: Current Medications Albuterol Sulfate (Albuterol 0.083% Inhal Ariana (2.5 Mg/3 Ml) Ud) 2.5 mg INH RQ4 PRN PRN Reason: Wheezing Aspirin (Ecotrin) 81 mg PO DAILY [facility] Last Admin: 03/02/18 11:30 Dose: Not Given Carvedilol (Coreg) 12.5 mg PO BID [facility] Last Admin: 03/02/18 18:27 Dose: 12.5 mg Clopidogrel Bisulfate (Plavix) 75 mg PO DAILY [facility] Last Admin: 03/02/18 11:30 Dose: 75 mg Enoxaparin Sodium (Lovenox) 40 mg SC DAILY [facility] Last Admin: 03/02/18 09:44 Dose: 40 mg Famotidine (Pepcid) 20 mg PO BID [facility] Last Admin: 03/02/18 18:27 Dose: 20 mg Fluticasone/Vilanterol (Breo Ellipta 200-25 Mcg Inh) 1 puff INH RQD [facility] Last Admin: 03/02/18 10:22 Dose: 1 puff Furosemide (Lasix) 40 mg PO DAILY [facility] Last Admin: 03/02/18 09:45 Dose: 40 mg Azithromycin 500 mg/ Sodium (Chloride) 250 mls @ 250 mls/hr IVPB DAILY [facility]; Protocol Last Admin: 03/02/18 10:48 Dose: 250 mls/hr Ceftriaxone Sodium 1 gm/ (Sodium Chloride) 100 mls @ 100 mls/hr IVPB DAILY [facility]; Protocol Last Admin: 03/02/18 09:46 Dose: 100 mls/hr Methylprednisolone (Solu-Medrol) 60 mg IVP Q8 [facility] Last Admin: 03/02/18 14:33 Dose: 60 mg Paroxetine HCl (Paxil) 20 mg PO DAILY [facility] Last Admin: 03/02/18 12:38 Dose: 20 mg - Labs Labs: 03/02/18 06:01 03/02/18 06:01 PT 13.4 SECONDS (9.7-12.2) H 03/01/18 17:19 INR 1.2 03/01/18 17:19 APTT 38 SECONDS (21-34) H 03/01/18 17:19 - Constitutional Appears: Well - Head Exam Head Exam: ATRAUMATIC, NORMAL INSPECTION, NORMOCEPHALIC - Eye Exam Eye Exam: EOMI, Normal appearance, PERRL Pupil Exam: NORMAL ACCOMODATION, PERRL - ENT Exam ENT Exam: Mucous Membranes Moist, Normal Exam - Neck Exam Neck Exam: Full ROM, Normal Inspection. absent: Lymphadenopathy - Respiratory Exam Respiratory Exam: Decreased Breath Sounds - Cardiovascular Exam Cardiovascular Exam: REGULAR RHYTHM, +S1, +S2 - GI/Abdominal Exam GI & Abdominal Exam: Soft, Diminished Bowel Sounds - Rectal Exam Rectal Exam: Deferred
[2018-03-03] MEDS: MethylPREDNISolone 40 mg Vial IVP SCH (05:36)
[2018-03-03 06:15] LABS: BASO % 0.1 % (0.0-2.0); HEMOGLOBIN 11.4 g/dL (12.0-18.0); LYMPH # 0.6 K/uL (1.0-4.3); LYMPH % 7.7 % (20.0-40.0); MEAN CELL VOLUME 91.6 fL (80.0-94.0); MEAN CORPUSCULAR HEMOGLOBIN 30.5 pg (27.0-31.0); MEAN CORPUSCULAR HGB CONC 33.2 g/dL (33.0-37.0); MEAN PLATELET VOLUME 7.9 fL (7.2-11.7); MONO # 0.2 K/uL (0.0-0.8); MONO % 2.3 % (0.0-10.0); NEUT # 7.4 K/uL (1.8-7.0); NEUT % 89.9 % (50.0-75.0); NRBC % 0.1 % (0.0-2.0); PLATELET COUNT 203 K/uL (130-400); RBC 3.74 Mil/uL (4.40-5.90); WHITE BLOOD COUNT 8.3 K/uL (4.8-10.8)
[2018-03-03 06:34] LABS: ALB/GLOB RATIO 1.2 (1.0-2.1); ALBUMIN 3.5 g/dL (3.5-5.0); ALT/SGPT 24 U/L (21-72); AST/SGOT 21 U/L (17-59); BLOOD UREA NITROGEN 30 mg/dL (9-20); CALCIUM 8.5 mg/dl (8.6-10.4); GFR NON-AFRICAN AMERICAN > 60
[2018-03-03 08:00] VITALS: RESP 20; TEMP 97.4; O2SAT 92
[2018-03-03 08:42] LABS: LYMPHOCYTE 5 % (20-40); MONOCYTE 1 % (0-10); NEUTROPHIL 94 % (50-75); PLATELET ESTIMATE NORMAL (NORMAL); TOTAL CELLS COUNTED 100
[2018-03-03] MEDS: Fluticasone-Vilanterol 200/25mcg Diskus INH SCH (09:31)
[2018-03-03 09:48] VITALS: PULSE 88
[2018-03-03] MEDS: Enoxaparin 40 mg Syringe SC SCH (09:49)
[2018-03-03 09:50] VITALS: BP 148/78
[2018-03-03] MEDS ORDERED: Methadone 40 mg Tab PO ONE (10:45)
[2018-03-03] MEDS: Azithromycin 500 MG in Sodium Chloride 0.9% 250 ML IVPB SCH (11:05)
== END 2018-03-03 11:03 | disposition left against medical advice (07) | DRG 189 ==
LOC: C.ER 16:31 → C.9E 18:12 → C.6T 19:19 → C.9E 19:28 → OBSVTOIN 20:44 → C.9I 20:49 → C.5S 03-02 22:56
PROVIDERS: ADMIT Internal Medicine Nephrology; ATTEND Internal Medicine Nephrology
PROC: 5A09457 Assistance with Respiratory Ventilation, 24-96 Consecutive Hours, Continuous Positive Airway Pressure (ICD-10-PCS; principal; 2018-03-01)
DX: J96.92 Respiratory failure, unspecified with hypercapnia (principal); J44.1 Chronic obstructive pulmonary disease with (acute) exacerbation; F11.20 Opioid dependence, uncomplicated; I11.0 Hypertensive heart disease with heart failure; E11.9 Type 2 diabetes mellitus without complications; G47.33 Obstructive sleep apnea (adult) (pediatric); I25.10 Atherosclerotic heart disease of native coronary artery without angina pectoris; I50.9 Heart failure, unspecified; F17.210 Nicotine dependence, cigarettes, uncomplicated; F31.9 Bipolar disorder, unspecified; Z95.5 Presence of coronary angioplasty implant and graft; E66.9 Obesity, unspecified; Z68.37 Body mass index [BMI] 37.0-37.9, adult

== ENCOUNTER 2018-09-06 19:32 | Inpatient (IN) | payer MEDICARE, MEDICAID ==
[2018-09-06 19:32] VITALS: BMI 39.2
[2018-09-06] MEDS ORDERED: Albuterol-Ipratrop 3 mg / 0.5 (3 ml) UD INH STA ×3 (19:56→19:57)
[2018-09-06] MEDS ORDERED: Sodium Chloride 0.9% 1,000 ML IV ONE (19:58)
--- NOTE | 2018-09-06 19:58 | C.PDOC ---
History Of Present Illness 62 year old male with PMHx of COPD presents to the ED c/o SOB since this morning. Patient reports compliance with his medications at home. Patient denies fever, chills, headache, palpitations,r ernestina, nausea, vomit, abdominal pain, wea kness, numbness. Chief Complaint (Nursing): Shortness Of Breath History Per: Patient History/Exam Limitations: no limitations Onset/Duration Of Symptoms: Hrs Current Symptoms Are (Timing): Still Present Initiating Event: Upper Respiratory Illness Quality: Tightness Current Respiratory Medications: See Home Med List Recent travel outside of the [place]: No Additional History Per: Patient Past Medical History Reviewed: Historical Data, Nursing Documentation, Vital Signs Vital Signs: Last Vital Signs Temp 98.9 F 09/06/18 19:45 Pulse 87 09/06/18 19:45 Resp 16 09/06/18 19:45 BP 181/101 H 09/06/18 19:45 Pulse Ox 110 H 09/06/18 19:45 Primary Care Provider: Elodia De La Rosa Medical History PMH: Anxiety, Asthma, Bipolar Disorder, CHF, COPD, Depression, Emphysema, Fractures (LEFT SHOULDER), Hepatitis, HTN, Sleep Apnea Denies: Chronic Kidney Disease Surgical History: Coronary Stent - [facility] Procedures ASSISTANCE WITH RESPIRATORY VENTILATION, 24-96 HRS, CPAP (03/01/18) ASSISTANCE WITH RESPIRATORY VENTILATION, >96 HRS, CPAP (08/16/16) CORONAR ARTERIOGR-2 CATH (08/23/13) INSERTION OF ONE VASCULAR STENT (08/23/13) INSRT OF DRUG-ELUTING CORON ARTERY STENTS(S) (08/23/13) LEFT HEART CARDIAC CATH (08/17/13) LT HEART ANGIOCARDIOGRAM (08/17/13) PERCUTANEOUS TRANSLUMINAL CORONARY ANGIOPLASTY [PTCA] (08/23/13) PROCEDURE ON SINGLE VESSEL (08/23/13) Family History: States: Unknown Family Hx - Social History Hx Tobacco Use: Yes Hx Alcohol Use: No Hx Substance Use: No - Immunization History Hx Tetanus Toxoid Vaccination: No Hx Influenza Vaccination: No Hx Pneumococcal Vaccination: No Review Of Systems Constitutional: Negative for: Fever, Chills Cardiovascular: Negative for: Chest Pain, Palpitations Respiratory: Positive for: Shortness of Breath. Negative for: Cough Gastrointestinal: Negative for: Nausea, Vomiting, Abdominal Pain Skin: Negative for: Rash Neurological: Negative for: Weakness, Numbness, Headache, Dizziness Physical Exam - Physical Exam Appears: Non-toxic, In Acute Distress Skin: Normal Color, Warm, Dry Head: Atraumatic, Normacephalic Eye(s): bilateral: Normal Inspection Oral Mucosa: Moist Neck: Normal ROM, Supple Chest: Symmetrical Cardiovascular: Rhythm Regular Respiratory: Rales (bl), Rhonchi (occasional ), Wheezing (bl) Gastrointestinal/Abdominal: Soft, No Tenderness, No Distention Extremity: Normal ROM, No Tenderness, Pedal Edema (2+ bl), Capillary Refill (< 2 seconds) Pulses: Left Dorsalis Pedis: Normal, Right Dorsalis Pedis: Normal Neurological/Psych: Oriented x3, Normal Speech, Normal Cognition Gait: Steady ED Course And Treatment - Laboratory Results Result Diagrams: 09/06/18 20:14 09/06/18 20:14 ECG: Interpreted By Me, Viewed By Md ECG Rhythm: Sinus Tachycardia ECG Interpretation: Normal, No Acute Changes Interpretation Of ECG: Sinus tachycardia, normal tracings. Rate From EC O2 Sat by Pulse Oximetry: 87 (hypoxemia) Pulse Ox Interpretation: Abnormal - Radiology CXR: Interpreted by Me CXR Interpretation: Yes: Cardiomegaly, Other (pulm.congestion, CHF.) - CT Scan/US CT Other Rad Studies (CT/US): Read By Radiologist, Radiology Report Reviewed CT/US Interpretation: EXAM: CTA Chest with Intravenous Contrast for Pulmonary Embolism. CLINICAL HISTORY: Sob/elevated d dimer/r/o pe. TECHNIQUE: Axial CTA images of the chest with intravenous contrast using a pulmonary embolism protocol. Reconstructed images were created and reviewed. 0.00 mGy-cm. CONTRAST: With; 100MLS VISI 320 was administered without incident. COMPARISON: Comparison is made to prior CT thorax examination dated 03/02/2018. FINDINGS: PULMONARY ARTERIES. No evidence of central or segmental pulmonary embolism is seen. AORTA. There is no evidence for aneurysm or dissection of the thoracic aorta. LUNGS. Scattered paraseptal bullae are seen bilaterally; predominantly in the apices and upper lobes. A round 1.5 cm hazy opacity is seen in the posterolateral left mid thorax. A similar appearing 1.6 cm opacity is seen in the postero-medial right lung base. These findings could be compatible with nodules versus round pneumonia. There is suspected pneumonic infiltrate is seen in the posterior lateral left lower lung field. PLEURAL SPACES. No pneumothorax evident. No pleural effusions. HEART. Heart size is within normal limits. No pericardial effusion. Atherosclerotic vascular plaquing seen in the right and left coronary arteries. LYMPH NODES. No lymphadenopathy is evident. BONES. No focal osseous abnormality or acute fracture. UPPER ABDOMEN. Images of the upper abdomen demonstrate hepatomegaly. The liver measured approximately 21.0 cm in the midclavicular line. IMPRESSION: 1. No iden tification of PE. 2. Pneumonic consolidation seen in the posterolateral left lower lung field. 3. Round opacities as described above located in the posterior lateral left mid thorax and postero-medial right lower thorax. These could be compatible with round pneumonia or pulmonary nodules. 4. Scattered paraseptal bullae noted bilaterally; predominantly in the apices and upper lobes. 5. Hepatomegaly. . Electronically signed on September 06, 2018 11:42:22 PM EDT by: Ralf Shelton M.D., M.B.A., Certified By [employer]. Fellowship Trained MRI and CT Specialist Medical Decision Making Medical Decision Making: Plan: * ABG * EKG * Labs * CXR * Duoneb X 3 * Solumderol 125 mg IVP * IV fluids * Influenza A B Disposition Discussed With Dr.: Elodia De La Rosa Doctor Will See Patient In The: Hospital Counseled Patient/Family Regarding: Diagnosis - Disposition Disposition: HOSPITALIZED Disposition Time: 23:49 Condition: STABLE Forms: [facility] (Belarusian) - POA Present On Arrival: None - Clinical Impression Clinical Impression: Respiratory tract infection, COPD exacerbation, Pneumonia - Scribe Statement The provider has reviewed the documentation as recorded by the Scribe Babatunde Lund All medical record entries made by the Scribe were at my direction and personally dictated by me. I have reviewed the chart and agree that the record accurately reflects my personal performance of the history, physical exam, medical decision making, and the department course for this patient. I have also personally directed, reviewed, and agree with the discharge instructions and disposition.
[2018-09-06 20:18] LABS: BASO % 0.2 % (0.0-2.0); EOS # 0.2 K/uL (0.0-0.7); EOS % 1.9 % (0.0-4.0); HEMOGLOBIN 11.6 g/dL (12.0-18.0); LYMPH # 0.4 K/uL (1.0-4.3); LYMPH % 4.3 % (20.0-40.0); MEAN CELL VOLUME 89.3 fL (80.0-94.0); MEAN CORPUSCULAR HEMOGLOBIN 29.2 pg (27.0-31.0); MEAN CORPUSCULAR HGB CONC 32.7 g/dL (33.0-37.0); MEAN PLATELET VOLUME 6.8 fL (7.2-11.7); MONO # 0.6 K/uL (0.0-0.8); NEUT % 87.6 % (50.0-75.0); NRBC % 0.1 % (0.0-2.0); PLATELET COUNT 210 K/uL (130-400); RBC 3.98 Mil/uL (4.40-5.90); RED CELL DISTRIBUTION WIDTH 14.9 % (11.5-14.5); WHITE BLOOD COUNT 10.2 K/uL (4.8-10.8)
[2018-09-06] MEDS ORDERED: Albuterol-Ipratrop 3 mg / 0.5 (3 ml) UD ONE (20:26)
[2018-09-06] MEDS ORDERED: Sodium Chloride 0.9% 1,000 ML ONE (20:26)
[2018-09-06 20:29] LABS: ALB/GLOB RATIO 1.1 (1.0-2.1); ALT/SGPT 12 U/L (21-72); AST/SGOT 21 U/L (17-59); BLOOD UREA NITROGEN 13 mg/dL (9-20); GFR NON-AFRICAN AMERICAN > 60
[2018-09-06 20:41] LABS: B-TYPE NATRIURETIC PEPTIDE 242 pg/mL (0-900)
[2018-09-06 20:48] LABS: ARTERIAL BLOOD GAS HCO3 26.8 mmol/L (21-28); ARTERIAL BLOOD GAS HEMOGLOBIN 10.6 g/dL (11.7-17.4); ARTERIAL BLOOD GAS O2 SAT 99.1 % (95-98); ARTERIAL BLOOD GAS PCO2 63 mm/Hg (35-45); ARTERIAL BLOOD GAS PH 7.29 (7.35-7.45); ARTERIAL BLOOD GAS PO2 110 mm/Hg (80-100); ARTERIAL BLOOD GAS TCO2 32.2 mmol/L (22-28)
[2018-09-06 21:17] LABS: BANDS 3 % (0-2); EOSINOPHIL 1 % (0-4); LYMPHOCYTE 5 % (20-40); MONOCYTE 2 % (0-10); NEUTROPHIL 89 % (50-75); PLATELET ESTIMATE NORMAL (NORMAL); TOTAL CELLS COUNTED 100
[2018-09-06] MEDS ORDERED: Iodixanol 320 MG/ML 100 ML BOTTLE IV ONE (21:55)
[2018-09-06 22:10] LABS: ARTERIAL BLOOD GAS HCO3 29.5 mmol/L (21-28); ARTERIAL BLOOD GAS HEMOGLOBIN 11.1 g/dL (11.7-17.4); ARTERIAL BLOOD GAS O2 SAT 93.9 % (95-98); ARTERIAL BLOOD GAS PCO2 64 mm/Hg (35-45); ARTERIAL BLOOD GAS PH 7.33 (7.35-7.45); ARTERIAL BLOOD GAS PO2 63 mm/Hg (80-100); ARTERIAL BLOOD GAS TCO2 35.7 mmol/L (22-28)
[2018-09-06] MEDS ORDERED: cefTRIAXone IV 1 gm in Dextros 50 ML IVPB ONE (23:45)
[2018-09-06] MEDS ORDERED: Azithromycin 500 MG in Sodium Chloride 0.9% 250 ML IVPB STA (23:46)
[2018-09-06] MEDS ORDERED: Azithromycin 500mg/250ML NS 500 MG/250 ML BAG IVPB ONE (23:59)
[2018-09-07] MEDS ORDERED: Albuterol-Ipratrop 3 mg / 0.5 (3 ml) UD INH SCH (02:00)
[2018-09-07] MEDS: Budesonide 0.5 mg/2 ml Inhal Susp UD INH SCH ×2 (07:46→19:42)
[2018-09-07] MEDS: Albuterol-Ipratrop 3 mg / 0.5 (3 ml) UD INH PRN ×2 (07:47→13:26)
--- NOTE | 2018-09-07 09:57 | CP.PCM.CON ---
History of Present Illness - History of Present Illness History of Present Illness: CHART REVIEWED. PT SEEN AND EXAMINED. 62 YO W MALE WITH A HX COPD, ASHLEY, MORBID OBESITY, HTN, CAD +STENT, BIPOLAR, ON METHADONE, QUIT IVDA, ADM WITH INCREASED MOD SOB WITH MIN EXERTION X 2 DAYS., +COUGH WHITE SPUTUM. NO CP., NO FEVER. NO RELIEF WITH HOME NEB ., USING CPAP QHS X FEW YRS., LAST EXAC AND ADM 2 MONTHS AGO. NO CHANGE WT. STILL SMOKING., QUIT ETOH AND QUIT IVDA 6 YRS AGO. AMBULATES INDEPENDENTLY. NO HOME O2. Review of Systems - Review of Systems All systems: reviewed and no additional remarkable complaints except - Constitutional Constitutional: absent: Fever, Weight Loss - EENT Eyes: absent: Change in Vision Ears: absent: Decreased Hearing Nose/Mouth/Throat: absent: Nasal Congestion - Cardiovascular Cardiovascular: absent: Chest Pain - Respiratory Respiratory: Cough, Dyspnea, Dyspnea on Exertion, Wheezing, Snoring. absent: Hemoptysis, Change in Mucous Color - Gastrointestinal Gastrointestinal: absent: Nausea, Vomiting - Genitourinary Genitourinary: absent: Dysuria - Musculoskeletal Musculoskeletal: Arthralgias - Integumentary Integumentary: Change in Pigmentation - Neurological Neurological: absent: Confusion, Focal Weakness, Syncope - Endocrine Endocrine: absent: Change in Body Appearance Past Patient History - Infectious Disease Hx of Infectious Diseases: None - Past Medical History & Family History Past Medical History?: Yes Pertinent Family History: HTN - Past Social History Smoking Status: Heavy Smoker > 10 Cigarettes Daily Alcohol: Other (QUIT) Drugs: Other (QUIT IVDA) - CARDIAC Hx Cardiac Disorders: Yes Hx Congestive Heart Failure: Yes Hx Hypertension: Yes - PULMONARY Hx Asthma: Yes Hx Chronic Obstructive Pulmonary Disease (COPD): Yes Hx Emphysema: Yes Hx Sleep Apnea: Yes - NEUROLOGICAL Hx Neurological Disorder: No Hx Paralysis: No - HEENT Hx HEENT Problems: No - RENAL Hx Chronic Kidney Disease: No - ENDOCRINE/METABOLIC Hx Diabetes Mellitus Type 2: Yes - HEMATOLOGICAL/ONCOLOGICAL Hx Blood Disorders: Yes Hx Hepatitis C: Yes (resolved) - INTEGUMENTARY Hx Dermatological Problems: Yes Hx Cellulitis: Yes - MUSCULOSKELETAL/RHEUMATOLOGICAL Hx Musculoskeletal Disorders: Yes Hx Fractures: Yes (LEFT SHOULDER) - GASTROINTESTINAL Hx Gastrointestinal Disorders: No - GENITOURINARY/GYNECOLOGICAL Hx Genitourinary Disorders: Yes Hx Hematuria: Yes - PSYCHIATRIC Hx Anxiety: Yes Hx Bipolar Disorder: Yes Hx Depression: Yes Hx Substance Use: Yes - SURGICAL HISTORY Hx Coronary Stent: Yes - ANESTHESIA Hx Anesthesia: Yes Hx Anesthesia Reactions: No Hx Malignant Hyperthermia: No Meds Home Medications: Home Medication List Medication Instructions Recorded Confirmed Type Montelukast [Singulair] 10 mg PO DAILY #30 tab 09/14/18 Rx Tamsulosin [Flomax] 0.4 mg PO DAILY 30 Days cap 09/14/18 Rx amLODIPine [Norvasc] 5 mg PO DAILY 30 Days tab 09/14/18 Rx Allergies/Adverse Reactions: Allergies Allergy/AdvReac Type Severity Reaction Status Date / Time No Known Allergies Allergy Verified 11/16/17 10:12 - Medications Medications: Current Medications Albuterol/Ipratropium (Duoneb 3 Mg/0.5 Mg (3 Ml) Ud) 3 ml INH RQ6 PRN PRN Reason: Shortness of Breath Last Admin: 09/07/18 07:47 Dose: 3 ml Alprazolam (Xanax) 1 mg PO BID [facility] Arformoterol Tartrate (Brovana) 15 mcg INH RQ12@1000,2200 [facility]ANN Aspirin (Ecotrin) 81 mg PO DAILY [facility] Budesonide (Pulmicort Respules) 0.5 mg INH RQ12 JOANN Last Admin: 09/07/18 07:46 Dose: 0.5 mg Clopidogrel Bisulfate (Plavix) 75 mg PO DAILY [facility] Enoxaparin Sodium (Lovenox) 40 mg SC Q8H [facility] Ceftriaxone Sodium (Rocephin Iv 1 Gm Duplex) 50 mls @ 100 mls/hr IVPB DAILY [facility]; Protocol Azithromycin (Zithromax 500mg In Ns Addvantage) 500 mg in 250 mls @ 167 mls/hr IVPB Q24H [facility]ANN; Protocol Methadone HCl (Methadose) 80 mg PO DAILY [facility] Methadone HCl (Methadone) 5 mg PO DAILY [facility] Methylprednisolone (Solu-Medrol) 40 mg IVP Q8H [facility] Montelukast Sodium (Singulair) 10 mg PO DAILY [facility] Paroxetine HCl (Paxil) 20 mg PO DAILY JOANN Physical Exam - Constitutional Appears: Chronically Ill Additional comments: ON BIPAP - Head Exam Head Exam: ATRAUMATIC, NORMOCEPHALIC - Eye Exam Eye Exam: EOMI, Normal appearance - ENT Exam ENT Exam: Mucous Membranes Moist - Neck Exam Neck exam: Positive for: Normal Inspection - Respiratory Exam Respiratory Exam: Decreased Breath Sounds, Wheezes. absent: Accessory Muscle Use - Cardiovascular Exam Cardiovascular Exam: RRR, +S1, +S2 - GI/Abdominal Exam GI & Abdominal Exam: Soft Additional comments: OBESE - Rectal Exam Rectal Exam: Deferred - Extremities Exam Extremities exam: Negative for: calf tenderness Additional comments: CHRONIC CHANGES BILAT., +EDEMA. LE - Back Exam Back exam: absent: CVA tenderness (L), CVA tenderness (R) - Neurological Exam Neurological exam: Alert, CN II-XII Intact, Oriented x3 - Psychiatric Exam Psychiatric exam: Normal Mood Results - Vital Signs Recent Vital Signs: Last Vital Signs Temp 98.7 F 09/07/18 08:06 Pulse 99 H 09/07/18 08:06 Resp 20 09/07/18 08:06 BP 118/63 09/07/18 08:06 Pulse Ox 96 09/07/18 08:06 - Labs Result Diagrams: 09/11/18 07:20 09/11/18 07:20 Labs: Laboratory Results - last 24 hr 09/06/18 09/06/18 09/06/18 20:14 20:14 20:14 WBC 10.2 RBC 3.98 L Hgb 11.6 L Hct 35.5 MCV 89.3 D MCH 29.2 MCHC 32.7 L RDW 14.9 H Plt Count 210 MPV 6.8 L Neut % (Auto) 87.6 H Lymph % (Auto) 4.3 L Coffey % (Auto) 6.0 Eos % (Auto) 1.9 Baso % (Auto) 0.2 Neut # (Auto) 9.0 H Lymph # (Auto) 0.4 L Coffey # (Auto) 0.6 Eos # (Auto) 0.2 Baso # (Auto) 0.0 Neutrophils % (Manual) 89 H Band Neutrophils % 3 H Lymphocytes % (Manual) 5 L Monocytes % (Manual) 2 Eosinophils % (Manual) 1 Platelet Estimate Normal D-Dimer, Quantitative 274 H Puncture Site pCO2 pO2 HCO3 ABG pH ABG Total CO2 ABG O2 Saturation ABG Base Excess ABG Hemoglobin ABG Carboxyhemoglobin POC ABG HHb (Measured) ABG Methemoglobin Paolo Test A-a O2 Difference Respiratory Index Hgb O2 Saturation Liter Flow Vent Mode FiO2 Inspiratory BiPAP Expiratory BiPAP Sodium 143 Potassium 5.0 Chloride 97 L Carbon Dioxide 38 H Anion Gap 13 BUN 13 Creatinine 0.9 Est GFR ( Amer) > 60 Est GFR (Non-Af Amer) > 60 Random Glucose 110 Calcium 9.0 Total Bilirubin 0.5 AST 21 ALT 12 L D Alkaline Phosphatase 106 Troponin I < 0.0120 NT-Pro-B Natriuret Pep 242 Total Protein 7.8 Albumin 4.0 Globulin 3.8 Albumin/Globulin Ratio 1.1 Influenza Typ A,B (EIA) 09/06/18 09/06/18 09/06/18 20:37 20:40 22:06 WBC RBC Hgb Hct MCV MCH MCHC RDW Plt Count MPV Neut % (Auto) Lymph % (Auto) Coffey % (Auto) Eos % (Auto) Baso % (Auto) Neut # (Auto) Lymph # (Auto) Coffey # (Auto) Eos # (Auto) Baso # (Auto) Neutrophils % (Manual) Band Neutrophils % Lymphocytes % (Manual) Monocytes % (Manual) Eosinophils % (Manual) Platelet Estimate D-Dimer, Quantitative Puncture Site Rb Rb pCO2 63 H 64 H pO2 110 H 63 L HCO3 26.8 29.5 H ABG pH 7.29 L 7.33 L ABG Total CO2 32.2 H 35.7 H ABG O2 Saturation 99.1 H 93.9 L ABG Base Excess 2.5 6.1 H ABG Hemoglobin 10.6 L 11.1 L ABG Carboxyhemoglobin 3.1 H 3.4 H POC ABG HHb (Measured) 0.9 5.8 H ABG Methemoglobin 1.6 1.1 Paolo Test Na Na A-a O2 Difference 132.0 107.0 Respiratory Index 1.2 1.7 Hgb O2 Saturation 94.5 L 89.7 L Liter Flow 6.0 Vent Mode Bipap FiO2 45.0 35.0 Inspiratory BiPAP 15 Expiratory BiPAP 6 Sodium Potassium Chloride Carbon Dioxide Anion Gap BUN Creatinine Est GFR ( Amer) Est GFR (Non-Af Amer) Random Glucose Calcium Total Bilirubin AST ALT Alkaline Phosphatase Troponin I NT-Pro-B Natriuret Pep Total Protein Albumin Globulin Albumin/Globulin Ratio Influenza Typ A,B (EIA) Negative for flu a/b Assessment & Plan (1) Lung nodule Status: Acute (2) COPD exacerbation Status: Acute (3) Pneumonia Status: Acute (4) Hypercapnic respiratory failure Status: Acute (5) ASHLEY (obstructive sleep apnea) Status: Acute (6) Respiratory failure with hypoxia and hypercapnia Status: Acute (7) CAD (coronary artery disease) Status: Chronic (8) CHF NYHA class II (symptoms with moderately strenuous activities) Status: Chronic (9) HTN (hypertension) Status: Chronic (10) History of drug dependence/abuse Status: Chronic - Assessment and Plan (Free Text) Assessment: 62 YO MALE WITH A HX MULT MED PROBS ADM WITH ACUTE EXAC COPD, RESP FAILURE WITH HYPOXIA AND HYPERCAPNEA., +LLL PNA, +ASHLEY. CT CHEST REVIEWED, NEG FOR PE., ?NODULAR LESIONS POSS ROUNDED ATELECTASIS +LLL PNA. CONT EMPIRIC AB PENDING CULT. CONT STEROIDS, TAPER TOLERATED, ADD BREO, CONT NEB BD., MONITOR O2 SAT. ABG NOTED, TOLERATING BIPAP SUPPORT 15/6 FIO2 35 %. GI/ DVT PROPHYLAXIS. SMOKING CESSATION. PFT'S WHEN STABLE. PROG GUARDED. DISCUSSED WITH STAFF AT LENGTH. TIME SPENT 1HR.
[2018-09-07] MEDS ORDERED: Azithromycin 500mg/250ML NS 500 MG/250 ML BAG IVPB SCH (10:00)
[2018-09-07] MEDS: Methadone 40 mg Tab PO SCH (10:20)
[2018-09-07] MEDS: MethylPREDNISolone 40 mg Vial IVP SCH ×2 (10:22→17:18)
[2018-09-07] MEDS: Enoxaparin 40 mg Syringe SC SCH ×2 (10:22→17:17)
[2018-09-07] MEDS: cefTRIAXone IV 1 gm in Dextros 50 ML IVPB SCH (10:22)
[2018-09-07] MEDS: Arformoterol 15 mcg/2 ml Inh Sol INH SCH ×2 (10:29→19:39)
[2018-09-07] MEDS: Azithromycin 500mg/250ML NS 500 MG/250 ML BAG IVPB SCH (11:33)
--- NOTE | 2018-09-07 11:37 | CT ---
Date of service: 09/06/2018 PROCEDURE: CT Chest with contrast (Pulmonary Angiogram) HISTORY: SOB/ elevated D-dimer COMPARISON: 03/02/2018. CT thorax unenhanced TECHNIQUE: Axial computed tomography images were obtained of the chest in the pulmonary arterial phase of enhancement. Coronal and sagittal reformatted images were created and reviewed. Intravenous contrast dose: 100 cc Visipaque 320. Mean Hounsfield value in the main pulmonary artery: 158.81 Radiation dose: Total exam DLP = 627.50 mGy-cm. This CT exam was performed using one or more of the following dose reduction techniques: Automated exposure control, adjustment of the mA and/or kV according to patient size, and/or use of iterative reconstruction technique. FINDINGS: PULMONARY ARTERIES: Dilated main pulmonary artery consistent with pulmonary arterial hypertension. No large/central pulmonary emboli. No pulmonary embolism. AORTA: No acute findings. No thoracic aortic aneurysm. Atherosclerotic calcifications identified primarily aortic arch. LUNGS: Multifocal and bilateral infiltrates primarily affecting the left lower lobe, to lesser extent the right lower lobe. Underlying emphysematous changes are stable compared to the prior CT scan. PLEURAL SPACES: Unremarkable. No effusion or pneumothorax. HEART: Unremarkable. No cardiomegaly. No significant pericardial effusion. LYMPH NODES: No lymphadenopathy. BONES, CHEST WALL: Unremarkable. No fracture or destructive lesion OTHER FINDINGS: Incompletely visualized gallstones. Hepatomegaly, hepatic steatosis. Atrophic pancreas. IMPRESSION: Unremarkable CT pulmonary angiogram. No pulmonary embolus.Limitations of the current examination: Poor opacification of pulmonary arteries precludes assessment for pulmonary embolism at and beyond the segmental branches. Multifocal lower lobe infiltrates left greater than right likely infectious/inflammatory. These findings were not apparent on the prior CT the thorax. Additional benign and/or incidental findings described above. Concordant results (preliminary interpretation) provided by [facility]. Procedure Completed: :22. Preliminary Report: Interpreted and electronically signed: 23:42. Final Interpretation: 11:33.
--- NOTE | 2018-09-07 12:26 | RAD ---
Date of service: 09/06/2018 PROCEDURE: CHEST RADIOGRAPH, 1 VIEW HISTORY: SOB COMPARISON: 03/01/2018. FINDINGS: LUNGS: Clear. PLEURA: No pneumothorax or pleural fluid seen. CARDIOVASCULAR: No aortic atherosclerotic calcification present. Cardiomegaly. No evidence of acute, significant cardiovascular disease. OSSEOUS STRUCTURES: No significant abnormalities. VISUALIZED UPPER ABDOMEN: Normal. OTHER FINDINGS: None. IMPRESSION: No active disease.No significant interval change compared to the prior examination(s).
--- NOTE | 2018-09-07 19:18 | CP.PCM.HP ---
Past Patient History - Infectious Disease Hx of Infectious Diseases: None - Past Medical History & Family History Past Medical History?: Yes - Past Social History Smoking Status: Heavy Smoker > 10 Cigarettes Daily Alcohol: Other (QUIT) Drugs: Other (QUIT IVDA) - CARDIAC Hx Cardiac Disorders: Yes Hx Congestive Heart Failure: Yes Hx Hypertension: Yes - PULMONARY Hx Asthma: Yes Hx Chronic Obstructive Pulmonary Disease (COPD): Yes Hx Emphysema: Yes Hx Sleep Apnea: Yes - NEUROLOGICAL Hx Neurological Disorder: No Hx Paralysis: No - HEENT Hx HEENT Problems: No - RENAL Hx Chronic Kidney Disease: No - ENDOCRINE/METABOLIC Hx Diabetes Mellitus Type 2: Yes - HEMATOLOGICAL/ONCOLOGICAL Hx Blood Disorders: Yes Hx Hepatitis C: Yes (resolved) - INTEGUMENTARY Hx Dermatological Problems: Yes Hx Cellulitis: Yes - MUSCULOSKELETAL/RHEUMATOLOGICAL Hx Musculoskeletal Disorders: Yes Hx Fractures: Yes (LEFT SHOULDER) - GASTROINTESTINAL Hx Gastrointestinal Disorders: No - GENITOURINARY/GYNECOLOGICAL Hx Genitourinary Disorders: Yes Hx Hematuria: Yes - PSYCHIATRIC Hx Anxiety: Yes Hx Bipolar Disorder: Yes Hx Depression: Yes Hx Substance Use: Yes - SURGICAL HISTORY Hx Coronary Stent: Yes - ANESTHESIA Hx Anesthesia: Yes Hx Anesthesia Reactions: No Hx Malignant Hyperthermia: No Meds Allergies/Adverse Reactions: Allergies Allergy/AdvReac Type Severity Reaction Status Date / Time No Known Allergies Allergy Verified 11/16/17 10:12 Physical Exam - Constitutional Appears: Well - Head Exam Head Exam: ATRAUMATIC, NORMAL INSPECTION, NORMOCEPHALIC - Eye Exam Eye Exam: EOMI, Normal appearance, PERRL Pupil Exam: NORMAL ACCOMODATION, PERRL - ENT Exam ENT Exam: Mucous Membranes Moist, Normal Exam - Neck Exam Neck exam: Positive for: Normal Inspection - Respiratory Exam Respiratory Exam: Decreased Breath Sounds - Cardiovascular Exam Cardiovascular Exam: REGULAR RHYTHM, +S1, +S2 - GI/Abdominal Exam GI & Abdominal Exam: Diminished Bowel Sounds, Soft - Rectal Exam Rectal Exam: Deferred - Neurological Exam Neurological exam: Oriented x3 Results - Vital Signs Recent Vital Signs: Last Vital Signs Temp 97.6 F 09/07/18 15:00 Pulse 104 H 09/07/18 15:00 Resp 18 09/07/18 15:00 BP 112/62 09/07/18 15:00 Pulse Ox 98 09/07/18 17:00 - Labs Result Diagrams: 09/06/18 20:14 09/06/18 20:14 Labs: Laboratory Results - last 24 hr 09/06/18 09/06/18 09/06/18 20:14 20:14 20:14 WBC 10.2 RBC 3.98 L Hgb 11.6 L Hct 35.5 MCV 89.3 D MCH 29.2 MCHC 32.7 L RDW 14.9 H Plt Count 210 MPV 6.8 L Neut % (Auto) 87.6 H Lymph % (Auto) 4.3 L Mobile % (Auto) 6.0 Eos % (Auto) 1.9 Baso % (Auto) 0.2 Neut # (Auto) 9.0 H Lymph # (Auto) 0.4 L Mobile # (Auto) 0.6 Eos # (Auto) 0.2 Baso # (Auto) 0.0 Neutrophils % (Manual) 89 H Band Neutrophils % 3 H Lymphocytes % (Manual) 5 L Monocytes % (Manual) 2 Eosinophils % (Manual) 1 Platelet Estimate Normal D-Dimer, Quantitative 274 H Puncture Site pCO2 pO2 HCO3 ABG pH ABG Total CO2 ABG O2 Saturation ABG Base Excess ABG Hemoglobin ABG Carboxyhemoglobin POC ABG HHb (Measured) ABG Methemoglobin Paolo Test A-a O2 Difference Respiratory Index Hgb O2 Saturation Liter Flow Vent Mode FiO2 Inspiratory BiPAP Expiratory BiPAP Sodium 143 Potassium 5.0 Chloride 97 L Carbon Dioxide 38 H Anion Gap 13 BUN 13 Creatinine 0.9 Est GFR ( Amer) > 60 Est GFR (Non-Af Amer) > 60 Random Glucose 110 Calcium 9.0 Total Bilirubin 0.5 AST 21 ALT 12 L D Alkaline Phosphatase 106 Troponin I < 0.0120 NT-Pro-B Natriuret Pep 242 Total Protein 7.8 Albumin 4.0 Globulin 3.8 Albumin/Globulin Ratio 1.1 Influenza Typ A,B (EIA) 09/06/18 09/06/18 09/06/18 20:37 20:40 22:06 WBC RBC Hgb Hct MCV MCH MCHC RDW Plt Count MPV Neut % (Auto) Lymph % (Auto) Mobile % (Auto) Eos % (Auto) Baso % (Auto) Neut # (Auto) Lymph # (Auto) Mobile # (Auto) Eos # (Auto) Baso # (Auto) Neutrophils % (Manual) Band Neutrophils % Lymphocytes % (Manual) Monocytes % (Manual) Eosinophils % (Manual) Platelet Estimate D-Dimer, Quantitative Puncture Site Rb Rb pCO2 63 H 64 H pO2 110 H 63 L HCO3 26.8 29.5 H ABG pH 7.29 L 7.33 L ABG Total CO2 32.2 H 35.7 H ABG O2 Saturation 99.1 H 93.9 L ABG Base Excess 2.5 6.1 H ABG Hemoglobin 10.6 L 11.1 L ABG Carboxyhemoglobin 3.1 H 3.4 H POC ABG HHb (Measured) 0.9 5.8 H ABG Methemoglobin 1.6 1.1 Paolo Test Na Na A-a O2 Difference 132.0 107.0 Respiratory Index 1.2 1.7 Hgb O2 Saturation 94.5 L 89.7 L Liter Flow 6.0 Vent Mode Bipap FiO2 45.0 35.0 Inspiratory BiPAP 15 Expiratory BiPAP 6 Sodium Potassium Chloride Carbon Dioxide Anion Gap BUN Creatinine Est GFR ( Amer) Est GFR (Non-Af Amer) Random Glucose Calcium Total Bilirubin AST ALT Alkaline Phosphatase Troponin I NT-Pro-B Natriuret Pep Total Protein Albumin Globulin Albumin/Globulin Ratio Influenza Typ A,B (EIA) Negative for flu a/b
[2018-09-08] MEDS: MethylPREDNISolone 40 mg Vial IVP SCH ×3 (02:21→17:06)
[2018-09-08] MEDS: Enoxaparin 40 mg Syringe SC SCH ×3 (02:21→17:06)
[2018-09-08] MEDS: Albuterol-Ipratrop 3 mg / 0.5 (3 ml) UD INH PRN ×2 (03:05→16:40)
[2018-09-08] MEDS: Budesonide 0.5 mg/2 ml Inhal Susp UD INH SCH ×2 (08:01→19:26)
[2018-09-08] MEDS: Arformoterol 15 mcg/2 ml Inh Sol INH SCH ×2 (10:13→19:26)
--- NOTE | 2018-09-08 10:55 | CP.PCM.PN ---
Subjective - Date & Time of Evaluation Date of Evaluation: 09/08/18 Time of Evaluation: 10:50 - Subjective Subjective: PT ALERT, FEELS BETTER., ON O2 2L NOW. SLEPT ON BIPAP. +THROAT PAIN. Objective - Vital Signs/Intake and Output Vital Signs (last 24 hours): Temp Pulse Resp BP Pulse Ox 98.1 F 74 18 146/67 93 L 09/08/18 07:32 09/08/18 07:32 09/08/18 07:32 09/08/18 07:32 09/08/18 07:32 Intake and Output: 09/08/18 09/08/18 06:59 18:59 Intake Total 600 Balance 600 - Medications Medications: Current Medications Albuterol/Ipratropium (Duoneb 3 Mg/0.5 Mg (3 Ml) Ud) 3 ml INH RQ6 PRN PRN Reason: Shortness of Breath Last Admin: 09/08/18 03:05 Dose: 3 ml Alprazolam (Xanax) 1 mg PO BID [facility] Last Admin: 09/07/18 17:18 Dose: Not Given Arformoterol Tartrate (Brovana) 15 mcg INH RQ12@1000,2200 [facility] Last Admin: 09/08/18 10:13 Dose: 15 mcg Aspirin (Ecotrin) 81 mg PO DAILY [facility] Last Admin: 09/07/18 10:21 Dose: 81 mg Budesonide (Pulmicort Respules) 0.5 mg INH RQ12 [facility] Last Admin: 09/08/18 08:01 Dose: 0.5 mg Clopidogrel Bisulfate (Plavix) 75 mg PO DAILY [facility] Last Admin: 09/07/18 10:21 Dose: 75 mg Enoxaparin Sodium (Lovenox) 40 mg SC Q8H [facility] Last Admin: 09/08/18 02:21 Dose: 40 mg Azithromycin (Zithromax 500mg In Ns Addvantage) 500 mg in 250 mls @ 167 mls/hr IVPB Q24H [facility]; Protocol Last Admin: 09/07/18 11:33 Dose: 167 mls/hr Methadone HCl (Methadose) 80 mg PO DAILY [facility] Last Admin: 09/07/18 10:20 Dose: 80 mg Methadone HCl (Methadone) 5 mg PO DAILY [facility] Last Admin: 09/07/18 10:21 Dose: 5 mg Methylprednisolone (Solu-Medrol) 40 mg IVP Q8H [facility] Last Admin: 09/08/18 02:21 Dose: 40 mg Montelukast Sodium (Singulair) 10 mg PO DAILY [facility] Last Admin: 09/07/18 10:21 Dose: 10 mg Paroxetine HCl (Paxil) 20 mg PO DAILY [facility] Last Admin: 09/07/18 10:21 Dose: 20 mg Tamsulosin HCl (Flomax) 0.4 mg PO DAILY [facility] Last Admin: 09/07/18 15:09 Dose: 0.4 mg - Labs Labs: 09/06/18 20:14 09/06/18 20:14 - Constitutional Appears: Non-toxic, No Acute Distress - Head Exam Head Exam: ATRAUMATIC, NORMOCEPHALIC - Eye Exam Eye Exam: EOMI, Normal appearance - ENT Exam ENT Exam: Mucous Membranes Moist - Neck Exam Neck Exam: Normal Inspection - Respiratory Exam Respiratory Exam: Prolonged Expiratory Phase, Rhonchi, Wheezes - Cardiovascular Exam Cardiovascular Exam: RRR, +S1, +S2 - GI/Abdominal Exam GI & Abdominal Exam: Soft. absent: Tenderness - Rectal Exam Rectal Exam: Deferred - Extremities Exam Extremities Exam: absent: Calf Tenderness, Pedal Edema Additional comments: CHRONIC CHANGES. BILAT. - Back Exam Back Exam: absent: CVA tenderness (L), CVA tenderness (R) - Neurological Exam Neurological Exam: Alert, Awake, CN II-XII Intact, Oriented x3 - Psychiatric Exam Psychiatric exam: Normal Mood - Skin Skin Exam: absent: Rash Assessment and Plan (1) Lung nodule Status: Acute (2) COPD exacerbation Status: Acute (3) Pneumonia Status: Acute (4) Hypercapnic respiratory failure Status: Acute (5) ASHLEY (obstructive sleep apnea) Status: Acute (6) Respiratory failure with hypoxia and hypercapnia Status: Acute (7) CAD (coronary artery disease) Status: Chronic (8) CHF NYHA class II (symptoms with moderately strenuous activities) Status: Chronic (9) HTN (hypertension) Status: Chronic (10) History of drug dependence/abuse Status: Chronic - Assessment and Plan (Free Text) Assessment: RESP STATUS IMPROVING, TAPER FIO2 TOLERATED, ON O2 2L NOW. CONT NEB BD., IV STEROIDS, MONITOR O2 SAT. STILL WITH BRONCHOSPASM. CONT AB. CONT BIPAP QHS. INCREASE OOB. CXR REVIEWED. CONSIDER ENT EVAL. DISCUSSED WITH STAFF AT LENGTH.
[2018-09-08] MEDS: Methadone 40 mg Tab PO SCH (11:00)
[2018-09-08] MEDS: cefTRIAXone IV 1 gm in Dextros 50 ML IVPB SCH (11:01)
[2018-09-08] MEDS: Azithromycin 500mg/250ML NS 500 MG/250 ML BAG IVPB SCH (12:51)
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
[2018-09-09] MEDS: MethylPREDNISolone 40 mg Vial IVP SCH ×3 (01:28→17:47)
[2018-09-09] MEDS: Enoxaparin 40 mg Syringe SC SCH ×3 (01:29→17:47)
[2018-09-09] MEDS: Albuterol-Ipratrop 3 mg / 0.5 (3 ml) UD INH PRN ×2 (01:55→16:13)
[2018-09-09] MEDS: Budesonide 0.5 mg/2 ml Inhal Susp UD INH SCH ×2 (08:04→20:38)
[2018-09-09] MEDS: Methadone 40 mg Tab PO SCH (10:40)
[2018-09-09] MEDS: Azithromycin 500mg/250ML NS 500 MG/250 ML BAG IVPB SCH (11:00)
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
[2018-09-09] MEDS: Arformoterol 15 mcg/2 ml Inh Sol INH SCH (21:17)
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
[2018-09-10] MEDS: Enoxaparin 40 mg Syringe SC SCH ×3 (01:31→17:56)
[2018-09-10] MEDS: MethylPREDNISolone 40 mg Vial IVP SCH ×3 (01:31→17:55)
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
[2018-09-10] MEDS: Arformoterol 15 mcg/2 ml Inh Sol INH SCH ×2 (09:18→20:50)
[2018-09-10] MEDS: Budesonide 0.5 mg/2 ml Inhal Susp UD INH SCH ×2 (09:18→20:50)
[2018-09-10] MEDS: Piperacill/Tazo 3.375gm in Dex 3.375 GM/50 ML BAG IVPB SCH ×3 (10:29→21:31)
[2018-09-10] MEDS: Methadone 40 mg Tab PO SCH (10:31)
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
[2018-09-11] MEDS: Albuterol-Ipratrop 3 mg / 0.5 (3 ml) UD INH SCH ×4 (01:11→20:30)
[2018-09-11] MEDS: MethylPREDNISolone 40 mg Vial IVP SCH ×3 (01:36→17:48)
[2018-09-11] MEDS: Enoxaparin 40 mg Syringe SC SCH ×3 (01:37→17:48)
[2018-09-11] MEDS: Piperacill/Tazo 3.375gm in Dex 3.375 GM/50 ML BAG IVPB SCH ×3 (05:33→21:51)
[2018-09-11 07:34] LABS: BASO % 0.1 % (0.0-2.0); EOS % 0.3 % (0.0-4.0); HEMOGLOBIN 12.2 g/dL (12.0-18.0); LYMPH # 0.5 K/uL (1.0-4.3); LYMPH % 7.1 % (20.0-40.0); MEAN CORPUSCULAR HEMOGLOBIN 30.4 pg (27.0-31.0); MEAN CORPUSCULAR HGB CONC 33.8 g/dL (33.0-37.0); MEAN PLATELET VOLUME 7.3 fL (7.2-11.7); MONO # 0.3 K/uL (0.0-0.8); MONO % 4.3 % (0.0-10.0); NEUT # 6.8 K/uL (1.8-7.0); NEUT % 88.2 % (50.0-75.0); PLATELET COUNT 231 K/uL (130-400); RED CELL DISTRIBUTION WIDTH 14.4 % (11.5-14.5); WHITE BLOOD COUNT 7.7 K/uL (4.8-10.8)
[2018-09-11 07:52] LABS: BLOOD UREA NITROGEN 32 mg/dL (9-20); CALCIUM 8.5 mg/dl (8.6-10.4); GFR NON-AFRICAN AMERICAN > 60
[2018-09-11] MEDS: Budesonide 0.5 mg/2 ml Inhal Susp UD INH SCH ×2 (08:02→20:30)
[2018-09-11 09:04] LABS: BANDS 1 % (0-2); LYMPHOCYTE 7 % (20-40); MONOCYTE 5 % (0-10); NEUTROPHIL 87 % (50-75); PLATELET ESTIMATE NORMAL (NORMAL); TOTAL CELLS COUNTED 100
[2018-09-11 09:05] LABS: ANISOCYTOSIS SLIGHT; HYPOCHROMIC SLIGHT
[2018-09-11] MEDS: Arformoterol 15 mcg/2 ml Inh Sol INH SCH ×2 (09:09→21:41)
[2018-09-11] MEDS: Methadone 40 mg Tab PO SCH (09:50)
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
[2018-09-12] MEDS: Albuterol-Ipratrop 3 mg / 0.5 (3 ml) UD INH SCH ×2 (01:35→09:30)
[2018-09-12] MEDS: Enoxaparin 40 mg Syringe SC SCH ×3 (01:56→18:20)
[2018-09-12] MEDS: MethylPREDNISolone 40 mg Vial IVP SCH ×4 (01:56→20:27)
[2018-09-12] MEDS: Piperacill/Tazo 3.375gm in Dex 3.375 GM/50 ML BAG IVPB SCH ×4 (05:21→21:37)
[2018-09-12] MEDS: Budesonide 0.5 mg/2 ml Inhal Susp UD INH SCH (09:38)
[2018-09-12] MEDS: Arformoterol 15 mcg/2 ml Inh Sol INH SCH (09:39)
[2018-09-12] MEDS ORDERED: Pneumococcal 23-Valent Vaccine IM ONE (10:00)
[2018-09-12] MEDS: Methadone 40 mg Tab PO SCH (10:25)
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
[2018-09-13] MEDS: Albuterol-Ipratrop 3 mg / 0.5 (3 ml) UD INH SCH ×4 (01:13→20:41)
--- NOTE | 2018-09-13 01:15 | OP ---
PROCEDURE DATE: 09/12/2018 SIGNIFICANT FINDINGS: No masses or lesions noted. White discharge noted along the oropharyngeal wall. DESCRIPTION OF PROCEDURE: The patient was placed in a seated position. Flexible laryngoscope was inserted into the nasal cavity, passed through the nasopharynx, oropharynx, hypopharynx. Pharyngeal wall, base of tongue, vallecula, epiglottis, AE folds, false cords, true cords, arytenoids, piriform sinuses were brought into view. No masses or lesions were noted. Some white discharge was noted in the oropharynx. Scope was removed. The patient tolerated the procedure well. The patient just is having possible candidal infection; however, there is no upper airway obstruction. Donnell Gutiérrez MD
[2018-09-13] MEDS: MethylPREDNISolone 40 mg Vial IVP SCH ×2 (02:27→10:39)
[2018-09-13] MEDS: Enoxaparin 40 mg Syringe SC SCH ×3 (02:28→17:24)
[2018-09-13] MEDS: Piperacill/Tazo 3.375gm in Dex 3.375 GM/50 ML BAG IVPB SCH ×3 (05:10→21:34)
[2018-09-13] MEDS: Methadone 40 mg Tab PO SCH (07:35)
[2018-09-13] MEDS: Budesonide 0.5 mg/2 ml Inhal Susp UD INH SCH ×2 (08:48→20:42)
[2018-09-13] MEDS: Arformoterol 15 mcg/2 ml Inh Sol INH SCH ×2 (08:48→22:34)
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
[2018-09-13] MEDS ORDERED: Fluconazole IV 400mg/200ml NS 200 ML IVPB STA (13:27)
[2018-09-13] MEDS ORDERED: Fluconazole IV 200mg/100 ml NS 100 MG in Premixed IV 1 EA IVPB SCH (13:30)
[2018-09-13] MEDS ORDERED: Fluconazole IV 200mg/100 ml NS 100 ML IVPB SCH (14:00)
[2018-09-13] MEDS ORDERED: Pneumococcal 23-Valent Vaccine IM ONE (16:04)
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
[2018-09-14] MEDS: Enoxaparin 40 mg Syringe SC SCH ×2 (01:35→09:13)
[2018-09-14] MEDS: Albuterol-Ipratrop 3 mg / 0.5 (3 ml) UD INH SCH ×3 (02:08→13:39)
[2018-09-14] MEDS: Piperacill/Tazo 3.375gm in Dex 3.375 GM/50 ML BAG IVPB SCH ×2 (06:20→14:02)
[2018-09-14] MEDS: Methadone 40 mg Tab PO SCH (07:01)
[2018-09-14 08:06] VITALS: RESP 18
[2018-09-14] MEDS: Budesonide 0.5 mg/2 ml Inhal Susp UD INH SCH ×2 (08:37→08:38)
[2018-09-14] MEDS: Arformoterol 15 mcg/2 ml Inh Sol INH SCH ×2 (08:37→08:42)
[2018-09-14] MEDS ORDERED: Pneumococcal 23-Valent Vaccine IM ONE (10:00)
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
[2018-09-14 17:25] VITALS: BP 121/71; PULSE 106; TEMP 97.9; O2SAT 95
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
== END 2018-09-14 17:45 | DRG 193 ==
LOC: C.ER 19:32 → C.6T 23:51 → INTOOBSV 23:51 → C.5S 09-07 00:29 → OBSVTOIN 09-09 15:26 → C.ER 09-09 19:32 → C.6T 09-09 23:51
PROVIDERS: ADMIT Internal Medicine Nephrology; ATTEND Internal Medicine Nephrology
PROC: 0CJS8ZZ Inspection of Larynx, Via Natural or Artificial Opening Endoscopic (ICD-10-PCS; principal; 2018-09-12)
DX: J18.1 Lobar pneumonia, unspecified organism (principal); J96.91 Respiratory failure, unspecified with hypoxia; I50.33 Acute on chronic diastolic (congestive) heart failure; J45.901 Unspecified asthma with (acute) exacerbation; F11.20 Opioid dependence, uncomplicated; I11.0 Hypertensive heart disease with heart failure; J43.9 Emphysema, unspecified; F41.0 Panic disorder [episodic paroxysmal anxiety]; E03.9 Hypothyroidism, unspecified; I83.892 Varicose veins of left lower extremity with other complications; J20.9 Acute bronchitis, unspecified; F41.9 Anxiety disorder, unspecified; F32.9 Major depressive disorder, single episode, unspecified; I25.10 Atherosclerotic heart disease of native coronary artery without angina pectoris; Z95.5 Presence of coronary angioplasty implant and graft; F17.210 Nicotine dependence, cigarettes, uncomplicated; Z86.19 Personal history of other infectious and parasitic diseases; G47.33 Obstructive sleep apnea (adult) (pediatric); E66.01 Morbid (severe) obesity due to excess calories; R91.1 Solitary pulmonary nodule; J03.90 Acute tonsillitis, unspecified; T22.222A Burn of second degree of left elbow, initial encounter; X08.8XXA Exposure to other specified smoke, fire and flames, initial encounter; N30.90 Cystitis, unspecified without hematuria; K21.9 Gastro-esophageal reflux disease without esophagitis